=== PATIENT | female | born 1940 | race Caucasian/White ===

== ENCOUNTER → 2018-04-27 15:51 | Outpatient (CLI) | payer MEDICARE, SELFPAY ==
--- NOTE | 2018-04-27 15:53 | BI_ITS ---
MAMMOGRAPHY - BILATERAL SCREENING REASON FOR EXAM: Female, 77 years old. Routine annual screening examination. PERTINENT HISTORY: Non-contributory. Remote right excisional breast biopsy. TECHNIQUE: Digital bilateral breast matthew (3D mammographic acquisition) in the CC and MLO projections. 2-D mediolateral oblique (MLO) and craniocaudad (CC) views of both breasts were obtained. CAD: Full Field Digital Mammography with Computer Added Detection was performed. COMPARISON: Comparison is made with prior examination dated October 26, 2014. FINDINGS: Breast Composition: There are scattered areas of fibroglandular density. There are no dominant masses or suspicious calcifications. Stable bilateral vascular calcification. No other significant abnormalities are identified. There has been no significant change since the prior study. BI/SCREENING MAMM (CAD), BILAT IMPRESSION: Stable bilateral screening mammogram. Yearly follow-up mammogram recommended. (A) ASSESSMENT CATEGORY: BIRADS Category 2: Benign. A letter regarding these results will be sent to the patient by the facility within 30 days. Approximately 10% of breast cancers are not detected by mammography. A normal mammogram should not delay biopsy of a clinically suspicious abnormality. [id number] Electronically Signed: Seth Hahn MD at 8:15 EDT Tel [phone], Service support ,
== END ==
PROVIDERS: Family Provider Nurse Practitioner; PCP Nurse Practitioner; Referring Provider Nurse Practitioner; Visit Provider Nurse Practitioner
DX: Z12.31 Encounter for screening mammogram for malignant neoplasm of breast (principal)
CPT/HCPCS: 77063; 77067

== ENCOUNTER 2018-05-21 10:21 | Emergency (ER) | payer MEDICARE, SELFPAY ==
[2018-05-21 10:22] VITALS: BP 148/79; PULSE 106; RESP 20; TEMP 36.3; O2SAT 97; BMI 33.0
--- NOTE | 2018-05-21 10:38 | CT_ITS ---
STUDY: CT ABDOMEN AND PELVIS WITHOUT CONTRAST REASON FOR EXAM: Female, 77 years old. Nausea/abdominal pain/constipation RADIATION DOSAGE (If Supplied By Facility): CTDIvol = ( 14.94 ) mGy, DLP = ( 1149.17 ) mGycm TECHNIQUE: Transaxial images were obtained from the dome of the diaphragm to the symphysis pubis without oral contrast, and without intravenous contrast. Sagittal and coronal images were reconstructed. Individualized dose optimization techniques were used for this CT. 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 The visualized portions of the heart are within normal limits. Liver is unremarkable aside from a likely 2 cm hemangioma in the dome of the right lobe. There are surgical clips in the gallbladder fossa consistent with a prior cholecystectomy. Normal spleen. Normal pancreas. Normal bilateral adrenal glands. No obstructive uropathy. Stable 7 cm right renal cyst. Both kidneys show extrarenal pelves. Normal visualized stomach. Normal small intestine. Retained stool noted throughout the colon. There are a few scattered diverticula without CT evidence of acute diverticulitis. The appendix is visualized and appears normal. Appendix best seen on coronal recon image 56 Normal abdominal aorta. Normal inferior vena cava. Normal retroperitoneum. Normal urinary bladder. There is absence of the uterus consistent with a prior hysterectomy. Normal abdominal wall. There are diffuse degenerative changes of the visualized lumbar spine, and pelvis. CT/Abdomen/Pelvis W IV Cont ONLY IMPRESSION: No suspicious solid organ abnormality, stable likely hepatic hemangioma and exophytic right renal cyst. Scattered colonic diverticulosis No CT evidence of an acute inflammatory process, normal appendix visualized. Degenerative bony changes Electronically Signed: Simon Mendoza MD at 12:16 EST , Service support ,
[2018-05-21] MEDS: 0.9% Normal Saline 1,000 ML 150 ML IV (10:51)
[2018-05-21 10:57] LABS: Bacteria 0 SEEN /hpf (None Seen); Mucous, Urine 0 SEEN /hpf (<or=2+)
[2018-05-21 11:00] LABS: Absolute Lymphocyte Count 1.12 X10^3/ul (0.83-4.51); Absolute Neutrophil Count 7.4 X10^3/uL (2.0-7.7); Basophil# 0.02 X10^3/uL; Basophil% 0.2 % (0-1); Eosinophil# 0.02 X10^3/uL; Eosinophils% 0.2 % (0-5); Hematocrit 44.6 % (37-47); Lymphocyte # 1.12 X10^3/ul (4.0); Lymphocyte % 12.2 % (19-41); Mean Corp Hgb Conc 33.6 g/gl (32-36); Mean Corpuscular Hgb 27.4 pg (27.0-32.0); Mean Corpuscular Volume 81.5 fL (81-99); Mean Platelet Vol. 10.2 fl (6.2-12.0); Monocyte% 6.5 % (0-10); Neutrophil # 7.39 X10^3/uL (2.7-7.7); Neutrophil % 80.5 % (47-70); Platelet Count 390 K/mm3 (150-450); RBC Distribution Width CV 14.1 % (11.6-14.6); RBC Distribution Width SD 42.3 fl (35.1-43.9); Red Blood Count 5.47 M/mm3 (4.2-5.4); White Blood Count 9.2 K/mm3 (4.4-11.0)
[2018-05-21 11:02] LABS: POSITIVE COUNT NO; POSITIVE DIFFERENTIAL NO; POSITIVE MORPHOLOGY NO
[2018-05-21] MEDS: Ondansetron 4 MG/2 ML Vial IV (11:02)
[2018-05-21 11:08] LABS: Color, Urine Yellow (Yellow); Glucose, Dipstick Normal (Normal); Ketone-Dipstick 15 mg/dl (Negative); Leukocyte Esterase-Dipstick 25 /ul (Negative); Nitrite-Dipstick Negative (Negative); Occult Blood-Urine Negative /ul (Negative); Protein-Dipstick Negative (Negative); Specific Gravity, Urine 1.005 (1.002-1.030); Urine Bilirubin Dipstick Negative (Negative); Urine Clarity Clear (Clear); Urine Urobilinogen Normal (Normal); Urine pH 6.5 (5.0 - 8.0)
[2018-05-21 11:13] LABS: Anion Gap 11 (5-15); BUN 16 mg/dL (7-18); BUN/Creat Ratio 14.3 RATIO (10-20); Calcium,Total 8.7 mg/dL (8.5-10.1); Chloride 99 mmol/L (98-107); Creatinine, Serum 1.12 mg/dL (0.55-1.02); EST Glomerular Filtration Rate 50 mL/min (>60); Est Glom Filt Rate - Afr Amer 60 mL/min (>60); Estimated Creatinine Clearance 31.24 ml/min; Glucose 124 mg/dL (74-106); Potassium 2.9 mmol/L (3.5-5.1); Sodium Level 137 mmol/L (136-145)
[2018-05-21 11:24] LABS: Squamous Epithelial Cells - UA 0-5 SEEN /hpf (5-10); White Blood Cells 0-5 SEEN /hpf (0-5)
[2018-05-21 13:29] VITALS: BP 136/72; PULSE 70; RESP 18; O2SAT 98
--- NOTE | 2018-05-21 14:06 | ED.DCSUM_ITS ---
- ER Visit Summary Date of Service: 05/21/18 Chief Complaint: [Constipation and right-sided back pain] History of Present Illness: The patient is a 77 F [presents the emergency department stating that she has not had a bowel movement in 5 days. Patient also states that about 5 days ago she hurt the right side of her back picking something up in the garage. Patient was seen by nurse practitioner and given an shot of an anti-inflammatory. Patient denies any pain radiating down her leg. She denies any weakness in her extremities. She drove herself to the emergency department today. Patient states that she tried laxatives at home and mineral oil without any resolution of her symptoms. Patient has had nausea and she did have one episode of emesis. She denies any blood in her stool or black tarry stools. She not had any fevers. Patient denies urinary symptoms.] Physical Examination: [HEENT-PERRLA, EOMI. Cranial nerves II through XII grossly intact. TMs clear. Mucous membranes moist. No adenopathy. Cardiovascular-regular rate and rhythm without murmur or ectopy Lungs-clear to auscultation, chest wall stable without crepitus or subcu emphysema Abdomen-normoactive bowel sounds, soft. Patient has some mild tenderness over the right lower quadrant suprapubic region. There is no rebound, rigidity, or perineal signs. Back exam-patient has mild tenderness over right lumbar paraspinal musculature. Patient has no C-spine tenderness or thoracic spine tenderness on palpation. Patient has no tenderness over the lumbar spine. Patient has negative straight leg raises. Deep tendon reflexes are plus 2 out of 4 bilaterally at the patella and Achilles. Patient has normal sensation to light touch. Extremities-intact ?4, normal range of motion, normal pulses, atraumatic] Test Results: [CBC with differential obtained showed a white count of 9.2, hemoglobin 15, hematocrit 45, platelets 390. Chemistries unremarkable other than a slightly depressed potassium of 2.9 for which I did give her 40 mEq of potassium chloride p.o. Urinalysis was normal. CT scan of the abdomen pelvis showed retained stool throughout the colon otherwise nothing acute.] Emergency Department Course and Treatment: [She was given a soapsuds enema and had small results with that.] Treatment Plan: Patient will be dispensed magnesium citrate for home [] Disposition: [Discharged home in stable condition] Impression: [Constipation Lumbar strain] This note was generated with [employer] dictation software. It may contain incorrect words, spelling, and punctuation that were not noted in review of the chart prior to signing ED Disposition - Plan for ED Patient: Chief Complaint: Constipation Referrals: Ligia Irizarry, [facility] [Primary Care Provider] -
--- NOTE | 2018-05-21 14:07 | ED.DEP ---
ED Disposition - Plan for ED Patient: Chief Complaint: Constipation Instructions: ED Constipation, ED Sprain Strain Lumbar Referrals: Ligia Irizarry, JAIME-C [Primary Care Provider] - 3-5 Days
[2018-05-21 14:36] VITALS: BP 136/72; PULSE 70; RESP 18; O2SAT 99
[2018-05-21] MEDS: Magnesium Citrate 300 ML PO (14:36)
== END 2018-05-21 14:37 | disposition home or self-care (01) ==
PROVIDERS: Emergency Provider Emergency Medicine; Family Provider Nurse Practitioner; PCP Nurse Practitioner
DX: K59.00 Constipation, unspecified (principal); S39.012A Strain of muscle, fascia and tendon of lower back, initial encounter; X50.1XXA Overexertion from prolonged static or awkward postures, initial encounter; Y93.9 Activity, unspecified; Y92.015 Private garage of single-family (private) house as the place of occurrence of the external cause; Y99.9 Unspecified external cause status; I10 Essential (primary) hypertension; E03.9 Hypothyroidism, unspecified; K21.9 Gastro-esophageal reflux disease without esophagitis
CPT/HCPCS: 74177; 80048; 81001; 85025; 96361; 96374; 99285; J7030; Q9967; J2405

== ENCOUNTER → 2018-05-25 12:58 | Outpatient (CLI) | payer MEDICARE, SELFPAY ==
[2018-05-21 10:22] VITALS: BMI 33.0
--- NOTE | 2018-05-25 13:03 | RAD_ITS ---
STUDY: X-RAY - LUMBAR SPINE REASON FOR EXAM: Female, 77 years old. Extreme low back pain following lifting injury. TECHNIQUE: 5 view(s) of the lumbar spine were obtained including oblique views. COMPARISON: None FINDINGS: There is an exaggerated lumbar lordosis. There is a mild levoscoliosis of the lumbar spine. There is a normal alignment of the vertebrae. There is multilevel endplate spondylosis of the lumbar vertebrae. There is multi-level degenerative disc disease with multi-level disc space narrowing. Facet joint osteoarthritis. There is atherosclerotic calcification of the abdominal aorta without a demonstrated aneurysm. RAD/L/S Spine Min 4 Views IMPRESSION: Degenerative changes of the spine, as detailed above. Exaggerated lumbar lordosis. Electronically Signed: Seth Hahn MD at 13:38 EST Tel [phone], Service support ,
== END ==
PROVIDERS: Family Provider Nurse Practitioner; PCP Nurse Practitioner; Referring Provider Nurse Practitioner; Visit Provider Nurse Practitioner
DX: S39.012A Strain of muscle, fascia and tendon of lower back, initial encounter (principal)
CPT/HCPCS: 72110

== ENCOUNTER → 2018-06-22 11:17 | Outpatient (CLI) | payer MEDICARE, SELFPAY ==
--- NOTE | 2018-06-22 11:24 | RAD_ITS ---
STUDY: X-RAY - RIGHT HIP REASON FOR EXAM: Female, 78 years old. Pain. TECHNIQUE: 2 views of the hip. COMPARISON: CT abdomen and pelvis 05/21/2018. FINDINGS: Mild DJD of the SI joints. Mild low lumbar spondylosis. Osteopenia. There is no evidence of acute right hip fracture. There are no significant degenerative features of the right hip joint or left hip joint. The pubic rami appear intact. Iliac crests intact. Sacral alar appear symmetric and intact. No acute intrapelvic process is evident. RAD/HIP, UNI W/ Pelvis 2-3 Views IMPRESSION: There are no significant degenerative features of the hip joints and there is no evidence of acute right hip fracture. Electronically Signed: Inocente Stevens MD at 13:57 EST Tel , Service support ,
--- OUTSIDE RECORDS SUMMARY | 2018-09-23 20:11 | XMS RPT_ITS | Continuity of Care Document ---
:1940 Author Organization [facility] Address [address] [facility] [address] [place] [address] Phone Care Team Providers Name Role Phone Juan C AMBRIZLigia E Unavailable Dr. Brennon Das Unavailable Vanessa Gomez Unavailable Unavailable Slacecilio BIOINFORMATICS ENGINEER, Tonia Unavailable Unavailable Unavailable Unavailable Problems Name Dates Details Abnormal blood chemistry (R79.9, 790.6) Status: Active Abortions/Miscarriages Comments: 2. 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) Comments: not sure this really was amnestic or she just didnt see lights- highly doubt was a spell more likely lack of attention- she getting blood flow screening Status: Active Annual Medicare Phyiscal WITHOUT abnormal findings (Renamed from Encounter for general adult medical examination without abnormal findings) (Z00.00, V70.9) Status: Active BMI 32.0-32.9,adult (Z68.32, V85.32) Status: Active BMI 32.0-32.9,adult (Z68.32, V85.32) Status: Active BMI 33.0-33.9,adult (Z68.33, V85.33) Status: Active Bradycardia (R00.1, 427.89) Status: Active CKD (chronic kidney disease), stage III (N18.3, 585.3) Comments: imvproving Status: Active Colon Polyp (K63.5, 211.3) Comments: recheck 4 years Status: Active Current nonsmoker (Z78.9, V49.89) Status: Active Deliveries (Parity) Comments: 8. Status: Active Dysuria (R30.0, 788.1) Status: Active Elevated liver enzymes (R74.8, 790.5) Comments: recheck next wek Status: Active Elevated serum creatinine (R79.89, 790.99) Comments: better if she drinks fluids/ d/.c spironolactone Status: Active Encounter for screening for lipid disorder (Z13.220, V77.91) Status: Active Encounter for screening mammogram for breast cancer (Renamed from Encounter for screening mammogram for malignant neoplasm of breast) (Z12.31, V76.12) Status: Active Excess or deficiency of vitamin D (268.9) Status: Active Gastritis, acute (K29.00, 535.00) Comments: she has seen Marcos and he apparently put her on something that helped so encourage her to followup with him Status: Active Gastroesophageal reflux disease with esophagitis (K21.0, 530.11) Comments: has bee on rebeprazole(aciphex) 20mg this may change per [employer] Status: Active Hypercholesteremia (E78.00, 272.0) Status: Active Hyperkalemia (Renamed from High potassium) (E87.5, 276.7) Status: Active Hypertension (I10, 401.9) Status: Active Hypertension, benign (I10, 401.1) Status: Active Hypocalcemia (E83.51, 275.41) Status: Active Hypokalemia (E87.6, 276.8) Comments: was on potassium in past, will recheck add potassium choloride not citrate, was not taking when labs drawn, will repeat in [place] Status: Active Impaired Fasting Glucose (Renamed from Elevated fasting blood sugar) (R73.01, 790.21) Status: Active Influenza vaccination declined (Renamed from Refused influenza vaccine) (Z28.21, V64.06) Status: Active Influenza vaccination declined (Renamed from Refused influenza vaccine) (Z28.21, V64.06) Status: Active Left flank pain (R10.9, 789.09) Status: Active Leg cramps (R25.2, 729.82) Comments: and hands using selenium 200mcg Status: Active Low back strain (S39.012A, 847.2) Comments: from lifting bucket, use ice rest, and muscle relaxant Status: Active Osteoporosis (Renamed from OP (osteoporosis)) (M81.0, 733.00) Comments: on prolia q 6 months Status: Active Pneumococcal vaccination given (Z23, V06.6) Status: Active Post-menopausal (Z78.0, V49.81) Status: Active Postmenopausal (Renamed from Postmenopausal status) (Z78.0, V49.81) Status: Active Pregnancies () Comments: 7. Status: Active Screening mammogram, encounter for (Z12.31, V76.12) Status: Active Shoulder pain, bilateral (M25.511, 719.41) Status: Active Sore throat (J02.9, 462) Comments: ? reflux will change to omeprazole and add a probiotic called gastrus Status: Active Thoracic back pain (M54.6, 724.1) Status: Active Thoracic compression fracture (S22.000A, 805.2) Comments: she wants to hold on seeing ortho for possible vertebroplasty until gets gi checked Status: Active Unspecified Diagnosis Status: Active Unspecified Diagnosis Status: Active Urinary tract infection, site not specified (Renamed from UTI (urinary tract infection)) (N39.0, 599.0) Status: Active Vitamin B 12 deficiency (E53.8, 266.2) Comments: on 2-SL a week Status: Active Vitamin D deficiency (E55.9, 268.9) Comments: cont 2K dailyi Status: Active Wheeze (R06.2, 786.07) Status: Active Medications Name Dates Details AmLODIPine Besylate 5 MG Oral Tablet 1/2 Tablet daily for 0 days Quantity: 90 {Tablet} Refills: 3 Ordered:22-Mar-2018 Ligia Irizarry CNP, CNP, Mary E Start : 22-Mar-2018 Active AmLODIPine Besylate 5 MG Oral Tablet 1/2 Tablet daily for 30 days Quantity: 45 {Tablet} Refills: 3 Ordered:22-Mar-2018 Ligia Irizarry CNP, CNP, Mary E Start : 22-Mar-2018 Active Calcium 200 MG Oral Tablet 1 (one) daily for 0 days Refills: 0 Ordered:07-Apr-2016 Ciesa LINING MACHINE TENDER, Ligia Yo CNP Start : 07-Apr-2016 Active Cyanocobalamin 2500 MCG Sublingual Tablet Sublingual 1 (one) Microgram 3 times weekly for 0 days Quantity: 30 {Milligram} Refills: 0 Ordered:07-Aug-2017 Juan C AMBRIZ, Ligia Yo CNP Start : 07-Aug-2017 Active Cyclobenzaprine HCl 10 MG Oral Tablet 1 (one) Tablet q 8hrs prn for 0 days Quantity: 30 {Tablet} Refills: 0 Ordered:19-May-2018 Juan C AMBRIZ, Ligia Yo CNP Start : 19-May-2018 Active HYDROCODONE-ACETAMINOPHEN, 5-325MG (Oral Tablet) 1-2 tabs daily, prn (5-325 MG) Active Levothyroxine Sodium 100 MCG Oral Tablet 1 (one) Tablet 1 daily excet and Thursday take 1/2 or 50mc for 0 days Quantity: 80 {Tablet} Refills: 3 Ordered:16-Apr-2018 Juan C AMBRIZ, Ligia Yo CNP Start : 16-Apr-2018 Active Losartan Potassium-HCTZ 100-25 MG Oral Tablet 1 (one) Tablet qd for 90 days Quantity: 90 {Tablet} Refills: 3 Ordered:16-Apr-2018 Juan C AMBRIZ, Ligia Yo CNP Start : 16-Apr-2018 Active MAGNESIUM, 200MG (Oral Tablet) 1 (one) Tablet Tablet bid for 30 days Quantity: 60 {Tablet} Refills: 0 Ordered:08-Nov-2014 Saige López DO Start : 25-Oct-2014 Active Omeprazole 20 MG Oral Capsule Delayed Release 1 (one) Capsule bid for 90 days Quantity: 90 {Capsule} Refills: 3 Ordered:20-Apr-2018 Juan C AMBRIZ, Ligia Yo CNP Start : 20-Apr-2018 Active Comments:per Marcos to take 1/2 before breakfast and dinner Potassium Chloride ER 10 MEQ Oral Tablet Extended Release 1 (one) Tablet daily for 90 days Quantity: 90 {Tablet} Refills: 3 Ordered:29-Oct-2017 Winnie Castro DO Start : 29-Oct-2017 Active RABEprazole Sodium 20 MG Oral Tablet Delayed Release 1 (one) Tablet bid x 4 weeks then daily for 0 days Quantity: 60 {Tablet} Refills: 1 Ordered:10-Jul-2017 Juan C AMBRIZ, Ligia Franklin CNP, Ligia Coates Start : 10-Jul-2017 Active RaNITidine HCl 150 MG Oral Tablet 1 (one) Tablet Tablet qhs prn for worsening reflux for 0 days Quantity: 30 {Tablet} Refills: 1 Ordered:10-Jul-2017 Tonia Shaikh LPN Start : 10-Jul-2017 Active Vitamin D3 1000 UNIT Oral Tablet 1 (one) Capsule Tablet daily for 30 days Quantity: 30 {Tablet} Refills: 0 Ordered:07-Apr-2016 Juan C AMBRIZ, Ligia Franklin CNP, Ligia Coates Start : 07-Apr-2016 Active AUGMENTIN, 875-125MG (Oral Tablet) 1 (one) Tablet bid for 14 days Quantity: 28 {Tablet} Refills: 0 Ordered:20-Nov-2015 Juan C AMBRIZ, Ligia Franklin CNP, Ligia Coates Start : 20-Nov-2015 End : 04-Dec-2015 Inactive Cipro 500 MG Oral Tablet 1 (one) Tablet bid for 7 days Quantity: 14 {Tablet} Refills: 0 Ordered:08-Aug-2016 Juan C AMBRIZ, Ligia Franklin CNP, Ligia Coates Start : 08-Aug-2016 End : 15-Aug-2016 Inactive Mucinex 600 MG Oral Tablet Extended Release 12 Hour 1 (one) Tablet bid for 0 days Quantity: 30 {Tablet} Refills: 0 Ordered:07-Aug-2017 Tonia Shaikh LPN Start : 10-Jul-2017 End : 07-Aug-2017 Inactive Potassium Citrate ER 10 MEQ (1080 MG) Oral Tablet Extended Release 1 (one) Tablet ER Tablet ER daily for 0 days Quantity: 30 {Tablet} Refills: 3 Ordered:27-May-2017 Juan C AMBRIZ Ligia Franklin CNP, Ligia Coates Start : 17-Nov-2016 End : 27-May-2017 Inactive Prolia 60 MG/ML Subcutaneous Solution 1 injection Solution q 6 months for 0 days Quantity: 1 {Pre-filled_Pen_Syringe} Refills: 1 Ordered:23-Feb-2017 Tonia Shaikh LPN Start : 25-Dec-2015 End : 23-Feb-2017 Inactive RABEprazole Sodium 20 MG Oral Tablet Delayed Release 1 (one) Tablet DR daily for 30 days Quantity: 30 {Tablet} Refills: 0 Ordered:27-May-2017 Juan C AMBRIZ, Ligia Franklin CNP, Ligia Coates Start : 27-May-2017 End : 26-Jun-2017 Inactive RABEprazole Sodium 20 MG Oral Tablet Delayed Release 1 (one) Tablet DR daily for 0 days Quantity: 90 {Tablet} Refills: 3 Ordered:27-May-2017 Juan C AMBRIZ, Ligia Franklin CNP, Ligia Coates Start : 27-May-2017 End : 26-Jun-2017 Inactive Selenium 100 MCG Oral Tablet 1 (one) Tablet daily for 30 days Quantity: 30 {Tablet} Refills: 0 Ordered:27-May-2016 Juan C AMBRIZ, Ligia Franklin CNP, Ligia Coates Start : 27-May-2016 End : 26-Jun-2016 Inactive Aciphex 20 MG Oral Tablet Delayed Release 1 (one) Tablet DR Tablet DR qd for 0 days Quantity: 30 {Tablet} Refills: 3 Ordered:27-May-2016 Tonia Shaikh LPN Start : 06-Feb-2016 End : 27-May-2016 Discontinued AMLODIPINE BESYLATE, 5MG (Oral Tablet) 1 (one) Tablet qd for 0 days Quantity: 30 {Tablet} Refills: 2 Ordered:20-Oct-2014 Rene DOSaige Start : 20-Oct-2014 End : 20-Oct-2014 Discontinued Atenolol 25 MG Oral Tablet 1/2 (one half) Tablet daily for 0 days Quantity: 30 {QS} Refills: 3 Ordered:26-Aug-2016 Ligia Irizarry CNP, CNP, Ligia Coates Start : 18-Aug-2016 End : 26-Aug-2016 Discontinued FLUCONAZOLE, 150MG (Oral Tablet) 1 (one) Tablet Tablet qd for 0 days Quantity: 14 {Tablet} Refills: 1 Ordered:20-Nov-2015 Tonia Shaikh LPN Start : 17-Aug-2015 End : 20-Nov-2015 Discontinued GABAPENTIN, 300MG (Oral Capsule) 1 (one) Capsule tid for 90 days Quantity: 270 {Capsule} Refills: 3 Ordered:20-Nov-2015 Neil Shaikh LPNa Start : 08-Nov-2014 End : 20-Nov-2015 Discontinued Lasix 20 MG Oral Tablet 1 (one) Tablet daily x 3 days for 0 days Quantity: 3 {QS} Refills: 0 Ordered:18-Aug-2016 Tonia Shaikh LPN Start : 08-Aug-2016 End : 18-Aug-2016 Discontinued MACROBID, 100MG (Oral Capsule) 1 (one) Capsule Capsule bid for 0 days Quantity: 20 {Capsule} Refills: 0 Ordered:20-Nov-2015 Tonia Shaikh LPN Start : 08-Nov-2015 End : 20-Nov-2015 Discontinued Nystatin 349786 UNIT/GM External Powder 1 (one) Powder Powder apply bid for 0 days Quantity: 1 {Bottle} Refills: 3 Ordered:27-May-2016 Tonia Shaikh LPN Start : 17-Aug-2015 End : 27-May-2016 Discontinued Comments:large Pantoprazole Sodium 40 MG Oral Tablet Delayed Release 1 (one) Tablet DR q am for 90 days Quantity: 90 {Tablet} Refills: 3 Ordered:27-May-2016 Tonia Shaikh LPN Start : 16-May-2015 End : 27-May-2016 Discontinued SPIRONOLACTONE, 25MG (Oral Tablet) 1 (one) Tablet daily for 90 days Quantity: 90 {Tablet} Refills: 3 Ordered:16-Nov-2015 Saige López DO Start : 16-Nov-2015 End : 16-Nov-2015 Discontinued Vitamin D3 72262 UNIT Oral Capsule 1 (one) Capsule Capsule daily for 0 days Quantity: 30 {Capsule} Refills: 0 Ordered:27-May-2016 Tonia Shaikh LPN Start : 06-Feb-2016 End : 27-May-2016 Discontinued Allergies and Adverse Reactions Name Dates Details No Known Allergies (Allergy) Onset: 16-May-2015 Status: Active No Known Drug Allergies (Allergy) Onset: 20-Oct-2014 Status: Active Past Medical History Name Dates Details Acute pain of right knee (M25.561, 719.46) Status: Inactive as of 22-Mar-2018 Back pain (M54.9, 724.5) Comments: seeing Basali recieved 8 sets of shots without relief, has compression fractures. Status: Inactive as of 23-Feb-2017 BMI 32.0-32.9,adult (Z68.32, V85.32) Status: Inactive as of 23-Feb-2017 BMI 33.0-33.9,adult (Z68.33, V85.33) Comments: 33.46 Status: Inactive as of 23-Feb-2017 Candidiasis (B37.9, 112.9) Comments: keep clean and dry Status: Inactive as of 23-Feb-2017 Left leg swelling (M79.89, 729.81) Status: Inactive as of 23-Feb-2017 Lower leg edema (R60.0, 782.3) Comments: ? from amlodipine vs other Status: Inactive as of 23-Feb-2017 screening Status: Inactive as of 10-Jan-2015 Seborrheic keratoses (L82.1, 702.19) Comments: reassurance Status: Inactive as of 23-Feb-2017 Sinus congestion (R09.81, 478.19) Status: Inactive as of 07-Aug-2017 Sinus headache (R51, 784.0) Status: Inactive as of 23-Feb-2017 Sinusitis (J32.9, 473.9) Status: Inactive as of 23-Feb-2017 Unspecified Diagnosis Status: Inactive as of 10-Jan-2015 UTI symptoms (R39.9, 788.99) Status: Inactive as of 23-Feb-2017 Vertebral fracture (805.8) Status: Inactive as of 23-Feb-2017 Procedures Procedure Dates Details Breast Biopsy - Right Completed Comments: - 2005- Dr Lee Cataract Extraction-Bilateral Completed Comments: 2012 Gallbladder Surgery - Open Completed Hysterectomy; Total Completed Comments: 1992- fibroid tumors Thyroidectomy; Subtotal Completed Comments: cold nodule- bx - cancer- radioactive iodine- 1991- complete thyroidectomy- Tubal Ligation Completed Date Value Details 27-Apr-2018 SCREENING MAMM (CAD), BILAT Result: Comments: See Note; NOTES: [facility] Imaging Services [address] [place] [id number] SCREENING MAMM (CAD), BILAT MR#: [id number] Acct: [id number] Name: BARBIE PURVIS Rep #: [id number] : 1940 F 77 From: Seth Hahn MD PCP: Ligia Irizarry NP Status: REG CLI Study: SCREENING MAMM (CAD), BILAT Date of Exam: 04/27/18 Exam# [id number] Ordering Dr: Ligia Irizarry NP-Josh MA MMOGRAPHY - BILATERAL SCREENING REASON FOR EXAM: Female, 77 years old. Routine annual screening examination. PERTINENT HISTORY: Non-contributory. Remote right excisional breast biopsy. TECHNIQUE: Dig ital bilateral breast matthew (3D mammographic acquisition) in the CC and MLO projections. 2-D mediolateral oblique (MLO) and craniocaudad (CC) views of both breasts were obtained. CAD: Full Field Digital Mammography with Computer Added Detection was performed. COMPARISON: Comparison is made with prior examination dated October 26, 2014. FINDINGS: Breast Composition: T here are scattered areas of fibroglandular density. There are no dominant masses or suspicious calcifications. Stable bilateral vascular calcification. No other significant abnormalities are identifie d. There has been no significant change since the prior study. BI/SCREENING MAMM (CAD), BILAT IMPRESSION: Stable bilateral screening mammogram. Y early follow-up mammogram recommended. (A) ASSESSMENT CATEGORY: BIRADS Category 2: Benign. A letter regarding these results will be sent to the patient by the [facility] it[facility] within 30 days. Approximately 10% of breast cancers are not detected by mammography. A normal mammogram should not delay biopsy of a clinically suspicious abnormality. [id number] Electronically Adriana d: Seth Hahn MD at 8:15 EDT Tel [phone], Service support , CC: Ligia Irizarry NP Children'S Attendant: Signed 05-Mar-2017 DXA BONE DENS W/VERT FX ASMT Result: Comments: See Note; NOTES: [facility] Services [address] [place] [address] DXA BONE DENS W/VERT FX ASMT MR#: [id number] Acct: [id number] Name: BARBIE PURVIS Rep #: [id number] : 1940 F 76 From: Seth Hahn MD PCP: Ligia Irizarry Status: REG CLI Study: DXA BONE DENS W/VERT FX ASMT Date of Exam: 03/05/17 Exam# [id number] Ordering Dr: Ligia Irizarry STUDY: DUAL ENERGY X-RAY ABSORPTIOMETRY / DXA REASON FOR EXAM: Female, 76 years old. The patient is postmenopausal. Loss of height. TECHNIQUE: Bone Mineral Density (BMD) measurements of lumbar spine and bila teral hips were obtained. COMPARISON: Comparison is made with prior study dated January 21, 2011. FINDINGS: Lumbar Spine (L1-L4): g/cm2 (0.904) / T-score (-2.3) / Z-s core (-0.5) Findings are suggestive of osteopenia with a moderate fracture risk. Left Femur Total: g/cm2 (0.687) / T-score (-2.5) / Z-score (-0.7) Left Femoral Neck: g/cm2 (0.665) / T-score (-2.7) / Z- score (-0.6) Right Femur Total: g/cm2 (0.664) / T-score (-2.7) / Z-score (-0.9) Right Femoral Neck: g/cm2 (0.725) / T-score (-2.3) / Z-score (-0.2) The T- Scores on the most recent prior examination wer e: Lumbar Spine (L1-L4): There has been worsening of bone density since the previous examination. Left Femur Total: which represents an improvement of 1.2%. Right Femur Total: which represents a worse aroldo of 0.3%. HPBD/DXA BONE DENS W/VERT FX ASMT IMPRESSION: The patient is considered osteoporotic as outlined below according to World Gibson Org anization (WHO) criteria with a high fracture risk. There has been worsening of bone density since the previous examination. Reference Information: The T-score is t he number of standard deviations above or below the standard which is normal for young adults at their peak bone mineral density. The World Health Organization (WHO) interprets the T-scores as follows: Above -1 Normal bone density Between -1 and -2.5 Osteopenia Equal to / or below -2.5 Osteoporosis As a practical clinical guideline, osteopenia may be graded as follows: Mild -1 through -1.5 Moderate -1.6 through -2.0 Severe -2.1 through -2.4 The Z-score is the number of standard deviations above or below age-matched controls. A Z-score of less than -1.5 would be considered abnormal. References: 1 . NIH Osteoporosis and Related Bone Diseases http://www.osteo.org 2. International Society for Clinical Densitometry http://www.iscd.org 3. National Osteoporosis Foundation http://www.nof.org Ana damon Signed: Seth Hahn MD at 13:14 EDT Tel [phone], Service support , CC: Ligia Irizarry Children'S Attendant: Signed 05-Mar-2017 DXA BONE DENS W/VERT FX ASMT Result: Comments: See Note; NOTES: [facility] Imaging Services [address] [place] [address] DXA BONE DENS W/VERT FX ASMT MR#: [id number] Acct: [id number] Name: BARBIE PURVIS Rep #: [id number] : 1940 F 76 From: Seth Hahn MD PCP: Ligia Irizarry Status: REG CLI Study: DXA BONE DENS W/VERT FX ASMT Date of Exam: 03/05/17 Exam# [id number] Ordering Dr: Ligia Irizarry by Seth Hahn MD on 03/10/17 at 1321 HPBD/DXA BONE DENS W/VERT FX ASMT 03/10/17 1328 Date cc: Ligia Irizarry * Signed ADDENDUM by Seth Hahn MD on 11/19 at 1321 ADDENDUM Vertebral fracture assessment. There is almost complete collapse of the T7 v ertebrae. Moderate loss of height of the T6 vertebrae. Electronically Signed: Seth Hahn MD at 13:21 EDT Tel [phone], Service support , 03/10/17 1321 Date cc: Ligia Irizarry * Signed STUDY: DUAL ENERGY X-RAY ABSORPTIOMETRY / DXA REASON FOR EXAM: Female, 76 years old. The patient is postmenopausal. Loss of height. TECHNIQUE: Bone M ineral Density (BMD) measurements of lumbar spine and bilateral hips were obtained. COMPARISON: Comparison is made with prior study dated January 21, 2011. FINDINGS: Lumbar Spine (L1-L4): g/cm2 (0.904) / T-score (-2.3) / Z-score (-0.5) Findings are suggestive of osteopenia with a moderate fracture risk. Left Femur Total: g/cm2 (0.687) / T-score (-2.5) / Z-score (-0 .7) Left Femoral Neck: g/cm2 (0.665) / T-score (-2.7) / Z-score (-0.6) Right Femur Total: g/cm2 (0.664) / T-score (-2.7) / Z-score (-0.9) Right Femoral Neck: g/cm2 (0.725) / T-score (-2.3) / Z-score (-0 .2) The T-Scores on the most recent prior examination were: Lumbar Spine (L1- L4): There has been worsening of bone density since the previous examination. Left Femur Total: which represents an improv ement of 1.2%. Right Femur Total: which represents a worsening of 0.3%. HPBD/DXA BONE DENS W/VERT FX ASMT IMPRESSION: The patient is considered o steoporotic as outlined below according to World Gibson Organization (WHO) criteria with a high fracture risk. There has been worsening of bone density since the previous examination. Reference Information: The T-score is the number of standard deviations above or below the standard which is normal for young adults at their peak bone mineral density. The World Heal th Organization (WHO) interprets the T-scores as follows: Above -1 Normal bone density Between -1 and -2.5 Osteopenia Equal to / or below -2.5 Osteoporosis As a practical clinical guideline, osteopeni a may be graded as follows: Mild -1 through -1.5 Moderate -1.6 through -2.0 Severe -2.1 through -2.4 The Z-score is the number of standard deviations above or below age-matched controls. A Z-score of l ess than -1.5 would be considered abnormal. References: 1. NIH Osteoporosis and Related Bone Diseases http://www.osteo.org 2. International Society for Clinical Densitometry http://www.iscd.org 3. Zaida onal Osteoporosis Foundation http://www.nof.org Electronically Signed: Seth Hahn MD at 13:14 EDT Tel [phone], Service support , CC: Ligia Irizarry Children'S Attendant: Signed 27-Aug-2016 Venous Duplex Lower Extremity Result: Comments: See Note; NOTES: [facility] Cardiovascular Services [address] [place] [address] Venous Duplex US, Unilateral 08/26/16 1106 MR#: [id number] Acct: [id number] Name: BARBIE RUSSELL Rep #: [id number] : 1940 76 From: Carlos Abebe MD Attending Dr: Ligia Irizarry Status: REG CLI Ordering Dr: Ligia Irizarry Date: 08/26/16 Location: [facility] Sex: F C Admitted: Reason Fo r Study: LEG SWELLING RIGHT LEFT CFV is compressible, spontaneous, phasic, GSV is normal. competent and demonstrates normal CFV is compressible, spontaneous, phasic , augmentation. competent, and demon strates normal Procedure augmentation. Exam performed in department. FV is compressible, spontaneous, phasic, A preliminary report was called and/or faxed competent and demonstrates normal to Darling Irizarry. augmentation. POP V is compressible, spontaneous, phasic, competent and demonstrates normal augmentation. T/P Trunk is compressible. PTV is compressible. LT PerV is compressible. Interpretation Summary Deep veins of the left lower extremity are patent and compressible segmentally. There is no evidence of left lower extremity deep vein thrombosis. Valvular competence appears intact within the proximal deep venous system on the left . The left greater saphenous vein appears patent and compressible segmentally. __ Ordering Physician: Ligia Irizarry Performed By: Sammie Posey RVT 08/27/16 0659 Date Carlos Abebe MD CC: Ligia Irizarry Date Dictated: 08/26/16 1106 Date Transcribed: 08/27/16 0659 Children'S Attendant: Signed 08-Aug-2016 Shoulder min 2 Views Result: Comments: See Note; NOTES: [facility] Imaging Services [address] [place] [address] Verdana 4d Shoulder min 2 Views MR#: [id number] Acct: [id number] Name: BARBIE PURVIS Rep #: [id number] : 1940 F 76 From: Seth Hahn MD PCP: Ligia Irizarry Status: REG CLI Study: Shoulder min 2 Views Date of Exam: 08/08/16 Exam# [id number] Ordering Dr: Ligia Irizarry STUDY: X-RAY - RIGHT SHOULDER REASON FOR EXAM: Female, 76 years old. Chronic pain. TECHNIQUE: 4 view(s) of the shoulder. COMPARISON: None. FINDINGS: Normal glenohumeral artic ulation. There is degenerative arthrosis of the acromioclavicular joint without inferior osseous spur formation. Normal acromion. Normal humeral head and visualized proximal humerus. The soft tissue s tructures are unremarkable. Normal visualized pulmonary apex. RAD/Shoulder min 2 Views IMPRESSION: Degenerative changes of the acromioclavicular joint. Electronically Signed: Seth Hahn MD at 15:02 EST Tel [phone], Service support [phone], CC: Ligia Irizarry Children'S Attendant: Signed 08-Aug-2016 Shoulder min 2 Views Result: Comments: See Note; NOTES: [facility] Imaging Services [address] [place] [address] Verdana 4d Shoulder min 2 Views MR#: [id number] Acct: [id number] Name: BARBIE PURVIS Rep #: [id number] : 1940 F 76 From: Seth Hahn MD PCP: Ligia Irizarry Status: REG CLI Study: Shoulder min 2 Views Date of Exam: 08/08/16 Exam# [id number] Ordering Dr: Ligia Irizarry STUDY: X-RAY - LEFT SHOULDER REASON FOR EXAM: Female, 76 years old. Chronic shoulder pain. TECHNIQUE: 4 view(s) of the shoulder. COMPARISON: None. FINDINGS: Normal glenohumer al articulation. There is degenerative arthrosis of the acromioclavicular joint without inferior osseous spur formation. Normal acromion. Normal humeral head and visualized proximal humerus. The soft tissue structures are unremarkable. Normal visualized pulmonary apex. RAD/Shoulder min 2 Views IMPRESSION: Degenerative changes of the acromiocl avicular joint. Electronically Signed: Seth Hahn MD at 15:03 EST Tel [phone], Service support [phone], CC: Ligia Irizarry Children'S Attendant: Signed 11-Feb-2016 Thoracic Spine 3 Views Result: Comments: See Note; NOTES: [facility] [address] [place] [address] Verda 4d Thoracic Spine 3 Views MR#: [id number] Acct: [id number] Name: BARBIE PURVIS ep #: [id number] : 1940 F 75 From: Junior King MD PCP: Ligia Irizarry Status: REG CLI Study: Thoracic Spine 3 Views Date of Exam: 02/11/16 Exam# [id number] Ordering Dr: Aileen Plata MD STUDY : X-RAY - THORACIC SPINE REASON FOR EXAM: Female, 75 years old. Multiple compression fractures TECHNIQUE: 3 view(s) of the thoracic spine were obtained. COMPARISON: Prior x-rays of the thoracic spine on 03-31-14. FINDINGS: There is an increase in the normal thoracic kyphosis. There is no substantial scoliosis. There are multiple compression fractures at T3, T4, T6 and T7, more prominent at T7. There is diffuse osteopenia. Normal disc space heights. The soft tissue structures are unremarkable. RAD/Thora cic Spine 3 Views IMPRESSION: Compression fracture deformities at T3, T4, T6 and T7, stable since last examination. Osteopenia. Increased thoracic kyphosis Electronically Signed: Junior King MD , FACR at 16:57 EDT , Service support [phone], CC: Ligia Irizarry; Aileen Plata MD Children'S Attendant: Signed 19-Sep-2015 Abdomen/Pelvis without Cont Result: Comments: See Note; NOTES: [facility] [address] [place] [address] Verdana 4d Abdomen/Pelvis without Cont MR#: [id number] Acct: [id number] Name: BARBIE PURVIS Rep #: [id number] : 1940 F 75 From: Kenney Lima MD PCP: Saige López DO Status: REG CLI Study: Abdomen/Pelvis without Cont Date of Exam: 09/19/15 Exam# [id number] Ordering Dr : Saige López DO STUDY: CT ABDOMEN AND PELVIS WITHOUT CONTRAST REASON FOR EXAM: Female, 75 years old. Abdominal pain left-sided RADIATION DOSAGE (If Supplied By Facility): CTDIvol = ( 16.36 ) mGy , DLP = ( 808.85 ) mGycm TECHNIQUE: Transaxial images were obtained from the dome of the diaphragm to the symphysis pubis without oral contrast, and without intravenous contrast. Sagittal and coron al images were reconstructed. COMPARISON: CT - Abdomen/Pelvis - 12:48 FINDINGS: There is diffuse parenchymal thinning of both lungs. This finding is consistent for emphysema. The visualized portions of the heart are within normal limits. Stable hypodensity in the liver. There are surgical clips in the gallbladder fossa consistent with a prior c holecystectomy. Normal spleen. Normal pancreas. Normal bilateral adrenal glands. Stable exophytic hypodensity in the mid right kidney. Normal left kidney. Normal visualized stomach. Normal small intestine. There are multiple colonic diverticula consistent with diverticulosis. The appendix is visualized and appears normal. There are calcifications of the abdominal aorta and vascular structur es. This is consistent for atherosclerotic disease. There is no abdominal aortic aneurysm. Normal inferior vena cava. Subcentimeter mesenteric lymph nodes. Normal urinary bladder. There is absence of the uterus consistent with a prior hysterectomy. Normal abdominal wall. There are degenerative changes of the osseous structures. IMPRESSION: Stable hypode nsity in the liver. There are multiple diverticuli of the colon. There is diverticulosis but no radiographic signs for diverticulitis. Other findings as above. Electronically Signed: Kenney guajardo MD at 17:54 EDT , Service support [phone], CC: Saige López DO Children'S Attendant: Signed 17-Aug-2015 Knee 4 or More Views Result: Comments: See Note; NOTES: [facility] [address] [place] [address] Verdana 4d Knee 4 or More Views MR#: [id number] Acct: [id number] Name: Ema PURVISMASOUD Geronimo Rep #: [id number] : 1940 F 75 From: Junior King MD PCP: Saige López DO Status: REG CLI Study: Knee 4 or More Views Date of Exam: 08/17/15 Exam# [id number] Ordering Dr: Saige López DO STUDY: X-RAY - RIGHT KNEE REASON FOR EXAM: Female, 75 years old. Acute knee pain. No trauma TECHNIQUE: 4 view(s) of the knee. COMPARISON: None. FINDI NGS: Normal visualized distal femur. Normal visualized proximal tibia and fibula. Normal proximal tibiofibular articulation. There is moderate degenerative arthrosis of the medial femorotibial comp artment with moderate joint space narrowing. Normal lateral femorotibial compartment. Normal patellofemoral articulation. The soft tissue structures are unremarkable. ____ IMPRESSION: Moderate arthrosis of the medial compartment Electronically Signed: Junior King MD, FACR at 10:52 EST , Service support [phone], Fax RAD/Knee 4 or More Views IMPRESSION: Moderate arthrosis of the medial compartment Electronically Signed: Junior King MD, FACR at 10:52 EST Tel , Service support [phone], CC: Saige López DO Children'S Attendant: Signed 02-Apr-2015 Cerv Spine 2 or 3 Views Result: Comments: See Note; NOTES: [facility] [address] [place] [address] Radiology Report MR#: [id number] Acct: [id number] Name: BARBIE PURVIS Rep #: [id number] : 1940 F 74 From: Galo Smart MD PCP: Saige López DO Status: REG CLI Study: Cerv Spine 2 or 3 Views Date of Exam: 04/02/15 Exam# [id number] Ordering Dr: Aileen Plata MD STUDY: X-RAY - CERVICAL SPINE REASON FOR EXAM: Female, 74 years old. Pain and arthritis. TECHNIQUE: 3 view(s) of the cervical spine were obtained. COMPARISON: None FINDINGS: Normal anterior atlantoaxial articulation. Normal odontoid process. Normal cervical lordosis. There is diffuse demineralization of the cervical spine. Mild loss of disc height seen at C4- C5 and C5-C6. Moderate loss of disc height at C6-C7. The soft tissue structures are unremarkable. IMPRESSION: No acute abnormality. Degenerative disc changes m ost pronounced at C6-C7. Electronically Signed: Galo Smart MD at 16:56 EDT , Service support [phone], RAD/Cerv Spine 2 or 3 Views IMPRESSION: No acute abnormality. Degenerative disc changes most pronounced at C6-C7. Electronically Signed: Galo Smart MD at 16:56 EDT , Service sup port [phone], CC: Aileen Plata MD; Saige López DO Children'S Attendant: Signed 27-Oct-2014 Orbits for Foreign Body Result: Comments: See Note; NOTES: [facility] [address] [place] [address] Radiology Report MR#: [id number] Acct: [id number] Name: BARBIE PURVIS Rep #: [id number] : 1940 F 74 From: Seth Hahn MD PCP: Saige López DO Status: REG CLI Study: Orbits for Foreign Body Date of Exam: 10/27/14 Exam# [id number] Ordering Dr: Saige López DO STUDY: X-RAY - ORBITS REASON FOR EXAM: Female, 74 years old. This study is being performed as a clearance examination for exclusion of orbital metal, prior to the performance of an MRI examination. TECHN IQUE: 2 view(s) of the orbits were obtained. COMPARISON: None. FINDINGS: Normal bilateral orbits without a metallic orbital foreign body. Normal visualized fa cial bones. Normal paranasal sinuses. The soft tissue structures are unremarkable. IMPRESSION: No demonstrated metallic orbital foreign body. The patient is yuly ared for an MRI examination. Electronically Signed: Seth Hahn MD at 12:54 EDT Tel [phone], Service support [phone], CC: Saige López DO Children'S Attendant: Signed 27-Oct-2014 Spine Thoracic (Routine) Result: Comments: See Note; NOTES: [facility] [address] [place] [address] MRI Report MR#: [id number] Acct: [id number] Name: BARBIE PURVIS Rep #: [id number] OB: 1940 F 74 From: Navya Elena MD PCP: Saige López DO Status: REG CLI Study: Spine Thoracic (Routine) Date of Exam: 10/27/14 Exam# [id number] Ordering Dr: Saige López DO STUDY: MRI THORACIC S PINE WITHOUT CONTRAST REASON FOR EXAM: Female, 74 years old. Mid and left-sided back pain. Followup fracture. TECHNIQUE: Standardized fat and water weighted pulse sequences were obtained in the sa gittal and axial planes. No intravenous contrast was administered for this study. COMPARISON: X-ray thoracic spine 03/31/14. FINDINGS: There is an increased kyp hosis of the thoracic spine. There is no substantial scoliosis. There are chronic compression fractures of superior endplates of T3, T4, T6 and T7. This most severely affects T7 level with greater t vasquez 75% loss of height. There is no retropulsed bony fragment. There is no acute fracture. There is no abnormal subluxation. There is no marrow edema. T1-2, T2-3, T3-4, T4-5, T5-6, T6-7, T7-8, T8-9 , T9-10, T10-11, T11-12: Endplate spondylosis, loss of disc height without large disc bulges or disc herniation. No central canal stenosis or neural foraminal narrowing. Normal visualized thoracic cord. Normal conus medullaris that terminates at the L1. The soft tissue structures are unremarkable. IMPRESSION: Chronic compression fractures at multiple lev els of midthoracic spine. No acute fracture. No retropulsed bony fragment. There is no significant interval change. 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 There is no central canal stenosis or neural foraminal narrowing. There is no nerve impingement. Electronically Signed: Hao Elena MD at 21:59 EDT , Service sup port [phone], CC: Saige López DO Children'S Attendant: Signed 26-Oct-2014 Bilat Scrn Digital AND CAD Result: Comments: See Note; NOTES: [facility] [address] [place] [address] Breast Imaging Report MR#: [id number] Acct: [id number] Name: BARBIE PURVIS Rep #: [id number] : 1940 F 74 From: Seth Hahn MD PCP: Saige López DO Status: REG CLI Study: Bilat Scrn Digital AND CAD Date of Exam: 10/26/14 Exam# [id number] Ordering Dr: Saige López DO MAMMOGRAPHY - BILATERAL SCREENING REASON FOR EXAM: Female, 74 years old. Routine annual screening examination. PERTINENT HISTORY: Non-contributory. TECHNIQUE: Digital examination. Mediolateral o blique (MLO) and craniocaudad (CC) views of both breasts were obtained. CAD: CAD was performed on this study. COMPARISON: Comparison is made with prior study dated December 28, 2008. FINDINGS: Breast Composition: There are scattered areas of fibroglandular density. There are no dominant masses or suspicious calcifications. No other significant abnormalities are identified. There has been no significant change since the prior study. IMPRESSION: Stable bilateral screening mammogram. Yearly follow-up recommended. (A) ASSESSMENT CATEGORY: BIRADS Category 2: Benign. A letter regarding these results will be sent to the patient by the facility within 30 days. Approximately 10% o f breast cancers are not detected by mammography. A normal mammogram should not delay biopsy of a clinically suspicious abnormality. Electronically Signed: Seth Hahn MD at 14: 34 EDT Tel [phone], Service support [phone], CC: Saige López DO Children'S Attendant: Signed 26-Oct-2014 Dexa Bone Density Study (HP) Result: Comments: See Note; NOTES: [facility] [address] [place] [address] Bone Density Report MR#: [id number] Acct: [id number] Name: BARBIE PURVIS Rep #: [id number] : 1940 F 74 From: Seth Hahn MD PCP: Saige López DO Status: [facility] CLI Study: Dexa Bone Density Study (HP) Date of Exam: 10/26/14 Exam# [id number] Ordering Dr: Saige López DO STUDY: DUAL ENERGY X-RAY ABSORPTIOMETRY / DXA REASON FOR EXAM: Female, 74 years old. The patient is postmenopausal. TECHNIQUE: Bone Mineral Density (BMD) measurements of lumbar spine and bilateral hips were obtained. COMPARISON: Comparison is made with prior examination dated January 21, 2011. FINDINGS: Lumbar Spine (L1-L4): g/cm2 (0.825) / T-score (-3.1) / Z-score (-1.4) Findings are suggestive of osteoporosis with a high fracture risk. Increased kyphosis. Left Femur Total: g/cm2 (0.679) / T-score (-2.6) / Z-score (-0.9) Left Femoral Neck: g/cm2 ( 0.583) / T-score (-3.3) / Z-score (-1.3) Right Femur Total: g/cm2 (0.666) / T- score (-2.7) / Z-score (-1.0) Right Femoral Neck: g/cm2 (0.671) / T-score (- 2.6) / Z-score (-0.7) The T-Scores on the mo st recent prior examination were: Lumbar Spine (L1-L4): There has been worsening of bone density since the previous examination. Left Femur Total: which represents a worsening of 8.9%. Right Femur Total: which represents a worsening of 5.0%. IMPRESSION: The patient is considered osteoporotic as outlined below according to World Gibson Organization (WHO) cr iteria with a high fracture risk. There has been worsening of bone density since the previous examination. Reference Information: The T-score is the number of s tandard deviations above or below the standard which is normal for young adults at their peak bone mineral density. The World Health Organization (WHO) interprets the T-scores as follows: Above -1 Normal bone density Between -1 and -2.5 Osteopenia Equal to / or below -2.5 Osteoporosis As a practical clinical guideline, osteopenia may be graded as follows: Mild -1 through -1.5 Moderate -1.6 through -2.0 Severe -2.1 through -2.4 The Z-score is the number of standard deviations above or below age-matched controls. A Z-score of less than -1.5 would be considered abnormal. References: 1 . NIH Osteoporosis and Related Bone Diseases http://www.osteo.org 2. International Society for Clinical Densitometry http://www.iscd.org 3. National Osteoporosis Foundation http://www.nof.org Electr onically Signed: Seth Hahn MD at 13:16 EDT Tel [phone], Service support [phone], CC: Saige López DO Children'S Attendant: Signed Family History Unknown Family Member Name Dates Details Father Comments: age 53- cerebral hemmorage Status: Active Mother Comments: at age 82 natural causes Status: Active Social History Name Dates Details Caffeine Use Comments: minimal Status: Active No Drug Use Status: Active Non Drinker/No Alcohol Use Status: Active Tobacco use: Former smoker. Comments: teenage years Status: Active Smoking Status Name Dates Details Former smoker Vital Signs Date Test Result Details :13 Temperature 98.2 f Comments: Method: Temporal Pulse 94 /min Comments: Pattern: Regular Respiration Rate 18 /min Comments: Pattern: Unlabored O2 SAT 95 % Comments: Room air BP Systolic 142 mm[Hg] Comments: Patient Position: Sitting; Cuff Location: Left Arm; Cuff Size: Standard BP Diastolic 94 mm[Hg] Comments: Patient Position: Sitting; Cuff Location: Left Arm; Cuff Size: Standard Weight 176 lb Height 61.5 in Body Mass Index Calculated 32.72 kg/m2 Body Surface Area Calculated 1.8 m2 :31 Temperature 97.5 f Comments: Method: Temporal Pulse 83 /min Comments: Pattern: Regular Respiration Rate 18 /min Comments: Pattern: Unlabored O2 SAT 96 % Comments: Room air BP Systolic 132 mm[Hg] Comments: Patient Position: Sitting; Cuff Location: Left Arm; Cuff Size: Standard BP Diastolic 78 mm[Hg] Comments: Patient Position: Sitting; Cuff Location: Left Arm; Cuff Size: Standard Weight 177 lb Height 61.5 in Body Mass Index Calculated 32.9 kg/m2 Body Surface Area Calculated 1.8 m2 :13 Temperature 97.2 f Comments: Method: Temporal Pulse 84 /min Comments: Pattern: Regular Respiration Rate 18 /min Comments: Pattern: Unlabored O2 SAT 95 % Comments: Room air BP Systolic 124 mm[Hg] Comments: Patient Position: Sitting; Cuff Location: Left Arm; Cuff Size: Standard BP Diastolic 84 mm[Hg] Comments: Patient Position: Sitting; Cuff Location: Left Arm; Cuff Size: Standard Weight 179 lb Height 61.5 in Body Mass Index Calculated 33.27 kg/m2 Body Surface Area Calculated 1.81 m2 :52 Pulse 66 /min Comments: Pattern: Regular Respiration Rate 18 /min Comments: Pattern: Unlabored O2 SAT 98 % Comments: Room air BP Systolic 128 mm[Hg] Comments: Patient Position: Sitting; Cuff Location: Left Arm; Cuff Size: Large BP Diastolic 78 mm[Hg] Comments: Patient Position: Sitting; Cuff Location: Left Arm; Cuff Size: Large Weight 179.5 lb Height 61.5 in Body Mass Index Calculated 33.37 kg/m2 Body Surface Area Calculated 1.82 m2 :28 Temperature 97.4 f Pulse 65 /min Comments: Pattern: Regular Respiration Rate 17 /min Comments: Pattern: Unlabored O2 SAT 97 % Comments: Room air BP Systolic 118 mm[Hg] Comments: Patient Position: Sitting; Cuff Location: Left Arm; Cuff Size: Standard BP Diastolic 80 mm[Hg] Comments: Patient Position: Sitting; Cuff Location: Left Arm; Cuff Size: Standard Weight 181 lb Height 61.5 in Body Mass Index Calculated 33.65 kg/m2 Body Surface Area Calculated 1.82 m2 :01 Temperature 97.8 f Pulse 85 /min Comments: Pattern: Regular Respiration Rate 16 /min Comments: Pattern: Unlabored O2 SAT 95 % Comments: Room air BP Systolic 122 mm[Hg] Comments: Patient Position: Sitting; Cuff Location: Left Arm; Cuff Size: Standard BP Diastolic 82 mm[Hg] Comments: Patient Position: Sitting; Cuff Location: Left Arm; Cuff Size: Standard Weight 182.5 lb Height 61.5 in Body Mass Index Calculated 33.92 kg/m2 Body Surface Area Calculated 1.83 m2 :52 Temperature 97.2 f Pulse 82 /min Comments: Pattern: Regular Respiration Rate 18 /min Comments: Pattern: Unlabored O2 SAT 97 % Comments: Room air BP Systolic 122 mm[Hg] Comments: Patient Position: Sitting; Cuff Location: Left Arm; Cuff Size: Standard BP Diastolic 82 mm[Hg] Comments: Patient Position: Sitting; Cuff Location: Left Arm; Cuff Size: Standard Weight 181 lb Height 61.5 in Body Mass Index Calculated 33.65 kg/m2 Body Surface Area Calculated 1.82 m2 :39 Temperature 97.8 f Pulse 106 /min Comments: Pattern: Regular Respiration Rate 17 /min Comments: Pattern: Unlabored O2 SAT 94 % Comments: Room air BP Systolic 118 mm[Hg] Comments: Patient Position: Sitting; Cuff Location: Left Arm; Cuff Size: Standard BP Diastolic 76 mm[Hg] Comments: Patient Position: Sitting; Cuff Location: Left Arm; Cuff Size: Standard Weight 181 lb Height 61.5 in Body Mass Index Calculated 33.65 kg/m2 Body Surface Area Calculated 1.82 m2 :41 Temperature 97.8 f Pulse 75 /min Comments: Pattern: Regular Respiration Rate 18 /min Comments: Pattern: Unlabored O2 SAT 98 % Comments: Room air BP Systolic 132 mm[Hg] Comments: Patient Position: Sitting; Cuff Location: Left Arm; Cuff Size: Standard BP Diastolic 84 mm[Hg] Comments: Patient Position: Sitting; Cuff Location: Left Arm; Cuff Size: Standard Weight 179 lb Height 61.5 in Body Mass Index Calculated 33.27 kg/m2 Body Surface Area Calculated 1.81 m2 :42 Temperature 97.6 f Pulse 83 /min Comments: Pattern: Regular Respiration Rate 17 /min Comments: Pattern: Unlabored O2 SAT 95 % Comments: Room air BP Systolic 124 mm[Hg] Comments: Patient Position: Sitting; Cuff Location: Left Arm; Cuff Size: Standard BP Diastolic 82 mm[Hg] Comments: Patient Position: Sitting; Cuff Location: Left Arm; Cuff Size: Standard Weight 177.125 lb Height 61.5 in Body Mass Index Calculated 32.93 kg/m2 Body Surface Area Calculated 1.8 m2 :58 Pulse 69 /min Comments: Pattern: Regular Respiration Rate 16 /min Comments: Pattern: Unlabored O2 SAT 98 % Comments: Room air BP Systolic 126 mm[Hg] Comments: Patient Position: Sitting; Cuff Location: Left Arm; Cuff Size: Standard BP Diastolic 70 mm[Hg] Comments: Patient Position: Sitting; Cuff Location: Left Arm; Cuff Size: Standard Weight 180 lb Height 61.5 in Body Mass Index Calculated 33.46 kg/m2 Body Surface Area Calculated 1.82 m2 :39 Temperature 97.2 f Pulse 68 /min Comments: Pattern: Regular Respiration Rate 16 /min Comments: Pattern: Unlabored O2 SAT 95 % Comments: Room air BP Systolic 164 mm[Hg] Comments: Patient Position: Sitting; Cuff Location: Left Arm; Cuff Size: Standard BP Diastolic 92 mm[Hg] Comments: Patient Position: Sitting; Cuff Location: Left Arm; Cuff Size: Standard Weight 179 lb Height 61.5 in Body Mass Index Calculated 33.27 kg/m2 Body Surface Area Calculated 1.81 m2 :01 Temperature 97.8 f Pulse 85 /min Comments: Pattern: Regular Respiration Rate 16 /min Comments: Pattern: Unlabored O2 SAT 94 % Comments: Room air BP Systolic 114 mm[Hg] Comments: Patient Position: Sitting; Cuff Location: Left Arm; Cuff Size: Standard BP Diastolic 78 mm[Hg] Comments: Patient Position: Sitting; Cuff Location: Left Arm; Cuff Size: Standard Weight 180 lb Height 61.5 in Body Mass Index Calculated 33.46 kg/m2 Body Surface Area Calculated 1.82 m2 :36 Temperature 98.3 f Pulse 86 /min Comments: Pattern: Regular Respiration Rate 17 /min Comments: Pattern: Unlabored O2 SAT 97 % Comments: Room air BP Systolic 126 mm[Hg] Comments: Patient Position: Sitting; Cuff Location: Left Arm; Cuff Size: Standard BP Diastolic 82 mm[Hg] Comments: Patient Position: Sitting; Cuff Location: Left Arm; Cuff Size: Standard Weight 179 lb Height 61.5 in Body Mass Index Calculated 33.27 kg/m2 Body Surface Area Calculated 1.81 m2 :56 Temperature 97.2 f Pulse 75 /min Comments: Pattern: Regular Respiration Rate 15 /min Comments: Pattern: Unlabored O2 SAT 98 % Comments: Room air BP Systolic 122 mm[Hg] Comments: Patient Position: Sitting; Cuff Location: Left Arm; Cuff Size: Standard BP Diastolic 82 mm[Hg] Comments: Patient Position: Sitting; Cuff Location: Left Arm; Cuff Size: Standard Weight 177 lb Height 61.5 in Body Mass Index Calculated 32.9 kg/m2 Body Surface Area Calculated 1.8 m2 :44 Temperature 97.1 f Pulse 84 /min Comments: Pattern: Regular Respiration Rate 18 /min Comments: Pattern: Unlabored O2 SAT 98 % Comments: Room air BP Systolic 122 mm[Hg] Comments: Patient Position: Sitting; Cuff Location: Left Arm; Cuff Size: Standard BP Diastolic 78 mm[Hg] Comments: Patient Position: Sitting; Cuff Location: Left Arm; Cuff Size: Standard Weight 175.5 lb Height 61.5 in Body Mass Index Calculated 32.62 kg/m2 Body Surface Area Calculated 1.8 m2 :56 Temperature 97.3 f Pulse 68 /min Comments: Pattern: Regular Respiration Rate 17 /min Comments: Pattern: Unlabored O2 SAT 98 % Comments: Room air BP Systolic 148 mm[Hg] Comments: Patient Position: Sitting; Cuff Location: Left Arm; Cuff Size: Standard BP Diastolic 84 mm[Hg] Comments: Patient Position: Sitting; Cuff Location: Left Arm; Cuff Size: Standard Weight 175.125 lb Height 61.5 in Body Mass Index Calculated 32.55 kg/m2 Body Surface Area Calculated 1.8 m2 :38 Temperature 97.8 f Pulse 85 /min Comments: Pattern: Regular Respiration Rate 17 /min Comments: Pattern: Unlabored O2 SAT 95 % Comments: Room air BP Systolic 108 mm[Hg] Comments: Patient Position: Sitting; Cuff Location: Left Arm; Cuff Size: Standard BP Diastolic 72 mm[Hg] Comments: Patient Position: Sitting; Cuff Location: Left Arm; Cuff Size: Standard Weight 175 lb Height 61.5 in Body Mass Index Calculated 32.53 kg/m2 Body Surface Area Calculated 1.8 m2 :36 Temperature 96.6 f Comments: Method: Temporal Pulse 78 /min Comments: Pattern: Regular Respiration Rate 15 /min Comments: Pattern: Unlabored O2 SAT 96 % Comments: Room air BP Systolic 100 mm[Hg] Comments: Patient Position: Sitting; Cuff Location: Left Arm; Cuff Size: Standard BP Diastolic 72 mm[Hg] Comments: Patient Position: Sitting; Cuff Location: Left Arm; Cuff Size: Standard Weight 175 lb Height 61.5 in Body Mass Index Calculated 32.53 kg/m2 Body Surface Area Calculated 1.8 m2 :21 Pulse 98 /min Comments: Pattern: Regular Respiration Rate 18 /min Comments: Pattern: Unlabored O2 SAT 98 % Comments: Room air BP Systolic 130 mm[Hg] Comments: Patient Position: Sitting; Cuff Location: Left Arm; Cuff Size: Large BP Diastolic 78 mm[Hg] Comments: Patient Position: Sitting; Cuff Location: Left Arm; Cuff Size: Large Weight 176 lb Height 61.5 in Body Mass Index Calculated 32.72 kg/m2 Body Surface Area Calculated 1.8 m2 :07 Temperature 97.2 f Comments: Method: Temporal Pulse 96 /min Comments: Pattern: Regular Respiration Rate 15 /min Comments: Pattern: Unlabored O2 SAT 97 % Comments: Room air BP Systolic 120 mm[Hg] Comments: Patient Position: Sitting; Cuff Location: Left Arm; Cuff Size: Standard BP Diastolic 84 mm[Hg] Comments: Patient Position: Sitting; Cuff Location: Left Arm; Cuff Size: Standard Weight 176 lb Height 61.5 in Body Mass Index Calculated 32.72 kg/m2 Body Surface Area Calculated 1.8 m2 :17 Temperature 97.8 f Comments: Method: Temporal Pulse 76 /min Comments: Pattern: Regular Respiration Rate 15 /min Comments: Pattern: Unlabored O2 SAT 96 % Comments: Room air BP Systolic 102 mm[Hg] Comments: Patient Position: Sitting; Cuff Location: Left Arm; Cuff Size: Large BP Diastolic 74 mm[Hg] Comments: Patient Position: Sitting; Cuff Location: Left Arm; Cuff Size: Large Weight 182 lb Height 61.5 in Body Mass Index Calculated 33.83 kg/m2 Body Surface Area Calculated 1.83 m2 :34 Temperature 97.7 f Comments: Method: Oral Pulse 93 /min Comments: Pattern: Regular Respiration Rate 16 /min Comments: Pattern: Unlabored BP Systolic 130 mm[Hg] Comments: Patient Position: Sitting; Cuff Location: Left Arm; Cuff Size: Standard BP Diastolic 80 mm[Hg] Comments: Patient Position: Sitting; Cuff Location: Left Arm; Cuff Size: Standard Weight 183.25 lb Height 61.5 in Body Mass Index Calculated 34.06 kg/m2 Body Surface Area Calculated 1.83 m2 :56 Temperature 98 f Comments: Method: Temporal Pulse 72 /min Comments: Pattern: Regular Respiration Rate 16 /min Comments: Pattern: Unlabored BP Systolic 106 mm[Hg] Comments: Patient Position: Sitting; Cuff Location: Left Arm; Cuff Size: Large BP Diastolic 74 mm[Hg] Comments: Patient Position: Sitting; Cuff Location: Left Arm; Cuff Size: Large Weight 182 lb Height 61.5 in Body Mass Index Calculated 33.83 kg/m2 Body Surface Area Calculated 1.83 m2 :14 Temperature 98 f Comments: Method: Oral Pulse 80 /min Comments: Pattern: Regular Respiration Rate 16 /min Comments: Pattern: Unlabored BP Systolic 110 mm[Hg] Comments: Patient Position: Sitting; Cuff Location: Left Arm; Cuff Size: Standard BP Diastolic 76 mm[Hg] Comments: Patient Position: Sitting; Cuff Location: Left Arm; Cuff Size: Standard Weight 186 lb Height 61.5 in Body Mass Index Calculated 34.57 kg/m2 Body Surface Area Calculated 1.84 m2 :36 Temperature 97.1 f Comments: Method: Oral Pulse 89 /min Comments: Pattern: Regular Respiration Rate 17 /min Comments: Pattern: Unlabored BP Systolic 122 mm[Hg] Comments: Patient Position: Sitting; Cuff Location: Left Arm; Cuff Size: Standard BP Diastolic 78 mm[Hg] Comments: Patient Position: Sitting; Cuff Location: Left Arm; Cuff Size: Standard Weight 185 lb Height 61.5 in Body Mass Index Calculated 34.39 kg/m2 Body Surface Area Calculated 1.84 m2 :59 Temperature 97.7 f Pulse 74 /min Comments: Pattern: Regular Respiration Rate 16 /min Comments: Pattern: Unlabored BP Systolic 100 mm[Hg] Comments: Patient Position: Sitting; Cuff Location: Left Arm; Cuff Size: Large BP Diastolic 80 mm[Hg] Comments: Patient Position: Sitting; Cuff Location: Left Arm; Cuff Size: Large Weight 184 lb Height 61.5 in Body Mass Index Calculated 34.2 kg/m2 Body Surface Area Calculated 1.83 m2 Results Date Description Value Details 29-Rgw-209966:00 THROAT CULTURE (36310) Comments: PATIENT NOT FASTINGPERFORMED BY: SARAH [facility] Bmmena6078 [facility] [id number] Information: SRC:TH Result 1 RRF (Normal) Comments: Routine respiratory kori Upper Respiratory Culture Final report (Normal) :39 Rapid Strep Test, Office (41378) Rapid Strep Test, Office Negative (Normal) :14 HgA1C , Office (05907) HgA1C , Office 5.4 % (Normal) Range: 4.6 - 7.1 :14 Blood Glucose , Office (51754) Blood Glucose , Office 129 (Normal) :21 TSH (85822) Comments: PATIENT WAS FASTINGPERFORMED BY: LabCoVirtua BerlinVthuci4439 [facility] [id number] TSH 0.475 {uIU/mL} (Normal) Range: 0.450-4.500 78-Xus-20085:21 METABOLIC PANEL, COMPREHENSIVE Comments: PATIENT WAS FASTINGPERFORMED BY: LabCoVirtua BerlinMwxoqt8226 [facility] [id number] (25103) ALT (SGPT) 14 [iU]/L (Normal) Range: 0-32 AST (SGOT) 17 [iU]/L (Normal) Range: 0-40 Alkaline Phosphatase 72 [iU]/L (Normal) Range: 39-117 Bilirubin, Total 0.7 mg/dL (Normal) Range: 0.0-1.2 A/G Ratio 1.5 (Normal) Range: 1.2-2.2 Globulin, Total 2.6 g/dL (Normal) Range: 1.5-4.5 Albumin 4.0 g/dL (Normal) Range: 3.5-4.8 Protein, Total 6.6 g/dL (Normal) Range: 6.0-8.5 Calcium 9.2 mg/dL (Normal) Range: 8.7-10.3 Carbon Dioxide, Total 26 mmol/L (Normal) Range: 18-29 Chloride 96 mmol/L (Normal) Range: 96-106 Potassium 3.6 mmol/L (Normal) Range: 3.5-5.2 Sodium 139 mmol/L (Normal) Range: 134-144 BUN/Creatinine Ratio 17 (Normal) Range: 12-28 eGFR If Africn Am 53 mL/min/1.73 (Abnormal) eGFR If NonAfricn Am 46 mL/min/1.73 (Abnormal) Creatinine 1.15 mg/dL (Abnormal) Range: 0.57-1.00 BUN 19 mg/dL (Normal) Range: 8-27 Glucose 95 mg/dL (Normal) Range: 65-99 39-Iwq-01240:21 LIPID PANEL (02606) Comments: PATIENT WAS FASTINGPERFORMED BY: [facility] HospitalCoVirtua BerlinVxlzmg9983 [facility] [id number] LDL/HDL Ratio 2.0 {ratio} (Normal) Range: 0.0-3.2 Comments: LDL/HDL Ratio Men Women 1/2 Avg.Risk 1.0 1.5 Av g.Risk 3.6 3.2 2X Avg.Risk 6.2 5.0 3X Avg.Risk 8.0 6.1 LDL Cholesterol Calc 110 mg/dL (Abnormal) Range: 0-99 VLDL Cholesterol Hero 35 mg/dL (Normal) Range: 5-40 HDL Cholesterol 55 mg/dL (Normal) Triglycerides 176 mg/dL (Abnormal) Range: 0-149 Cholesterol, Total 200 mg/dL (Abnormal) Range: 100-199 47-Kkt-08468:21 CBC W/AUTO DIFF WBC (53632) Comments: PATIENT WAS FASTINGPERFORMED BY: [facility] Rkeylt3812 [facility] [id number] Immature Grans (Abs) 0.0 {x10E3/uL} (Normal) Range: 0.0-0.1 Immature Granulocytes 0 % (Normal) Baso (Absolute) 0.1 {x10E3/uL} (Normal) Range: 0.0-0.2 Eos (Absolute) 0.2 {x10E3/uL} (Normal) Range: 0.0-0.4 Monocytes(Absolute) 0.5 {x10E3/uL} (Normal) Range: 0.1-0.9 Lymphs (Absolute) 1.7 {x10E3/uL} (Normal) Range: 0.7-3.1 Neutrophils (Absolute) 3.2 {x10E3/uL} (Normal) Range: 1.4-7.0 Basos 1 % (Normal) Eos 4 % (Normal) Monocytes 9 % (Normal) Lymphs 30 % (Normal) Neutrophils 56 % (Normal) Platelets 328 {x10E3/uL} (Normal) Range: 150-379 RDW 14.4 % (Normal) Range: 12.3-15.4 MCHC 32.3 g/dL (Normal) Range: 31.5-35.7 MCH 26.9 pg (Normal) Range: 26.6-33.0 MCV 84 fL (Normal) Range: 79-97 Hematocrit 44.0 % (Normal) Range: 34.0-46.6 Hemoglobin 14.2 g/dL (Normal) Range: 11.1-15.9 RBC 5.27 {x10E6/uL} (Normal) Range: 3.77-5.28 WBC 5.7 {x10E3/uL} (Normal) Range: 3.4-10.8 :52 HgA1C , Office (88159) HgA1C , Office 5.5 % (Normal) Range: 4.6 - 7.1 :52 Blood Glucose , Office (66984) Blood Glucose , Office 89 (Normal) :24 VITAMIN B12 AND FOLATES Comments: PATIENT NOT FASTINGPERFORMED BY: [employer] [place] [id number] (56334) Folate (Folic Acid), Serum 6.3 ng/mL (Normal) Comments: A serum folate concentration of less than 3.1 ng/mL isconsidered to represent clinical deficiency. Vitamin B12 1723 pg/mL (Abnormal) Range: 232-1245 :24 RENAL FUNCTION PANEL (99998) Comments: PATIENT NOT FASTINGPERFORMED BY: [address] [place] [id number] Albumin, Serum 4.2 g/dL (Normal) Range: 3.5-4.8 Phosphorus, Serum 3.8 mg/dL (Normal) Range: 2.5-4.5 Calcium, Serum 8.8 mg/dL (Normal) Range: 8.7-10.3 Carbon Dioxide, Total 26 mmol/L (Normal) Range: 18-29 Chloride, Serum 99 mmol/L (Normal) Range: 96-106 Potassium, Serum 3.6 mmol/L (Normal) Range: 3.5-5.2 Sodium, Serum 143 mmol/L (Normal) Range: 134-144 BUN/Creatinine Ratio 17 (Normal) Range: 12-28 eGFR If Africn Am 54 mL/min/1.73 (Abnormal) eGFR If NonAfricn Am 47 mL/min/1.73 (Abnormal) Creatinine, Serum 1.13 mg/dL (Abnormal) Range: 0.57-1.00 BUN 19 mg/dL (Normal) Range: 8-27 Glucose, Serum 105 mg/dL (Abnormal) Range: 65-99 :24 TSH (THYROID STIMULATING Comments: PATIENT NOT FASTINGPERFORMED BY: [employer]ov[employer]MedPl[employer] [place] [id number] HORMONE) (52213) TSH 1.200 {uIU/mL} (Normal) Range: 0.450-4.500 :58 VITAMIN B12 AND FOLATES Comments: PATIENT NOT FASTINGPERFORMED BY: SARAH [facility] Irkvym8202 [address] RoadDublin [place] [id number] (37956) Folate (Folic Acid), Serum 6.7 ng/mL (Normal) Comments: A serum folate concentration of less than 3.1 ng/mL isconsidered to represent clinical deficiency. Vitamin B12 174 pg/mL (Abnormal) Range: 211-946 Comments: Effective June 08, 2017 the reference interval for Vitamin B12 will be changing to: 232-1245 pg/mL. :58 MAGNESIUM (33567) Comments: PATIENT NOT FASTINGPERFORMED BY: [facility] Cojtps7759 [address] RoadDublin [place] [id number] Magnesium, Serum 2.1 mg/dL (Normal) Range: 1.6-2.3 :58 CALCIFEDIOL (44377) Comments: PATIENT NOT FASTINGPERFORMED BY: [facility] Trqrvq8033 [address] RoadDublin [place] [id number] Vitamin D, 25-Hydroxy 56.5 ng/mL (Normal) Range: 30.0-100.0 Comments: Vitamin D deficiency has been defined by the [place] of[place] and an Endocrine Society practice guideline as alevel of serum 25-OH vitamin D less than 20 ng/mL (1,2).The Endocrine Society went on to further define vitamin Dinsufficiency as a level between 21 and 29 ng/mL (2).1. IOM ([place] of [employer]). 2010. Dietary reference intakes for calcium and D. [place]: The National Academies Press.2. Vanessa MF, Gail NC, Cydney CABRAL, et al. Evaluation, treatment, and prevention of vitamin D deficiency: an Endocrine Society clinical practice guideline. JCEM. 2010; 96(7):1911-30. :58 CBC, Platelets & Auto Diff Comments: PATIENT NOT FASTINGPERFORMED BY: CB [facility] Ucygxt3661 [address] RoadDublin [place] [id number] (11113) Immature Grans (Abs) 0.0 {x10E3/uL} (Normal) Range: 0.0-0.1 Immature Granulocytes 0 % (Normal) Baso (Absolute) 0.0 {x10E3/uL} (Normal) Range: 0.0-0.2 Eos (Absolute) 0.2 {x10E3/uL} (Normal) Range: 0.0-0.4 Monocytes(Absolute) 0.5 {x10E3/uL} (Normal) Range: 0.1-0.9 Lymphs (Absolute) 1.5 {x10E3/uL} (Normal) Range: 0.7-3.1 Neutrophils (Absolute) 4.4 {x10E3/uL} (Normal) Range: 1.4-7.0 Basos 1 % (Normal) Eos 3 % (Normal) Monocytes 8 % (Normal) Lymphs 23 % (Normal) Neutrophils 65 % (Normal) Platelets 334 {x10E3/uL} (Normal) Range: 150-379 RDW 13.9 % (Normal) Range: 12.3-15.4 MCHC 33.3 g/dL (Normal) Range: 31.5-35.7 MCH 27.6 pg (Normal) Range: 26.6-33.0 MCV 83 fL (Normal) Range: 79-97 Hematocrit 43.3 % (Normal) Range: 34.0-46.6 Hemoglobin 14.4 g/dL (Normal) Range: 11.1-15.9 Comments: Effective June 08, 2017 the reference interval for Hemoglobin MALES only will be changing to: Males 13-15 years: 12.6 - 17.7 Males >15 years: 13.0 - 17.7 RBC 5.22 {x10E6/uL} (Normal) Range: 3.77-5.28 WBC 6.7 {x10E3/uL} (Normal) Range: 3.4-10.8 27-Xmg-930287:58 Metabolic Panel, Comprehensive Comments: PATIENT NOT FASTINGPERFORMED BY: SARAH [facility] Ostrwz1751 [facility] [id number] (99905) ALT (SGPT) 13 [iU]/L (Normal) Range: 0-32 AST (SGOT) 17 [iU]/L (Normal) Range: 0-40 Alkaline Phosphatase, S 66 [iU]/L (Normal) Range: 39-117 Bilirubin, Total 0.5 mg/dL (Normal) Range: 0.0-1.2 A/G Ratio 1.5 (Normal) Range: 1.2-2.2 Globulin, Total 2.7 g/dL (Normal) Range: 1.5-4.5 Albumin, Serum 4.1 g/dL (Normal) Range: 3.5-4.8 Protein, Total, Serum 6.8 g/dL (Normal) Range: 6.0-8.5 Calcium, Serum 8.9 mg/dL (Normal) Range: 8.7-10.3 Carbon Dioxide, Total 27 mmol/L (Normal) Range: 18-29 Chloride, Serum 98 mmol/L (Normal) Range: 96-106 Potassium, Serum 3.4 mmol/L (Abnormal) Range: 3.5-5.2 Comments: Client Requested Flag Sodium, Serum 142 mmol/L (Normal) Range: 134-144 BUN/Creatinine Ratio 19 (Normal) Range: 12-28 eGFR If Africn Am 54 mL/min/1.73 (Abnormal) eGFR If NonAfricn Am 47 mL/min/1.73 (Abnormal) Creatinine, Serum 1.13 mg/dL (Abnormal) Range: 0.57-1.00 BUN 21 mg/dL (Normal) Range: 8-27 Glucose, Serum 134 mg/dL (Abnormal) Range: 65-99 66-Obg-963250:58 T4, FREE (THYROXINE) (88481) Comments: PATIENT NOT FASTINGPERFORMED BY: ComuniteeBarton County Memorial HospitalPsogzi0869 [facility] [id number] T4,Free(Direct) 1.60 ng/dL (Normal) Range: 0.82-1.77 :58 FREE TRIDOTHYRONINE (T3) (91859) Comments: PATIENT NOT FASTINGPERFORMED BY: [facility]uniteePontiac [facility] Hospital6370 [facility] [id number] Triiodothyronine,Free,Serum 2.5 pg/mL (Normal) Range: 2.0-4.4 26-Jim-840342:58 TSH (THYROID STIMULATING Comments: PATIENT NOT FASTINGPERFORMED BY: ActuatedMedicalPinon Health CenterByfylf6878 [facility] [id number] HORMONE) (79018) TSH 5.470 {uIU/mL} (Abnormal) Range: 0.450-4.500 72-Pzk-71570:27 Metabolic Panel, Comprehensive Comments: Feb 2017; PATIENT WAS FASTINGPERFORMED BY: [facility]6370 [facility] [id number] (24017) ALT (SGPT) 16 [iU]/L (Normal) Range: 0-32 AST (SGOT) 17 [iU]/L (Normal) Range: 0-40 Alkaline Phosphatase, S 75 [iU]/L (Normal) Range: 39-117 Bilirubin, Total 0.7 mg/dL (Normal) Range: 0.0-1.2 A/G Ratio 1.4 (Normal) Range: 1.2-2.2 Globulin, Total 2.8 g/dL (Normal) Range: 1.5-4.5 Albumin, Serum 4.0 g/dL (Normal) Range: 3.5-4.8 Protein, Total, Serum 6.8 g/dL (Normal) Range: 6.0-8.5 Calcium, Serum 8.8 mg/dL (Normal) Range: 8.7-10.3 Carbon Dioxide, Total 26 mmol/L (Normal) Range: 18-29 Chloride, Serum 99 mmol/L (Normal) Range: 96-106 Potassium, Serum 3.5 mmol/L (Normal) Range: 3.5-5.2 Sodium, Serum 143 mmol/L (Normal) Range: 134-144 BUN/Creatinine Ratio 22 (Normal) Range: 12-28 eGFR If Africn Am 61 mL/min/1.73 (Normal) eGFR If NonAfricn Am 53 mL/min/1.73 (Abnormal) Creatinine, Serum 1.02 mg/dL (Abnormal) Range: 0.57-1.00 Comments: ADDENDA: OV 02/23 BUN 22 mg/dL (Normal) Range: 8-27 Glucose, Serum 94 mg/dL (Normal) Range: 65-99 0-Rld-624672:25 Metabolic Panel, Comprehensive Comments: get labs in November prior to next visit; PATIENT NOT FASTINGPERFORMED BY: ActuatedMedicalVirtua BerlinKkzobl4108 [facility] [id number] (17015) ALT (SGPT) 11 [iU]/L (Normal) Range: 0-32 AST (SGOT) 14 [iU]/L (Normal) Range: 0-40 Alkaline Phosphatase, S 67 [iU]/L (Normal) Range: 39-117 Bilirubin, Total 0.7 mg/dL (Normal) Range: 0.0-1.2 A/G Ratio 1.5 (Normal) Range: 1.2-2.2 Globulin, Total 2.6 g/dL (Normal) Range: 1.5-4.5 Albumin, Serum 4.0 g/dL (Normal) Range: 3.5-4.8 Protein, Total, Serum 6.6 g/dL (Normal) Range: 6.0-8.5 Calcium, Serum 8.7 mg/dL (Normal) Range: 8.7-10.3 Carbon Dioxide, Total 26 mmol/L (Normal) Range: 18-29 Chloride, Serum 97 mmol/L (Normal) Range: 96-106 Potassium, Serum 3.4 mmol/L (Abnormal) Range: 3.5-5.2 Comments: Client Requested Flag Sodium, Serum 141 mmol/L (Normal) Range: 134-144 BUN/Creatinine Ratio 17 (Normal) Range: 12-28 eGFR If Africn Am 53 mL/min/1.73 (Abnormal) eGFR If NonAfricn Am 46 mL/min/1.73 (Abnormal) Creatinine, Serum 1.15 mg/dL (Abnormal) Range: 0.57-1.00 BUN 20 mg/dL (Normal) Range: 8-27 Glucose, Serum 112 mg/dL (Abnormal) Range: 65-99 :43 POTASSIUM SERUM (82299) Comments: PATIENT NOT FASTINGPERFORMED BY: LabCoVirtua BerlinPbjxjg4761 [facility] [id number] Potassium, Serum 3.7 mmol/L (Normal) Range: 3.5-5.2 :50 Metabolic Panel, Comments: PATIENT NOT FASTINGPERFORMED BY: LabCoVirtua BerlinNyeuou2811 [facility] [id number] Information: [id number], [id number] SRC: Comprehensive (76051) ALT (SGPT) 17 [iU]/L (Normal) Range: 0-32 AST (SGOT) 19 [iU]/L (Normal) Range: 0-40 Alkaline Phosphatase, S 76 [iU]/L (Normal) Range: 39-117 Bilirubin, Total 0.4 mg/dL (Normal) Range: 0.0-1.2 A/G Ratio 1.5 (Normal) Range: 1.1-2.5 Globulin, Total 2.8 g/dL (Normal) Range: 1.5-4.5 Albumin, Serum 4.1 g/dL (Normal) Range: 3.5-4.8 Protein, Total, Serum 6.9 g/dL (Normal) Range: 6.0-8.5 Calcium, Serum 8.6 mg/dL (Abnormal) Range: 8.7-10.3 Carbon Dioxide, Total 25 mmol/L (Normal) Range: 18-29 Chloride, Serum 97 mmol/L (Normal) Range: 96-106 Potassium, Serum 3.4 mmol/L (Abnormal) Range: 3.5-5.2 Comments: Client Requested Flag Sodium, Serum 140 mmol/L (Normal) Range: 134-144 BUN/Creatinine Ratio 20 (Normal) Range: 11-26 eGFR If Africn Am 57 mL/min/1.73 (Abnormal) eGFR If NonAfricn Am 50 mL/min/1.73 (Abnormal) Creatinine, Serum 1.08 mg/dL (Abnormal) Range: 0.57-1.00 BUN 22 mg/dL (Normal) Range: 8-27 Glucose, Serum 98 mg/dL (Normal) Range: 65-99 8-Rrw-285610:46 Urinalysis, Office (11497) UA - LEUKOCYTE ESTERASE Small (Normal) UA - NITRITE Negative (Normal) URINE UROBILINGN MARY LOU TIMED Normal mg/dL (Normal) UA - PROTEIN Negative mg/dL (Normal) UA - PH 6 (Abnormal) UA - BLOOD Negative (Normal) UA - SPECIFIC GRAVITY 1.010 (Normal) UA - KETONES Negative mg/dL (Normal) UA - BILIRUBIN Negative (Normal) UA - GLUCOSE Negative (Normal) 8-Uap-095927:50 URINE ARMANDO CULTURE-IDENTIFICATN Comments: PATIENT NOT FASTINGPERFORMED BY: LabCoVirtua BerlinOjdpto5491 [facility] [id number] (79290) Result 1 MUG (Normal) Comments: Mixed urogenital flora4,000 Colonies/mL Urine Culture,Comprehensive Final report (Normal) 4-Bxt-528749:50 MICROALBUMIN: CREATININE RATIO Comments: PATIENT NOT FASTINGPERFORMED BY: LaunchSidePinon Health CenterSappoc7498 [facility] [id number] (79809) AND (20518) Microalb/Creat Ratio 6.1 {mg/g_creat} (Normal) Range: 0.0-30.0 Microalbumin, Urine 3.8 ug/mL (Normal) Creatinine, Urine 62.2 mg/dL (Normal) :11 TSH (THYROID STIMULATING Comments: PATIENT NOT FASTINGPERFORMED BY: LabPontiac [facility] Hospital6370 [facility] [id number] HORMONE) (17424) TSH 1.530 {uIU/mL} (Normal) Range: 0.450-4.500 :43 TSH (THYROID STIMULATING Comments: PATIENT NOT FASTINGPERFORMED BY: LabPontiac [facility] Hospital6370 [facility] [id number] HORMONE) (52227) TSH 0.266 {uIU/mL} (Abnormal) Range: 0.450-4.500 42-Wal-567103:08 Renal function Panel Comments: PATIENT NOT FASTINGPERFORMED BY: [facility]uniteePontiac [facility] Hospital6370 [facility] [id number] Information: [id number], [id number] (29989) Albumin, Serum 3.9 g/dL (Normal) Range: 3.5-4.8 Phosphorus, Serum 3.4 mg/dL (Normal) Range: 2.5-4.5 Calcium, Serum 8.5 mg/dL (Abnormal) Range: 8.7-10.3 Carbon Dioxide, Total 25 mmol/L (Normal) Range: 18-29 Chloride, Serum 98 mmol/L (Normal) Range: 97-108 Potassium, Serum 3.5 mmol/L (Normal) Range: 3.5-5.2 Sodium, Serum 142 mmol/L (Normal) Range: 134-144 BUN/Creatinine Ratio 21 (Normal) Range: 11-26 eGFR If Africn Am 58 mL/min/1.73 (Abnormal) eGFR If NonAfricn Am 50 mL/min/1.73 (Abnormal) Creatinine, Serum 1.08 mg/dL (Abnormal) Range: 0.57-1.00 BUN 23 mg/dL (Normal) Range: 8-27 Glucose, Serum 91 mg/dL (Normal) Range: 65-99 68-Nrm-840981:08 TSH (THYROID STIMULATING Comments: PATIENT NOT FASTINGPERFORMED BY: [facility] Fcervi0551 [address] RoadDublin [place] [id number] HORMONE) (98702) TSH 14.590 {uIU/mL} (Abnormal) Range: 0.450-4.500 :25 TSH (42759) Comments: 6 weeks; PATIENT NOT FASTINGPERFORMED BY: [facility] Nzbwio2367 [address] RoadDublin [place] [id number] Information: [id number] TSH 1.240 {uIU/mL} Range: 0.450-4.500 (Normal) Written Authorization WAR (Normal) Comments: PATIENT WAS FASTINGPERFORMED BY: [facility] Tubxos2130 [address] RoadDublin [place] [id number] :14 Comments: Written Authorization Received.Authorization received from ORIGINAL REQUISITION [id number] by Deanna Mendoza :14 CALCIUM SERUM (78169) Comments: PATIENT WAS FASTINGPERFORMED BY: [facility] Clhkzh3107 [address] RoadDublin [place] [id number] Calcium, Serum 9.0 mg/dL (Normal) Range: 8.7-10.3 :14 CALCIFIDIOL (08656) VIT D Comments: PATIENT WAS FASTINGPERFORMED BY: [facility] Dklxcw8552 [address] RoadDublin [place] [id number] Information: [id number] DL 25 Vitamin D, 25-Hydroxy 85.6 ng/mL (Normal) Range: 30.0-100.0 Comments: Vitamin D deficiency has been defined by the [place] of[place] and an Endocrine Society practice guideline as alevel of serum 25-OH vitamin D less than 20 ng/mL (1,2).The Endocrine Society went on to further define vitamin Dinsufficiency as a level between 21 and 29 ng/mL (2).1. IOM ([place] [employer]). 2010. Dietary reference intakes for calcium and D. [place]: The National Academies Press.2. Vanessa MF, Gail RIVERS, Cydney CABRAL, et al. Evaluation, treatment, and prevention of vitamin D deficiency: an Endocrine Society clinical practice guideline. JCEM. 2010; 96(7):1911-30. 89-F[address]-24631:18 Urinalysis, Office (32358) UA - LEUKOCYTE ESTERASE Small (Normal) UA - NITRITE Negative (Normal) URINE UROBILINGN MARY LOU TIMED Normal mg/dL (Normal) UA - PROTEIN Negative mg/dL (Normal) UA - PH 6.0 (Normal) Comments: 5.5 UA - BLOOD Negative (Normal) UA - SPECIFIC GRAVITY 1.015 (Normal) UA - KETONES Negative mg/dL (Normal) UA - BILIRUBIN Negative (Normal) UA - GLUCOSE Negative (Normal) 12-Jtv-476574:38 URINE ARMANDO CULTURE (MARY LOU Comments: PATIENT NOT FASTINGPERFORMED BY: Face++70 [facility] [id number] Information: SRC:[facility] [id number] COL COUNT) (39646) Result 1 MUG (Normal) Comments: Mixed urogenital flora4,000 Colonies/mL Urine Culture,Comprehensive Final report (Normal) 33-Fwo-86813:14 CBC W/AUTO DIFF WBC Comments: PATIENT WAS FASTINGPERFORMED BY: [employer] Urrvjb8775 [facility] [id number] Information: [id number] DL (46366) Immature Grans (Abs) 0.0 {x10E3/uL} (Normal) Range: 0.0-0.1 Immature Granulocytes 0 % (Normal) Baso (Absolute) 0.0 {x10E3/uL} (Normal) Range: 0.0-0.2 Eos (Absolute) 0.0 {x10E3/uL} (Normal) Range: 0.0-0.4 Monocytes(Absolute) 0.6 {x10E3/uL} (Normal) Range: 0.1-0.9 Lymphs (Absolute) 1.2 {x10E3/uL} (Normal) Range: 0.7-3.1 Neutrophils (Absolute) 6.3 {x10E3/uL} (Normal) Range: 1.4-7.0 Basos 0 % (Normal) Eos 0 % (Normal) Monocytes 7 % (Normal) Lymphs 15 % (Normal) Neutrophils 78 % (Normal) Platelets 340 {x10E3/uL} (Normal) Range: 150-379 RDW 14.5 % (Normal) Range: 12.3-15.4 MCHC 32.6 g/dL (Normal) Range: 31.5-35.7 MCH 27.6 pg (Normal) Range: 26.6-33.0 MCV 85 fL (Normal) Range: 79-97 Hematocrit 39.6 % (Normal) Range: 34.0-46.6 Hemoglobin 12.9 g/dL (Normal) Range: 11.1-15.9 RBC 4.67 {x10E6/uL} (Normal) Range: 3.77-5.28 WBC 8.1 {x10E3/uL} (Normal) Range: 3.4-10.8 73-Nat-03545:14 METABOLIC PANEL, COMPREHENSIVE Comments: PATIENT WAS FASTINGPERFORMED BY: LabCoVirtua BerlinObtoqr2775 [facility] [id number] (03681) ALT (SGPT) 18 [iU]/L (Normal) Range: 0-32 AST (SGOT) 17 [iU]/L (Normal) Range: 0-40 Alkaline Phosphatase, S 56 [iU]/L (Normal) Range: 39-117 Bilirubin, Total 0.4 mg/dL (Normal) Range: 0.0-1.2 A/G Ratio 1.6 (Normal) Range: 1.1-2.5 Globulin, Total 2.5 g/dL (Normal) Range: 1.5-4.5 Albumin, Serum 3.9 g/dL (Normal) Range: 3.5-4.8 Protein, Total, Serum 6.4 g/dL (Normal) Range: 6.0-8.5 Calcium, Serum 9.3 mg/dL (Normal) Range: 8.7-10.3 Carbon Dioxide, Total 19 mmol/L (Normal) Range: 18-29 Chloride, Serum 98 mmol/L (Normal) Range: 97-108 Potassium, Serum 3.8 mmol/L (Normal) Range: 3.5-5.2 Sodium, Serum 141 mmol/L (Normal) Range: 134-144 BUN/Creatinine Ratio 25 (Normal) Range: 11-26 eGFR If Africn Am 40 mL/min/1.73 (Abnormal) eGFR If NonAfricn Am 35 mL/min/1.73 (Abnormal) Creatinine, Serum 1.46 mg/dL (Abnormal) Range: 0.57-1.00 BUN 37 mg/dL (Abnormal) Range: 8-27 Glucose, Serum 101 mg/dL (Abnormal) Range: 65-99 :14 TSH ([id number]) Comments: PATIENT WAS FASTINGPERFORMED BY: [employer] [facility] [id number] [place] [id number] TSH 0.184 {uIU/mL} (Abnormal) Range: 0.450-4.500 :14 Vitamin D Hydroxy ([id number]) Comments: PATIENT WAS FASTINGPERFORMED BY: [employer] [facility] [id number] [place] [id number] Vitamin D, 25-Hydroxy 78.0 ng/mL (Normal) Range: 30.0-100.0 Comments: Vitamin D deficiency has been defined by the [place] [facility] and an Endocrine Society practice guideline as alevel of serum 25-OH vitamin D less than 20 ng/mL (1,2).The Endocrine Society went on to further define vitamin Dinsufficiency as a level between 21 and 29 ng/mL (2).1. IOM ([place] of Medicine). 2010. Dietary reference intakes for calcium and D. [place]: The National Academies Press.2. Vanessa MF, Gail NC, Cydney CABRAL, et al. Evaluation, treatment, and prevention of vitamin D deficiency: an Endocrine Society clinical practice guideline. JCEM. 2010; 96(7):1911-30. :14 LIPID PANEL (46913) Comments: PATIENT WAS FASTINGPERFORMED BY: [facility] [id number] [place] [id number] LDL/HDL Ratio 2.4 {ratio_units} (Normal) Range: 0.0-3.2 Comments: LDL/HDL Ratio Men Women 1/2 Avg.Risk 1.0 1.5 Av g.Risk 3.6 3.2 2X Avg.Risk 6.2 5.0 3X Avg.Risk 8.0 6.1 LDL Cholesterol Calc 132 mg/dL (Abnormal) Range: 0-99 VLDL Cholesterol Hero 24 mg/dL (Normal) Range: 5-40 HDL Cholesterol 56 mg/dL (Normal) Comments: According to ATP-III Guidelines, HDL-C >59 mg/dL is considered anegative risk factor for CHD. Triglycerides 119 mg/dL (Normal) Range: 0-149 Cholesterol, Total 212 mg/dL (Abnormal) Range: 100-199 :26 HgA1C , Office (86182) HgA1C , Office 5.8 % (Normal) Range: 4.6 - 7.1 7-Hdd-089082:03 URINE ARMANDO CULTURE (MARY LOU Comments: PATIENT NOT FASTINGPERFORMED BY: CLASEMOVIL [facility] [id number] Information: SRC:UR [id number] COL COUNT) ([id number]) Result 1 MUG (Normal) Comments: Mixed urogenital flora25,000-50,000 colony forming units per mL Urine Final report (Normal) Culture,Comprehensive 1-Pkl-425885:49 Urinalysis, Office (46588) UA - LEUKOCYTE ESTERASE Small (Normal) UA - NITRITE Negative (Normal) URINE UROBILINGN MARY LOU TIMED Normal mg/dL (Normal) UA - PROTEIN Negative mg/dL (Normal) UA - PH 6.0 (Normal) Comments: 5.5 UA - BLOOD Non Hemolyzed Moderate (Normal) UA - SPECIFIC GRAVITY 1.005 (Normal) UA - KETONES Negative mg/dL (Normal) UA - BILIRUBIN Negative (Normal) UA - GLUCOSE Negative (Normal) :24 Metabolic Panel, Comments: PATIENT NOT FASTINGPERFORMED BY: [place] [facility] [id number] Information: [id number] Comprehensive (71756) ALT (SGPT) 14 [iU]/L (Normal) Range: 0-32 AST (SGOT) 12 [iU]/L (Normal) Range: 0-40 Alkaline Phosphatase, S 48 [iU]/L (Normal) Range: 39-117 Bilirubin, Total 0.4 mg/dL (Normal) Range: 0.0-1.2 A/G Ratio 1.6 (Normal) Range: 1.1-2.5 Globulin, Total 2.4 g/dL (Normal) Range: 1.5-4.5 Albumin, Serum 3.8 g/dL (Normal) Range: 3.5-4.8 Protein, Total, Serum 6.2 g/dL (Normal) Range: 6.0-8.5 Calcium, Serum 8.5 mg/dL (Abnormal) Range: 8.7-10.3 Carbon Dioxide, Total 20 mmol/L (Normal) Range: 18-29 Chloride, Serum 100 mmol/L (Normal) Range: 97-108 Potassium, Serum 4.2 mmol/L (Normal) Range: 3.5-5.2 Sodium, Serum 135 mmol/L (Normal) Range: 134-144 BUN/Creatinine Ratio 20 (Normal) Range: 11-26 eGFR If Africn Am 40 mL/min/1.73 (Abnormal) eGFR If NonAfricn Am 35 mL/min/1.73 (Abnormal) Creatinine, Serum 1.46 mg/dL (Abnormal) Range: 0.57-1.00 BUN 29 mg/dL (Abnormal) Range: 8-27 Glucose, Serum 101 mg/dL (Abnormal) Range: 65-99 73-Itp-663355:48 Comprehensive Metabolic Profil Comments: [facility] [address] [place], [place], [id number] GAP 9 (Normal) Range: 5-15 CO2 24.0 mmol/L (Normal) Range: 21.0-32.0 CL 106 mmol/L (Normal) Range: 98-107 K 4.6 mmol/L (Normal) Range: 3.5-5.1 NA 139 mmol/L (Normal) Range: 136-145 T BILI 0.50 mg/dL (Normal) Range: 0.20-1.00 ALT 26 U/L (Normal) Range: 12-78 ALK P 59 U/L (Normal) Range: 50-136 AST 14 U/L (Abnormal) Range: 15-37 CA 8.8 mg/dL (Normal) Range: 8.5-10.1 A/G 1.1 {RATIO} (Normal) Range: 0.9-2.4 GLOB 3.4 g/dL (Normal) Range: 2.3-3.5 ALB 3.9 g/dL (Normal) Range: 3.4-5.0 T PROT 7.3 g/dL (Normal) Range: 6.4-8.2 BUN/CRE 25.5 {RATIO} (Abnormal) Range: 10-20 EST GFR - AA 39 mL/min (Abnormal) Comments: GFR Calc EST GFR 32 mL/min (Abnormal) Comments: Non- GFR Calc CREAT,SERUM 1.65 mg/dL (Abnormal) Range: 0.55-1.20 Comments: The validity of the calculated GFR AND GFRAA in patients over70 years has not been determined. Clinical correlation isessential. BUN 42 mg/dL (Abnormal) Range: 7-18 GLU 108 mg/dL (Normal) Range: 70-110 91-Xwn-740170:57 URINE ARMANDO CULTURE-MARY LOU COL Comments: PATIENT NOT FASTINGPERFORMED BY: [employer] [place] [id number] Information: SRC:UR [id number] COUNT ([id number]) Result 1 MUG (Normal) Comments: Mixed urogenital flora1,000 Colonies/mL Urine Culture,Comprehensive Final report (Normal) 56-Wfh-207357:03 Urinalysis, Office (38349) UA - LEUKOCYTE ESTERASE Moderate (Normal) UA - NITRITE Negative (Normal) URINE UROBILINGN MARY LOU TIMED Normal mg/dL (Normal) UA - PROTEIN Negative mg/dL (Normal) UA - PH 5 (Abnormal) UA - BLOOD Negative (Normal) UA - SPECIFIC GRAVITY 1.020 (Normal) UA - KETONES Negative mg/dL (Normal) UA - BILIRUBIN Negative (Normal) UA - GLUCOSE Negative (Normal) 07-Nov-20158:16 LIPID PANEL (84694) Comments: PATIENT WAS FASTINGPERFORMED BY: FIGH[facility]Ad[facility] [id number] LDL/HDL Ratio 2.3 {ratio_units} (Normal) Range: 0.0-3.2 Comments: LDL/HDL Ratio Men Women 1/2 Avg.Risk 1.0 1.5 Av g.Risk 3.6 3.2 2X Avg.Risk 6.2 5.0 3X Avg.Risk 8.0 6.1 LDL Cholesterol Calc 106 mg/dL (Abnormal) Range: 0-99 VLDL Cholesterol Hero 37 mg/dL (Normal) Range: 5-40 HDL Cholesterol 47 mg/dL (Normal) Comments: According to ATP-III Guidelines, HDL-C >59 mg/dL is considered anegative risk factor for CHD. Triglycerides 186 mg/dL (Abnormal) Range: 0-149 Cholesterol, Total 190 mg/dL (Normal) Range: 100-199 07-Nov-20158:16 CBC W/AUTO DIFF WBC Comments: PATIENT WAS FASTINGPERFORMED BY: LabCoVirtua BerlinLrjwsz9085 [facility] [id number] Information: [id number] (38653) Immature Grans (Abs) 0.0 {x10E3/uL} (Normal) Range: 0.0-0.1 Immature Granulocytes 0 % (Normal) Baso (Absolute) 0.0 {x10E3/uL} (Normal) Range: 0.0-0.2 Eos (Absolute) 0.2 {x10E3/uL} (Normal) Range: 0.0-0.4 Monocytes(Absolute) 0.6 {x10E3/uL} (Normal) Range: 0.1-0.9 Lymphs (Absolute) 1.5 {x10E3/uL} (Normal) Range: 0.7-3.1 Neutrophils (Absolute) 3.9 {x10E3/uL} (Normal) Range: 1.4-7.0 Basos 1 % (Normal) Eos 3 % (Normal) Monocytes 10 % (Normal) Lymphs 25 % (Normal) Neutrophils 61 % (Normal) Platelets 303 {x10E3/uL} (Normal) Range: 150-379 RDW 13.5 % (Normal) Range: 12.3-15.4 MCHC 32.6 g/dL (Normal) Range: 31.5-35.7 MCH 27.7 pg (Normal) Range: 26.6-33.0 MCV 85 fL (Normal) Range: 79-97 Hematocrit 41.4 % (Normal) Range: 34.0-46.6 Hemoglobin 13.5 g/dL (Normal) Range: 11.1-15.9 RBC 4.88 {x10E6/uL} (Normal) Range: 3.77-5.28 WBC 6.3 {x10E3/uL} (Normal) Range: 3.4-10.8 :16 METABOLIC PANEL, COMPREHENSIVE Comments: PATIENT WAS FASTINGPERFORMED BY: [employer] system[employer]ik6370 [facility] [id number] (02685) ALT (SGPT) 13 [iU]/L (Normal) Range: 0-32 AST (SGOT) 13 [iU]/L (Normal) Range: 0-40 Alkaline Phosphatase, S 53 [iU]/L (Normal) Range: 39-117 Bilirubin, Total 0.5 mg/dL (Normal) Range: 0.0-1.2 A/G Ratio 2.0 (Normal) Range: 1.1-2.5 Globulin, Total 2.1 g/dL (Normal) Range: 1.5-4.5 Albumin, Serum 4.3 g/dL (Normal) Range: 3.5-4.8 Protein, Total, Serum 6.4 g/dL (Normal) Range: 6.0-8.5 Calcium, Serum 9.2 mg/dL (Normal) Range: 8.7-10.3 Carbon Dioxide, Total 23 mmol/L (Normal) Range: 18-29 Chloride, Serum 98 mmol/L (Normal) Range: 97-108 Potassium, Serum 4.5 mmol/L (Normal) Range: 3.5-5.2 Sodium, Serum 139 mmol/L (Normal) Range: 134-144 BUN/Creatinine Ratio 22 (Normal) Range: 11-26 eGFR If Africn Am 36 mL/min/1.73 (Abnormal) eGFR If NonAfricn Am 32 mL/min/1.73 (Abnormal) Creatinine, Serum 1.58 mg/dL (Abnormal) Range: 0.57-1.00 BUN 35 mg/dL (Abnormal) Range: 8-27 Glucose, Serum 96 mg/dL (Normal) Range: 65-99 :16 HgA1C , Office (77456) HgA1C , Office 5.8 % (Normal) Range: 4.6 - 7.1 :21 Vitamin D Hydroxy (90327) Comments: PATIENT NOT FASTINGPERFORMED BY: Face++70 [facility] [id number] Vitamin D, 25-Hydroxy 78.6 ng/mL (Normal) Range: 30.0-100.0 Comments: Vitamin D deficiency has been defined by the [place] of[place] and an Endocrine Society practice guideline as alevel of serum 25-OH vitamin D less than 20 ng/mL (1,2).The Endocrine Society went on to further define vitamin Dinsufficiency as a level between 21 and 29 ng/mL (2).1. IOM ([place] of Medicine). 2010. Dietary reference intakes for calcium and D. [place]: The National Academies Press.2. Vanessa MF, Gail NC, Cydney CABRAL, et al. Evaluation, treatment, and prevention of vitamin D deficiency: an Endocrine Society clinical practice guideline. JCEM. 2010; 96(7):1911-30. :21 TSH (43348) Comments: PATIENT NOT FASTINGPERFORMED BY: [employer] Iakmhg7867 [facility] [id number] TSH 0.545 {uIU/mL} (Normal) Range: 0.450-4.500 :21 METABOLIC PANEL, Comments: PATIENT NOT FASTINGPERFORMED BY: [facility]6370 [facility] [id number] Information: [id number] COMPREHENSIVE (74415) ALT (SGPT) 15 [iU]/L (Normal) Range: 0-32 AST (SGOT) 14 [iU]/L (Normal) Range: 0-40 Alkaline Phosphatase, S 54 [iU]/L (Normal) Range: 39-117 Bilirubin, Total 0.5 mg/dL (Normal) Range: 0.0-1.2 A/G Ratio 1.8 (Normal) Range: 1.1-2.5 Globulin, Total 2.4 g/dL (Normal) Range: 1.5-4.5 Albumin, Serum 4.4 g/dL (Normal) Range: 3.5-4.8 Protein, Total, Serum 6.8 g/dL (Normal) Range: 6.0-8.5 Calcium, Serum 9.0 mg/dL (Normal) Range: 8.7-10.3 Carbon Dioxide, Total 21 mmol/L (Normal) Range: 18-29 Chloride, Serum 102 mmol/L (Normal) Range: 97-108 Potassium, Serum 4.4 mmol/L (Normal) Range: 3.5-5.2 Sodium, Serum 140 mmol/L (Normal) Range: 134-144 BUN/Creatinine Ratio 22 (Normal) Range: 11-26 eGFR If Africn Am 44 mL/min/1.73 (Abnormal) eGFR If NonAfricn Am 38 mL/min/1.73 (Abnormal) Creatinine, Serum 1.36 mg/dL (Abnormal) Range: 0.57-1.00 BUN 30 mg/dL (Abnormal) Range: 8-27 Glucose, Serum 98 mg/dL (Normal) Range: 65-99 :21 LIPID PANEL (47038) Comments: PATIENT NOT FASTINGPERFORMED BY: [employer] RenovationsMaria [facility] [id number] LDL/HDL Ratio 2.5 {ratio_units} (Normal) Range: 0.0-3.2 Comments: LDL/HDL Ratio Men Women 1/2 Avg.Risk 1.0 1.5 Av g.Risk 3.6 3.2 2X Avg.Risk 6.2 5.0 3X Avg.Risk 8.0 6.1 LDL Cholesterol Calc 121 mg/dL (Abnormal) Range: 0-99 VLDL Cholesterol Hero 29 mg/dL (Normal) Range: 5-40 HDL Cholesterol 49 mg/dL (Normal) Comments: According to ATP-III Guidelines, HDL-C >59 mg/dL is considered anegative risk factor for CHD. Triglycerides 145 mg/dL (Normal) Range: 0-149 Cholesterol, Total 199 mg/dL (Normal) Range: 100-199 41-Wdr-687707:41 HgA1C , Office (89649) HgA1C , Office 5.7 % (Normal) Range: 4.6 - 7.1 :00 Microscopic Examination Comments: PATIENT NOT FASTINGPERFORMED BY: [employer] [facility] Dbhhdx5122 [facility] BiomedicalMaria [facility] [id number] Bacteria Many (Abnormal) Mucus Threads Present (Normal) Epithelial Cells (non renal) >10 {/hpf} (Abnormal) Range: 0 - 10 RBC 0-2 {/hpf} (Normal) Range: 0 - 2 WBC 11-30 {/hpf} (Abnormal) Range: 0 - 5 :00 CBC with auto diff Comments: PATIENT NOT FASTINGPERFORMED BY: ActuatedMedicalVirtua BerlinAsrymh3210 [facility] [id number] Information: [id number] (85031) Immature Grans (Abs) 0.0 {x10E3/uL} (Normal) Range: 0.0-0.1 Immature Granulocytes 0 % (Normal) Baso (Absolute) 0.0 {x10E3/uL} (Normal) Range: 0.0-0.2 Eos (Absolute) 0.2 {x10E3/uL} (Normal) Range: 0.0-0.4 Monocytes(Absolute) 0.5 {x10E3/uL} (Normal) Range: 0.1-0.9 Lymphs (Absolute) 1.4 {x10E3/uL} (Normal) Range: 0.7-3.1 Neutrophils (Absolute) 5.2 {x10E3/uL} (Normal) Range: 1.4-7.0 Basos 1 % (Normal) Eos 2 % (Normal) Monocytes 7 % (Normal) Lymphs 19 % (Normal) Neutrophils 71 % (Normal) Platelets 335 {x10E3/uL} (Normal) Range: 150-379 RDW 13.9 % (Normal) Range: 12.3-15.4 MCHC 32.4 g/dL (Normal) Range: 31.5-35.7 MCH 27.5 pg (Normal) Range: 26.6-33.0 MCV 85 fL (Normal) Range: 79-97 Hematocrit 42.6 % (Normal) Range: 34.0-46.6 Hemoglobin 13.8 g/dL (Normal) Range: 11.1-15.9 RBC 5.01 {x10E6/uL} (Normal) Range: 3.77-5.28 WBC 7.3 {x10E3/uL} (Normal) Range: 3.4-10.8 :00 METABOLIC PANEL, COMPREHENSIVE Comments: PATIENT NOT FASTINGPERFORMED BY: [facility]6370 [facility] [id number] (99670) ALT (SGPT) 24 [iU]/L (Normal) Range: 0-32 AST (SGOT) 18 [iU]/L (Normal) Range: 0-40 Alkaline Phosphatase, S 65 [iU]/L (Normal) Range: 39-117 Bilirubin, Total 0.5 mg/dL (Normal) Range: 0.0-1.2 A/G Ratio 1.6 (Normal) Range: 1.1-2.5 Globulin, Total 2.7 g/dL (Normal) Range: 1.5-4.5 Albumin, Serum 4.4 g/dL (Normal) Range: 3.5-4.8 Protein, Total, Serum 7.1 g/dL (Normal) Range: 6.0-8.5 Calcium, Serum 8.9 mg/dL (Normal) Range: 8.7-10.3 Carbon Dioxide, Total 23 mmol/L (Normal) Range: 18-29 Chloride, Serum 97 mmol/L (Normal) Range: 97-108 Potassium, Serum 4.6 mmol/L (Normal) Range: 3.5-5.2 Sodium, Serum 139 mmol/L (Normal) Range: 134-144 BUN/Creatinine Ratio 23 (Normal) Range: 11-26 eGFR If Africn Am 39 mL/min/1.73 (Abnormal) eGFR If NonAfricn Am 34 mL/min/1.73 (Abnormal) Creatinine, Serum 1.49 mg/dL (Abnormal) Range: 0.57-1.00 BUN 34 mg/dL (Abnormal) Range: 8-27 Glucose, Serum 102 mg/dL (Abnormal) Range: 65-99 08-May-20159:00 URINALYSIS, W/ MICRO (37976) Comments: PATIENT NOT FASTINGPERFORMED BY: [facility] Hlufmo7330 [facility] [id number] Microscopic Examination See below: (Normal) Comments: Microscopic was indicated and was performed. Nitrite, Urine Negative (Normal) Urobilinogen,Semi-Qn 0.2 mg/dL (Normal) Range: 0.2-1.0 Bilirubin Negative (Normal) Occult Blood Negative (Normal) Ketones Negative (Normal) Glucose Negative (Normal) Protein Negative (Normal) WBC Esterase 3+ (Abnormal) Appearance Cloudy (Abnormal) Urine-Color Yellow (Normal) pH 6.0 (Normal) Range: 5.0-7.5 Specific [place] 1.020 (Normal) Range: 1.005-1.030 :00 LIPID PANEL (31342) Comments: PATIENT NOT FASTINGPERFORMED BY: ActuatedMedicalVirtua BerlinNnzznw4414 [facility] [id number] LDL/HDL Ratio 2.4 {ratio_units} (Normal) Range: 0.0-3.2 Comments: LDL/HDL Ratio Men Women 1/2 Avg.Risk 1.0 1.5 Av g.Risk 3.6 3.2 2X Avg.Risk 6.2 5.0 3X Avg.Risk 8.0 6.1 LDL Cholesterol Calc 138 mg/dL (Abnormal) Range: 0-99 Comments: Please note reference interval change VLDL Cholesterol Hero 37 mg/dL (Normal) Range: 5-40 HDL Cholesterol 58 mg/dL (Normal) Comments: According to ATP-III Guidelines, HDL-C >59 mg/dL is considered anegative risk factor for CHD. Triglycerides 183 mg/dL (Abnormal) Range: 0-149 Comments: Please note reference interval change Cholesterol, Total 233 mg/dL (Abnormal) Range: 100-199 Comments: Please note reference interval change :00 TSH (86510) Comments: PATIENT NOT FASTINGPERFORMED BY: ActuatedMedicalVirtua BerlinTwtogp3753 [facility] [id number] TSH 0.642 {uIU/mL} (Normal) Range: 0.450-4.500 17-Pme-473593:55 Protein Electro, Random Urine Comments: PERFORMED BY: ActuatedMedicalVirtua BerlinIenqgr5670 [facility] [id number] Please note: SPRCS (Normal) Comments: Protein electrophoresis scan will follow via computer, mail, orcourier delivery. M-Josep, % Not Observed % (Normal) Gamma Globulin, U 17.3 % (Normal) Beta Globulin, U 42.3 % (Normal) Qajwh-4-Xnuyhsye, U 15.7 % (Normal) Euodf-8-Hoxlnwwi, U 4.1 % (Normal) Albumin, U 20.6 % (Normal) Protein,Total,Urine 5.7 mg/dL (Normal) Range: 0.0-15.0 Phosphorus, Serum 3.7 mg/dL (Normal) Comments: PATIENT NOT FASTINGPERFORMED BY: SARAH [employer] Bkqsum0336 [facility] BiomedicalMaria [facility] [id number] :37 Range: 2.5-4.5 :37 Protein Electro, Random Urine Comments: PATIENT NOT FASTINGPERFORMED BY: [facility] Beclbc6464 [facility] [id number] Please note: SPRCS (Normal) Comments: Protein electrophoresis scan will follow via computer, mail, orcourier delivery. :37 Protein Electro.,S Comments: PATIENT NOT FASTINGPERFORMED BY: [employer] Cngkjy9196 [facility] [id number] Please note: SPRCS (Normal) Comments: Protein electrophoresis scan will follow via computer, mail, orcourier delivery. A/G Ratio 1.3 (Normal) Range: 0.7-2.0 Globulin, Total 2.8 g/dL (Normal) Range: 2.0-4.5 M-Josep Not Observed g/dL (Normal) Gamma Globulin 0.8 g/dL (Normal) Range: 0.5-1.6 Beta Globulin 0.8 g/dL (Normal) Range: 0.6-1.3 Sogfr-1-Cmbafefm 0.9 g/dL (Normal) Range: 0.4-1.2 Cicfu-3-Pgnltzpl 0.2 g/dL (Normal) Range: 0.1-0.4 Albumin 3.7 g/dL (Normal) Range: 3.2-5.6 Protein, Total, Serum 6.5 g/dL (Normal) Range: 6.0-8.5 PTH, Intact 17 pg/mL (Normal) Comments: PATIENT NOT FASTINGPERFORMED BY: [facility] Fomymm6124 [facility] [id number] :37 Range: 15-65 :37 Request Problem Comments: PATIENT NOT FASTINGPERFORMED BY: [facility] Yetwgs7000 [facility] [id number] Sedimentation 12 mm/h Comments: PATIENT NOT FASTINGPERFORMED BY: [facility]6370 [facility] [id number] :37 Rate-Westergren (Normal) Range: 0-40 :29 Calcium, 24Hr Urine Comments: PATIENT NOT FASTINGPERFORMED BY: [place] 6882670 [facility] [id number] Information: [id number] START 11/12/14@7AM FINISH Calcium, Urine 24hr 17.0 {mg/24_hr} (Abnormal) Range: 100.0-300.0 Calcium, Urine 1.7 mg/dL (Normal) :33 Potassium Serum (33409) Comments: PATIENT NOT FASTINGPERFORMED BY: [place] 6882670 [facility] [id number] Information: [id number] Potassium, Serum 5.3 mmol/L (Abnormal) Range: 3.5-5.2 :15 LIPID PANEL (46786) Comments: PATIENT WAS FASTINGPERFORMED BY: [facility]6370 [facility] [id number] LDL/HDL Ratio 2.3 {ratio_units} (Normal) Range: 0.0-3.2 Comments: LDL/HDL Ratio Men Women 1/2 Avg.Risk 1.0 1.5 Av g.Risk 3.6 3.2 2X Avg.Risk 6.2 5.0 3X Avg.Risk 8.0 6.1 LDL Cholesterol Calc 117 mg/dL (Abnormal) Range: 0-99 VLDL Cholesterol Hero 32 mg/dL (Normal) Range: 5-40 HDL Cholesterol 51 mg/dL (Normal) Comments: According to ATP-III Guidelines, HDL-C >59 mg/dL is considered anegative risk factor for CHD. Triglycerides 162 mg/dL (Abnormal) Range: 0-149 Cholesterol, Total 200 mg/dL (Abnormal) Range: 100-199 :15 Vitamin D Hydroxy (46066) Comments: PATIENT WAS FASTINGPERFORMED BY: [facility]6370 [facility] [id number] Vitamin D, 25-Hydroxy 69.2 ng/mL (Normal) Range: 30.0-100.0 Comments: Vitamin D deficiency has been defined by the [place] and an Endocrine Society practice guideline as alevel of serum 25-OH vitamin D less than 20 ng/mL (1,2).The Endocrine Society went on to further define vitamin Dinsufficiency as a level between 21 and 29 ng/mL (2).1. IOM ([place] of [employer]). 2010. Dietary reference intakes for calcium and D. [place]: The National Academies Press.2. Vanessa MF, Gail RIVERS, Cydney CABRAL, et al. Evaluation, treatment, and prevention of vitamin D deficiency: an Endocrine Society clinical practice guideline. JCEM. 2010; 96(7):1911-30. :15 TSH (66559) Comments: PATIENT WAS FASTINGPERFORMED BY: [facility] Kwinvg1155 [facility] [id number] TSH 0.604 {uIU/mL} (Normal) Range: 0.450-4.500 :15 METABOLIC PANEL, Comments: PATIENT WAS FASTINGPERFORMED BY: [facility] Oosgdl6494 [facility] [id number] Information: [id number] COMPREHENSIVE (36847) ALT (SGPT) 11 [iU]/L (Normal) Range: 0-32 AST (SGOT) 13 [iU]/L (Normal) Range: 0-40 Alkaline Phosphatase, S 72 [iU]/L (Normal) Range: 39-117 Bilirubin, Total 0.3 mg/dL (Normal) Range: 0.0-1.2 A/G Ratio 1.7 (Normal) Range: 1.1-2.5 Globulin, Total 2.6 g/dL (Normal) Range: 1.5-4.5 Albumin, Serum 4.4 g/dL (Normal) Range: 3.5-4.8 Protein, Total, Serum 7.0 g/dL (Normal) Range: 6.0-8.5 Calcium, Serum 9.4 mg/dL (Normal) Range: 8.7-10.3 Carbon Dioxide, Total 22 mmol/L (Normal) Range: 18-29 Chloride, Serum 98 mmol/L (Normal) Range: 97-108 Potassium, Serum 5.5 mmol/L (Abnormal) Range: 3.5-5.2 Sodium, Serum 139 mmol/L (Normal) Range: 134-144 BUN/Creatinine Ratio 26 (Normal) Range: 11-26 eGFR If Africn Am 38 mL/min/1.73 (Abnormal) eGFR If NonAfricn Am 33 mL/min/1.73 (Abnormal) Creatinine, Serum 1.52 mg/dL (Abnormal) Range: 0.57-1.00 BUN 40 mg/dL (Abnormal) Range: 8-27 Glucose, Serum 94 mg/dL (Normal) Range: 65-99 58-Fhk-58483:15 MAGNESIUM (42511) Comments: PATIENT WAS FASTINGPERFORMED BY: LabCoVirtua BerlinGhtzqv7257 [facility] [id number] Magnesium, Serum 2.3 mg/dL (Normal) Range: 1.6-2.6 Plan of Care Name Dates Details Instructions Current nonsmoker : Eprescribed prescriptions (G8553) Indication: Current nonsmoker Current nonsmoker : Follow up as needed Indication: Current nonsmoker Current nonsmoker : Eprescribed prescriptions (G8553) Indication: Current nonsmoker Vitamin B 12 deficiency : Follow up in 3 months For [facility] and one separate for Medicare physical Indication: Vitamin B 12 deficiency Current nonsmoker : Eprescribed prescriptions (G8553) Indication: Current nonsmoker Impaired Fasting Glucose (Renamed from Elevated fasting blood sugar) : Eprescribed prescriptions (G8553) Indication: Impaired Fasting Glucose (Renamed from Elevated fasting blood sugar) Hypercholesteremia : Cholesterol mgmt Indication: Hypercholesteremia Impaired Fasting Glucose (Renamed from Elevated fasting blood sugar) : Follow up in 4 months Indication: Impaired Fasting Glucose (Renamed from Elevated fasting blood sugar) Hypertension : Diet, Exercise, and Wt loss Indication: Hypertension Hypertension : HTN/CAD Red Flags Indication: Hypertension Vitamin B 12 deficiency : Reviewed Lab Indication: Vitamin B 12 deficiency CKD (chronic kidney disease), stage III : Follow up in 3 months Indication: CKD (chronic kidney disease), stage III Gastroesophageal reflux disease with esophagitis : Eprescribed prescriptions (G8553) Indication: Gastroesophageal reflux disease with esophagitis Current nonsmoker : Follow up if no improvement or if symptoms worsen Indication: Current nonsmoker Sinus congestion : Follow up if no improvement or if symptoms worsen Indication: Sinus congestion Gastroesophageal reflux disease with esophagitis : Eprescribed prescriptions (G8553) Indication: Gastroesophageal reflux disease with esophagitis Current nonsmoker : Follow up in 2 months Indication: Current nonsmoker Acquired hypothyroidism : Eprescribed prescriptions (G8553) Indication: Acquired hypothyroidism Hypertension : Eprescribed prescriptions (G8553) Indication: Hypertension Gastroesophageal reflux disease with esophagitis : Reviewed Lab Indication: Gastroesophageal reflux disease with esophagitis Acquired hypothyroidism : Reviewed Lab Indication: Acquired hypothyroidism Hypertension : Reviewed Lab Indication: Hypertension Postmenopausal (Renamed from Postmenopausal status) : Follow up in 3 months Indication: Postmenopausal (Renamed from Postmenopausal status) Hypertension : Eprescribed prescriptions (G8553) Indication: Hypertension BMI 32.0-32.9,adult : Follow up in 3 months for Gen med Indication: BMI 32.0-32.9,adult Hypertension : Eprescribed prescriptions (G8553) Indication: Hypertension Bradycardia : Follow up in 2 months Indication: Bradycardia Hypertension : Eprescribed prescriptions (G8553) Indication: Hypertension Hypertension : Follow up if no improvement or if symptoms worsen Indication: Hypertension Current nonsmoker : Follow up in 4 weeks Indication: Current nonsmoker Lower leg edema : Eprescribed prescriptions (G8553) Indication: Lower leg edema BMI 33.0-33.9,adult : Follow up in 1 week Indication: BMI 33.0-33.9,adult Lower leg edema : Eprescribed prescriptions (G8553) Indication: Lower leg edema Acquired hypothyroidism : Follow up in 3 months Indication: Acquired hypothyroidism BMI 32.0-32.9,adult : Follow up in 3 months Indication: BMI 32.0-32.9,adult Acquired hypothyroidism : Eprescribed prescriptions (G8553) Indication: Acquired hypothyroidism Back pain : Follow up after May 26 Indication: Back pain Osteoporosis (Renamed from OP (osteoporosis)) : Follow up in 8 weeks Indication: Osteoporosis (Renamed from OP (osteoporosis)) Acquired hypothyroidism : Reviewed Lab Indication: Acquired hypothyroidism Back pain : Reviewed Diagnostic Tests Indication: Back pain Sinusitis : *URI Treatment Indication: Sinusitis Sinusitis : *URI Symptoms Indication: Sinusitis Sinusitis : *Antibiotic Usage Education - Female Indication: Sinusitis Sinus headache : Eprescribed prescriptions (G8553) Indication: Sinus headache Hypercholesteremia : Diet, Exercise, and Wt loss Indication: Hypercholesteremia Impaired Fasting Glucose (Renamed from Elevated fasting blood sugar) : Diet, Exercise, and Wt loss Indication: Impaired Fasting Glucose (Renamed from Elevated fasting blood sugar) Impaired Fasting Glucose (Renamed from Elevated fasting blood sugar) : Eprescribed prescriptions ([id number]) Indication: Impaired Fasting Glucose (Renamed from Elevated fasting blood sugar) Urinary tract infection, site not specified (Renamed from UTI (urinary tract infection)) : Eprescribed prescriptions ([id number]) Indication: Urinary tract infection, site not specified (Renamed from UTI (urinary tract infection)) Urinary tract infection, site not specified (Renamed from UTI (urinary tract infection)) : Bladder Infection (Cystitis): uti Indication: Urinary tract infection, site not specified (Renamed from UTI (urinary tract infection)) Left flank pain : Eprescribed prescriptions (G8553) Indication: Left flank pain Impaired Fasting Glucose (Renamed from Elevated fasting blood sugar) : Diet, Exercise, and Wt loss Indication: Impaired Fasting Glucose (Renamed from Elevated fasting blood sugar) Hypercholesteremia : Diet, Exercise, and Wt loss Indication: Hypercholesteremia Impaired Fasting Glucose (Renamed from Elevated fasting blood sugar) : Eprescribed prescriptions (G8553) Indication: Impaired Fasting Glucose (Renamed from Elevated fasting blood sugar) Impaired Fasting Glucose (Renamed from Elevated fasting blood sugar) : *Diabetes Education Indication: Impaired Fasting Glucose (Renamed from Elevated fasting blood sugar) Impaired Fasting Glucose (Renamed from Elevated fasting blood sugar) : Diet, Exercise, and Wt loss Indication: Impaired Fasting Glucose (Renamed from Elevated fasting blood sugar) Hypercholesteremia : Diet, Exercise, and Wt loss Indication: Hypercholesteremia Gastroesophageal reflux disease with esophagitis : Heartburn *: gerd Indication: Gastroesophageal reflux disease with esophagitis Gastroesophageal reflux disease with esophagitis : Eprescribed prescriptions (G8553) Indication: Gastroesophageal reflux disease with esophagitis Osteoporosis (Renamed from OP (osteoporosis)) : Eprescribed prescriptions (G8553) Indication: Osteoporosis (Renamed from OP (osteoporosis)) Hypercholesteremia : Diet, Exercise, and Wt loss Indication: Hypercholesteremia Acquired hypothyroidism : Eprescribed prescriptions (G8553) Indication: Acquired hypothyroidism Thoracic back pain : Eprescribed prescriptions (G8553) Indication: Thoracic back pain Hypertension, benign : Eprescribed prescriptions (G8553) Indication: Hypertension, benign Planned Observations VITAMIN B12 AND FOLATES ([id number])Indication: Vitamin B 12 deficiency On: 51-Taj-584734:14 Request Metabolic Panel, Comprehensive ([id number])Indication: Hypertension On: 06-Jjz-626523:14 Request LIPID PANEL ([id number])Indication: Encounter for screening for lipid disorder On: 23-Kym-999796:13 Request URINALYSIS, W/ MICRO ([id number])Indication: Hypertension On: 73-Kva-599291:22 Request MICROALBUMIN: CREATININE RATIO ([id number]) AND ([id number])Indication: Hypertension On: 65-Hym-812466:22 Request TSH (THYROID STIMULATING HORMONE) ([id number])Indication: Acquired hypothyroidism On: 24-Nox-447530:18 Request URINE ARMANDO CULTURE-IDENTIFICATN ([id number])Indication: Dysuria On: 6-Csq-661726:39 Request Urinalysis, Office ([id number])Indication: Dysuria On: 8-Zfv-447733:38 Request METABOLIC PANEL, COMPREHENSIVE ([id number])Indication: Left flank pain On: 13-Qvk-212921:03 Request Comments: stat URINE CALCIUM MARY LOU TIMED 24 Hour ([id number])Indication: Osteoporosis (Renamed from OP (osteoporosis)) On: 4-Eqc-399745:12 Request PARATHORMONE ([id number])Indication: Osteoporosis (Renamed from OP (osteoporosis)) On: 9-Axy-050644:12 Request PHOSPHORUS ([id number])Indication: Osteoporosis (Renamed from OP (osteoporosis)) On: 7-Zab-079940:12 Request SED RATE ERYTHROCYTE ([id number])Indication: Osteoporosis (Renamed from OP (osteoporosis)) On: 9-Zdv-878722:12 Request SPEP ([id number])Indication: Osteoporosis (Renamed from OP (osteoporosis)) On: 6-Dtr-841471:12 Request UPEP ([id number])Indication: Osteoporosis (Renamed from OP (osteoporosis)) On: 7-Zar-631765:12 Request Planned Encounters Medical; 3 Month FU - On: 21-Jun-2018 9:45 [facility] Ligia Irizarry CNP, CNP, Mary E Planned Procedures Radiology - Lumbar SpineBy: Juan C On: 19-May-2018 Intent Ligia AMBRIZ CNP, Mary E Toradol Injection, 30 mg On: 19-May-2018 Intent ([id number])By: Juan C AMBRIZ NicoleJaxon Irizarry CNP Nicloe PNEUM VAC ADLT/IMUMNOSPR, On: 20-Apr-2018 Intent SBC/INTRM ([id number])By: Ligia Irizarry CNP, CNP Nicole MAMMOGRAM BREAST BILATERAL On: 22-Mar-2018 Intent SCREENING DIGITAL ([id number])By: Ligia Irizarry CNP, CNP, Mary E Bone Density StudyBy: Juan C AMBRIZ, On: 22-Mar-2018 Intent Ligia Irizarry CNP Nicole ELECTROCARDIOGRAM, COMPLETE (ECG) On: 29-Oct-2017 Intent ([id number])By: Winnie Castro DO Comments: sinus darinel no acute chg Aerosol Treatment ([id number])By: Juan C On: 10-Jul-2017 Intent PB NicoleJaxon Irizarry CNP Ligia Coates B 12 Injection, 1000 mcg On: 26-Jun-2017 Intent ([id number])By: Ligia Irizarry CNP Comments: Lot:[id number]:11/2018Dose:1mlRoute:IMSite:0.5mgGiven By:NICHOLAS hart CNP Ligia Coates B 12 Injection, 1000 mcg On: 19-Jun-2017 Intent ([id number])By: Ligia Irizarry CNP Comments: [id number]:11/21Dose:1mlRoute:IMSite:l armGiven By:NICHOLAS hart CNP Ligia Coates B 12 Injection, 1000 mcg On: 12-Jun-2017 Intent ([id number])By: Ligia Irizarry CNP Comments: [id number]:08/2018Dose:1mlRoute:IMSite:1ccGiven By:NICHOLAS hart CNP Ligia Coates B 12 Injection, 1000 mcg On: 05-Jun-2017 Intent ([id number])By: Ligia Irizarry CNP Comments: Weekly x 1 month starting today Jun 05, then 8, 15, take oral B12 as well Ligia AMBRIZ INJECTION, PROLIA ([id number])By: On: 19-Mar-2017 Intent Visit, Nurse Comments: lot:[id number]:06/2019dose:60mg SC given by:Davon signedER, BIOINFORMATICS ENGINEER DEXA SCAN AXIAL SKELETON On: 23-Feb-2017 Intent ([id number])By: Ligia Irizarry CNP, CNP Nicole Venous Doppler - LeftBy: Juan C On: 26-Aug-2016 Intent PB Ligia Coates Juan C AMBRIZ Ligia Coates Comments: scotty geronimo juan c ELECTROCARDIOGRAM, COMPLETE (ECG) On: 26-Aug-2016 Intent ([id number])By: Ligia Irizarry CNP Comments: sinus rhythm Ligia AMBRIZ Radiology - Shoulder - On: 08-Aug-2016 Intent BilateralBy: Juan C AMBRIZ Ligia Coates Juan C AMBRIZ Ligia Coates INJECTION, PROLIA ([id number])By: On: 26-Jun-2016 Intent Visit, Nurse Comments: prolialot:[id number]:07/24site:lt subqroute:subqdose:60mlD.PALOMA Higgins INJECTION, PROLIA ([id number])By: Rene On: 28-Dec-2015 Intent Saige OTT Comments: lot: [id number]: ite/route: L arm/SQamt: prefilled syringeVIS signed when applicableChelsea, GROUP PRACTICE PEDIATRICIAN MAMMOGRAM, SCREENING, BOTH BREAST On: 16-Nov-2015 Intent ([id number])By: Saige López DO CT - Abdomen & Pelvis (Without On: 19-Sep-2015 Intent Contrast)By: Saige López DO Comments: stone protocol Radiology - Knee - Right - Weight On: 17-Aug-2015 Intent BearingBy: Saige López DO INJECTION, PROLIA ([id number])By: Rene On: 03-Jul-2015 Tamara OTT Saige A Comments: Lot:[id number]:01/20Dose:60mLRoute:sub q Site:l armGiven By:NICHOLAS signed INJECTION, PROLIA ([id number])By: Rene On: 10-Jan-2015 Intent DO Saige A Comments: Lot:[id number]:06/21Dose:60mgRoute:sub qSite:l armGiven By:NICHOLAS signed DEXA SCAN AXIAL SKELETON On: 20-Oct-2014 Intent ([id number])By: Saige López DO MAMMOGRAM, SCREENING, BOTH BREAST On: 20-Oct-2014 Intent ([id number])By: Saige López DO MRI THORACIC SPINE W/O CONTRST On: 20-Oct-2014 Intent ([id number])By: Saige López DO Comments: - hx of fracture Planned Medications INJECTION, KETOROLAC TROMETHAMINE, PER 15 MG Ordered: 19-May-2018 Pending Ligia Irizarry CNP, CNP, Ligia Coates INJECTION, PROLIA Ordered: 10-Jan-2015 Pending Rene OTT, Saige A INJECTION, PROLIA Ordered: 03-Jul-2015 Pending Rene OTT, Saige A INJECTION, PROLIA Ordered: 28-Dec-2015 Pending Rene DO, Saige A INJECTION, PROLIA Ordered: 26-Jun-2016 Pending Visit, Nurse INJECTION, PROLIA Ordered: 19-Mar-2017 Pending Visit, Nurse Vitamin B-12 1000 MCG/ML Injection Solution Ordered: 05-Jun-2017 Pending [place] PB, Ligia Coates Ciesa PB, Ligia Coates Vitamin B-12 1000 MCG/ML Injection Solution Ordered: 12-Jun-2017 Pending [place] Ligia AMBRIZ Cichelsi AMBRIZ, Ligia Coates Vitamin B-12 1000 MCG/ML Injection Solution Ordered: 19-Jun-2017 Pending Ciesa PB, iLgia Coates Ciesa PB, Nicole Vitamin B-12 1000 MCG/ML Injection Solution Ordered: 26-Jun-2017 Pending [place]a Ligia AMBRIZ Ciesa PB, Nicole Instructions Name Dates Details Current nonsmoker : How to access health information online Indication: Current nonsmoker Current nonsmoker : How to access health information online - Detail Indication: Current nonsmoker Current nonsmoker : Patient Instructions Indication: Current nonsmoker Current nonsmoker : How to access health information online Indication: Current nonsmoker Current nonsmoker : How to access health information online - Detail Indication: Current nonsmoker Current nonsmoker : Patient Instructions Indication: Current nonsmoker Current nonsmoker : How to access health information online Indication: Current nonsmoker Current nonsmoker : How to access health information online - Detail Indication: Current nonsmoker Vitamin B 12 deficiency : Patient Instructions Indication: Vitamin B 12 deficiency Impaired Fasting Glucose (Renamed from Elevated fasting blood sugar) : How to access health information online Indication: Impaired Fasting Glucose (Renamed from Elevated fasting blood sugar) Impaired Fasting Glucose (Renamed from Elevated fasting blood sugar) : How to access health information online - Detail Indication: Impaired Fasting Glucose (Renamed from Elevated fasting blood sugar) Impaired Fasting Glucose (Renamed from Elevated fasting blood sugar) : Patient Instructions Indication: Impaired Fasting Glucose (Renamed from Elevated fasting blood sugar) Gastroesophageal reflux disease with esophagitis : How to access health information online Indication: Gastroesophageal reflux disease with esophagitis Gastroesophageal reflux disease with esophagitis : How to access health information online - Detail Indication: Gastroesophageal reflux disease with esophagitis Gastroesophageal reflux disease with esophagitis : Patient Instructions Indication: Gastroesophageal reflux disease with esophagitis Gastroesophageal reflux disease with esophagitis : How to access health information online Indication: Gastroesophageal reflux disease with esophagitis Gastroesophageal reflux disease with esophagitis : How to access health information online - Detail Indication: Gastroesophageal reflux disease with esophagitis Gastroesophageal reflux disease with esophagitis : Patient Instructions Indication: Gastroesophageal reflux disease with esophagitis Acquired hypothyroidism : How to access health information online Indication: Acquired hypothyroidism Acquired hypothyroidism : How to access health information online - Detail Indication: Acquired hypothyroidism Acquired hypothyroidism : Patient Instructions Indication: Acquired hypothyroidism Hypertension : How to access health information online Indication: Hypertension Hypertension : How to access health information online - Detail Indication: Hypertension Hypertension : Patient Instructions Indication: Hypertension Hypertension : How to access health information online Indication: Hypertension Hypertension : How to access health information online - Detail Indication: Hypertension Hypertension : Patient Instructions Indication: Hypertension Hypertension : How to access health information online Indication: Hypertension Hypertension : How to access health information online - Detail Indication: Hypertension Hypertension : Patient Instructions Indication: Hypertension Hypertension : How to access health information online Indication: Hypertension Hypertension : How to access health information online - Detail Indication: Hypertension Hypertension : Patient Instructions Indication: Hypertension Hypertension : Patient Instructions Indication: Hypertension Lower leg edema : How to access health information online Indication: Lower leg edema Lower leg edema : How to access health information online - Detail Indication: Lower leg edema Lower leg edema : Patient Instructions Indication: Lower leg edema Lower leg edema : How to access health information online Indication: Lower leg edema Lower leg edema : How to access health information online - Detail Indication: Lower leg edema Lower leg edema : Patient Instructions Indication: Lower leg edema Acquired hypothyroidism : How to access health information online Indication: Acquired hypothyroidism Acquired hypothyroidism : How to access health information online - Detail Indication: Acquired hypothyroidism Acquired hypothyroidism : Patient Instructions Indication: Acquired hypothyroidism Acquired hypothyroidism : Patient Instructions Indication: Acquired hypothyroidism Back pain : Patient Instructions Indication: Back pain Sinus headache : How to access health information online Indication: Sinus headache Sinus headache : How to access health information online - Detail Indication: Sinus headache Sinus headache : Patient Instructions Indication: Sinus headache Impaired Fasting Glucose (Renamed from Elevated fasting blood sugar) : How to access health information online Indication: Impaired Fasting Glucose (Renamed from Elevated fasting blood sugar) Impaired Fasting Glucose (Renamed from Elevated fasting blood sugar) : How to access health information online - Detail Indication: Impaired Fasting Glucose (Renamed from Elevated fasting blood sugar) Impaired Fasting Glucose (Renamed from Elevated fasting blood sugar) : Patient Instructions Indication: Impaired Fasting Glucose (Renamed from Elevated fasting blood sugar) Urinary tract infection, site not specified (Renamed from UTI (urinary tract infection)) : How to access health information online Indication: Urinary tract infection, site not specified (Renamed from UTI (urinary tract infection)) Urinary tract infection, site not specified (Renamed from UTI (urinary tract infection)) : How to access health information online - Detail Indication: Urinary tract infection, site not specified (Renamed from UTI (urinary tract infection)) Urinary tract infection, site not specified (Renamed from UTI (urinary tract infection)) : Patient Instructions Indication: Urinary tract infection, site not specified (Renamed from UTI (urinary tract infection)) Left flank pain : How to access health information online Indication: Left flank pain Left flank pain : How to access health information online - Detail Indication: Left flank pain Left flank pain : Patient Instructions Indication: Left flank pain Impaired Fasting Glucose (Renamed from Elevated fasting blood sugar) : How to access health information online Indication: Impaired Fasting Glucose (Renamed from Elevated fasting blood sugar) Impaired Fasting Glucose (Renamed from Elevated fasting blood sugar) : How to access health information online - Detail Indication: Impaired Fasting Glucose (Renamed from Elevated fasting blood sugar) Impaired Fasting Glucose (Renamed from Elevated fasting blood sugar) : Patient Instructions Indication: Impaired Fasting Glucose (Renamed from Elevated fasting blood sugar) Gastroesophageal reflux disease with esophagitis : How to access health information online Indication: Gastroesophageal reflux disease with esophagitis Gastroesophageal reflux disease with esophagitis : How to access health information online - Detail Indication: Gastroesophageal reflux disease with esophagitis Gastroesophageal reflux disease with esophagitis : Patient Instructions Indication: Gastroesophageal reflux disease with esophagitis Osteoporosis (Renamed from OP (osteoporosis)) : Patient Instructions Indication: Osteoporosis (Renamed from OP (osteoporosis)) Osteoporosis (Renamed from OP (osteoporosis)) : Patient Instructions Indication: Osteoporosis (Renamed from OP (osteoporosis)) Acquired hypothyroidism : How to access health information online Indication: Acquired hypothyroidism Acquired hypothyroidism : How to access health information online - Detail Indication: Acquired hypothyroidism Acquired hypothyroidism : Patient Instructions Indication: Acquired hypothyroidism Thoracic back pain : Patient Instructions Indication: Thoracic back pain Hypertension, benign : Patient Instructions Indication: Hypertension, benign Encounters Office Visit On: 19-May-2018 15:09 Encounter Reason: Back Pain - This condition occurred following a specific injury. The injury involved the lower back. The activity began 4 day(s) ago. Symptoms include back pain. Symptoms are located in the right lower End: 19-May-2018 15:32 back. The patient describes the pain as sharp and aching. Note for Back pain: Picked up a bucket and hurt back, it was 50 lbs on 3 days ago worsening tried heating padEncounter Diagnosis: Current nonsmoker, BMI 32.0-32.9,adult, Low back strain [facility] Annotation/Addendum On: 27-Apr-2018 16:12 [facility] End: 27-Apr-2018 16:13 Office Visit On: 20-Apr-2018 9:30 Encounter Reason: Annual Medicare Exam - The patient had reviewed and updated the family history, medication/s, past medical history and social history. Yes the patient did have a mini mental status exam done today. The End: 20-Apr-2018 10:18 activities of daily living the patient needs help with are none. The patient has driven in past 6 months and put handrails in bathroom, but the patient has not had fecal incontinence, had urinary incont inence, missed or ran out of medications to soon, fallen in the past 6 months, gotten lost, has a medalert necklace or bracelet or put area rugs through house. The patient has completed the following pr eventative measures: mammography (scheduled for 04/27/18 as well as bone density) and colonoscopy (over 10 years ago). The patient does have durable power of traffic law attorney and living will. The patient has no ticed getting bored, staying at home rather than doing something new or going out and lack of energy. Other providers contributing to the patient's care are steam trap worker (dr. eldridge), gastrologist (dr. das) and other: ([facility] Note for Annual Medicare Exam: Feeling stressed with care of .Encounter Diagnosis: Current nonsmoker, Influenza vaccination declined (Renamed from Refused influenza vaccine), Annual Medicare Phyiscal WITHOUT abnormal findings (Renamed from Encounter for general adult medical examination without abnormal findings), Pneumococcal vaccination given [facility] Office Visit On: 22-Mar-2018 9:12 Encounter Reason: Follow up for chronic medical issues - The patient does not feel well, has decreased energy level and is sleeping poorly. Patient has been compliant with instructions. Current medication use: no side ef End: 22-Mar-2018 10:27 fects and compliant with dosing regimen. Patient sleeps 7 hours per night. Nutrition: inappropriate diet and supplemental vitamins. The medical issues the patient is following up for include All identif ied problems below, blood sugar issues, high blood pressure and high cholesterol. blood pressure range : (120's/80's)., [ADDITIONAL REASON] Gastroesophageal Reflux Disease - Note for Gastroesophageal reflux disease: RE flux worsening, has Gerd not relieved by Aciphex. Had endoscopy by Marcos in past. Always with feeling of pain and burning in throat. Denies lying down after a meal Encounter Diagnosis: Current nonsmoker, Impaired Fasting Glucose (Renamed from Elevated fasting blood sugar), BMI 33.0-33.9,adult, Hypertension, Sore throat, Influenza vaccination declined (Renamed from Refused influenza vaccine), Post-menopausal, Screening mammogram, encounter for, Gastroesophageal reflux disease with esophagitis, Encounter for screening for lipid disorder, Vitamin B 12 deficiency [facility] Office Visit On: 29-Oct-2017 10:47 Encounter Reason: Follow up for chronic medical issues - The patient does not feel well, has decreased energy level and is sleeping well. Patient has been compliant with instructions. Current medication use: no side effe End: 29-Oct-2017 13:17 cts and compliant with dosing regimen. Patient sleeps 7 hours per night. Nutrition: balanced diet and supplemental vitamins. The medical issues the patient is following up for include All identified pro blems below, blood sugar issues, high blood pressure and high cholesterol. blood pressure range : and weight :.Encounter Diagnosis: Current nonsmoker, Impaired Fasting Glucose (Renamed from Elevated fasting blood sugar), BMI 33.0-33.9,adult, CKD (chronic kidney disease), stage III, Acquired hypothyroidism, Hypertension, Vitamin B 12 deficiency, Bradycardia, Hypercholesteremia, Vitamin D deficiency [facility] Office Visit On: 07-Aug-2017 10:22 Encounter Reason: Follow up tests - Diagnostic tests include other (labs). Note for Discuss procedure results: Requesting handicap plaquardEncounter Diagnosis: BMI 33.0-33.9,adult, Current nonsmoker, Gastroesophageal reflux disease with esophagitis End: 07-Aug-2017 11:03 , Acquired hypothyroidism, CKD (chronic kidney disease), stage III [facility] Office Visit On: 10-Jul-2017 10:56 Encounter Reason: Cold Symptoms - Symptoms include nasal congestion, postnasal drainage and dry cough. The symptoms occur intermittently. Note for Cold symptoms: sinus congestion, End: 10-Jul-2017 11:27 [ADDITIONAL REASON] Heartburn - Symptoms include chest discomfort, pain and acid taste in the mouth. The pain is located in the upper chest, substernal area and epigastric area. The patient describes t he pain as burning. The symptoms occur constantly. The patient describes this as worsening. Associated symptoms include cough. Previous presentation included substernal burning, epigastric pain and an a fanny taste in the mouth. Note for Heartburn: heartburn since Jul 06 Encounter Diagnosis: BMI 33.0-33.9,adult, Current nonsmoker, Gastroesophageal reflux disease with esophagitis, Wheeze, Sinus congestion [facility] Nurse Visit On: 26-Jun-2017 8:26 Encounter Reason: Injections - The medication the patient is here to receive is vitamin B12 IM.Encounter Diagnosis: Vitamin B 12 deficiency End: 26-Jun-2017 8:57 [facility] Annotation/Addendum On: 19-Jun-2017 11:33 Encounter Reason: Injections - The medication the patient is here to receive is vitamin B12 IM.Encounter Diagnosis: Vitamin B 12 deficiency End: 19-Jun-2017 12:39 [facility] Nurse Visit On: 12-Jun-2017 8:06 Encounter Reason: Injections - The medication the patient is here to receive is vitamin B12 IM.Encounter Diagnosis: Vitamin B 12 deficiency End: 12-Jun-2017 9:10 [facility] Office Visit On: 05-Jun-2017 8:46 Encounter Reason: Follow up tests - Diagnostic tests include other (labs).Encounter Diagnosis: BMI 33.0-33.9,adult, Current nonsmoker, Acquired hypothyroidism, Hypokalemia, Vitamin B 12 deficiency End: 05-Jun-2017 9:21 [facility] Office Visit On: 27-May-2017 13:22 Encounter Reason: Follow up for chronic medical issues - The patient feels well with minor complaints (still aches and pains-back and stomach) and is sleeping well. Patient has been compliant with instructions. Current m End: 27-May-2017 14:14 edication use: no side effects, compliant with dosing regimen and considered effective by patient. Patient sleeps 7 hours per night. Nutrition: inappropriate diet, no supplemental vitamins & iron an d low salt diet. The medical issues the patient is following up for include All identified problems below, cardiac issues, gastric reflux, high blood pressure, high cholesterol, hypothyroid and osteopor osis/osteopenia. Note for Follow up for chronic medical issues: Mouth sore with potassiumHair loss and feels like straw and loss of lateral brow, dry skin asking to have thyroid checked, [ADDITIONAL REASON] Hair loss - Note for Hair loss: noticiing hair loss and change in texture, eyebrows loss of lateral , [ADDITIONAL REASON] Back Pain - Note for Back pain: chronic back pain Encounter Diagnosis: BMI 33.0-33.9,adult, Current nonsmoker, Hypertension, Acquired hypothyroidism, Vitamin D deficiency, Leg cramps, Gastroesophageal reflux disease with esophagitis, Hypokalemia [facility] Office Visit On: 19-Mar-2017 12:32 Encounter Diagnosis: Osteoporosis (Renamed from OP (osteoporosis)) End: 19-Mar-2017 12:39 [facility] Office Visit On: 23-Feb-2017 13:28 Encounter Reason: Follow up for chronic medical issues - The patient feels well with minor complaints (internal itch left ear) and is sleeping well. Patient has been compliant with instructions. Current medication use: n End: 23-Feb-2017 14:03 o side effects, compliant with dosing regimen and considered effective by patient. Patient sleeps 7 hours per night. Nutrition: inappropriate diet, no supplemental vitamins & iron and low salt diet. The medical issues the patient is following up for include All identified problems below, cardiac issues, gastric reflux, high blood pressure, high cholesterol, hypothyroid and osteoporosis/osteopenia. Note for Follow up for chronic medical issues: no fkank pain today and her dysuria comes and goes not doing much caffeine- bp is good wieght slow come down and and trying ??her sugar is stable-no gerdNo major complaints today needing refills, [ADDITIONAL REASON] Follow up tests - Diagnostic tests include other (labs, htn). Note for Discuss procedure results: Labs to be reviewed , [ADDITIONAL REASON] Earache - The earache has been occurring in an intermittent pattern. The earache is described as a burning sensation (Itching). It affects the left ear. Note for Earache: Left ear itches starts with lying down Encounter Diagnosis: Current nonsmoker, BMI 33.0-33.9,adult, Hypertension, Gastroesophageal reflux disease with esophagitis, Acquired hypothyroidism, Postmenopausal (Renamed from Postmenopausal status) [facility] Office Visit On: 17-Nov-2016 13:34 Encounter Reason: Follow up tests - Diagnostic tests include other (labs, htn). Current symptoms include other (edema).Encounter Diagnosis: Current nonsmoker, BMI 32.0-32.9,adult, Hypertension, Hypokalemia End: 17-Nov-2016 13:56 [facility] Office Visit On: 15-Sep-2016 12:50 Encounter Reason: Follow up tests - Date: (08/27/16)., [ADDITIONAL REASON] Follow up Meds - The patient feels well with minor complaints. Patient has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
--- OUTSIDE RECORDS SUMMARY | 2018-09-23 20:11 | XMS RPT_ITS | Continuity of Care Document ---
:1940 Author Organization [facility] Address [address] [facility] [address] [place] [address] Phone Care Team Providers Name Role Phone Juan C AMBRIZLigia E Unavailable Dr. Brennon Das Unavailable Vanessa Gomez Unavailable Unavailable Slacecilio TILE PICKER, Tonia Unavailable Unavailable Unavailable Unavailable Problems Name [...] and hands using selenium 200mcg Status: Active Osteoporosis (Renamed from OP (osteoporosis)) [...] daily for 0 days Refills: 0 Ordered:07-Apr-2016 Ligia Irizarry CNP, CNP, Mary E Start : 07-Apr-2016 Active Cyanocobalamin 2500 MCG Sublingual Tablet Sublingual 1 (one) Microgram 3 times weekly for 0 days Quantity: 30 {Milligram} Refills: 0 Ordered:07-Aug-2017 Juan C AMBRIZ, Ligia Franklin CNP, Ligia Coates Start : 07-Aug-2017 Active HYDROCODONE-ACETAMINOPHEN, 5-325MG (Oral Tablet) 1-2 tabs daily, prn (5-325 MG) Active Levothyroxine Sodium 100 MCG Oral Tablet 1 (one) Tablet 1 daily excet and Thursday take 1/2 or 50mc for 0 days Quantity: 80 {Tablet} Refills: 3 Ordered:16-Apr-2018 Juan C AMBRIZ, Ligia Franklin CNP, Ligia Coates Start : 16-Apr-2018 Active Losartan Potassium-HCTZ 100-25 MG Oral Tablet 1 (one) Tablet qd for 90 days Quantity: 90 {Tablet} Refills: 3 Ordered:16-Apr-2018 Juan C AMBRIZ Ligia Franklin CNP, Ligia Coates Start : 16-Apr-2018 Active MAGNESIUM, 200MG (Oral Tablet) 1 (one) Tablet Tablet bid for 30 days Quantity: 60 {Tablet} Refills: 0 Ordered:08-Nov-2014 Saige López DO Start : 25-Oct-2014 Active Omeprazole 20 MG Oral Capsule Delayed Release 1 (one) Capsule bid for 90 days Quantity: 90 {Capsule} Refills: 3 Ordered:20-Apr-2018 Juan C AMBRIZ Ligia Franklin CNP, Ligia Coates Start : 20-Apr-2018 Active Comments:per Marcos to [...] 60 {Tablet} Refills: 1 Ordered:10-Jul-2017 Juan C AMBRIZ Ligia Franklin CNP Ligia Coates Start : 10-Jul-2017 Active RaNITidine HCl 150 MG Oral Tablet 1 (one) Tablet Tablet qhs prn for worsening reflux for 0 days Quantity: 30 {Tablet} Refills: 1 Ordered:10-Jul-2017 Tonia Shaikh LPN Start : 10-Jul-2017 Active Vitamin D3 1000 UNIT Oral Tablet 1 (one) Capsule Tablet daily for 30 days Quantity: 30 {Tablet} Refills: 0 Ordered:07-Apr-2016 Juan C PB Ligia Cruzema AMBRIZ Ligia Coates Start : 07-Apr-2016 Active AUGMENTIN, 875-125MG (Oral Tablet) 1 (one) Tablet bid for 14 days Quantity: 28 {Tablet} Refills: 0 Ordered:20-Nov-2015 Kellengeorgiaema AMBRIZ Ligia Cruzema AMBRIZ Ligia Coates Start : 20-Nov-2015 End : 04-Dec-2015 Inactive Cipro 500 MG Oral Tablet 1 (one) Tablet bid for 7 days Quantity: 14 {Tablet} Refills: 0 Ordered:08-Aug-2016 Kellengeorgiaema AMBRIZ Ligia ALONSOananyaema AMBRIZ Ligia Coates Start : 08-Aug-2016 End : [...] Refills: 3 Ordered:27-May-2017 Juan C AMBRIZ Ligia ALONSOananyaema AMBRIZ Ligia Coates Start : 17-Nov-2016 End : 27-May-2017 Inactive Prolia 60 MG/ML Subcutaneous Solution 1 injection Solution q 6 months for 0 days Quantity: 1 {Pre-filled_Pen_Syringe} Refills: 1 Ordered:23-Feb-2017 Tonia Shaikh LPN Start : 25-Dec-2015 End : 23-Feb-2017 Inactive RABEprazole Sodium 20 MG Oral Tablet Delayed Release 1 (one) Tablet DR daily for 0 days Quantity: 90 {Tablet} Refills: 3 Ordered:27-May-2017 Juan C AMBRIZ Ligia Rigoberto AMBRIZ Ligia Coates Start : 27-May-2017 End : 26-Jun-2017 Inactive RABEprazole Sodium 20 MG Oral Tablet Delayed Release 1 (one) Tablet DR daily for 30 days Quantity: 30 {Tablet} Refills: 0 Ordered:27-May-2017 Juan C AMBRIZ Ligia Rigoberto AMBRIZ Ligia Coates Start : 27-May-2017 End : 26-Jun-2017 Inactive Selenium 100 MCG Oral Tablet 1 (one) Tablet daily for 30 days Quantity: 30 {Tablet} Refills: 0 Ordered:27-May-2016 Juan C AMBRIZ Ligia Franklin CNP, Ligia [...] days Quantity: 30 {Tablet} Refills: 2 Ordered:20-Oct-2014 Saige López DO Start : 20-Oct-2014 End : 20-Oct-2014 Discontinued Atenolol 25 MG Oral Tablet 1/2 (one half) Tablet daily for 0 days Quantity: 30 {QS} Refills: 3 Ordered:26-Aug-2016 Kellenchelsi PB Ligia Franklin CNP, Ligia Coates Start : 18-Aug-2016 End : 26-Aug-2016 Discontinued FLUCONAZOLE, 150MG (Oral Tablet) 1 (one) Tablet Tablet qd for 0 days Quantity: 14 {Tablet} Refills: 1 Ordered:20-Nov-2015 Tonia Shaikh LPN Start : 17-Aug-2015 End : 20-Nov-2015 Discontinued GABAPENTIN, 300MG (Oral Capsule) 1 (one) Capsule tid for 90 days Quantity: 270 {Capsule} Refills: 3 Ordered:20-Nov-2015 Tonia Shaikh LPN Start : 08-Nov-2014 End : 20-Nov-2015 Discontinued [...] : 08-Nov-2015 End : 20-Nov-2015 Discontinued Nystatin 250633 UNIT/GM External Powder 1 (one) Powder Powder apply bid for 0 days Quantity: 1 {Bottle} Refills: 3 Ordered:27-May-2016 Neil Shaikh LPNa Start : 17-Aug-2015 End : 27-May-2016 Discontinued Comments:large Pantoprazole Sodium 40 MG Oral Tablet Delayed Release 1 (one) Tablet DR q am for 90 days Quantity: 90 {Tablet} Refills: 3 Ordered:27-May-2016 SlaNeil hernandes LPNa Start : 16-May-2015 End : 27-May-2016 Discontinued SPIRONOLACTONE, 25MG (Oral Tablet) 1 (one) Tablet daily for 90 days Quantity: 90 {Tablet} Refills: 3 Ordered:16-Nov-2015 Fast DO, Saige A Start : 16-Nov-2015 End : 16-Nov-2015 Discontinued Vitamin D3 02883 UNIT Oral Capsule 1 (one) Capsule Capsule daily for 0 days Quantity: 30 {Capsule} Refills: 0 Ordered:27-May-2016 Neil Shaikh LPNa Start : 06-Feb-2016 End : 27-May-2016 Discontinued [...] thyroidectomy- Tubal Ligation Completed Date Value Details 05-Mar-2017 DXA BONE DENS W/VERT FX ASMT Result: Comments: See Note; NOTES: [facility] Imaging Services [address] [place] [address] DXA BONE DENS W/VERT FX ASMT MR#: [id number] Acct: [id number] Name: BARBIE PURVIS Rep #: [id number] : 1940 F 76 From: Seth Hahn MD PCP: Ligia Irizarry Status: REG CLI Study: DXA BONE DENS W/VERT FX ASMT Date of Exam: 03/05/17 Exam# [id number] Ordering Dr: Ligia Irizarry STUDY: DUAL ENERGY [...] Seth Hahn MD at 13:14 EDT Tel [phone], Service support , CC: Ligia Irizarry Percolator Operator: Signed 05-Mar-2017 DXA BONE DENS W/VERT FX ASMT Result: Comments: See Note; NOTES: [facility] Imaging Services [address] [place] [address] DXA BONE DENS W/VERT FX ASMT MR#: [id number] Acct: [id number] Name: BARBIE PURVIS Rep #: [id number] : 1940 F 76 From: Seth Hahn MD PCP: Ligia Irizarry Status: REG CLI Study: DXA BONE DENS W/VERT FX ASMT Date of Exam: 03/05/17 Exam# [id number] Ordering Dr: Ligia Irizarry M by Seth Hahn MD on 03/10/17 at 1321 HPBD/DXA BONE DENS W/VERT FX ASMT 03/10/17 1328 Date cc: Ligia Irizarry * Signed ADDENDUM by Seth Hahn MD on 11/19 at 1321 ADDENDUM Vertebral fracture assessment. There is almost complete collapse of the T7 v ertebrae. Moderate loss of height of the T6 vertebrae. Electronically Signed: Seth Hahn MD at 13:21 EDT Tel [phone], Service support , 03/10/17 1321 Date cc: [...] Seth Hahn MD at 13:14 EDT Tel [phone], Service support , CC: Ligia Irizarry Percolator Operator: Signed 27-Aug-2016 Venous Duplex Lower Extremity Result: Comments: See Note; NOTES: [facility] Cardiovascular Services [address] [place] [address] Venous Duplex US, Unilateral 08/26/16 1106 MR#: [id number] Acct: [id number] Name: BARBIE RUSSELL Rep #: [id number] : 1940 76 From: Carlos Abebe MD Attending Dr: Ligia Irizarry Status: REG CLI Ordering Dr: Ligia Irizarry Date: 08/26/16 Location: [facility] Sex: F C Admitted: Reason Fo r [...] Dictated: 08/26/16 1106 Date Transcribed: 08/27/16 0659 Percolator Operator: Signed 08-Aug-2016 Shoulder min 2 Views Result: Comments: See Note; NOTES: [facility] Imaging Services [address] [place] [address] Verdana 4d Shoulder min 2 Views MR#: [id number] Acct: [id number] Name: BARBIE PURVIS Rep #: [id number] : 1940 F 76 From: Seth Hahn MD PCP: Ligia Irizarry Status: REG CLI Study: Shoulder min 2 Views Date of Exam: 08/08/16 Exam# [id number] Ordering Dr: Ligia Irizarry STUDY: X-RAY - [...] Seth Hahn MD at 15:02 EST Tel [phone], Service support [phone], CC: Ligia Irizarry Percolator Operator: Signed 08-Aug-2016 Shoulder min 2 Views Result: Comments: See Note; NOTES: [facility] Imaging Services [address] [place] [address] [place] 4d Shoulder min 2 Views MR#: [id number] Acct: [id number] Name: BARBIE PURVIS Rep #: [id number] : 1940 F 76 From: Seth Hahn MD PCP: Ligia Irizarry Status: REG CLI Study: Shoulder min 2 Views Date of Exam: 08/08/16 Exam# [id number] Ordering Dr: Ligia Irizarry STUDY: X-RAY - [...] Seth Hahn MD at 15:03 EST Tel [phone], Service support [phone], CC: Ligia Irizarry Percolator Operator: Signed 11-Feb-2016 Thoracic Spine 3 Views Result: Comments: See Note; NOTES: [facility] Imaging Services [address] [place] [address] Verdana 4d Thoracic Spine 3 Views MR#: [id number] Acct: [id number] Name: YANIVVALENTE PatelMASOUD Garcia #: [id number] : 1940 F 75 From: Junior King MD PCP: Ligia Irizarry Status: REG CLI Study: Thoracic Spine 3 Views Date of Exam: 02/11/16 Exam# [id number] Ordering Dr: Aileen Plata MD STUDY : [...] FACR at 16:57 EDT , Service support [phone], CC: Ligia Irizarry; Aileen Plata MD Percolator Operator: Signed 19-Sep-2015 Abdomen/Pelvis without Cont Result: Comments: See Note; NOTES: [facility] Imaging Services [address] [place] [address] Verdana 4d Abdomen/Pelvis without Cont MR#: [id number] Acct: [id number] Name: BARBIE PURVIS Rep #: [id number] : 1940 F 75 From: Kenney Lima MD PCP: Saige López DO Status: REG CLI Study: Abdomen/Pelvis without Cont Date of Exam: 09/19/15 Exam# [id number] Ordering Dr : Saige López DO STUDY: [...] MD at 17:54 EDT , Service support [phone], CC: Saige López DO Percolator Operator: Signed 17-Aug-2015 Knee 4 or More Views Result: Comments: See Note; NOTES: [facility] Imaging Services [address] [place] [address] Verdana 4d Knee 4 or More Views MR#: [id number] Acct: [id number] Name: Ema PURVIS Rep #: [id number] : 1940 F 75 From: Junior King MD PCP: Saige López DO Status: REG CLI Study: Knee 4 or More Views Date of Exam: 08/17/15 Exam# [id number] Ordering Dr: Saige López DO STUDY: X-RAY [...] FACR at 10:52 EST , Service support [phone], Fax RAD/Knee 4 or More Views IMPRESSION: Moderate arthrosis of the medial compartment Electronically Signed: Junior King MD, FACR at 10:52 EST Tel , Service support [phone], CC: Saige López DO Percolator Operator: Signed 02-Apr-2015 Cerv Spine 2 or 3 Views Result: Comments: See Note; NOTES: [facility] Imaging Services [address] [facility] [place] [address] Radiology Report MR#: [id number] Acct: [id number] Name: BARBIE PURVIS Rep #: [id number] : 1940 F 74 From: Galo Smart MD PCP: Saige López DO Status: REG CLI Study: Cerv Spine 2 or 3 Views Date of Exam: 04/02/15 Exam# [id number] Ordering Dr: Aileen Plata MD STUDY: X-RAY [...] MD at 16:56 EDT , Service support [phone], RAD/Cerv Spine 2 or 3 Views IMPRESSION: No acute abnormality. Degenerative disc changes most pronounced at C6-C7. Electronically Signed: Galo Smart MD at 16:56 EDT , Service sup port [phone], CC: Aileen Plata MD; Saige López DO Percolator Operator: Signed 27-Oct-2014 Orbits for Foreign Body Result: Comments: See Note; NOTES: [facility] Imaging Services [address] [place] [address] Radiology Report MR#: [id number] Acct: [id number] Name: BARBIE PURVIS Rep #: [id number] : 1940 F 74 From: Seth Hahn MD PCP: Saige López DO Status: REG CLI Study: Orbits for Foreign Body Date of Exam: 10/27/14 Exam# [id number] Ordering Dr: Saige López DO STUDY: X-RAY [...] Seth Hahn MD at 12:54 EDT Tel [phone], Service support [phone], CC: Saige López DO Percolator Operator: Signed 27-Oct-2014 Spine Thoracic (Routine) Result: Comments: See Note; NOTES: [facility] Imaging Services [address] [place] [address] MRI Report MR#: [id number] Acct: [id number] Name: BARBIE PURVIS Rep #: [id number] D OB: 1940 F 74 From: Navya Elena MD PCP: Saige López DO Status: REG CLI Study: Spine Thoracic (Routine) Date of Exam: 10/27/14 Exam# [id number] Ordering Dr: Saige López DO STUDY: MRI [...] at 21:59 EDT , Service sup port [phone], CC: Saige López DO Percolator Operator: Signed 26-Oct-2014 Bilat Scrn Digital AND CAD Result: Comments: See Note; NOTES: [facility] Imaging Services [address] [place] [address] Breast Imaging Report MR#: [id number] Acct: [id number] Name: BARBIE PURVIS Rep #: [id number] : 1940 F 74 From: Seth Hahn MD PCP: Saige López DO Status: REG CLI Study: Jennifer Marshall Digital AND CAD Date of Exam: 10/26/14 Exam# [id number] Ordering Dr: Saige López DO MAMMOGRAPHY - [...] Hahn MD at 14: 34 EDT Tel [phone], Service support [phone], CC: Saige López DO Percolator Operator: Signed 26-Oct-2014 Dexa Bone Density Study (HP) Result: Comments: See Note; NOTES: [facility] Imaging Services [address] [facility] [place] [address] Bone Density Report MR#: [id number] Acct: [id number] Name: BARBIE PURVIS Rep #: [id number] : 1940 F 74 From: Seth Hahn MD PCP: Saige López DO Status: REG CLI Study: Dexa Bone Density Study (HP) Date of Exam: 10/26/14 Exam# [id number] Ordering Dr: Saige López DO STUDY: DUAL [...] Seth Hahn MD at 13:16 EDT Tel [phone], Service support [phone], CC: Saige López DO Percolator Operator: Signed Family History Unknown Family Member Name [...] smoker Vital Signs Date Test Result Details :31 Temperature 97.5 f Comments: Method: Temporal [...] 1.83 m2 Results Date Description Value Details :00 THROAT CULTURE (36623) Comments: PATIENT NOT FASTINGPERFORMED BY: [facility] [facility] [id number] Information: SRC:TH Result 1 RRF (Normal) Comments: Routine respiratory kori Upper Respiratory Culture Final report (Normal) :39 Rapid Strep Test, Office (77785) Rapid Strep Test, Office Negative (Normal) :14 HgA1C , Office (91489) HgA1C , Office 5.4 % (Normal) Range: 4.6 - 7.1 :14 Blood Glucose , Office (81175) Blood Glucose , Office 129 (Normal) :21 TSH (51888) Comments: PATIENT WAS FASTINGPERFORMED BY: [facility] [facility] [id number] TSH 0.475 {uIU/mL} (Normal) Range: 0.450-4.500 :21 METABOLIC PANEL, COMPREHENSIVE Comments: PATIENT WAS FASTINGPERFORMED BY: [facility] [facility] [id number] (23350) ALT (SGPT) 14 [iU]/L (Normal) Range: 0-32 [...] 8-27 Glucose 95 mg/dL (Normal) Range: 65-99 92-Syh-83202:21 LIPID PANEL (46717) Comments: PATIENT WAS FASTINGPERFORMED BY: [facility] [id number] LDL/HDL Ratio 2.0 {ratio} (Normal) Range: 0.0-3.2 Comments: LDL/HDL Ratio Men Women 1/2 Avg.Risk 1.0 1.5 Av g.Risk 3.6 3.2 2X Avg.Risk 6.2 5.0 3X Avg.Risk 8.0 6.1 LDL Cholesterol Calc 110 mg/dL (Abnormal) Range: 0-99 VLDL Cholesterol Hero 35 mg/dL (Normal) Range: 5-40 HDL Cholesterol 55 mg/dL (Normal) Triglycerides 176 mg/dL (Abnormal) Range: 0-149 Cholesterol, Total 200 mg/dL (Abnormal) Range: 100-199 00-Nge-34128:21 CBC W/AUTO DIFF WBC (35469) Comments: PATIENT WAS FASTINGPERFORMED BY: [facility]Nov[facility] [id number] Immature Grans (Abs) 0.0 {x10E3/uL} (Normal) Range: [...] (Normal) Range: 3.4-10.8 :52 HgA1C , Office (10573) HgA1C , Office 5.5 % (Normal) Range: 4.6 - 7.1 :52 Blood Glucose , Office (10424) Blood Glucose , Office 89 (Normal) :24 VITAMIN B12 AND FOLATES Comments: PATIENT NOT FASTINGPERFORMED BY: itzbig Arieyr0058 Ramos [facility] MichiganB[facility] [employer] [id number] (23994) Folate (Folic Acid), Serum 6.3 ng/mL (Normal) Comments: A serum folate concentration of less than 3.1 ng/mL isconsidered to represent clinical deficiency. Vitamin B12 1723 pg/mL (Abnormal) Range: 232-1245 :24 RENAL FUNCTION PANEL (03660) Comments: PATIENT NOT FASTINGPERFORMED BY: itzbig Asziaq3790 [employer] BVNov[facility] [id number] Albumin, Serum 4.2 g/dL (Normal) Range: 3.5-4.8 [...] Glucose, Serum 105 mg/dL (Abnormal) Range: 65-99 61-Hoq-00672:24 TSH (THYROID STIMULATING Comments: PATIENT NOT FASTINGPERFORMED BY: [employer] [place] [id number] HORMONE) (45711) TSH 1.200 {uIU/mL} (Normal) Range: 0.450-4.500 39-Kmb-153351:58 VITAMIN B12 AND FOLATES Comments: PATIENT NOT FASTINGPERFORMED BY: [employer] [place] [id number] (28716) Folate (Folic Acid), Serum 6.7 ng/mL (Normal) Comments: A serum folate concentration of less than 3.1 ng/mL isconsidered to represent clinical deficiency. Vitamin B12 174 pg/mL (Abnormal) Range: 211-946 Comments: Effective June 08, 2017 the reference interval for Vitamin B12 will be changing to: 232-1245 pg/mL. 75-Agx-955624:58 MAGNESIUM (04389) Comments: PATIENT NOT FASTINGPERFORMED BY: [place] [id number] Magnesium, Serum 2.1 mg/dL (Normal) Range: 1.6-2.3 88-Aim-733751:58 CALCIFEDIOL (82545) Comments: PATIENT NOT FASTINGPERFORMED BY: [facility] ImagingNov[facility] [id number] Vitamin D, 25-Hydroxy 56.5 ng/mL (Normal) Range: 30.0-100.0 Comments: Vitamin D deficiency has been defined by the [place] of[place]icine and an Endocrine Society practice guideline as alevel of serum 25-OH vitamin D less than 20 ng/mL (1,2).The Endocrine Society went on to further define vitamin Dinsufficiency as a level between 21 and 29 ng/mL (2).1. IOM ([place] of Medicine). 2010. Dietary reference intakes for calcium and D. [place]: The National Academies Press.2. Vanessa MF, Gail RIVERS, Cydney CABRAL, et al. Evaluation, treatment, and prevention of vitamin D deficiency: an Endocrine Society clinical practice guideline. JCEM. 2010; 96(7):1911-30. 63-Ozz-978288:58 CBC, Platelets & Auto Diff Comments: PATIENT NOT FASTINGPERFORMED BY: [facility] Dcdnpa4745 [facility] [id number] (90554) Immature Grans (Abs) 0.0 {x10E3/uL} (Normal) Range: [...] 3.77-5.28 WBC 6.7 {x10E3/uL} (Normal) Range: 3.4-10.8 62-Eiu-446352:58 Metabolic Panel, Comprehensive Comments: PATIENT NOT FASTINGPERFORMED BY: [facility]CoAtl[facility]Care [facility] CampusBhpjng6681 [facility] [id number] (84066) ALT (SGPT) 13 [iU]/L (Normal) Range: 0-32 [...] Glucose, Serum 134 mg/dL (Abnormal) Range: 65-99 :58 T4, FREE (THYROXINE) (35160) Comments: PATIENT NOT FASTINGPERFORMED BY: [employer] [facility] [id number] T4,Free(Direct) 1.60 ng/dL (Normal) Range: 0.82-1.77 :58 FREE TRIDOTHYRONINE (T3) (40079) Comments: PATIENT NOT FASTINGPERFORMED BY: [employer] [facility] [id number] Triiodothyronine,Free,Serum 2.5 pg/mL (Normal) Range: 2.0-4.4 :58 TSH (THYROID STIMULATING Comments: PATIENT NOT FASTINGPERFORMED BY: [employer] [facility] [id number] HORMONE) (57539) TSH 5.470 {uIU/mL} (Abnormal) Range: 0.450-4.500 :27 Metabolic Panel, Comprehensive Comments: Feb 2017; PATIENT WAS FASTINGPERFORMED BY: [employer] [facility] [id number] (98048) ALT (SGPT) 16 [iU]/L (Normal) Range: 0-32 [...] Glucose, Serum 94 mg/dL (Normal) Range: 65-99 8-Cwx-833644:25 Metabolic Panel, Comprehensive Comments: get labs in November prior to next visit; PATIENT NOT FASTINGPERFORMED BY: [facility] Frlzzq7575 [facility] [id number] (68890) ALT (SGPT) 11 [iU]/L (Normal) Range: 0-32 [...] mg/dL (Abnormal) Range: 65-99 :43 POTASSIUM SERUM (77896) Comments: PATIENT NOT FASTINGPERFORMED BY: [employer] Htaixi6722 [facility] [id number] Potassium, Serum 3.7 mmol/L (Normal) Range: 3.5-5.2 :50 Metabolic Panel, Comments: PATIENT NOT FASTINGPERFORMED BY: [employer] Mssfuc3932 [facility] [id number] Information: [id number] SRC:[facility] (69548) ALT (SGPT) 17 [iU]/L (Normal) Range: 0-32 [...] Glucose, Serum 98 mg/dL (Normal) Range: 65-99 :46 Urinalysis, Office (06077) UA - LEUKOCYTE ESTERASE Small (Normal) UA - NITRITE Negative (Normal) URINE UROBILINGN MARY LOU TIMED Normal mg/dL (Normal) UA - PROTEIN Negative mg/dL (Normal) UA - PH 6 (Abnormal) UA - BLOOD Negative (Normal) UA - SPECIFIC GRAVITY 1.010 (Normal) UA - KETONES Negative mg/dL (Normal) UA - BILIRUBIN Negative (Normal) UA - GLUCOSE Negative (Normal) 0-Knz-120983:50 URINE ARMANDO CULTURE-IDENTIFICATN Comments: PATIENT NOT FASTINGPERFORMED BY: [facility] ImagingNov[facility] [id number] (27122) Result 1 MUG (Normal) Comments: Mixed urogenital flora4,000 Colonies/mL Urine Culture,Comprehensive Final report (Normal) 4-Uoj-594726:50 MICROALBUMIN: CREATININE RATIO Comments: PATIENT NOT FASTINGPERFORMED BY: [facility] ImagingNov[facility] [id number] (49713) AND (71733) Microalb/Creat Ratio 6.1 {mg/g_creat} (Normal) Range: 0.0-30.0 Microalbumin, Urine 3.8 ug/mL (Normal) Creatinine, Urine 62.2 mg/dL (Normal) :11 TSH (THYROID STIMULATING Comments: PATIENT NOT FASTINGPERFORMED BY: [employer]6370 [employer] [facility] [place] [id number] HORMONE) (31669) TSH 1.530 {uIU/mL} (Normal) Range: 0.450-4.500 :43 TSH (THYROID STIMULATING Comments: PATIENT NOT FASTINGPERFORMED BY: [employer]6370 [employer] BVNov[facility] [id number] HORMONE) (14885) TSH 0.266 {uIU/mL} (Abnormal) Range: 0.450-4.500 27-Evz-540947:08 Renal function Panel Comments: PATIENT NOT FASTINGPERFORMED BY: [place] 0978970 [facility] [id number] Information: [id number], [id number] (83229) Albumin, Serum 3.9 g/dL (Normal) Range: 3.5-4.8 [...] Glucose, Serum 91 mg/dL (Normal) Range: 65-99 66-Ibq-418564:08 TSH (THYROID STIMULATING Comments: PATIENT NOT FASTINGPERFORMED BY: [place] 0978970 [facility] [id number] HORMONE) (79221) TSH 14.590 {uIU/mL} (Abnormal) Range: 0.450-4.500 :25 TSH (47703) Comments: 6 weeks; PATIENT NOT FASTINGPERFORMED BY: [place] 0978970 [facility] [id number] Information: [id number] TSH 1.240 {uIU/mL} Range: 0.450-4.500 (Normal) Written Authorization WAR (Normal) Comments: PATIENT WAS FASTINGPERFORMED BY: [address] [id number] :14 Comments: Written Authorization Received.Authorization received from ORIGINAL REQUISITION [id number] by Deanna Mendoza 03-Bcm-39908:14 CALCIUM SERUM (07950) Comments: PATIENT WAS FASTINGPERFORMED BY: [facility] Qzuuyp6367 [facility] [id number] Calcium, Serum 9.0 mg/dL (Normal) Range: 8.7-10.3 :14 CALCIFIDIOL (62357) VIT D Comments: PATIENT WAS FASTINGPERFORMED BY: [facility] Vbqjlb9007 [facility] [id number] Information: [id number] DL 25 Vitamin D, 25-Hydroxy 85.6 ng/mL (Normal) Range: 30.0-100.0 Comments: Vitamin D deficiency has been defined by the [place] of[place]icine and an Endocrine Society practice guideline as alevel of serum 25-OH vitamin D less than 20 ng/mL (1,2).The Endocrine Society went on to further define vitamin Dinsufficiency as a level between 21 and 29 ng/mL (2).1. IOM ([place] of [place]). 2010. Dietary reference intakes for calcium and D. [place]: The National Academies Press.2. Vanessa MF, Gail [place], Cydney CABRAL, et al. Evaluation, treatment, and prevention of vitamin D deficiency: an Endocrine Society clinical practice guideline. JCEM. 2010; 96(7):1911-30. 18-Oej-46700:18 Urinalysis, Office (00287) UA - LEUKOCYTE ESTERASE Small (Normal) UA - NITRITE Negative (Normal) URINE UROBILINGN MARY LOU TIMED Normal mg/dL (Normal) UA - PROTEIN Negative mg/dL (Normal) UA - PH 6.0 (Normal) Comments: 5.5 UA - BLOOD Negative (Normal) UA - SPECIFIC GRAVITY 1.015 (Normal) UA - KETONES Negative mg/dL (Normal) UA - BILIRUBIN Negative (Normal) UA - GLUCOSE Negative (Normal) 84-Wrk-084887:38 URINE ARMANDO CULTURE (MARY LOU Comments: PATIENT NOT FASTINGPERFORMED BY: [facility] Vibxlr1225 [facility] [id number] Information: [place] [id number] COL COUNT) ([id number]) Result 1 MUG (Normal) Comments: Mixed urogenital flora4,000 Colonies/mL Urine Culture,Comprehensive Final report (Normal) :14 CBC W/AUTO DIFF WBC Comments: PATIENT WAS FASTINGPERFORMED BY: SARAH [facility] [id number] Information: [id number] DL (32915) Immature Grans (Abs) 0.0 {x10E3/uL} (Normal) Range: [...] 3.77-5.28 WBC 8.1 {x10E3/uL} (Normal) Range: 3.4-10.8 :14 METABOLIC PANEL, COMPREHENSIVE Comments: PATIENT WAS FASTINGPERFORMED BY: [facility]6370 [facility] [id number] (75881) ALT (SGPT) 18 [iU]/L (Normal) Range: 0-32 [...] 101 mg/dL (Abnormal) Range: 65-99 :14 TSH (87542) Comments: PATIENT WAS FASTINGPERFORMED BY: [facility] Exzpsx1064 [facility] [id number] TSH 0.184 {uIU/mL} (Abnormal) Range: 0.450-4.500 :14 Vitamin D Hydroxy (37095) Comments: PATIENT WAS FASTINGPERFORMED BY: [facility] Pshigg8077 [facility] [id number] Vitamin D, 25-Hydroxy 78.0 ng/mL (Normal) Range: 30.0-100.0 Comments: Vitamin D deficiency has been defined by the [place] of[place] and an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
--- OUTSIDE RECORDS SUMMARY | 2018-09-23 20:12 | XMS RPT_ITS | Continuity of Care Document ---
:1940 Author Organization [facility] Address [address] [facility] [address] [place] [address] Phone Care Team Providers Name Role Phone Tanmayhortencia PBLigia E Unavailable Olvin Ordoñez Unavailable Dr. Brennon Das Unavailable Vanessa Gomez Unavailable Unavailable Tonia Shaikh LPN Unavailable Unavailable Unavailable Unavailable Problems Name Dates [...] abnormal findings) (Z00.00, V70.9) Status: Active BMI 31.0-31.9,adult (Z68.31, V85.31) Status: Active BMI 32.0-32.9,adult (Z68.32, V85.32) Status: Active BMI 32.0-32.9,adult (Z68.32, V85.32) Status: Active BMI 33.0-33.9,adult (Z68.33, V85.33) Status: Active Bradycardia (R00.1, 427.89) Status: Active CKD (chronic kidney disease), stage III (N18.3, 585.3) Comments: imvproving Status: Active Colon Polyp (K63.5, 211.3) Comments: recheck 4 years Status: Active Constipation (K59.00, 564.00) Status: Active Current nonsmoker (Z78.9, V49.89) Status: Active Degenerative arthritis (M19.90, 715.90) Status: Active Deliveries (Parity) Comments: 8. Status: [...] reflux disease with esophagitis (K21.0, 530.11) Comments: change to omeprazole to 20mg Status: Active Hip pain, right (M25.551, 719.45) Status: Active Hypercholesteremia (E78.00, 272.0) Status: Active Hyperkalemia (Renamed from High potassium) (E87.5, 276.7) Status: Active Hypertension (I10, 401.9) Status: Active Hypertension, benign (I10, 401.1) Status: Active Hypocalcemia (E83.51, 275.41) Status: Active Hypokalemia (E87.6, 276.8) Comments: was on potassium in past, will recheck add potassium choloride not citrate, was not taking when labs drawn, will repeat inMarch Status: Active Impaired Fasting Glucose (Renamed from [...] Vitamin B 12 deficiency (E53.8, 266.2) Comments: take 1 once aweek Status: Active Vitamin D deficiency (E55.9, 268.9) [...] days Quantity: 90 {Tablet} Refills: 3 Ordered:22-Mar-2018 Juan C AMBRIZ, Ligia Franklin CNP, Ligia Coates Start : 22-Mar-2018 Active CalMag Thins 200-50 MG Oral Tablet 1 (one) Tablet daily for 0 days Quantity: 30 {Tablet} Refills: 0 Ordered:21-Jun-2018 Juan C AMBRIZ, Ligia Franklin CNP, Ligia Coates Start : 21-Jun-2018 Active Cyanocobalamin 2500 MCG Sublingual Tablet Sublingual 1 (one) Microgram once a week for 0 days Quantity: 30 {Milligram} Refills: 0 Ordered:21-Jun-2018 Juan C AMBRIZ, Ligia Franklin CNP, Ligia Coates Start : 21-Jun-2018 Active Cyclobenzaprine HCl 10 MG Oral Tablet 1 (one) Tablet Tablet q 8hrs prn for 0 days Quantity: 30 {Tablet} Refills: 0 Ordered:19-May-2018 Vanessa Gomez Start : 19-May-2018 Active Levothyroxine Sodium 100 MCG Oral Tablet 1 (one) Tablet daily for 0 days Quantity: 90 {Tablet} Refills: 3 Ordered:21-Jun-2018 Juan C AMBRIZ, Ligia Franklin CNP, Ligia Coates Start : 21-Jun-2018 Active Losartan Potassium-HCTZ 100-25 MG Oral Tablet 1 (one) Tablet qd for 90 days Quantity: 90 {Tablet} Refills: 3 Ordered:16-Apr-2018 Juan C AMBRIZ, Ligia Franklin CNP, Ligia Coates Start : 16-Apr-2018 Active Meloxicam 7.5 MG Oral Tablet 1 (one) Tablet daily for 0 days Quantity: 30 {Tablet} Refills: 0 Ordered:21-Jun-2018 Juan C AMBRIZ, Ligia Franklin CNP, Ligia Coates Start : 21-Jun-2018 Active Comments:with food Omeprazole 20 MG Oral Capsule Delayed Release 1 (one) Capsule daily for 90 days Quantity: 90 {Capsule} Refills: 3 Ordered:21-Jun-2018 Juan C AMBRIZ, Ligia Franklin CNP, Ligia Coates Start : 21-Jun-2018 Active Comments:per Marcos to take 1/2 before breakfast Potassium Chloride ER 10 MEQ Oral Tablet Extended Release 1 (one) Tablet daily for 90 days Quantity: 90 {Tablet} Refills: 3 Ordered:21-Jun-2018 Ligia Irizarry CNP, CNP, Mary E Start : 21-Jun-2018 Active RaNITidine HCl 150 MG Oral Tablet 1 (one) Tablet Tablet qhs prn for worsening reflux for 0 days Quantity: 30 {Tablet} Refills: 1 Ordered:10-Jul-2017 Tonia Shaikh LPN Start : 10-Jul-2017 Active Vitamin D3 2000 UNIT Oral Capsule 1 (one) Capsule daily for 0 days Quantity: 30 {Capsule} Refills: 0 Ordered:21-Jun-2018 Juan C AMBRIZ Ligia Yo CNP Start : 21-Jun-2018 Active AUGMENTIN, 875-125MG (Oral Tablet) 1 (one) Tablet bid for 14 days Quantity: 28 {Tablet} Refills: 0 Ordered:20-Nov-2015 Juan C AMBRIZ Ligia Yo CNP Start : 20-Nov-2015 End : 04-Dec-2015 Inactive Cipro 500 MG Oral Tablet 1 (one) Tablet bid for 7 days Quantity: 14 {Tablet} Refills: 0 Ordered:08-Aug-2016 Juan C AMBRIZ Ligia Yo CNP Start : 08-Aug-2016 End : 15-Aug-2016 Inactive Magnesium 200 MG Oral Tablet 1 (one) Tablet Tablet bid for 30 days Quantity: 60 {Tablet} Refills: 0 Ordered:21-Jun-2018 Juan C AMBRIZ Ligia Yo CNP Start : 25-Oct-2014 End : 21-Jun-2018 Inactive Mucinex 600 MG Oral Tablet Extended [...] Refills: 3 Ordered:27-May-2017 Juan C AMBRIZ Ligia Yo CNP Start : 17-Nov-2016 End : 27-May-2017 Inactive Prolia 60 MG/ML Subcutaneous Solution 1 injection Solution q 6 months for 0 days Quantity: 1 {Pre-filled_Pen_Syringe} Refills: 1 Ordered:23-Feb-2017 Tonia Shaikh LPN Start : 25-Dec-2015 End : 23-Feb-2017 Inactive RABEprazole Sodium 20 MG Oral Tablet Delayed Release 1 (one) Tablet DR daily for 30 days Quantity: 30 {Tablet} Refills: 0 Ordered:27-May-2017 Ligia Irizarry CNP, CNP, Mary E Start : 27-May-2017 End : 26-Jun-2017 Inactive RABEprazole Sodium 20 MG Oral Tablet Delayed Release 1 (one) Tablet bid x 4 weeks then daily for 0 days Quantity: 60 {Tablet} Refills: 1 Ordered:21-Jun-2018 Ligia Irizarry CNP, CNP, Mary E Start : 10-Jul-2017 End : 21-Jun-2018 Inactive RABEprazole Sodium 20 MG Oral Tablet Delayed Release 1 (one) Tablet DR daily for 0 days Quantity: 90 {Tablet} Refills: 3 Ordered:27-May-2017 Ligia Irizarry CNP, CNP, Mary E Start : 27-May-2017 End : 26-Jun-2017 Inactive Selenium 100 MCG Oral Tablet 1 (one) Tablet daily for 30 days Quantity: 30 {Tablet} Refills: 0 Ordered:27-May-2016 Ligia Irizarry CNP, CNP, Mary E Start : 27-May-2016 End : 26-Jun-2016 Inactive [...] Refills: 3 Ordered:26-Aug-2016 Ligia Irizarry CNP, CNP, Mary E Start : 18-Aug-2016 End : 26-Aug-2016 Discontinued Calcium 200 MG Oral Tablet 1 (one) daily for 0 days Refills: 0 Ordered:07-Apr-2016 Juan C AMBRIZ Ligia Yo CNP Start : 07-Apr-2016 End : 21-Jun-2018 Discontinued Comments:This order discontinued per [employer]. FLUCONAZOLE, 150MG (Oral Tablet) 1 (one) Tablet Tablet qd for 0 days Quantity: 14 {Tablet} Refills: 1 Ordered:20-Nov-2015 Tonia Shaikh LPN Start : 17-Aug-2015 End : 20-Nov-2015 Discontinued GABAPENTIN, 300MG (Oral Capsule) 1 (one) Capsule tid for 90 days Quantity: 270 {Capsule} Refills: 3 Ordered:20-Nov-2015 Tonia Shaikh LPN Start : 08-Nov-2014 End : 20-Nov-2015 Discontinued HYDROCODONE-ACETAMINOPHEN, 5-325MG (Oral Tablet) 1-2 tabs daily, prn (5-325 MG) End : 21-Jun-2018 Discontinued Lasix 20 MG Oral Tablet 1 (one) Tablet daily x 3 days for 0 days Quantity: 3 {QS} Refills: 0 Ordered:18-Aug-2016 Tonia Shaikh LPN Start : 08-Aug-2016 End : 18-Aug-2016 Discontinued MACROBID, 100MG (Oral Capsule) 1 (one) Capsule Capsule bid for 0 days Quantity: 20 {Capsule} Refills: 0 Ordered:20-Nov-2015 Tonia Shaikh LPN Start : 08-Nov-2015 End : 20-Nov-2015 Discontinued Nystatin 325968 UNIT/GM External Powder 1 (one) Powder Powder [...] 16-Nov-2015 End : 16-Nov-2015 Discontinued Vitamin D3 03281 UNIT Oral Capsule 1 (one) Capsule Capsule [...] thyroidectomy- Tubal Ligation Completed Date Value Details 25-May-2018 L/S Spine Min 4 Views Result: Comments: See Note; NOTES: [facility] Imaging Services [address] [place] [address] L/S Spine Min 4 Views MR#: [id number] Acct: [id number] Name: BARBIE PURVIS Rep #: [id number] : 1940 F 77 From: Seth Hahn MD PCP: Ligia Irizarry NP Status: REG CLI Study: L/S Spine Min 4 Views Date of Exam: 05/25/18 Exam# [id number] Ordering Dr: Ligia Irizarry NP-Josh STUDY: X-RAY - LUMBAR SPINE REASON FOR EXAM: Female, 77 years old. Extreme low back pain following lifting injury. TECHNIQUE: 5 view(s) of the lumbar spine were obtained including oblique views. COMPARISON: None _ FINDINGS: There is an exaggerated lumbar lordosis. There is a mild levoscoliosis of the lumbar spine. There is a normal alignment of the vertebrae. There is multilev el endplate spondylosis of the lumbar vertebrae. There is multi-level degenerative disc disease with multi-level disc space narrowing. Facet joint osteoarthritis. There is atherosclerotic calcification of the abdominal aorta without a demonstrated aneurysm. RAD/L/S Spine Min 4 Views IMPRESSION: Degenerative changes of the spine, as detailed abo ve. Exaggerated lumbar lordosis. Electronically Signed: Seth Hahn MD at 13:38 EST Tel [phone], Service support , CC: Ligia Irizarry NP Vegetable I Farmworker: Signed 21-May-2018 Discharge Instruction Result: Comments: See Note; NOTES: [facility] Medical Records Department [address] [place] [address] Discharge Instruction 05/21/181406 MR#: [id number] Acct: [id number] Name: EMILY PURVIS Rep #: [id number] : 1940 77 From: Lavonne Rico DO PCP: Ligia Irizarry NP Status: REG ER ED Disposition - Plan for ED Patient: Chief Complaint: Constipation Instructions: ED Constipation, ED Sprain Strain Lumbar Referrals: Ligia Irizarry, JAIME-C [Primary Care Provider] - 3-5 Days What to do if you have Problems For any increased pain, shortness of breath, bleeding, nausea or vomiting, donna st pain, or any unexpected problems, contact your Primary Care Provider. Call [facility] ([phone]) or report to the closest Emergency Room. Call 911 if necessary. 05/21/181406 <Karmen ctronically signed by Lavonne Rico DO> Date Lavonne Rico DO Cosigner Signature (If Indicated): Date CC: Ligia Irizarry NP 21-May-2018 Emergency Department Summary Result: Comments: See Note; NOTES: [facility] Medical Records Department [address] [place] [address] Emergency Department Summary 05/21/181403 MR#: [id number] Acct: [id number] Name: BARBIE PURVIS Rep #: [id number] : 1940 77 From: Lavonne Rico DO PCP: Ligia Irizarry NP Status: REG ER - ER Visit Summary Date of Service: 05/21/18 Chief Complaint: [Constipation and right-sided back pain] History of Present Illness: The patient is a 77 F [presents the emergency department stating that she has not had a bowel movement in 5 days. Patient also states that about 5 days ago she h urt the right side of her back picking something up in the garage. Patient was seen by nurse practitioner and given an shot of an anti-inflammatory. Patient denies any pain radiating down her leg. She d enies any weakness in her extremities. She drove herself to the emergency department today. Patient states that she tried laxatives at home and mineral oil without any resolution of her symptoms. Re flores has had nausea and she did have one episode of emesis. She denies any blood in her stool or black tarry stools. She not had any fevers. Patient denies urinary symptoms.] Physical Examination: [HEENT- PERRLA, EOMI. Cranial nerves II through XII grossly intact. TMs clear. Mucous membranes moist. No adenopathy. Cardiovascular-regular rate and rhythm without murmur or ectopy Lungs-clear to auscultatio n, chest wall stable without crepitus or subcu emphysema Abdomen-normoactive bowel sounds, soft. Patient has some mild tenderness over the right lower quadrant suprapubic region. There is no rebound, r igidity, or perineal signs. Back exam-patient has mild tenderness over right lumbar paraspinal musculature. Patient has no C-spine tenderness or thoracic spine tenderness on palpation. Patient has no t enderness over the lumbar spine. Patient has negative straight leg raises. Deep tendon reflexes are plus 2 out of 4 bilaterally at the patella and Achilles. Patient has normal sensation to light touch. Extremities-intact 4, normal range of motion, normal pulses, atraumatic] Test Results: [CBC with differential obtained showed a white count of 9.2, hemoglobin 15, hematocrit 45, platelets 390. Head Athletic Trainer/Strength Coach raisa unremarkable other than a slightly depressed potassium of 2.9 for which I did give her 40 mEq of potassium chloride p.o. Urinalysis was normal. CT scan of the abdomen pelvis showed retained stool t hroughout the colon otherwise nothing acute.] Emergency Department Course and Treatment: [She was given a soapsuds enema and had small results with that.] Treatment Plan: Patient will be dispensed mag nesium citrate for home [] Disposition: [Discharged home in stable condition] Impression: [Constipation Lumbar strain] This note was generated with [employer] dictation software. It may contain incorr ect words, spelling, and punctuation that were not noted in review of the chart prior to signing ED Disposition - Plan for ED Patient: Chief Complaint: Constipation Referrals: iLgia Irizarry, NIB FINISHER-C [[facility] Care Provider] - What to do if you have Problems For any increased pain, shortness of breath, bleeding, nausea or vomiting, chest pain, or any unexpected problems, contact your Primary Care Provi maulik. Call [facility] ([phone]) or report to the closest Emergency Room. Call 911 if necessary. 05/21/18 1406 <Electronically signed by Lavonne Rico DO> Date Lavonne Rico DO Cosigner Signature (If Indicated): Date CC: Ligia Irizarry NP 21-May-2018 Abdomen/Pelvis W IV Cont ONLY Result: Comments: See Note; NOTES: [facility] Imaging Services [address] [place] [address] Abdomen/Pelvis W IV Cont ONLY MR#: [id number] Acct: [id number] Name: BARBIE PURVIS Rep #: [id number] : 1940 F 77 From: Manny Mendoza MD PCP: Ligia Irizarry NP Status: REG ER Study: Abdomen/Pelvis W IV Cont ONLY Date of Exam: 05/21/18 Exam# [id number] Ordering Dr: Lavonne Rico DO STUDY: CT ABDOMEN AND PELVIS WITHOUT CONTRAST REASON FOR EXAM: Female, 77 years old. Nausea/abdominal pain/constipation RADIATION DOSAGE (If Supplied By Facility): CTDIvol = ( 14.94 ) mGy, DLP = ( 1149.17 ) mGycm TECHNIQUE: Transaxial images were obtained from the dome of the diaphragm to the symphysis pubis without oral contrast, and without intravenous contrast. Sagittal and coronal images were reconstr ucted. Individualized dose optimization techniques were used for this CT. COMPARISON: 09/19/2015 FINDINGS: There are chronic interstitial fibrotic changes of the aleksander ng bases. The visualized portions of the heart are within normal limits. Liver is unremarkable aside from a likely 2 cm hemangioma in the dome of the right lobe. There are surgical clips in the gallbla dder fossa consistent with a prior cholecystectomy. Normal spleen. Normal pancreas. Normal bilateral adrenal glands. No obstructive uropathy. Stable 7 cm right renal cyst. Both kidneys show extrarenal pelves. Normal visualized stomach. Normal small intestine. Retained stool noted throughout the colon. There are a few scattered diverticula without CT evidence of acute diverticulitis. The appendix is visualized and appears normal. Appendix best seen on coronal recon image 56 Normal abdominal aorta. Normal inferior vena cava. Normal retroperitoneum. Normal urinary bladder. There is absence of the uterus consistent with a prior hysterectomy. Normal abdominal wall. There are diffuse degenerative changes of the visualized lumbar spine, and pelvis. ORDER #: [id number] CT/Abdomen/Pelvis W IV Cont ONLY IMPRESSION: No suspicious solid organ abnormality, stable likely hepatic hemangioma and exophytic right renal cyst. Scattered colonic diverticulosis No CT evide nce of an acute inflammatory process, normal appendix visualized. Degenerative bony changes Electronically Signed: Simon Mendoza MD at 12:16 EST , Service support , CC: Ligia Irizarry NP; Lavonne Rico DO Vegetable I Farmworker: Signed 27-Apr-2018 SCREENING MAMM (CAD), BILAT Result: Comments: See Note; NOTES: [facility] Imaging Services [address] [place] [address] SCREENING MAMM (CAD), BILAT MR#: [id number] Acct: [id number] Name: BARBIE PURVIS Rep #: [id number] : 1940 F 77 From: Seth Hahn MD PCP: Ligia Irizarry NP Status: REG CLI Study: SCREENING MAMM (CAD), BILAT Date of Exam: 04/27/18 Exam# [id number] Ordering Dr: Ligia Irizarry MA MMOGRAPHY - BILATERAL SCREENING REASON FOR [...] be sent to the patient by the state mental health facility ity within 30 days. Approximately 10% of breast cancers are not detected by mammography. A normal mammogram should not delay biopsy of a clinically suspicious abnormality. [id number] Electronically Adriana d: Seth Hahn MD at 8:15 EDT Tel [phone], Service support , CC: Ligia Irizarry NP Vegetable I Farmworker: Signed 05-Mar-2017 DXA BONE DENS W/VERT FX ASMT Result: Comments: See Note; NOTES: [facility] Imaging Services [address] [place] [address] DXA BONE DENS W/VERT FX ASMT MR#: [id number] Acct: [id number] Name: BARBIE PURVIS Rep #: [id number] : 1940 F 76 From: Seth Hahn MD PCP: Ligia Irizarry Status: REG CLI Study: DXA BONE DENS W/VERT FX ASMT Date of Exam: 03/05/17 Exam# [id number] Ordering Dr: Ligia Irizarry STUDY: DUAL ENERGY [...] Densitometry http://www.iscd.org 3. [employer]opor[employer] Foundation http://www.nof.org Gladysi nelson Signed: Seth Hahn MD at 13:14 EDT Tel [phone], Service support , CC: Ligia Irizarry Vegetable I Farmworker: Signed 05-Mar-2017 DXA BONE DENS W/VERT FX ASMT Result: Comments: See Note; NOTES: [facility] Imaging Services [address] [place] [address] DXA BONE DENS W/VERT FX ASMT MR#: [id number] Acct: [id number] Name: BARBIE PURVIS Rep #: [id number] : 1940 F 76 From: Seth Hahn MD PCP: Ligia Irizarry Status: REG CLI Study: DXA BONE DENS W/VERT FX ASMT Date of Exam: 03/05/17 Exam# [id number] Ordering Dr: Ligia Irizarry by Seth Hahn MD on 03/10/17 at 1321 HPBD/DXA BONE DENS W/VERT FX ASMT 03/10/171327 Date cc: Ligia Irizarry * Signed ADDENDUM by Seth Hahn MD on 11/19 at 1321 ADDENDUM Vertebral fracture assessment. There is almost complete collapse of the T7 v ertebrae. Moderate loss of height of the T6 vertebrae. Electronically Signed: Seth Hahn MD at 13:21 EDT Tel [phone], Service support , 03/10/17 1321 Date cc: [...] Seth Hahn MD at 13:14 EDT Tel [phone], Service support , CC: Ligia Irizarry Vegetable I Farmworker: Signed 27-Aug-2016 Venous Duplex Lower Extremity Result: Comments: See Note; NOTES: [facility] Cardiovascular Services [address] [place] [address] Venous Duplex US, Unilateral 08/26/16 1106 MR#: [id number] Acct: [id number] Name: BARBIE RUSSELL Rep #: [id number] : 1940 76 From: Carlos Abebe MD [...] Irizarry Date Dictated: 08/26/16 1106 Date Transcribed: 08/27/1659 Vegetable I Farmworker: Signed 08-Aug-2016 Shoulder min 2 Views Result: Comments: See Note; NOTES: [facility] Imaging Services [address] [place] [address] Verdaar 4d Shoulder min 2 Views MR#: [id number] Acct: [id number] Name: BARBIE PURVIS Rep #: [id number] : 1940 F 76 From: Seth Hahn MD PCP: Ligia Irizarry Status: REG CLI Study: Shoulder min 2 Views Date of Exam: 08/08/16 Exam# [id number] Ordering Dr: Ligia Irizarry STUDY: X-RAY - [...] Seth Hahn MD at 15:02 EST Tel [phone], Service support [phone], CC: Ligia Irizarry Vegetable I Farmworker: Signed 08-Aug-2016 Shoulder min 2 Views Result: Comments: See Note; NOTES: [facility] Imaging Services [address] [place] [address] Verdana 4d Shoulder min 2 Views MR#: [id number] Acct: [id number] Name: BARBIE PURVIS Rep #: [id number] : 1940 F 76 From: Seth Hahn MD PCP: Ligia Irizarry Status: REG CLI Study: Shoulder min 2 Views Date of Exam: 08/08/16 Exam# [id number] Ordering Dr: Ligia Irizarry STUDY: X-RAY - [...] Seth Hahn MD at 15:03 EST Tel [phone], Service support [phone], CC: Ligia Irizarry Vegetable I Farmworker: Signed 11-Feb-2016 Thoracic Spine 3 Views Result: Comments: See Note; NOTES: [facility] Imaging Services [address] [place] [address] Verdana 4d Thoracic Spine 3 Views MR#: [id number] Acct: [id number] Name: BARBIE PURVIS Radha ep #: [id number] : 1940 F 75 From: Junior King MD PCP: Ligia Irizarry Status: REG CLI Study: Thoracic Spine 3 Views Date of Exam: 02/11/16 Exam# [id number] Ordering Dr: Aileen Plata MD STUDY : [...] FACR at 16:57 EDT , Service support [phone], CC: Ligia Irizarry; Aileen Plata MD Vegetable I Farmworker: Signed 19-Sep-2015 Abdomen/Pelvis without Cont Result: Comments: See Note; NOTES: [facility] Imaging Services [address] [place] [address] Verdana 4d Abdomen/Pelvis without Cont MR#: [id number] Acct: [id number] Name: BARBIE PURVIS Rep #: [id number] : 1940 F 75 From: Kenney Lima MD PCP: Saige López DO Status: REG CLI Study: Abdomen/Pelvis without Cont Date of Exam: 09/19/15 Exam# [id number] Ordering Dr : Saige López DO STUDY: [...] MD at 17:54 EDT , Service support [phone], CC: Saige López DO Vegetable I Farmworker: Signed 17-Aug-2015 Knee 4 or More Views Result: Comments: See Note; NOTES: [facility] Imaging Services [address] [place] [address] Verdana 4d Knee 4 or More Views MR#: [id number] Acct: [id number] Name: Hortencia PURVIS Rep #: [id number] : 1940 F 75 From: Junior King MD PCP: Saige López DO Status: REG CLI Study: Knee 4 or More Views Date of Exam: 08/17/15 Exam# [id number] Ordering Dr: Saige López DO STUDY: X-RAY [...] FACR at 10:52 EST , Service support [phone], Fax RAD/Knee 4 or More Views IMPRESSION: Moderate arthrosis of the medial compartment Electronically Signed: Junior King MD, FACR at 10:52 EST Tel , Service support [phone], CC: Saige López DO Vegetable I Farmworker: Signed 02-Apr-2015 Cerv Spine 2 or 3 Views Result: Comments: See Note; NOTES: [facility] Imaging Services [address] [place] [address] Radiology Report MR#: [id number] Acct: [id number] Name: BARBIE PURVIS Rep #: [id number] : 1940 F 74 From: Galo Smart MD PCP: Saige López DO Status: REG CLI Study: Cerv Spine 2 or 3 Views Date of Exam: 04/02/15 Exam# [id number] Ordering Dr: Aileen Plata MD STUDY: X-RAY [...] MD at 16:56 EDT , Service support [phone], RAD/Cerv Spine 2 or 3 Views IMPRESSION: No acute abnormality. Degenerative disc changes most pronounced at C6-C7. Electronically Signed: Galo Smart MD at 16:56 EDT , Service sup port [phone], CC: Aileen Plata MD; Saige López DO Vegetable I Farmworker: Signed 27-Oct-2014 Orbits for Foreign Body Result: Comments: See Note; NOTES: [facility] Imaging Services [address] [place] [address] Radiology Report MR#: [id number] Acct: [id number] Name: BARBIE PURVIS Rep #: [id number] : 1940 F 74 From: Seth Hahn MD PCP: Saige López DO Status: REG CLI Study: Orbits for Foreign Body Date of Exam: 10/27/14 Exam# [id number] Ordering Dr: Saige López DO STUDY: X-RAY [...] Seth Hahn MD at 12:54 EDT Tel [phone], Service support [phone], CC: Saige López DO Vegetable I Farmworker: Signed 27-Oct-2014 Spine Thoracic (Routine) Result: Comments: See Note; NOTES: [facility] Imaging Services [address] [place] [address] MRI Report MR#: [id number] Acct: [id number] Name: BARBIE PURVIS Rep #: [id number] OB: 1940 F 74 From: Navya Elena MD PCP: Saige López DO Status: REG CLI Study: Spine Thoracic (Routine) Date of Exam: 10/27/14 Exam# [id number] Ordering Dr: Saige López DO STUDY: MRI [...] at 21:59 EDT , Service sup port [phone], CC: Saige López DO Vegetable I Farmworker: Signed 26-Oct-2014 Jennifer Marshall Digital AND CAD Result: Comments: See Note; NOTES: [facility] Imaging Services [address] [place] [address] Breast Imaging Report MR#: [id number] Acct: [id number] Name: BARBIE PURVIS Rep #: [id number] : 1940 F 74 From: Seth Hahn MD PCP: Saige López DO Status: REG CLI Study: Bilkey [employer]rn Digital AND CAD Date of Exam: 10/26/14 Exam# [id number] Ordering Dr: Saige López DO MAMMOGRAPHY - [...] Hahn MD at 14: 34 EDT Tel [phone], Service support [phone], CC: Saige López DO Vegetable I Farmworker: Signed 26-Oct-2014 Dexa Bone Density Study (HP) Result: Comments: See Note; NOTES: [facility] Imaging Services [address] [place] [address] Bone Density Report MR#: [id number] Acct: [id number] Name: BARBIE PURVIS Rep #: [id number] 4-0101 : 1940 F 74 From: Seth Hahn MD PCP: Saige López DO Status: [facility] CLI Study: Dexa Bone Density Study (HP) Date of Exam: 10/26/14 Exam# [id number] Ordering Dr: Saige López DO STUDY: DUAL [...] Seth Hahn MD at 13:16 EDT Tel [phone], Service support [phone], CC: Saige López DO [employer]: Signed Family History Unknown Family Member Name [...] smoker Vital Signs Date Test Result Details :45 Temperature 97.7 f Comments: Method: Temporal Pulse 104 /min Comments: Pattern: Regular Respiration Rate 17 /min Comments: Pattern: Unlabored O2 SAT 98 % Comments: Room air BP Systolic 134 mm[Hg] Comments: Patient Position: Sitting; Cuff Location: Left Arm; Cuff Size: Standard BP Diastolic 84 mm[Hg] Comments: Patient Position: Sitting; Cuff Location: Left Arm; Cuff Size: Standard Weight 170.125 lb Height 61.5 in Body Mass Index Calculated 31.62 kg/m2 Body Surface Area Calculated 1.77 m2 :13 Temperature 98.2 f Comments: Method: Temporal [...] 1.83 m2 Results Date Description Value Details :41 VITAMIN B12 AND FOLATES Comments: PATIENT WAS FASTINGPERFORMED BY: [employer]6370 [facility] [id number] (84933) Folate (Folic Acid), Serum 5.3 ng/mL (Normal) Comments: A serum folate concentration of less than 3.1 ng/mL isconsidered to represent clinical deficiency. Vitamin B12 1865 pg/mL (Abnormal) Range: 232-1245 47-Fld-84804:41 Metabolic Panel, Comprehensive Comments: PATIENT WAS FASTINGPERFORMED BY: [employer]6370 [facility] [id number] (94158) ALT (SGPT) 19 [iU]/L (Normal) Range: 0-32 AST (SGOT) 17 [iU]/L (Normal) Range: 0-40 Alkaline Phosphatase 124 [iU]/L (Abnormal) Range: 39-117 Bilirubin, Total 0.5 mg/dL (Normal) Range: 0.0-1.2 A/G Ratio 1.6 (Normal) Range: 1.2-2.2 Globulin, Total 2.7 g/dL (Normal) Range: 1.5-4.5 Albumin 4.2 g/dL (Normal) Range: 3.5-4.8 Protein, Total 6.9 g/dL (Normal) Range: 6.0-8.5 Calcium 9.1 mg/dL (Normal) Range: 8.7-10.3 Carbon Dioxide, Total 29 mmol/L (Normal) Range: 20-29 Chloride 94 mmol/L (Abnormal) Range: 96-106 Potassium 3.1 mmol/L (Abnormal) Range: 3.5-5.2 Comments: Client Requested Flag Sodium 141 mmol/L (Normal) Range: 134-144 BUN/Creatinine Ratio 20 (Normal) Range: 12-28 eGFR If Africn Am 60 mL/min/1.73 (Normal) eGFR If NonAfricn Am 52 mL/min/1.73 (Abnormal) Creatinine 1.03 mg/dL (Abnormal) Range: 0.57-1.00 BUN 21 mg/dL (Normal) Range: 8-27 Glucose 113 mg/dL (Abnormal) Range: 65-99 25-Kyo-08768:41 LIPID PANEL (30630) Comments: PATIENT WAS FASTINGPERFORMED BY: Lola Pirindola70 [facility] [id number] LDL/HDL Ratio 1.8 {ratio} (Normal) Range: 0.0-3.2 Comments: LDL/HDL Ratio Men Women 1/2 Avg.Risk 1.0 1.5 Av g.Risk 3.6 3.2 2X Avg.Risk 6.2 5.0 3X Avg.Risk 8.0 6.1 LDL Cholesterol Calc 104 mg/dL (Abnormal) Range: 0-99 VLDL Cholesterol Hero 33 mg/dL (Normal) Range: 5-40 HDL Cholesterol 59 mg/dL (Normal) Triglycerides 164 mg/dL (Abnormal) Range: 0-149 Cholesterol, Total 196 mg/dL (Normal) Range: 100-199 :46 HgA1C , Office (03051) HgA1C , Office 5.6 % (Normal) Range: 4.6 - 7.1 :45 Blood Glucose , Office (87308) Blood Glucose , Office 131 (Normal) 36-Tny-991823:50 Basic Metabolic Profile (BMP) Comments: [facility] [address] [place], [address] GAP 11 (Normal) Range: 5-15 CO2 27.0 mmol/L (Normal) Range: 21.0-32.0 CL 99 mmol/L (Normal) Range: 98-107 K 2.9 mmol/L (Abnormal) Range: 3.5-5.1 NA 137 mmol/L (Normal) Range: 136-145 CA 8.7 mg/dL (Normal) Range: 8.5-10.1 BUN/CRE 14.3 {RATIO} (Normal) Range: 10-20 Estimated CRCL 31.24 ml/min (Normal) EST GFR - AA 60 mL/min (Normal) Comments: GFR Calc EST GFR 50 mL/min (Abnormal) Comments: Non- GFR Calc CREAT,SERUM 1.12 mg/dL (Abnormal) Range: 0.55-1.02 Comments: The validity of the calculated GFR AND GFRAA in patients over70 years has not been determined. Clinical correlation isessential. BUN 16 mg/dL (Normal) Range: 7-18 GLU 124 mg/dL (Abnormal) Range: 74-106 Comments: Fasting Glucose result from 100 to 125 mg/dLsuggests IMPAIRED HOMEOSTASIS per A.D.A. criteria.Please note revised GLUCOSE reference range /02/2018. 81-Gai-308848:50 CBC W/Diff, Automated Comments: [facility] [address] [place], [place], [id number] Absolute Lymph 1.12 {X10_3/ul} (Normal) Range: 0.83-4.51 Absolute Neut 7.4 {X10_3/uL} (Normal) Range: 2.0-7.7 IM GRAN % 0.400 % (Normal) Range: 0.0-0.9 Comments: IG% - Immature Granulocytes (promyelocytes, myelocytes andmetamyelocytes) > 1% indicates that a LEFT SHIFT is Present. BASO% 0.2 % (Normal) Range: 0-1 EO% 0.2 % (Normal) Range: 0-5 MONO% 6.5 % (Normal) Range: 0-10 LY% 12.2 % (Abnormal) Range: 19-41 NEUT% 80.5 % (Abnormal) Range: 47-70 MPV 10.2 fL (Normal) Range: 6.2-12.0 PLT 390 K/mm3 (Normal) Range: 150-450 RDW SD 42.3 fL (Normal) Range: 35.1-43.9 RDW CV 14.1 % (Normal) Range: 11.6-14.6 MCHC 33.6 {g/gl} (Normal) Range: 32-36 MCH 27.4 pg (Normal) Range: 27.0-32.0 MCV 81.5 fL (Normal) Range: 81-99 HCT 44.6 % (Normal) Range: 37-47 HGB 15.0 g/dL (Normal) Range: 12.0-15.0 RBC 5.47 {M/mm3} (Abnormal) Range: 4.2-5.4 WBC 9.2 K/mm3 (Normal) Range: 4.4-11.0 18-Kge-809366:45 Urinalysis, Complete Comments: How was Urine Obtained? CLEAN [facility] [address] [place], [place], [id number] MUCUS, URINE 0 SEEN {/hpf} (Normal) BACTERIA 0 SEEN {/hpf} (Normal) SQUAM EPI 0-5 SEEN {/hpf} (Normal) Range: 5-10 WBC 0-5 SEEN {/hpf} (Normal) Range: 0-5 LEUK ESTERASE 25 /ul (Abnormal) OCCULT BLOOD-UR Negative /ul (Normal) NITRITE UR Negative (Normal) UROBILI Normal mg/dL (Normal) PROT DIPSTX Negative mg/dL (Normal) pH UR 6.5 (Normal) Range: 5.0 - 8.0 SP.GR. DIPSTX 1.005 (Normal) Range: 1.002-1.030 KETONE UR 15 mg/dL (Abnormal) BILIRUBIN URINE Negative mg/dL (Normal) GLUCOSE, UR Normal mg/dL (Normal) CLARITY Clear (Normal) COLOR Yellow (Normal) RBC-UA 0 SEEN {/hpf} (Normal) Range: 0-5 34-Qkt-648353:00 THROAT CULTURE (22577) Comments: PATIENT NOT FASTINGPERFORMED BY: Bosse ToolsHampton Behavioral Health CenterGqzldg5054 [facility] [id number] Information: SRC: Result 1 RRF (Normal) Comments: Routine respiratory kori Upper Respiratory Culture Final report (Normal) :39 Rapid Strep Test, Office (59059) Rapid Strep Test, Office Negative (Normal) :14 HgA1C , Office (05816) HgA1C , Office 5.4 % (Normal) Range: 4.6 - 7.1 :14 Blood Glucose , Office (32334) Blood Glucose , Office 129 (Normal) 48-Svy-58185:21 TSH (49663) Comments: PATIENT WAS FASTINGPERFORMED BY: [facility]6370 [facility] [id number] TSH 0.475 {uIU/mL} (Normal) Range: 0.450-4.500 24-Uti-50149:21 METABOLIC PANEL, COMPREHENSIVE Comments: PATIENT WAS FASTINGPERFORMED BY: SP3HBe[facility] Hospital6370 [facility] [id number] (15489) ALT (SGPT) 14 [iU]/L (Normal) Range: 0-32 [...] 8-27 Glucose 95 mg/dL (Normal) Range: 65-99 79-Axq-97927:21 LIPID PANEL (51404) Comments: PATIENT WAS FASTINGPERFORMED BY: LabCoHampton Behavioral Health CenterOmggqo3320 [facility] [id number] LDL/HDL Ratio 2.0 {ratio} (Normal) Range: 0.0-3.2 Comments: LDL/HDL Ratio Men Women 1/2 Avg.Risk 1.0 1.5 Av g.Risk 3.6 3.2 2X Avg.Risk 6.2 5.0 3X Avg.Risk 8.0 6.1 LDL Cholesterol Calc 110 mg/dL (Abnormal) Range: 0-99 VLDL Cholesterol Hero 35 mg/dL (Normal) Range: 5-40 HDL Cholesterol 55 mg/dL (Normal) Triglycerides 176 mg/dL (Abnormal) Range: 0-149 Cholesterol, Total 200 mg/dL (Abnormal) Range: 100-199 32-Taj-07295:21 CBC W/AUTO DIFF WBC (86220) Comments: PATIENT WAS FASTINGPERFORMED BY: [employer] Zsoacd1383 [facility] [id number] Immature Grans (Abs) 0.0 {x10E3/uL} (Normal) Range: [...] (Normal) Range: 3.4-10.8 :52 HgA1C , Office (04214) HgA1C , Office 5.5 % (Normal) Range: 4.6 - 7.1 :52 Blood Glucose , Office (09529) Blood Glucose , Office 89 (Normal) :24 VITAMIN B12 AND FOLATES Comments: PATIENT NOT FASTINGPERFORMED BY: LabCoHampton Behavioral Health CenterIxlzkx0554 [facility] [id number] (47250) Folate (Folic Acid), Serum 6.3 ng/mL (Normal) Comments: A serum folate concentration of less than 3.1 ng/mL isconsidered to represent clinical deficiency. Vitamin B12 1723 pg/mL (Abnormal) Range: 232-1245 :24 RENAL FUNCTION PANEL (56530) Comments: PATIENT NOT FASTINGPERFORMED BY: [employer] Pkfylp7511 [facility] [id number] Albumin, Serum 4.2 g/dL (Normal) Range: 3.5-4.8 [...] Glucose, Serum 105 mg/dL (Abnormal) Range: 65-99 59-Syc-20370:24 TSH (THYROID STIMULATING Comments: PATIENT NOT FASTINGPERFORMED BY: [employer] Neasmw6102 [facility] [id number] HORMONE) (89399) TSH 1.200 {uIU/mL} (Normal) Range: 0.450-4.500 37-Awm-086560:58 VITAMIN B12 AND FOLATES Comments: PATIENT NOT FASTINGPERFORMED BY: [employer] Ccscxy6398 [facility] [id number] (46926) Folate (Folic Acid), Serum 6.7 ng/mL (Normal) Comments: A serum folate concentration of less than 3.1 ng/mL isconsidered to represent clinical deficiency. Vitamin B12 174 pg/mL (Abnormal) Range: 211-946 Comments: Effective June 08, 2017 the reference interval for Vitamin B12 will be changing to: 232-1245 pg/mL. :58 MAGNESIUM (78094) Comments: PATIENT NOT FASTINGPERFORMED BY: [facility] Sngxud0608 Ramos RoadDublin [place] [id number] Magnesium, Serum 2.1 mg/dL (Normal) Range: 1.6-2.3 97-Xcz-317347:58 CALCIFEDIOL (45134) Comments: PATIENT NOT FASTINGPERFORMED BY: [facility] Dnhkpk3224 [address] [facility] HealthDublin [place] [id number] Vitamin D, 25-Hydroxy 56.5 ng/mL (Normal) Range: 30.0-100.0 Comments: Vitamin D deficiency has been defined by the [place] ofMedicine and an Endocrine Society practice guideline as alevel of serum 25-OH vitamin D less than 20 ng/mL (1,2).The Endocrine Society went on to further define vitamin Dinsufficiency as a level between 21 and 29 ng/mL (2).1. IOM ([place] of Medicine). 2010. Dietary reference intakes for calcium and D. [place]: The National Academies Press.2. Vanessa MF, Gail NC, Cydney CABRAL, et al. Evaluation, treatment, and prevention of vitamin D deficiency: an Endocrine Society clinical practice guideline. JCEM. 2010; 96(7):1911-30. 98-Ofn-688831:58 CBC, Platelets & Auto Diff Comments: PATIENT NOT FASTINGPERFORMED BY: [facility] Iwxuws3128 [facility] [place] [id number] (54192) Immature Grans (Abs) 0.0 {x10E3/uL} (Normal) Range: [...] 3.77-5.28 WBC 6.7 {x10E3/uL} (Normal) Range: 3.4-10.8 29-Lqd-710505:58 Metabolic Panel, Comprehensive Comments: PATIENT NOT FASTINGPERFORMED BY: LabCoHampton Behavioral Health CenterBpvspj5008 [facility] [id number] (27179) ALT (SGPT) 13 [iU]/L (Normal) Range: 0-32 [...] Glucose, Serum 134 mg/dL (Abnormal) Range: 65-99 70-Hai-610368:58 T4, FREE (THYROXINE) (48708) Comments: PATIENT NOT FASTINGPERFORMED BY: Work4[facility] [id number] T4,Free(Direct) 1.60 ng/dL (Normal) Range: 0.82-1.77 :58 FREE TRIDOTHYRONINE (T3) (73571) Comments: PATIENT NOT FASTINGPERFORMED BY: [facility] [id number] Triiodothyronine,Free,Serum 2.5 pg/mL (Normal) Range: 2.0-4.4 :58 TSH (THYROID STIMULATING Comments: PATIENT NOT FASTINGPERFORMED BY: [facility] [id number] HORMONE) (23784) TSH 5.470 {uIU/mL} (Abnormal) Range: 0.450-4.500 :27 Metabolic Panel, Comprehensive Comments: Feb 2017; PATIENT WAS FASTINGPERFORMED BY: [facility] [id number] (40082) ALT (SGPT) 16 [iU]/L (Normal) Range: 0-32 [...] Glucose, Serum 94 mg/dL (Normal) Range: 65-99 2-Xhj-740317:25 Metabolic Panel, Comprehensive Comments: get labs in November prior to next visit; PATIENT NOT FASTINGPERFORMED BY: [facility] Rvcxiz4884 [facility] [id number] (69131) ALT (SGPT) 11 [iU]/L (Normal) Range: 0-32 [...] Glucose, Serum 112 mg/dL (Abnormal) Range: 65-99 15-Ekb-841909:43 POTASSIUM SERUM (00073) Comments: PATIENT NOT FASTINGPERFORMED BY: [facility]ALTH[facility] CenterSmksmz5763 [facility] [id number] Potassium, Serum 3.7 mmol/L (Normal) Range: 3.5-5.2 0-Hbb-264512:50 Metabolic Panel, Comments: PATIENT NOT FASTINGPERFORMED BY: LabRentPostHampton Behavioral Health CenterPdbwue1502 [facility] [id number] Information: [id number], [id number] SRC:[facility] (78055) ALT (SGPT) 17 [iU]/L (Normal) Range: 0-32 [...] Glucose, Serum 98 mg/dL (Normal) Range: 65-99 6-Qly-060241:46 Urinalysis, Office (30411) UA - LEUKOCYTE ESTERASE Small (Normal) UA - NITRITE Negative (Normal) URINE UROBILINGN MARY LOU TIMED Normal mg/dL (Normal) UA - PROTEIN Negative mg/dL (Normal) UA - PH 6 (Abnormal) UA - BLOOD Negative (Normal) UA - SPECIFIC GRAVITY 1.010 (Normal) UA - KETONES Negative mg/dL (Normal) UA - BILIRUBIN Negative (Normal) UA - GLUCOSE Negative (Normal) 9-Lpm-522642:50 URINE ARMANDO CULTURE-IDENTIFICATN Comments: PATIENT NOT FASTINGPERFORMED BY: [facility] Cream.HR [facility] [id number] (35249) Result 1 MUG (Normal) Comments: Mixed urogenital flora4,000 Colonies/mL Urine Culture,Comprehensive Final report (Normal) 4-Mrh-725304:50 MICROALBUMIN: CREATININE RATIO Comments: PATIENT NOT FASTINGPERFORMED BY: [facility]ALTH[facility] CenterWvfbnj5675 [facility] [id number] (58740) AND (22499) Microalb/Creat Ratio 6.1 {mg/g_creat} (Normal) Range: 0.0-30.0 Microalbumin, Urine 3.8 ug/mL (Normal) Creatinine, Urine 62.2 mg/dL (Normal) :11 TSH (THYROID STIMULATING Comments: PATIENT NOT FASTINGPERFORMED BY: [facility] Symvir7593 [facility] [id number] HORMONE) (98094) TSH 1.530 {uIU/mL} (Normal) Range: 0.450-4.500 :43 TSH (THYROID STIMULATING Comments: PATIENT NOT FASTINGPERFORMED BY: [facility] Oqjkry2560 [facility] [id number] HORMONE) (75032) TSH 0.266 {uIU/mL} (Abnormal) Range: 0.450-4.500 :08 Renal function Panel Comments: PATIENT NOT FASTINGPERFORMED BY: [facility] Djqqgb8344 [facility] [id number] Information: [id number], [id number] (69397) Albumin, Serum 3.9 g/dL (Normal) Range: 3.5-4.8 [...] Glucose, Serum 91 mg/dL (Normal) Range: 65-99 70-Szf-870426:08 TSH (THYROID STIMULATING Comments: PATIENT NOT FASTINGPERFORMED BY: SP3HDonald [place] 9298070 [facility] [id number] HORMONE) (87804) TSH 14.590 {uIU/mL} (Abnormal) Range: 0.450-4.500 :25 TSH (96371) Comments: 6 weeks; PATIENT NOT FASTINGPERFORMED BY: [facility] Njpmev2653 [facility] [place] [id number] Information: [id number] TSH 1.240 {uIU/mL} Range: 0.450-4.500 (Normal) Written Authorization WAR (Normal) Comments: PATIENT WAS FASTINGPERFORMED BY: [facility] Bwtbqf2591 [facility] [id number] :14 Comments: Written Authorization Received.Authorization received from ORIGINAL REQUISITION [id number] by Deanna Mendoza :14 CALCIUM SERUM (10562) Comments: PATIENT WAS FASTINGPERFORMED BY: [facility] Nwqvle4986 [facility] [id number] Calcium, Serum 9.0 mg/dL (Normal) Range: 8.7-10.3 :14 CALCIFIDIOL (03049) VIT D Comments: PATIENT WAS FASTINGPERFORMED BY: [facility] Nydumr7605 [facility] [id number] Information: [id number] DL 25 Vitamin D, 25-Hydroxy 85.6 ng/mL (Normal) Range: 30.0-100.0 Comments: Vitamin D deficiency has been defined by the [place] ofMedicine and an Endocrine Society practice guideline as alevel of serum 25-OH vitamin D less than 20 ng/mL (1,2).The Endocrine Society went on to further define vitamin Dinsufficiency as a level between 21 and 29 ng/mL (2).1. IOM ([place] of Medicine). 2010. Dietary reference intakes for calcium and D. [place]: The National Academies Press.2. Vanessa MF, Gail RIVERS, Cydney CABRAL, et al. Evaluation, treatment, and prevention of vitamin D deficiency: an Endocrine Society clinical practice guideline. JCEM. 2010; 96(7):1911-30. :18 Urinalysis, Office (91285) UA - LEUKOCYTE ESTERASE Small (Normal) UA - NITRITE Negative (Normal) URINE UROBILINGN MARY LOU TIMED Normal mg/dL (Normal) UA - PROTEIN Negative mg/dL (Normal) UA - PH 6.0 (Normal) Comments: 5.5 UA - BLOOD Negative (Normal) UA - SPECIFIC GRAVITY 1.015 (Normal) UA - KETONES Negative mg/dL (Normal) UA - BILIRUBIN Negative (Normal) UA - GLUCOSE Negative (Normal) 25-Mjj-831497:38 URINE ARMANDO CULTURE (MARY LOU Comments: PATIENT NOT FASTINGPERFORMED BY: [employer]70 [facility] [id number] Information: [place]C:[facility] [id number] COL COUNT) (36021) Result 1 MUG (Normal) Comments: Mixed urogenital flora4,000 Colonies/mL Urine Culture,Comprehensive Final report (Normal) 96-Ylf-00875:14 CBC W/AUTO DIFF WBC Comments: PATIENT WAS FASTINGPERFORMED BY: [employer]70 [facility] [id number] Information: [id number] DL (28863) Immature Grans (Abs) 0.0 {x10E3/uL} (Normal) Range: [...] PANEL, COMPREHENSIVE Comments: PATIENT WAS FASTINGPERFORMED BY: [facility] Gdktge9856 [facility] [id number] (25591) ALT (SGPT) 18 [iU]/L (Normal) Range: 0-32 [...] 101 mg/dL (Abnormal) Range: 65-99 :14 TSH (92783) Comments: PATIENT WAS FASTINGPERFORMED BY: LabCoHampton Behavioral Health CenterMhfycx0173 [facility] [id number] TSH 0.184 {uIU/mL} (Abnormal) Range: 0.450-4.500 :14 Vitamin D Hydroxy (85221) Comments: PATIENT WAS FASTINGPERFORMED BY: LabCoHampton Behavioral Health CenterMfecur0374 [facility] [id number] Vitamin D, 25-Hydroxy 78.0 ng/mL (Normal) Range: 30.0-100.0 Comments: Vitamin D deficiency has been defined by the [place] ofMedicine and an Endocrine Society practice guideline as alevel of serum 25-OH vitamin D less than 20 ng/mL (1,2).The Endocrine Society went on to further define vitamin Dinsufficiency as a level between 21 and 29 ng/mL (2).1. IOM ([place]eng[place] of Medicine). 2010. Dietary reference intakes for calcium and D. [place]: The National Academies Press.2. Vanessa MF, Gail NC, Cydney CABRAL, et al. Evaluation, treatment, and prevention of vitamin D deficiency: an Endocrine Society clinical practice guideline. JCEM. 2010; 96(7):1911-30. :14 LIPID PANEL (07199) Comments: PATIENT WAS FASTINGPERFORMED BY: LabBeaumont Hospital6370 [facility] [id number] LDL/HDL Ratio 2.4 {ratio_units} (Normal) Range: 0.0-3.2 [...] Cholesterol, Total 212 mg/dL (Abnormal) Range: 100-199 73-Bas-71410:26 HgA1C , Office (71808) HgA1C , Office 5.8 % (Normal) Range: 4.6 - 7.1 7-Tda-431422:03 URINE ARMANDO CULTURE (MARY LOU Comments: PATIENT NOT FASTINGPERFORMED BY: [facility]6370 [facility] [id number] Information: SRC:UR [id number] COL COUNT) (03913) Result 1 MUG (Normal) Comments: Mixed urogenital flora25,000-50,000 colony forming units per mL Urine Final report (Normal) Culture,Comprehensive 7-Ces-661419:49 Urinalysis, Office (28610) UA - LEUKOCYTE ESTERASE Small (Normal) UA [...] Metabolic Panel, Comments: PATIENT NOT FASTINGPERFORMED BY: Bosse ToolsHampton Behavioral Health CenterPdnecw1477 [facility] [id number] Information: [id number] Comprehensive (40010) ALT (SGPT) 14 [iU]/L (Normal) Range: 0-32 [...] Glucose, Serum 101 mg/dL (Abnormal) Range: 65-99 91-Ndb-179222:48 Comprehensive Metabolic Profil Comments: [facility] U[address]roktiht[address] [place], [address] GAP 9 (Normal) Range: 5-15 CO2 24.0 [...] 7-18 GLU 108 mg/dL (Normal) Range: 70-110 54-Gww-225530:57 URINE ARMANDO CULTURE-MARY LOU COL Comments: PATIENT NOT FASTINGPERFORMED BY: [employer]70 [facility] [id number] Information: [place]C:[facility] [id number] COUNT (74880) Result 1 MUG (Normal) Comments: Mixed urogenital flora1,000 Colonies/mL Urine Culture,Comprehensive Final report (Normal) 19-Mcj-288468:03 Urinalysis, Office (49562) UA - LEUKOCYTE ESTERASE Moderate (Normal) UA - NITRITE Negative (Normal) URINE UROBILINGN MARY LOU TIMED Normal mg/dL (Normal) UA - PROTEIN Negative mg/dL (Normal) UA - PH 5 (Abnormal) UA - BLOOD Negative (Normal) UA - SPECIFIC GRAVITY 1.020 (Normal) UA - KETONES Negative mg/dL (Normal) UA - BILIRUBIN Negative (Normal) UA - GLUCOSE Negative (Normal) 07-Nov-20158:16 LIPID PANEL (82180) Comments: PATIENT WAS FASTINGPERFORMED BY: [employer]70 [facility] [id number] LDL/HDL Ratio 2.3 {ratio_units} (Normal) Range: 0.0-3.2 [...] DIFF WBC Comments: PATIENT WAS FASTINGPERFORMED BY: LabCoHampton Behavioral Health CenterNejrdi2679 [facility] [id number] Information: [id number] (54644) Immature Grans (Abs) 0.0 {x10E3/uL} (Normal) Range: [...] PANEL, COMPREHENSIVE Comments: PATIENT WAS FASTINGPERFORMED BY: [facility]6370 [facility] [id number] (64485) ALT (SGPT) 13 [iU]/L (Normal) Range: 0-32 [...] (Normal) Range: 65-99 :16 HgA1C , Office (63541) HgA1C , Office 5.8 % (Normal) Range: 4.6 - 7.1 :21 Vitamin D Hydroxy (78250) Comments: PATIENT NOT FASTINGPERFORMED BY: LabCoHampton Behavioral Health CenterDmcwti5188 [facility] [id number] Vitamin D, 25-Hydroxy 78.6 ng/mL (Normal) Range: 30.0-100.0 Comments: Vitamin D deficiency has been defined by the [place] ofMedicine and an Endocrine Society practice guideline as alevel of serum 25-OH vitamin D less than 20 ng/mL (1,2).The Endocrine Society went on to further define vitamin Dinsufficiency as a level between 21 and 29 ng/mL (2).1. IOM (Pengilly of Medicine). 2010. Dietary reference intakes for calcium and D. [place]: The National Academies Press.2. Vanessa MF, Gail NC, Cydney CABRAL, et al. Evaluation, treatment, and prevention of vitamin D deficiency: an Endocrine Society clinical practice guideline. JCEM. 2010; 96(7):1911-30. :21 TSH (14423) Comments: PATIENT NOT FASTINGPERFORMED BY: [facility] Crxqpr6692 [facility] [id number] TSH 0.545 {uIU/mL} (Normal) Range: 0.450-4.500 :21 METABOLIC PANEL, Comments: PATIENT NOT FASTINGPERFORMED BY: [facility] Whvgmp3588 [facility] [id number] Information: [id number] COMPREHENSIVE (20866) ALT (SGPT) 15 [iU]/L (Normal) Range: 0-32 [...] mg/dL (Normal) Range: 65-99 :21 LIPID PANEL (37055) Comments: PATIENT NOT FASTINGPERFORMED BY: SP3HBe[facility] Hospital6370 [facility] [id number] LDL/HDL Ratio 2.5 {ratio_units} (Normal) Range: 0.0-3.2 [...] Cholesterol, Total 199 mg/dL (Normal) Range: 100-199 38-Lju-438004:41 HgA1C , Office (72981) HgA1C , Office 5.7 % (Normal) Range: 4.6 - 7.1 :00 Microscopic Examination Comments: PATIENT NOT FASTINGPERFORMED BY: SP3H[facility] Hospital6370 [facility] [id number] Bacteria Many (Abnormal) Mucus Threads Present (Normal) Epithelial Cells (non renal) >10 {/hpf} (Abnormal) Range: 0 - 10 RBC 0-2 {/hpf} (Normal) Range: 0 - 2 WBC 11-30 {/hpf} (Abnormal) Range: 0 - 5 :00 CBC with auto diff Comments: PATIENT NOT FASTINGPERFORMED BY: [facility]6370 [facility] [id number] Information: [id number], [id number] (72230) Immature Grans (Abs) 0.0 {x10E3/uL} (Normal) Range: [...] PANEL, COMPREHENSIVE Comments: PATIENT NOT FASTINGPERFORMED BY: [facility] CenterNjidzt18[facility] [id number] ([id number]) ALT (SGPT) 24 [iU]/L (Normal) Range: 0-32 [...] (Abnormal) Range: 65-99 :00 URINALYSIS, W/ MICRO ([id number]) Comments: PATIENT NOT FASTINGPERFORMED BY: [employer] [id number] Microscopic Examination See below: (Normal) Comments: Microscopic was indicated and was performed. Nitrite, Urine Negative (Normal) Urobilinogen,Semi-Qn 0.2 mg/dL (Normal) Range: 0.2-1.0 Bilirubin Negative (Normal) Occult Blood Negative (Normal) Ketones Negative (Normal) Glucose Negative (Normal) Protein Negative (Normal) WBC Esterase 3+ (Abnormal) Appearance Cloudy (Abnormal) Urine-Color Yellow (Normal) pH 6.0 (Normal) Range: 5.0-7.5 Specific [place] 1.020 (Normal) Range: 1.005-1.030 :00 LIPID PANEL ([id number]) Comments: PATIENT NOT FASTINGPERFORMED BY: [facility] Nocwma9339 [facility] [id number] LDL/HDL Ratio 2.4 {ratio_units} (Normal) Range: 0.0-3.2 [...] Please note reference interval change :00 TSH (24724) Comments: PATIENT NOT FASTINGPERFORMED BY: [facility] Cream.HR [facility] [id number] TSH 0.642 {uIU/mL} (Normal) Range: 0.450-4.500 :55 Protein Electro, Random Urine Comments: PERFORMED BY: [employer]6370 [facility] [id number] Please note: SPRCS (Normal) Comments: Protein electrophoresis scan will follow via computer, mail, orcourier delivery. M-Josep, % Not Observed % (Normal) Gamma Globulin, U 17.3 % (Normal) Beta Globulin, U 42.3 % (Normal) Haiov-9-Pprnqnwf, U 15.7 % (Normal) Hozry-9-Wuuwzlyj, U 4.1 % (Normal) Albumin, U 20.6 % (Normal) Protein,Total,Urine 5.7 mg/dL (Normal) Range: 0.0-15.0 Phosphorus, Serum 3.7 mg/dL (Normal) Comments: PATIENT NOT FASTINGPERFORMED BY: [employer] Mxkxft7533 [facility] [id number] :37 Range: 2.5-4.5 :37 Protein Electro, Random Urine Comments: PATIENT NOT FASTINGPERFORMED BY: [employer] Peoyhr9523 [facility] [id number] Please note: SPRCS (Normal) Comments: Protein electrophoresis scan will follow via computer, mail, orcourier delivery. :37 Protein Electro.,S Comments: PATIENT NOT FASTINGPERFORMED BY: [employer] Hhlkcz6506 [facility] [id number] Please note: SPRCS (Normal) Comments: Protein electrophoresis scan will follow via computer, mail, orcourier delivery. A/G Ratio 1.3 (Normal) Range: 0.7-2.0 Globulin, Total 2.8 g/dL (Normal) Range: 2.0-4.5 M-Josep Not Observed g/dL (Normal) Gamma Globulin 0.8 g/dL (Normal) Range: 0.5-1.6 Beta Globulin 0.8 g/dL (Normal) Range: 0.6-1.3 Pcxlv-1-Vrcnwvfl 0.9 g/dL (Normal) Range: 0.4-1.2 Jqnpt-8-Timwsotc 0.2 g/dL (Normal) Range: 0.1-0.4 Albumin 3.7 g/dL (Normal) Range: 3.2-5.6 Protein, Total, Serum 6.5 g/dL (Normal) Range: 6.0-8.5 PTH, Intact 17 pg/mL (Normal) Comments: PATIENT NOT FASTINGPERFORMED BY: [employer] Bpjwen7614 [facility] [id number] :37 Range: 15-65 :37 Request Problem Comments: PATIENT NOT FASTINGPERFORMED BY: [employer] Dzahdx7100 [facility] [id number] Sedimentation 12 mm/h Comments: PATIENT NOT FASTINGPERFORMED BY: [employer] Igocmq0790 [facility] [id number] :37 Rate-Westergren (Normal) Range: 0-40 :29 Calcium, 24Hr Urine Comments: PATIENT NOT FASTINGPERFORMED BY: [employer] Dvnvzd9986 [facility] [id number] Information: [id number] START 11/12/14@7AM FINISH Calcium, Urine 24hr 17.0 {mg/24_hr} (Abnormal) Range: 100.0-300.0 Calcium, Urine 1.7 mg/dL (Normal) :33 Potassium Serum (76503) Comments: PATIENT NOT FASTINGPERFORMED BY: [facility]6370 [facility] [id number] Information: [id number] Potassium, Serum 5.3 mmol/L (Abnormal) Range: 3.5-5.2 :15 LIPID PANEL (50056) Comments: PATIENT WAS FASTINGPERFORMED BY: [facility] [id number] LDL/HDL Ratio 2.3 {ratio_units} (Normal) Range: 0.0-3.2 [...] (Abnormal) Range: 100-199 :15 Vitamin D Hydroxy (63824) Comments: PATIENT WAS FASTINGPERFORMED BY: [facility]6370 [facility] [id number] Vitamin D, 25-Hydroxy 69.2 ng/mL (Normal) Range: 30.0-100.0 Comments: Vitamin D deficiency has been defined by the [place] of[place]icine and an Endocrine Society practice guideline as alevel of serum 25-OH vitamin D less than 20 ng/mL (1,2).The Endocrine Society went on to further define vitamin Dinsufficiency as a level between 21 and 29 ng/mL (2).1. IOM ([place] of Medicine). 2010. Dietary reference intakes for calcium and D. [place]: The National Academies Press.2. Vanessa MF, Gail RIVERS, Cydney CABRAL, et al. Evaluation, treatment, and prevention of vitamin D deficiency: an Endocrine Society clinical practice guideline. JCEM. 2010; 96(7):1911-30. :15 TSH (43820) Comments: PATIENT WAS FASTINGPERFORMED BY: [facility] Hwrjgm3681 [facility] [id number] TSH 0.604 {uIU/mL} (Normal) Range: 0.450-4.500 :15 METABOLIC PANEL, Comments: PATIENT WAS FASTINGPERFORMED BY: [facility] Pkbpnm4350 [facility] [id number] Information: [id number] COMPREHENSIVE (24144) ALT (SGPT) 11 [iU]/L (Normal) Range: 0-32 [...] Glucose, Serum 94 mg/dL (Normal) Range: 65-99 11-Jof-40307:15 MAGNESIUM (46409) Comments: PATIENT WAS FASTINGPERFORMED BY: [facility] [id number] Magnesium, Serum 2.3 mg/dL (Normal) Range: 1.6-2.6 Plan of Care Name Dates Details Instructions Hypokalemia : Follow up in 3 months Indication: Hypokalemia Current nonsmoker : Eprescribed prescriptions (G8553) Indication: Current nonsmoker Current nonsmoker : Eprescribed prescriptions (G8553) Indication: Current nonsmoker Current nonsmoker : Follow up as needed Indication: Current nonsmoker Current nonsmoker : Eprescribed prescriptions (G8553) Indication: Current nonsmoker Vitamin B 12 deficiency : Follow up in 3 months For Gen Med and one separate for Medicare physical Indication: [...] prescriptions (G8553) Indication: Hypertension, benign Planned Observations TSH (THYROID STIMULATING HORMONE) (98772)Indication: Acquired hypothyroidism On: 69-Uvj-043611:21 Request URINALYSIS, W/ MICRO (33963)Indication: Hypertension On: 06-Eal-705609:22 Request MICROALBUMIN: CREATININE RATIO (62035) AND (06788)Indication: Hypertension On: 69-Xeb-115212:22 Request TSH (THYROID STIMULATING HORMONE) (24128)Indication: Acquired hypothyroidism On: 04-Kmq-997343:18 Request URINE ARMANDO CULTURE-IDENTIFICATN (58675)Indication: Dysuria On: 7-Wdb-183372:39 Request Urinalysis, Office (46786)Indication: Dysuria On: 9-Riw-374741:38 Request METABOLIC PANEL, COMPREHENSIVE (95642)Indication: Left flank pain On: 57-Ier-328017:03 Request Comments: stat URINE CALCIUM MARY LOU TIMED 24 Hour (26859)Indication: Osteoporosis (Renamed from OP (osteoporosis)) On: 4-Ipz-313726:12 Request PARATHORMONE (93308)Indication: Osteoporosis (Renamed from OP (osteoporosis)) On: 4-Vdy-089692:12 Request PHOSPHORUS (72978)Indication: Osteoporosis (Renamed from OP (osteoporosis)) On: 3-Pbf-665509:12 Request SED RATE ERYTHROCYTE (43099)Indication: Osteoporosis (Renamed from OP (osteoporosis)) On: 6-Ipv-822268:12 Request SPEP (54324)Indication: Osteoporosis (Renamed from OP (osteoporosis)) On: 4-Ikc-894736:12 Request UPEP (48918)Indication: Osteoporosis (Renamed from OP (osteoporosis)) On: 1-Xgn-359526:12 Request Planned Encounters Medical; 3 Month FU - On: 20-Sep-2018 9:45 [facility] Ligia Irizarry CNP, CNP, Mary E Planned Procedures Radiology - Hip - RightBy: Juan C On: 21-Jun-2018 Intent Ligia AMBRIZ CNP, Mary E Radiology - Lumbar SpineBy: Juan C On: 19-May-2018 Intent Ligia AMBRIZ CNP, Mary E Toradol Injection, 30 mg On: 19-May-2018 Intent (J1885)By: Ligia Irizarry CNP, CNP, Mary E PNEUM VAC ADLT/IMUMNOSPR, On: 20-Apr-2018 Intent SBC/INTRM (10584)By: Ligia Irizarry CNP, CNP, Mary E MAMMOGRAM BREAST BILATERAL On: 22-Mar-2018 Intent SCREENING DIGITAL (23640)By: Ligia Irizarry CNP, CNP, Mary E Bone Density StudyBy: Juan C AMBRIZ, On: 22-Mar-2018 Intent Ligia Torres CNP ELECTROCARDIOGRAM, COMPLETE (ECG) On: 29-Oct-2017 Intent (16418)By: Winnie Castro DO Comments: sinus darinel no acute chg Aerosol Treatment (37928)By: Juan C On: 10-Jul-2017 Intent Ligia AMBRIZ CNP, Mary E B 12 Injection, 1000 mcg On: 26-Jun-2017 Intent (J3420)By: Ligia Irizarry CNP Comments: Lot:[id number]:11/2018Dose:1mlRoute:IMSite:0.5mgGiven By:NICHOLAS hart CNP Ligia Coates B 12 Injection, 1000 mcg On: 19-Jun-2017 Intent (J3420)By: Ligia Irizarry CNP Comments: Lot:[id number]:11/21Dose:1mlRoute:IMSite:l armGiven By:NICHOLAS hart CNP Ligia Porter 12 Injection, 1000 mcg On: 12-Jun-2017 Intent (J3420)By: Ligia Irizarry CNP Comments: Lot:[id number]:08/2018Dose:1mlRoute:IMSite:1ccGiven By:NICHOLAS hart CNP Ligia Coates B 12 Injection, 1000 mcg On: 05-Jun-2017 Intent (J3420)By: Ligia Irizarry CNP Comments: Weekly x 1 month starting today Jun 05, then 8, 15, 22 take oral B12 as well Ligia AMBRIZ INJECTION, PROLIA (J0897)By: On: 19-Mar-2017 Intent Visit, Nurse Comments: lot:exp:[id number]:12/2018dose:60mg SC given by:Davon Jimenes LPN DEXA SCAN AXIAL SKELETON On: 23-Feb-2017 Intent (14089)By: Ligia Irizarry CNP, CNP, Mary E Venous Doppler - LeftBy: Juan C On: 26-Aug-2016 Intent Ligia AMBRIZ CNP, Mary E Comments: scotty irizarry ELECTROCARDIOGRAM, COMPLETE (ECG) On: 26-Aug-2016 Intent (32793)By: Ligia Irizarry CNP Comments: sinus rhythm PB Nicole Radiology - Shoulder - On: 08-Aug-2016 Intent BilateralBy: Ligia Irizarry CNP, CNP Ligia Coates INJECTION, PROLIA (J0897)By: On: 26-Jun-2016 Intent Visit, Nurse Comments: prolialot:[id number]:07/24site:lt subqroute:subqdose:60mlD.PALOMA Higgins INJECTION, PROLIA (J0897)By: Rene On: 28-Dec-2015 Intent Saige OTT Comments: lot: [id number]: ite/route: L arm/SQamt: prefilled syringeVIS signed when applicableChelsjose, MALA MAMMOGRAM, SCREENING, BOTH BREAST On: 16-Nov-2015 Intent ([id number])By: Saige López DO CT - Abdomen & Pelvis (Without On: 19-Sep-2015 Intent Contrast)By: Saige López DO Comments: stone protocol Radiology - Knee - Right - Weight On: 17-Aug-2015 Intent BearingBy: Saige López DO INJECTION, PROLIA (J0897)By: Rene On: 03-Jul-2015 Intent Saige OTT Comments: Lot:[id number]:01/20Dose:60mLRoute:sub q Site:l tahminaGiven By:NICHOLAS signed INJECTION, PROLIA (J0897)By: Rene On: 10-Jan-2015 Intent Saige OTT Comments: Lot:[id number]:06/21Dose:60mgRoute:sub qSite:l armGiven By:NICHOLAS signed DEXA SCAN AXIAL SKELETON On: 20-Oct-2014 Intent (37012)By: Saige López DO MAMMOGRAM, SCREENING, BOTH BREAST On: 20-Oct-2014 Intent (48261)By: Saige López DO MRI THORACIC SPINE W/O CONTRST On: 20-Oct-2014 Intent (61378)By: Saige López DO Comments: - hx of fracture Planned Medications INJECTION, KETOROLAC TROMETHAMINE, PER 15 MG Ordered: 19-May-2018 Pending Ligia Irizarry CNP, CNP Nicole INJECTION, PROLIA Ordered: 10-Jan-2015 Pending Fast DO, Saige A INJECTION, PROLIA Ordered: 03-Jul-2015 Pending Fast DO, Saige A INJECTION, PROLIA Ordered: 28-Dec-2015 Pending Fast DO, Saige A INJECTION, PROLIA Ordered: 26-Jun-2016 Pending Visit, Nurse INJECTION, PROLIA Ordered: 19-Mar-2017 Pending Visit, Nurse Vitamin B-12 1000 MCG/ML Injection Solution Ordered: 05-Jun-2017 Pending [employer] LEAD SOFTWARE TEST ENGINEER, Ligia Coates Ciesa LEAD SOFTWARE TEST ENGINEER, Nicole Vitamin B-12 1000 MCG/ML Injection Solution Ordered: 12-Jun-2017 Pending [employer]iesa LEAD SOFTWARE TEST ENGINEER, Nicole Ciesa LEAD SOFTWARE TEST ENGINEER, Nicole Vitamin B-12 1000 MCG/ML Injection Solution Ordered: 19-Jun-2017 Pending [employer] LEAD SOFTWARE TEST ENGINEER, Ligia Coates Ciesa LEAD SOFTWARE TEST ENGINEER, Nicole Vitamin B-12 1000 MCG/ML Injection Solution Ordered: 26-Jun-2017 Pending [employer] LEAD SOFTWARE TEST ENGINEER, Ligia Coates Cichelsi LEAD SOFTWARE TEST ENGINEER, Nicole Instructions Name Dates Details Current nonsmoker [...] Indication: Hypertension, benign Encounters Office Visit On: 21-Jun-2018 9:43 Encounter Reason: Follow up for chronic medical issues - The patient does not feel well, has decreased energy level and is sleeping poorly. Patient has been compliant with instructions. Current medication use: no side ef End: 21-Jun-2018 10:36 fects and compliant with dosing regimen. Patient sleeps 7 hours per night. Nutrition: inappropriate diet and supplemental vitamins. The medical issues the patient is following up for include All identif ied problems below, blood sugar issues, high blood pressure and high cholesterol., [ADDITIONAL REASON] Constipation - The onset of the constipation has been acute and has been occurri ng for 5 weeks. The symptoms have been associated with abdominal pain. Note for Constipation: lower back pain and right hip pain , [ADDITIONAL REASON] Back Pain - Note for Back pain: Lower back pain worse in am , [ADDITIONAL REASON] Hip Problem - Note for Hip problem: Rt hip pain with first thing in am Encounter Diagnosis: Current nonsmoker, Impaired Fasting Glucose (Renamed from Elevated fasting blood sugar), BMI 31.0-31.9,adult, Gastroesophageal reflux disease with esophagitis, Vitamin D deficiency, Constipation, Vitamin B 12 deficiency, Acquired hypothyroidism, Hypokalemia, Hip pain, right, Degenerative arthritis [facility] Annotation/Addendum On: 25-May-2018 16:29 Encounter Diagnosis: Low back strain End: 25-May-2018 16:39 [facility] Office Visit On: 19-May-2018 15:09 Encounter Reason: [...] The patient does have durable 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 The patient has no ticed getting bored, staying at home rather than doing something new or going out and lack of energy. Other providers contributing to the patient's care are vp software support (dr. eldridge), gastrologist (dr. das) and other: ([facility]-- last exam 2018). Note for Annual [...] End: 05-Dec-2014 22:24 iscuss procedure results: saw Reese and he put her into therapy and [...] same). Note for Discuss procedure results: only takin End: 09-Nov-2014 21:32 g spironolactone to help [...] screening, Vertebral fracture [facility] Payers Humanhortencia Purvis; a guarantor
--- OUTSIDE RECORDS SUMMARY | 2018-09-23 20:13 | XMS RPT_ITS ---
:1940 Author Organization OHIP Care Team Providers Name Role Phone Ligia Irizarry Attending Unavailable Fast DO, Saige A Referring Unavailable Ligia Irizarry Consulting Unavailable Ligia Irizarry Attending Unavailable Ligia Irizarry Referring Unavailable Ligia Irizarry Primary Care Unavailable Ligia Irizarry Attending Unavailable Ligia Irizarry Primary Care Unavailable Ligia Irizarry Attending Unavailable Ligia Irizarry Referring Unavailable Ligia rIizarry Primary Care Unavailable Ligia Irizarry Attending Unavailable Ligia Irizarry Referring Unavailable Ligia Irizarry Primary Care Unavailable Ligia Irizarry Primary Care Unavailable UngLavonne puckett Attending Unavailable PROBLEMS PROBLEMS DATE TYPE CONDITION / CODE ATTENDING STATUS SOURCE 06/21/2018 Unknown M25.551 - Pain Ligia Irizarry Active [place] in right hip / Community M25.551(ICD-10) Hospital Repository 07/05/2018 Unknown Z12.31 - Ligia Irizarry Active [place] Encounter for [facility] screening [facility] mammogram for Repository malignant neoplasm of breast / Z12.31(ICD-10) PROCEDURES PROCEDURES No Procedure Records FoundRESULTS RESULTS HIP, UNI W/ PELVIS Observed: 06/22/2018 Status: F Source: MILE 2-3 VIEWS 11:24 AM [facility] REPOSITORY MILE [facility] Imaging Services [address] [place] [address] HIP, UNI W/ Pelvis 2-3 Views MR#: [id number] Acct: [id number] Name: BARBIE PURVIS Rep #: [id number] : 1940 F 77 From: Inocente Stevens MD PCP: Ligia Irizarry NP Status: REG CLI Study: HIP, UNI W/ Pelvis 2-3 Views Date of Exam: 06/22/18 Exam# [id number] Ordering Dr: Ligia Irizarry PACKAGE LINE RELIEF OPERATOR-C STUDY: X-RAY - RIGHT HIP REASON FOR EXAM: Female, 78 years old. Pain. TECHNIQUE: 2 views of the hip. COMPARISON: CT abdomen and pelvis 05/21/2018. FINDINGS: Mild DJD of the SI joints. Mild low lumbar spondylosis. Osteopenia. There is no evidence of acute right hip fracture. There are no significant degenerative features of the right hip joint or left hip joint. The pubic rami appear intact. Iliac crests intact. Sacral alar appear symmetric and intact. No acute intrapelvic process is evident. RAD/HIP, UNI W/ Pelvis 2-3 Views IMPRESSION: There are no significant degenerative features of the hip joints and there is no evidence of acute right hip fracture. Electronically Signed: Inocente Stevens MD at 13:57 EST Tel , Service support , CC: Ligia Irizarry NP Director Customer: Signed L/S SPINE MIN 4 Observed: 05/25/2018 Status: F Source: MILE VIEWS 1:03 PM [facility] REPOSITORY [facility] Imaging Services [address] [place] [address] L/S Spine Min 4 Views MR#: [id number] Acct: [id number] Name: BARBIE PURVIS Rep #: [id number] : 1940 F 77 From: Seth Hahn MD PCP: Ligia Irizarry NP Status: REG CLI Study: L/S Spine Min 4 Views Date of Exam: 05/25/18 Exam# [id number] Ordering Dr: Ligia Irizarry NP-C STUDY: X-RAY - LUMBAR SPINE REASON FOR EXAM: Female, 77 years old. Extreme low back pain following lifting injury. TECHNIQUE: 5 view(s) of the lumbar spine were obtained including oblique views. COMPARISON: None FINDINGS: There is an exaggerated lumbar lordosis. There is a mild levoscoliosis of the lumbar spine. There is a normal alignment of the vertebrae. There is multilevel endplate spondylosis of the lumbar vertebrae. There is multi-level degenerative disc disease with multi-level disc space narrowing. Facet joint osteoarthritis. There is atherosclerotic calcification of the abdominal aorta without a demonstrated aneurysm. RAD/L/S Spine Min 4 Views IMPRESSION: Degenerative changes of the spine, as detailed above. Exaggerated lumbar lordosis. Electronically Signed: Seth Hahn MD at 13:38 EST Tel [phone], Service support , CC: Ligia Irizarry NP Director Customer: Signed DISCHARGE INSTRUCTION Observed: 05/21/2018 Status: F Source: MILE 2:07 PM [facility] REPOSITORY [facility] Medical Records Department [address] [place] [address] Discharge Instruction 05/21/18 1407 MR#: [id number] Acct: [id number] Name: BARBIE PURVIS Rep #: [id number] : 1940 77 From: Lavonne Rico DO [...] your Primary Care Provider. Call [facility] ([phone]) or report to the closest Emergency Room. Call 911 if necessary. 05/21/18 1407 <Electronically signed by Lavonne Rico DO> Date Lavonne Rico DO Cosigner Signature (If Indicated): Date CC: Ligia Irizarry NP EMERGENCY DEPARTMENT Observed: 05/21/2018 Status: F Source: SALLISAW SUMMARY 2:06 PM [facility] REPOSITORY [facility] Medical Records Department [address] [place] [address] Emergency Department Summary 05/21/18 1404 MR#: [id number] Acct: [id number] Name: BARBIE PURVIS Rep #: [id number] : 1940 77 From: Lavonne Rico DO [...] states that about 5 days ago she hurt the right side of her back picking something up in the garage. Patient was seen by nurse practitioner and given an shot of an anti-inflammatory. Patient denies any pain radiating down her leg. She denies any weakness in her extremities. She drove herself to the emergency department today. Patient states that she tried laxatives at home and mineral oil without any resolution of her symptoms. Patient has had nausea and she did have one episode of emesis. She denies any blood in her stool or black tarry stools. She not had any fevers. Patient denies urinary symptoms.] Physical Examination: [HEENT-PERRLA, EOMI. Cranial nerves II through XII grossly intact. TMs clear. Mucous membranes moist. No adenopathy. Cardiovascular-regular rate and rhythm without murmur or ectopy Lungs-clear to auscultation, chest wall stable without crepitus or subcu emphysema Abdomen-normoactive bowel sounds, soft. Patient has some mild tenderness over the right lower quadrant suprapubic region. There is no rebound, rigidity, or perineal signs. Back exam-patient has mild tenderness over right lumbar paraspinal musculature. Patient has no C-spine tenderness or thoracic spine tenderness on palpation. Patient has no tenderness over the lumbar spine. Patient has negative straight leg raises. Deep tendon reflexes are plus 2 out of 4 bilaterally at the patella and Achilles. Patient has normal sensation to light touch. Extremities-intact 4, normal range of motion, normal pulses, atraumatic] Test Results: [CBC with differential obtained showed a white count of 9.2, hemoglobin 15, hematocrit 45, platelets 390. Chemistries unremarkable other than a slightly depressed potassium of 2.9 for which I did give her 40 mEq of potassium chloride p.o. Urinalysis was normal. CT scan of the abdomen pelvis showed retained stool throughout the colon otherwise nothing acute.] Emergency Department Course and Treatment: [She was given a soapsuds enema and had small results with that.] Treatment Plan: Patient will be dispensed magnesium citrate for home [] Disposition: [Discharged home in stable condition] Impression: [Constipation Lumbar strain] This note was generated with [employer]Force dictation software. It may contain incorrect words, spelling, and punctuation that were not noted in review of the chart prior to signing ED Disposition - Plan for ED Patient: Chief Complaint: Constipation Referrals: Ligia Irizarry NP-C [Primary Care Provider] - What to do if you have Problems For any increased pain, shortness of breath, bleeding, nausea or vomiting, chest pain, or any unexpected problems, contact your Primary Care Provider. Call [facility] ([phone]) or report to the closest Emergency Room. Call 911 if necessary. 05/21/18 7318 <Electronically signed by Lavonne Rico DO> Date Lavonne Rico DO Jesuigner Signature (If Indicated): Date CC: Ligia Irizarry PACKAGE LINE RELIEF OPERATOR CBC W/DIFF, AUTOMATED Collected: 05/21/2018 Status: F Source: MILE 10:50 AM [facility] REPOSITORY TYPE CODE TESTS RESULT OUT OF RANGE REFERENCE UNITS LAB L100.1000 4.4-11.0 K/mm3 Normal WBC 9.2 LAB L100.1200 4.2-5.4 M/mm3 High RBC 5.47 LAB L100.1300 12.0-15.0 g/dl Normal HGB 15.0 LAB L100.1400 37-47 % Normal HCT 44.6 LAB L100.1500 81-99 fL Normal MCV 81.5 LAB L100.1600 27.0-32.0 pg Normal MCH 27.4 LAB L100.1700 32-36 g/gl Normal MCHC 33.6 LAB L100.1810 11.6-14.6 % Normal RDW CV 14.1 LAB L100.1820 35.1-43.9 fl Normal RDW SD 42.3 LAB L100.1900 150-450 K/mm3 Normal PLT 390 LAB L100.2000 6.2-12.0 fl Normal MPV 10.2 LAB L100.2100 47-70 % High NEUT% 80.5 LAB L100.2200 19-41 % Low LY% 12.2 LAB L100.2300 0-10 % Normal MONO% 6.5 LAB L100.2400 0-5 % Normal EO% 0.2 LAB L100.2500 0-1 % Normal BASO% 0.2 LAB L100.2550 0.0-0.9 % Normal IM GRAN % 0.400 Result Comment: IG% - Immature Granulocytes (promyelocytes, myelocytes and metamyelocytes) > 1% indicates that a LEFT SHIFT is Present. LAB L100.2620 2.0-7.7 X10 3/uL Normal Absolute Neut 7.4 LAB L100.2720 0.83-4.51 X10 3/ul Normal Absolute Lymph 1.12 Performed By: #### L100.0100 #### [facility] [address] [place], [place], [address] BASIC METABOLIC Collected: 05/21/2018 Status: F Source: MILE PROFILE (BMP) 10:50 AM [facility] REPOSITORY TYPE CODE TESTS RESULT OUT OF RANGE REFERENCE UNITS LAB L501.0100 74-106 mg/dL High GLU 124 Result Comment: Fasting Glucose result from 100 to 125 mg/dL suggests IMPAIRED HOMEOSTASIS per A.D.A. criteria. Please note revised GLUCOSE reference range effective 2017. LAB L501.1000 7-18 mg/dL Normal BUN 16 LAB L501.1100 0.55-1.02 mg/dL High CREAT,SERUM 1.12 Result Comment: The validity of the calculated GFR AND GFRAA in patients over 70 years has not been determined. Clinical correlation is essential. LAB L501.1110 >60 mL/min Low EST GFR 50 Result Comment: Non- GFR Calc LAB L501.1115 >60 mL/min Normal EST GFR - AA 60 Result Comment: GFR Calc LAB L501.1255 ml/min Normal Estimated CRCL 31.24 LAB L501.1300 10-20 RATIO Normal BUN/CRE 14.3 LAB L501.2200 8.5-10 mg/dL Normal .1 CA 8.7 LAB L501.5300 136-14 mmol/L Normal 5 NA 137 LAB L501.5600 3.5-5. mmol/L Low 1 K 2.9 LAB L501.5900 98-107 mmol/L Normal CL 99 LAB L501.6100 21.0-3 mmol/L Normal 2.0 CO2 27.0 LAB L501.6200 5-15 Normal GAP 11 Performed By: #### L500.2500 #### [facility] [address] [place], [place], [id number] URINALYSIS, COMPLETE Collected: 05/21/2018 Status: F Source: MILE 10:45 AM [facility] REPOSITORY Order Comment: How was Urine Obtained? CLEAN CATCH TYPE CODE TESTS RESULT OUT OF RANGE REFERENCE UNITS LAB L400.3000 Yellow COLOR Normal Yellow LAB L400.3050 Clear Normal CLARITY Clear LAB L400.3200 Normal mg/dl Normal GLUCOSE, UR Normal LAB L400.3300 Negative mg/dL Normal BILIRUBIN URINE Negative LAB L400.3400 Negative mg/dl High 15 KETONE UR LAB L400.3465 1.002-1.030 Normal SP.GR. DIPSTX 1.005 LAB L400.3550 5.0 - 8.0 pH UR Normal 6.5 LAB L400.3600 Negative mg/dl PROT Normal DIPSTX Negative LAB L400.3700 Normal mg/dl Normal UROBILI Normal LAB L400.3750 Negative Normal NITRITE UR Negative LAB L400.3780 Negative /ul Normal OCCULT BLOOD-UR Negative LAB L400.3800 Negative /ul High LEUK 25 ESTERASE LAB L400.4050 0-5 /hpf WBC Normal 0-5 SEEN LAB L400.4150 5-10 /hpf SQUAM Normal EPI 0-5 SEEN LAB L400.4300 None Seen /hpf 0 Normal BACTERIA SEEN LAB L400.4350 <or=2+ /hpf 0 Normal MUCUS, URINE SEEN Performed By: #### L400.0001 #### [facility] [address] [facility] [place], [address] ABDOMEN/PELVIS W IV CONT Observed: 05/21/2018 Status: F Source: [facility] 10:39 AM [facility] REPOSITORY [facility] Imaging Services [address] [place] [address] Abdomen/Pelvis W IV Cont ONLY MR#: [id number] Acct: [id number] Name: BARBIE PURVIS Rep #: [id number] : 1940 F 77 From: Manny Mendoza MD PCP: Ligia Irizarry NP Status: REG ER Study: Abdomen/Pelvis W IV Cont ONLY Date of Exam: 05/21/18 Exam# [id number] Ordering Dr: Lavonne Rico DO STUDY: CT [...] intravenous contrast. Sagittal and coronal images were reconstructed. Individualized dose optimization techniques were used for this CT. 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 The visualized portions of the heart are within normal limits. Liver is unremarkable aside from a likely 2 cm hemangioma in the dome of the right lobe. There are surgical clips in the gallbladder fossa consistent with a prior cholecystectomy. Normal [...] of the visualized lumbar spine, and pelvis. CT/Abdomen/Pelvis W IV Cont ONLY IMPRESSION: No suspicious solid organ abnormality, stable likely hepatic hemangioma and exophytic right renal cyst. Scattered colonic diverticulosis No CT evidence of an acute inflammatory process, normal appendix visualized. Degenerative bony changes Electronically Signed: Simon Mendoza MD at 12:16 EST , Service support , CC: Ligia Irizarry NP; Lavonne Rico DO Director Customer: Signed SCREENING MAMM (CAD), Observed: 04/27/2018 Status: F Source: MILE BILAT 3:54 PM [facility] REPOSITORY [facility] Imaging Services [address] [place] [address] SCREENING MAMM (CAD), BILAT MR#: [id number] Acct: [id number] Name: BARBIE PURVIS Rep #: [id number] : 1940 F 77 From: Seth Hahn MD PCP: Ligia Irizarry NP Status: REG CLI Study: SCREENING MAMM (CAD), BILAT Date of Exam: 04/27/18 Exam# [id number] Ordering Dr: Ligia Irizarry PACKAGE LINE RELIEF OPERATOR-C MAMMOGRAPHY - BILATERAL SCREENING REASON FOR EXAM: Female, 77 years old. Routine annual screening examination. PERTINENT HISTORY: Non-contributory. Remote right excisional breast biopsy. TECHNIQUE: Digital bilateral breast matthew (3D mammographic acquisition) in the CC and MLO projections. 2-D mediolateral oblique (MLO) and craniocaudad (CC) views of both breasts were obtained. CAD: Full Field Digital Mammography with Computer Added Detection was performed. COMPARISON: Comparison is made with prior examination dated October 26, 2014. FINDINGS: Breast Composition: There are scattered areas of fibroglandular density. There are no dominant masses or suspicious calcifications. Stable bilateral vascular calcification. No other significant abnormalities are identified. There has been no significant change since the prior study. BI/SCREENING MAMM (CAD), BILAT IMPRESSION: Stable bilateral screening mammogram. Yearly follow-up mammogram recommended. (A) ASSESSMENT CATEGORY: BIRADS Category 2: Benign. A letter regarding these results will be sent to the patient by the facility within 30 days. Approximately 10% of breast cancers are not detected by mammography. A normal mammogram should not delay biopsy of a clinically suspicious abnormality. [id number] Electronically Signed: Seth Hahn MD at 8:15 EDT Tel [phone], Service support , CC: Ligia Irizarry NP Director Customer: Signed ALLERGIES ALLERGIES DATE TYPE / CODE NAME / CODE REACTION SEVERITY SOURCE 05/21/2018 Drug No Known Unknown [facility] Allergy/4160 Allergies/F00 Hospital 09985(SNOMED 8625958(RXNOR Repository CT) M) ENCOUNTERS ENCOUNTERS ADMIT/DISCHARGE ACCOUNT ADMITTING ENCOUNTER LOCATION SOURCE NUMBER CLASS 06/22/2018 [id number] Ambulatory [place] [facility] ing:HPRAD Repository 06/21/2018 [id number] Ambulatory Building:[facility] Practices Repository 06/21/2018 [id number] [place] [facility] ing:RAD.FUTUR Repository E 05/25/2018 [id number] [place] [facility] ing:HPRAD Repository 05/21/2018/ [id number] [place] [facility] 6 [facility] ing:ED Repository 04/27/2018 [id number] Ambulatory [place] [facility] ing:OPBI Repository PAYERS PAYERS ENCOUNTER GUARANTOR PAYER SUBSCRIBER SOURCE 06/22/2018 OMAR Casillas Primary [place] [id number] Insurance:HUMANA GOLD [facility]OCKDOB[id number]: Repository [id number]: 330 [id number] [phone] () Date:[id number] [address] [place] [id number]: 06/22/2018 Secondary NOT GIVENUNK [place] Insurance:SELF PAY [facility] Number: Effective Repository Date:2018-06-22 06/21/2018 Gelaciojackie M Primary Barbie M [place] Practices BockDOB: Insurance:Humana BockDOB: Repository [id number] [facility] [id number] [place] Number: [address] [place], [place] [id number] [place], [place] [address]Nkf: (330) Date:[id number] 012[address]Dbv: () Name:[facility] [phone] () [address] [place], [place] [address]WP: 06/21/2018 OMAR Casillas Primary BARBIE Nguyen [place] [id number] Insurance:HUMANA GOLD BOCKDOB: Community [place] MEDICAREPolicy [id number] [place] Number: Repository [id number]: 330 [id number] [phone] (HP) Date:0765-47-88LJ [address]WP: 06/21/2018 Secondary NOT GIVENUNK [place] Insurance:SELF PAY [facility] Number: Effective Repository Date:2018-06-21 05/25/2018 OMAR Casillas Primary BARBIE [place] [id number] Insurance:HUMANA GOLD BOCKDOB: [facility] [place] MEDICAREPolicy [id number] Number: Repository [id number]: 330 [id number] [phone] (HP) Date:1837-41-81CO [address]WP: 05/25/2018 Secondary NOT GIVENUNK [place] Insurance:SELF PAY [facility] Number: Effective Repository Date:2018-05-20 05/21/2018 OMAR Casillas Primary BARBIE [place] [id number] Insurance:HUMANA GOLD BOCKDOB: Community [place] MEDICAREPolicy [id number] Number: Repository [id number]: (330 [id number] [phone] (HP) Date:4203-57-32SZ [place] [id number]: 05/21/2018 Secondary NOT GIVENUNK [place] Insurance:SELF PAY [facility] Number: Effective Repository Date:2018-05-21 04/27/2018 OMAR Casillas Primary BARBIE Nguyen [place] [id number] Insurance:HUMANA GOLD BOCKDOB: [facility] [place] MEDICAREPolicy [id number] Number: Repository [id number]: (330 [id number] [phone] (HP) Date:8035-79-07AB [address], [place] [address]FE: 04/27/2018 Secondary NOT GIVENUNK [place] Insurance:SELF PAY [facility]: Effective Repository Date:2018-03-22
--- OUTSIDE RECORDS SUMMARY | 2018-09-23 20:13 | XMS RPT_ITS | Continuity of Care Document ---
:1940 Author Organization [facility] Address [address] [facility] [address] [place] [address] Phone Care Team Providers Name Role Phone [...] 0 days Refills: 0 Ordered:07-Apr-2016 Juan C AMBRIZ, Ligia Yo CNP Start : 07-Apr-2016 Active [...] days Quantity: 90 {Capsule} Refills: 3 Ordered:20-Apr-2018 Ligia Irizarry CNP, CNP, Mary E Start : 20-Apr-2018 Active Comments:per Marcos to [...] 60 {Tablet} Refills: 1 Ordered:10-Jul-2017 Juan C PB Ligia Franklin CNP Ligia Coates Start : 10-Jul-2017 Active RaNITidine HCl 150 MG Oral Tablet 1 (one) Tablet Tablet qhs prn for worsening reflux for 0 days Quantity: 30 {Tablet} Refills: 1 Ordered:10-Jul-2017 Tonia Shaikh LPN Start : 10-Jul-2017 Active Vitamin D3 1000 UNIT Oral Tablet 1 (one) Capsule Tablet daily for 30 days Quantity: 30 {Tablet} Refills: 0 Ordered:07-Apr-2016 Juan C AMBRIZ Ligia Franklin CNP, Ligia Coates Start : 07-Apr-2016 Active AUGMENTIN, 875-125MG (Oral Tablet) 1 (one) Tablet bid for 14 days Quantity: 28 {Tablet} Refills: 0 Ordered:20-Nov-2015 Kellenchelsi PB Ligia Franklin PB Ligia Coates Start : 20-Nov-2015 End : 04-Dec-2015 Inactive Cipro 500 MG Oral Tablet 1 (one) Tablet bid for 7 days Quantity: 14 {Tablet} Refills: 0 Ordered:08-Aug-2016 Juan C PB Ligia Franklin CNP, Ligia Coates Start [...] days Quantity: 30 {Tablet} Refills: 3 Ordered:27-May-2017 Kellengeorgiahortencia AMBRIZ Ligia Franklin CNP Ligia Coates Start : 17-Nov-2016 End : [...] days Quantity: 3 {QS} Refills: 0 Ordered:18-Aug-2016 Jamarirb Neil LOZAa Start : 08-Aug-2016 End : 18-Aug-2016 Discontinued MACROBID, 100MG (Oral Capsule) 1 (one) Capsule Capsule bid for 0 days Quantity: 20 {Capsule} Refills: 0 Ordered:20-Nov-2015 Hawa LOZANeila Start : 08-Nov-2015 End : 20-Nov-2015 Discontinued Nystatin 001374 UNIT/GM External Powder 1 (one) Powder Powder apply bid for 0 days Quantity: 1 {Bottle} Refills: 3 Ordered:27-May-2016 Hawa LOZANeila Start : 17-Aug-2015 End : 27-May-2016 Discontinued Comments:large Pantoprazole Sodium 40 MG Oral Tablet Delayed Release 1 (one) Tablet DR q am for 90 days Quantity: 90 {Tablet} Refills: 3 Ordered:27-May-2016 Hawa LOZANeila Start : 16-May-2015 End : 27-May-2016 Discontinued SPIRONOLACTONE, 25MG (Oral Tablet) 1 (one) Tablet daily for 90 days Quantity: 90 {Tablet} Refills: 3 Ordered:16-Nov-2015 Saige López DO Start : 16-Nov-2015 End : 16-Nov-2015 Discontinued Vitamin D3 35873 UNIT Oral Capsule 1 (one) Capsule Capsule daily for 0 days Quantity: 30 {Capsule} Refills: 0 Ordered:27-May-2016 Hawa LOZANeila Start : 06-Feb-2016 End : 27-May-2016 Discontinued [...] 4 Views Result: Comments: See Note; NOTES: [facility] Imaging Services [address] [place] [address] L/S Spine Min 4 Views MR#: [id number] Acct: [id number] Name: BARBIE PURVIS Rep #: [id number] : 1940 F 77 From: Seth Hahn MD PCP: Ligia Irizarry NP Status: REG CLI Study: L/S Spine Min 4 Views Date of Exam: 05/25/18 Exam# [id number] Ordering Dr: Ligia Irizarry 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 STUDY: X-RAY - LUMBAR SPINE REASON FOR [...] Seth Hahn MD at 13:38 EST Tel [phone], Service support , CC: Ligia Irizarry NP Farmworker Vegetable: Signed 21-May-2018 Discharge Instruction Result: Comments: See Note; NOTES: [facility] Medical Records Department [address] [place] [address] Discharge Instruction 05/21/187 MR#: [id number] Acct: [id number] Name: EMILY PURVIS Rep #: [id number] : 1940 77 From: Lavonne Rico DO PCP: Ligia Irizarry NP Status: REG ER ED Disposition - Plan for ED Patient: Chief Complaint: Constipation Instructions: ED Constipation, ED Sprain Strain Lumbar Referrals: Ligia Irizarry NP-C [Primary Care Provider] - 3-5 Days What to do if you have Problems For any increased pain, shortness of breath, bleeding, nausea or vomiting, donna st pain, or any unexpected problems, contact your Primary Care Provider. Call [facility] ([phone]) or report to the closest Emergency Room. Call 911 if necessary. 05/21/18 140 <Karmen ctronically signed by Lavonne Rico DO> Date Lavonne Rico DO Cosigner Signature (If Indicated): Date CC: Ligia Irizarry NP 21-May-2018 Emergency Department Summary Result: Comments: See Note; NOTES: [facility] Medical Records Department [address] [facility] [place] [address] Emergency Department Summary 05/21/18 1404 MR#: [id number] Acct: [id number] Name: BARBIE PURVIS Rep #: [id number] : 1940 77 From: Lavonne Rico DO [...] 9.2, hemoglobin 15, hematocrit 45, platelets 390. Tamale Machine Feeder raisa unremarkable other than a slightly depressed [...] Lumbar strain] This note was generated with [employer] dictation software. It may contain incorr ect words, spelling, and punctuation that were not noted in review of the chart prior to signing ED Disposition - Plan for ED Patient: Chief Complaint: Constipation Referrals: Ligia Irizarry, JAIME-C [[facility] Care Provider] - What to do if you have Problems For any increased pain, shortness of breath, bleeding, nausea or vomiting, chest pain, or any unexpected problems, contact your Primary Care Provi maulik. Call [facility] ([phone]) or report to the closest Emergency Room. Call 911 if necessary. 05/21/18 1406 <Electronically signed by Lavonne Rico DO> Date Lavonne Rico DO Cosigner Signature (If Indicated): Date CC: Ligia Juan C SANDOVAL 21-May-2018 Abdomen/Pelvis W IV Cont ONLY Result: Comments: See Note; NOTES: [facility] Imaging Services [address] [place] [address] Abdomen/Pelvis W IV Cont ONLY MR#: [id number] Acct: [id number] Name: BARBIE PURVIS Rep #: [id number] : 1940 F 77 From: Manny Mendoza MD PCP: Ligia Irizarry NP Status: REG ER Study: Abdomen/Pelvis W IV Cont ONLY Date of Exam: 05/21/18 Exam# [id number] Ordering Dr: Lavonne Rico DO STUDY: CT [...] MD at 12:16 EST , Service support [phone], CC: Ligia Irizarry NP; Lavonne Rico DO Farmworker Vegetable: Signed 27-Apr-2018 SCREENING MAMM (CAD), BILAT Result: Comments: See Note; NOTES: [facility] Imaging Services [address] [place] [address] SCREENING MAMM (CAD), BILAT MR#: [id number] Acct: [id number] Name: BARBIE PURVIS Rep #: [id number] : 1940 F 77 From: Seth Hahn MD PCP: Ligia Irizarry NP Status: REG CLI Study: SCREENING MAMM (CAD), BILAT Date of Exam: 04/27/18 Exam# [id number] Ordering Dr: Ligia Irizarry NP-Josh MA MMOGRAPHY [...] be sent to the patient by the [facility] it[facility] within 30 days. Approximately 10% of breast cancers are not detected by mammography. A normal mammogram should not delay biopsy of a clinically suspicious abnormality. [id number] Electronically Adriana d: Seth Hahn MD at 8:15 EDT Tel [phone], Service support , CC: Ligia Irizarry NP Farmworker Vegetable: Signed 05-Mar-2017 DXA BONE DENS W/VERT FX ASMT Result: Comments: See Note; NOTES: [facility] Imaging Services [address] [place] [address] DXA BONE DENS W/VERT FX ASMT MR#: [id number] Acct: [id number] Name: BARBIE PURVIS Rep #: [id number] : 1940 F 76 From: Seth Hahn MD PCP: Ligia Irizarry Status: REG CLI Study: DXA BONE DENS W/VERT FX ASMT Date of Exam: 03/05/17 Exam# [id number] Ordering Dr: Ligia Irizarry STUDY: DUAL ENERGY [...] Seth Hahn MD at 13:14 EDT Tel [phone], Service support , CC: Ligia Irizarry Farmworker Vegetable: Signed 05-Mar-2017 DXA BONE DENS W/VERT FX ASMT Result: Comments: See Note; NOTES: [facility] Imaging Services [address] [place] [address] DXA BONE DENS W/VERT FX ASMT MR#: [id number] Acct: [id number] Name: BARBIE PURVIS Grazyna Rep #: [id number] : 1940 F 76 From: Seth Hahn MD PCP: Ligia Irizarry Status: REG CLI Study: DXA BONE DENS W/VERT FX ASMT Date of Exam: 03/05/17 Exam# [id number] Ordering Dr: Ligia Irizarry M by Seth [...] Seth Hahn MD at 13:21 EDT Tel [phone], Service support , 03/10/17 1321 Date cc: [...] Seth Hahn MD at 13:14 EDT Tel [phone], Service support , CC: Ligia Irizarry Farmworker Vegetable: Signed 27-Aug-2016 Venous Duplex Lower Extremity Result: Comments: See Note; NOTES: [facility] Cardiovascular Services [address] [place] [address] Venous Duplex US, Unilateral 08/26/16 1106 MR#: [id number] Acct: [id number] Name: BARBIE RUSSELL Rep #: [id number] : 1940 76 From: Carlos Abebe MD Attending : Ligia Irizarry Status: REG CLI Ordering Dr: [...] Date Dictated: 08/26/16 1106 Date Transcribed: 08/27/1659 Farmworker Vegetable: Signed 08-Aug-2016 Shoulder min 2 Views Result: Comments: See Note; NOTES: [facility] Imaging Services [address] [place] [address] Verdana 4d Shoulder min 2 Views MR#: [id number] Acct: [id number] Name: BARBIE PURVIS Rep #: [id number] : 1940 F 76 From: Seth Hahn MD PCP: Ligia Irizarry Status: REG CLI Study: Shoulder min 2 Views Date of Exam: 08/08/16 Exam# [id number] Ordering Dr: Ligia Irizarry STUDY: X-RAY - [...] Seth Hahn MD at 15:02 EST Tel [phone], Service support [phone], CC: Ligia Irizarry Farmworker Vegetable: Signed 08-Aug-2016 Shoulder min 2 Views Result: Comments: See Note; NOTES: [facility] Imaging Services [address] [place] [address] Verda 4d Shoulder min 2 Views MR#: [id number] Acct: [id number] Name: BARBIE PURVIS Rep #: [id number] : 1940 F 76 From: Seth Hahn MD PCP: Ligia Irizarry Status: REG CLI Study: Shoulder min 2 Views Date of Exam: 08/08/16 Exam# [id number] Ordering Dr: Ligia Irizarry STUDY: X-RAY - [...] Seth Hahn MD at 15:03 EST Tel [phone], Service support [phone], CC: Ligia Irizarry Farmworker Vegetable: Signed 11-Feb-2016 Thoracic Spine 3 Views Result: Comments: See Note; NOTES: [facility] Imaging Services [address] [place] [address] Verdana 4d Thoracic Spine 3 Views MR#: [id number] Acct: [id number] Name: BARBIE PURVIS #: [id number] : 1940 F 75 From: Junior King MD PCP: Ligia Irizarry Status: REG CLI Study: Thoracic Spine 3 Views Date of Exam: 02/11/16 Exam# [id number] Ordering Dr: Aileen Plata MD STUDY : [...] FACR at 16:57 EDT , Service support [phone], CC: Ligia Irizarry; Aileen Plata MD Farmworker Vegetable: Signed 19-Sep-2015 Abdomen/Pelvis without Cont Result: Comments: See Note; NOTES: [facility] Imaging Services [address] [place] [address] Verdana 4d Abdomen/Pelvis without Cont MR#: [id number] Acct: [id number] Name: BARBIE PURVIS Rep #: [id number] : 1940 F 75 From: Kenney Lima MD PCP: Saige López DO Status: REG CLI Study: Abdomen/Pelvis without Cont Date of Exam: 09/19/15 Exam# [id number] Ordering Dr : Saige López DO STUDY: [...] MD at 17:54 EDT , Service support [phone], CC: Saige López DO Farmworker Vegetable: Signed 17-Aug-2015 Knee 4 or More Views Result: Comments: See Note; NOTES: [facility] Imaging Services [address] [place] [address] Verda 4d Knee 4 or More Views MR#: [id number] Acct: [id number] Name: Hortencia PURVIS Rep #: [id number] : 1940 F 75 From: Junior King MD PCP: Saige López DO Status: REG CLI Study: Knee 4 or More Views Date of Exam: 08/17/15 Exam# [id number] Ordering Dr: Saige López DO STUDY: X-RAY [...] FACR at 10:52 EST , Service support [phone], Fax RAD/Knee 4 or More Views IMPRESSION: Moderate arthrosis of the medial compartment Electronically Signed: Junior King MD, FACR at 10:52 EST Tel , Service support [phone], CC: Saige López DO Farmworker Vegetable: Signed 02-Apr-2015 Cerv Spine 2 or 3 Views Result: Comments: See Note; NOTES: [facility] Imaging Services [address] [place] [address] Radiology Report MR#: [id number] Acct: [id number] Name: BARBIE PURVIS Rep #: [id number] : 1940 F 74 From: Galo Smart MD PCP: Saige López DO Status: REG CLI Study: Cerv Spine 2 or 3 Views Date of Exam: 04/02/15 Exam# [id number] Ordering Dr: Aileen Plata MD STUDY: X-RAY [...] MD at 16:56 EDT , Service support [phone], RAD/Cerv Spine 2 or 3 Views IMPRESSION: No acute abnormality. Degenerative disc changes most pronounced at C6-C7. Electronically Signed: Galo Smart MD at 16:56 EDT , Service sup port [phone], CC: Aileen Plata MD; Saige López DO Farmworker Vegetable: Signed 27-Oct-2014 Orbits for Foreign Body Result: Comments: See Note; NOTES: [facility] Imaging Services [address] [place] [address] Radiology Report MR#: [id number] Acct: [id number] Name: BARBIE PURVIS Rep #: [id number] : 1940 F 74 From: Seth Hahn MD PCP: Saige López DO Status: REG CLI Study: Orbits for Foreign Body Date of Exam: 10/27/14 Exam# [id number] Ordering Dr: Saige López DO STUDY: X-RAY [...] Seth Hahn MD at 12:54 EDT Tel [phone], Service support [phone], CC: Saige López DO Farmworker Vegetable: Signed 27-Oct-2014 Spine Thoracic (Routine) Result: Comments: See Note; NOTES: [facility] Imaging Services [address] [place] [address] MRI Report MR#: [id number] Acct: [id number] Name: BARBIE PURVIS Rep #: [id number] D OB: 1940 F 74 From: Navya Elena MD PCP: Saige López DO Status: REG CLI Study: Spine Thoracic (Routine) Date of Exam: 10/27/14 Exam# [id number] Ordering Dr: Saige López DO STUDY: MRI [...] at 21:59 EDT , Service sup port [phone], CC: Saige López DO Farmworker Vegetable: Signed 26-Oct-2014 Bilat Scrn Digital AND CAD Result: Comments: See Note; NOTES: [facility] Imaging Services [address] [place] [address] Breast Imaging Report MR#: [id number] Acct: [id number] Name: BARBIE PURVIS Rep #: [id number] : 1940 F 74 From: Seth Hahn MD PCP: Saige López DO Status: REG CLI Study: Bilat Scrn Digital AND CAD Date of Exam: 10/26/14 Exam# [id number] Ordering Dr: Saige López DO MAMMOGRAPHY - [...] Hahn MD at 14: 34 EDT Tel [phone], Service support [phone], CC: Saige López DO Farmworker Vegetable: Signed 26-Oct-2014 Dexa Bone Density Study (HP) Result: Comments: See Note; NOTES: [facility] Imaging Services [address] [place] [address] Bone Density Report MR#: [id number] Acct: [id number] Name: BARBIE PURVIS Rep #: [id number] : 1940 F 74 From: Seht Hahn MD PCP: Saige López DO Status: REG CLI Study: Dexa Bone Density Study (HP) Date of Exam: 10/26/14 Exam# [id number] Ordering Dr: Saige López DO STUDY: DUAL [...] Seth Hahn MD at 13:16 EDT Tel [phone], Service support [phone], CC: Saige López DO Farmworker Vegetable: Signed Family History Unknown Family Member Name [...] kg/m2 Body Surface Area Calculated 1.84 m2 53-Ham-313622:59 Temperature 97.7 f Pulse 74 /min Comments: [...] 1.83 m2 Results Date Description Value Details 13-Scz-880016:50 Basic Metabolic Profile (BMP) Comments: [facility] [address] [place], [place], [address] GAP 11 (Normal) Range: 5-15 CO2 27.0 [...] A.D.A. criteria.Please note revised GLUCOSE reference range ljpouoyuc83/02/2018. 84-Pjp-194714:50 CBC W/Diff, Automated Comments: [facility] [address] [place], [address] Absolute Lymph 1.12 {X10_3/ul} (Normal) Range: 0.83-4.51 [...] 4.2-5.4 WBC 9.2 K/mm3 (Normal) Range: 4.4-11.0 24-Ltg-119632:45 Urinalysis, Complete Comments: How was Urine Obtained? CLEAN [facility] [address] [place] [place], [address] MUCUS, URINE 0 SEEN {/hpf} (Normal) BACTERIA [...] RBC-UA 0 SEEN {/hpf} (Normal) Range: 0-5 07-Clh-587385:00 THROAT CULTURE (55748) Comments: PATIENT NOT FASTINGPERFORMED BY: [facility] NetworksSaint Michael's Medical CenterIuemqn9816 [facility] [id number] Information: SRC:TH Result 1 RRF (Normal) Comments: Routine respiratory kori Upper Respiratory Culture Final report (Normal) :39 Rapid Strep Test, Office (27804) Rapid Strep Test, Office Negative (Normal) 87-Zcz-21041:14 HgA1C , Office (40621) HgA1C , Office 5.4 % (Normal) Range: 4.6 - 7.1 :14 Blood Glucose , Office (51405) Blood Glucose , Office 129 (Normal) 50-Kwq-18135:21 TSH (27942) Comments: PATIENT WAS FASTINGPERFORMED BY: [facility] Icxbna0544 [facility] [id number] TSH 0.475 {uIU/mL} (Normal) Range: 0.450-4.500 48-Ueb-76252:21 METABOLIC PANEL, COMPREHENSIVE Comments: PATIENT WAS FASTINGPERFORMED BY: [facility] Ylcsxz0931 [facility] [id number] (40679) ALT (SGPT) 14 [iU]/L (Normal) Range: 0-32 [...] 8-27 Glucose 95 mg/dL (Normal) Range: 65-99 20-Nhc-35854:21 LIPID PANEL (56492) Comments: PATIENT WAS FASTINGPERFORMED BY: [facility] [id number] LDL/HDL Ratio 2.0 {ratio} (Normal) Range: 0.0-3.2 Comments: LDL/HDL Ratio Men Women 1/2 Avg.Risk 1.0 1.5 Av g.Risk 3.6 3.2 2X Avg.Risk 6.2 5.0 3X Avg.Risk 8.0 6.1 LDL Cholesterol Calc 110 mg/dL (Abnormal) Range: 0-99 VLDL Cholesterol Hero 35 mg/dL (Normal) Range: 5-40 HDL Cholesterol 55 mg/dL (Normal) Triglycerides 176 mg/dL (Abnormal) Range: 0-149 Cholesterol, Total 200 mg/dL (Abnormal) Range: 100-199 59-Srt-22754:21 CBC W/AUTO DIFF WBC (88938) Comments: PATIENT WAS FASTINGPERFORMED BY: [facility] Pewterers6370 [facility] [id number] Immature Grans (Abs) 0.0 {x10E3/uL} (Normal) Range: [...] (Normal) Range: 3.4-10.8 :52 HgA1C , Office (52537) HgA1C , Office 5.5 % (Normal) Range: 4.6 - 7.1 87-Sns-226482:52 Blood Glucose , Office (24259) Blood Glucose , Office 89 (Normal) :24 VITAMIN B12 AND FOLATES Comments: PATIENT NOT FASTINGPERFORMED BY: [facility] Lfgdpq2547 [facility] [id number] (21566) Folate (Folic Acid), Serum 6.3 ng/mL (Normal) Comments: A serum folate concentration of less than 3.1 ng/mL isconsidered to represent clinical deficiency. Vitamin B12 1723 pg/mL (Abnormal) Range: 232-1245 :24 RENAL FUNCTION PANEL (71910) Comments: PATIENT NOT FASTINGPERFORMED BY: [facility] Uetfvq9660 [facility] [id number] Albumin, Serum 4.2 g/dL (Normal) Range: 3.5-4.8 [...] (THYROID STIMULATING Comments: PATIENT NOT FASTINGPERFORMED BY: AC Holdco70 [facility]mikUNC [facility] [id number] HORMONE) (22624) TSH 1.200 {uIU/mL} (Normal) Range: 0.450-4.500 42-Sgz-045178:58 VITAMIN B12 AND FOLATES Comments: PATIENT NOT FASTINGPERFORMED BY: CC video Ahrhtg2719 [facility] [id number] (03931) Folate (Folic Acid), Serum 6.7 ng/mL (Normal) Comments: A serum folate concentration of less than 3.1 ng/mL isconsidered to represent clinical deficiency. Vitamin B12 174 pg/mL (Abnormal) Range: 211-946 Comments: Effective June 08, 2017 the reference interval for Vitamin B12 will be changing to: 232-1245 pg/mL. 75-Kbq-274192:58 MAGNESIUM (05142) Comments: PATIENT NOT FASTINGPERFORMED BY: [facility] Idipnk2714 [facility] [id number] Magnesium, Serum 2.1 mg/dL (Normal) Range: 1.6-2.3 :58 CALCIFEDIOL (71285) Comments: PATIENT NOT FASTINGPERFORMED BY: LabSelect [facility]aginaw6370 [facility] [id number] Vitamin D, 25-Hydroxy 56.5 ng/mL (Normal) Range: 30.0-100.0 Comments: Vitamin D deficiency has been defined by the [place] of[employer] and an Endocrine Society practice guideline as alevel of serum 25-OH vitamin D less than 20 ng/mL (1,2).The Endocrine Society went on to further define vitamin Dinsufficiency as a level between 21 and 29 ng/mL (2).1. IOM ([place] of [employer]). 2010. Dietary reference intakes for calcium and D. [place]: The National Academies Press.2. Vanessa MF, Gail NC, Cydney CABRAL, et al. Evaluation, treatment, and prevention of vitamin D deficiency: an Endocrine Society clinical practice guideline. JCEM. 2010; 96(7):1911-30. :58 CBC, Platelets & Auto Diff Comments: PATIENT NOT FASTINGPERFORMED BY: LabCoShiprock-Northern Navajo Medical CenterbBsfwqo5400 [facility] [id number] (65973) Immature Grans (Abs) 0.0 {x10E3/uL} (Normal) Range: [...] 3.77-5.28 WBC 6.7 {x10E3/uL} (Normal) Range: 3.4-10.8 71-Ton-903303:58 Metabolic Panel, Comprehensive Comments: PATIENT NOT FASTINGPERFORMED BY: LabCoSaint Michael's Medical CenterIuqfax8478 [facility] [id number] (13782) ALT (SGPT) 13 [iU]/L (Normal) Range: 0-32 [...] (Abnormal) Range: 65-99 :58 T4, FREE (THYROXINE) (50977) Comments: PATIENT NOT FASTINGPERFORMED BY: [facility] Rnxtqf7723 [facility]ikUNC [facility] [id number] T4,Free(Direct) 1.60 ng/dL (Normal) Range: 0.82-1.77 :58 FREE TRIDOTHYRONINE (T3) (17283) Comments: PATIENT NOT FASTINGPERFORMED BY: [facility] Pztsri2307 MyCosmikCritical Access Hospitalin [place] [id number] Triiodothyronine,Free,Serum 2.5 pg/mL (Normal) Range: 2.0-4.4 :58 TSH (THYROID STIMULATING Comments: PATIENT NOT FASTINGPERFORMED BY: [facility] Aewdfv0157 [address] Edgewood AveUNC Health Blue Ridge [id number] HORMONE) (69971) TSH 5.470 {uIU/mL} (Abnormal) Range: 0.450-4.500 :27 Metabolic Panel, Comprehensive Comments: Feb 2017; PATIENT WAS FASTINGPERFORMED BY: [facility] Yrdhwr4114 [facility] [id number] (67909) ALT (SGPT) 16 [iU]/L (Normal) Range: 0-32 [...] Glucose, Serum 94 mg/dL (Normal) Range: 65-99 6-Hew-030860:25 Metabolic Panel, Comprehensive Comments: get labs in November prior to next visit; PATIENT NOT FASTINGPERFORMED BY: [facility] Evczax5093 [facility] [id number] (32472) ALT (SGPT) 11 [iU]/L (Normal) Range: 0-32 [...] mg/dL (Abnormal) Range: 65-99 :43 POTASSIUM SERUM (27773) Comments: PATIENT NOT FASTINGPERFORMED BY: [employer]6370 [facility] [id number] Potassium, Serum 3.7 mmol/L (Normal) Range: 3.5-5.2 :50 Metabolic Panel, Comments: PATIENT NOT FASTINGPERFORMED BY: [facility]6370 [facility] [id number] Information: [id number], 111673 SRC:[facility] (25904) ALT (SGPT) 17 [iU]/L (Normal) Range: 0-32 [...] Glucose, Serum 98 mg/dL (Normal) Range: 65-99 8-Ads-998951:46 Urinalysis, Office (11210) UA - LEUKOCYTE ESTERASE Small (Normal) UA - NITRITE Negative (Normal) URINE UROBILINGN MARY LOU TIMED Normal mg/dL (Normal) UA - PROTEIN Negative mg/dL (Normal) UA - PH 6 (Abnormal) UA - BLOOD Negative (Normal) UA - SPECIFIC GRAVITY 1.010 (Normal) UA - KETONES Negative mg/dL (Normal) UA - BILIRUBIN Negative (Normal) UA - GLUCOSE Negative (Normal) 4-Toz-198407:50 URINE ARMANDO CULTURE-IDENTIFICATN Comments: PATIENT NOT FASTINGPERFORMED BY: [facility] [id number] (31209) Result 1 MUG (Normal) Comments: Mixed urogenital flora4,000 Colonies/mL Urine Culture,Comprehensive Final report (Normal) 0-Lnw-990438:50 MICROALBUMIN: CREATININE RATIO Comments: PATIENT NOT FASTINGPERFORMED BY: ONE[facility] AeroDynEnergyDorothea Dix Hospital [id number] (17688) AND (90510) Microalb/Creat Ratio 6.1 {mg/g_creat} (Normal) Range: 0.0-30.0 Microalbumin, Urine 3.8 ug/mL (Normal) Creatinine, Urine 62.2 mg/dL (Normal) 78-Bre-07121:11 TSH (THYROID STIMULATING Comments: PATIENT NOT FASTINGPERFORMED BY: [facility] [id number] HORMONE) (95055) TSH 1.530 {uIU/mL} (Normal) Range: 0.450-4.500 :43 TSH (THYROID STIMULATING Comments: PATIENT NOT FASTINGPERFORMED BY: Contratan.doSelect Specialty Hospital-Saginaw6370 [facility] [id number] HORMONE) (83359) TSH 0.266 {uIU/mL} (Abnormal) Range: 0.450-4.500 75-Xqt-328070:08 Renal function Panel Comments: PATIENT NOT FASTINGPERFORMED BY: Contratan.doSelect [facility]ty Hospital-[facility]aginaw6370 [facility] [id number] Information: [id number], [id number] (67639) Albumin, Serum 3.9 g/dL (Normal) Range: 3.5-4.8 [...] Glucose, Serum 91 mg/dL (Normal) Range: 65-99 76-Axd-567573:08 TSH (THYROID STIMULATING Comments: PATIENT NOT FASTINGPERFORMED BY: Contratan.doSelect [facility]ty Hospital-[facility]6370 [facility] [id number] HORMONE) (34214) TSH 14.590 {uIU/mL} (Abnormal) Range: 0.450-4.500 :25 TSH (29834) Comments: 6 weeks; PATIENT NOT FASTINGPERFORMED BY: Contratan.doSelect [facility]ty Hospital-[facility]aw6370 [facility]in [place] [id number] Information: [id number] TSH 1.240 {uIU/mL} Range: 0.450-4.500 (Normal) Written Authorization WAR (Normal) Comments: PATIENT WAS FASTINGPERFORMED BY: [facility] Pqcexv3262 [facility] [facility] [id number] :14 Comments: Written Authorization Received.Authorization received from ORIGINAL REQUISITION [id number] by Deanna Mendoza :14 CALCIUM SERUM (74712) Comments: PATIENT WAS FASTINGPERFORMED BY: [facility]6370 [facility] [id number] Calcium, Serum 9.0 mg/dL (Normal) Range: 8.7-10.3 :14 CALCIFIDIOL (65502) VIT D Comments: PATIENT WAS FASTINGPERFORMED BY: [facility]6370 [facility] [id number] Information: [id number] DL 25 Vitamin D, 25-Hydroxy 85.6 ng/mL (Normal) Range: 30.0-100.0 Comments: Vitamin D deficiency has been defined by the [place] of[place] and an Endocrine Society practice guideline as alevel of serum 25-OH vitamin D less than 20 ng/mL (1,2).The Endocrine Society went on to further define vitamin Dinsufficiency as a level between 21 and 29 ng/mL (2).1. IOM ([place] of [employer]). 2010. Dietary reference intakes for calcium and D. [place]: The National Academies Press.2. Vanessa MF, Gail NC, Cydney CABRAL, et al. Evaluation, treatment, and prevention of vitamin D deficiency: an Endocrine Society clinical practice guideline. JCEM. 2010; 96(7):1911-30. :18 Urinalysis, Office (01026) UA - LEUKOCYTE ESTERASE Small (Normal) UA - NITRITE Negative (Normal) URINE UROBILINGN MARY LOU TIMED Normal mg/dL (Normal) UA - PROTEIN Negative mg/dL (Normal) UA - PH 6.0 (Normal) Comments: 5.5 UA - BLOOD Negative (Normal) UA - SPECIFIC GRAVITY 1.015 (Normal) UA - KETONES Negative mg/dL (Normal) UA - BILIRUBIN Negative (Normal) UA - GLUCOSE Negative (Normal) 13-Kun-974330:38 URINE ARMANDO CULTURE (MARY LOU Comments: PATIENT NOT FASTINGPERFORMED BY: CC videoSaint Michael's Medical CenterDfpxmi2620 [facility] [id number] Information: [place] [id number] COL COUNT) (92390) Result 1 MUG (Normal) Comments: Mixed urogenital flora4,000 Colonies/mL Urine Culture,Comprehensive Final report (Normal) 45-Fsh-91161:14 CBC W/AUTO DIFF WBC Comments: PATIENT WAS FASTINGPERFORMED BY: LabCoSaint Michael's Medical CenterQxjlch9970 [facility] [id number] Information: [id number] DL (63428) Immature Grans (Abs) 0.0 {x10E3/uL} (Normal) Range: [...] PANEL, COMPREHENSIVE Comments: PATIENT WAS FASTINGPERFORMED BY: AC Holdco70 [facility] [id number] (98835) ALT (SGPT) 18 [iU]/L (Normal) Range: 0-32 [...] 101 mg/dL (Abnormal) Range: 65-99 :14 TSH (80406) Comments: PATIENT WAS FASTINGPERFORMED BY: Danforth Pewterers6370 RamosgloStreamUNC Health Blue Ridge [id number] TSH 0.184 {uIU/mL} (Abnormal) Range: 0.450-4.500 :14 Vitamin D Hydroxy (79218) Comments: PATIENT WAS FASTINGPERFORMED BY: [facility]6370 [facility] [id number] Vitamin D, 25-Hydroxy 78.0 ng/mL (Normal) Range: 30.0-100.0 Comments: Vitamin D deficiency has been defined by the [place] ofAdena Health Systemcine and an Endocrine Society practice guideline as alevel of serum 25-OH vitamin D less than 20 ng/mL (1,2).The Endocrine Society went on to further define vitamin Dinsufficiency as a level between 21 and 29 ng/mL (2).1. IOM ([place] [employer]). 2010. Dietary reference intakes for calcium and D. [place]: The National VideoNot.es Press.2. Vanessa MF, Gail RIVERS, Cydney CABRAL, et al. Evaluation, treatment, and prevention of vitamin D deficiency: an Endocrine Society clinical practice guideline. JCEM. 2010; 96(7):1911-30. :14 LIPID PANEL (10834) Comments: PATIENT WAS FASTINGPERFORMED BY: LabTenet St. Louis Kqobqy0559 [facility] [id number] LDL/HDL Ratio 2.4 {ratio_units} (Normal) Range: 0.0-3.2 [...] (Abnormal) Range: 100-199 :26 HgA1C , Office (75227) HgA1C , Office 5.8 % (Normal) Range: 4.6 - 7.1 8-Dpr-531109:03 URINE ARMANDO CULTURE (MARY LOU Comments: PATIENT NOT FASTINGPERFORMED BY: [facility]6370 [facility] [id number] Information: [facility] [id number] COL COUNT) (93752) Result 1 MUG (Normal) Comments: Mixed urogenital flora25,000-50,000 colony forming units per mL Urine Final report (Normal) Culture,Comprehensive 8-Ljx-531511:49 Urinalysis, Office (05069) UA - LEUKOCYTE ESTERASE Small (Normal) UA [...] Metabolic Panel, Comments: PATIENT NOT FASTINGPERFORMED BY: Contratan.doSelect Specialty Hospital-Saginaw6370 [facility] [id number] Information: [id number] Comprehensive (97318) ALT (SGPT) 14 [iU]/L (Normal) Range: 0-32 [...] Glucose, Serum 101 mg/dL (Abnormal) Range: 65-99 70-Kza-743973:48 Comprehensive Metabolic Profil Comments: [facility] Cuivcywxpl[address] [place], [place], [id number] GAP 9 (Normal) Range: 5-15 CO2 24.0 [...] 7-18 GLU 108 mg/dL (Normal) Range: 70-110 53-Otf-891969:57 URINE ARMANDO CULTURE-MARY LOU COL Comments: PATIENT NOT FASTINGPERFORMED BY: Contratan.doSelect Specialty Hospital-Saginaw6370 [facility] [id number] Information: SRC:[facility] [id number] COUNT (30882) Result 1 MUG (Normal) Comments: Mixed urogenital flora1,000 Colonies/mL Urine Culture,Comprehensive Final report (Normal) 07-Nbl-022267:03 Urinalysis, Office (24555) UA - LEUKOCYTE ESTERASE Moderate (Normal) UA - NITRITE Negative (Normal) URINE UROBILINGN MARY LOU TIMED Normal mg/dL (Normal) UA - PROTEIN Negative mg/dL (Normal) UA - PH 5 (Abnormal) UA - BLOOD Negative (Normal) UA - SPECIFIC GRAVITY 1.020 (Normal) UA - KETONES Negative mg/dL (Normal) UA - BILIRUBIN Negative (Normal) UA - GLUCOSE Negative (Normal) 07-Nov-20158:16 LIPID PANEL (30458) Comments: PATIENT WAS FASTINGPERFORMED BY: CC videoSaint Michael's Medical CenterFjsfkj4018 [facility] [id number] LDL/HDL Ratio 2.3 {ratio_units} (Normal) Range: 0.0-3.2 [...] DIFF WBC Comments: PATIENT WAS FASTINGPERFORMED BY: [place] 6365670 [facility] [id number] Information: [id number] (59648) Immature Grans (Abs) 0.0 {x10E3/uL} (Normal) Range: [...] 3.77-5.28 WBC 6.3 {x10E3/uL} (Normal) Range: 3.4-10.8 07-Nov-20158:16 METABOLIC PANEL, COMPREHENSIVE Comments: PATIENT WAS FASTINGPERFORMED BY: LabCoSaint Michael's Medical CenterZtrymg9364 [facility] [id number] (06238) ALT (SGPT) 13 [iU]/L (Normal) Range: 0-32 [...] (Normal) Range: 65-99 :16 HgA1C , Office (38890) HgA1C , Office 5.8 % (Normal) Range: 4.6 - 7.1 :21 Vitamin D Hydroxy (24826) Comments: PATIENT NOT FASTINGPERFORMED BY: [facility] Spudkh7768 [facility] [id number] Vitamin D, 25-Hydroxy 78.6 ng/mL (Normal) Range: 30.0-100.0 Comments: Vitamin D deficiency has been defined by the [place] of[place] and an Endocrine Society practice guideline as alevel of serum 25-OH vitamin D less than 20 ng/mL (1,2).The Endocrine Society went on to further define vitamin Dinsufficiency as a level between 21 and 29 ng/mL (2).1. IOM ([place] of [employer]). 2010. Dietary reference intakes for calcium and D. [place]: The National Academies Press.2. Vanessa MF, Gail NC, Cydney CABRAL, et al. Evaluation, treatment, and prevention of vitamin D deficiency: an Endocrine Society clinical practice guideline. JCEM. 2011 Jan; 96(7):1911-30. :21 TSH (31833) Comments: PATIENT NOT FASTINGPERFORMED BY: SARAH [facility] Ezhdjh5642 [facility] [id number] TSH 0.545 {uIU/mL} (Normal) Range: 0.450-4.500 :21 METABOLIC PANEL, Comments: PATIENT NOT FASTINGPERFORMED BY: [facility]6370 [facility] [id number] Information: [id number] COMPREHENSIVE (13517) ALT (SGPT) 15 [iU]/L (Normal) Range: 0-32 [...] mg/dL (Normal) Range: 65-99 :21 LIPID PANEL (37540) Comments: PATIENT NOT FASTINGPERFORMED BY: CC videoSaint Michael's Medical CenterYaczvk3951 [facility] [id number] LDL/HDL Ratio 2.5 {ratio_units} (Normal) Range: 0.0-3.2 [...] Cholesterol, Total 199 mg/dL (Normal) Range: 100-199 97-Zru-699257:41 HgA1C , Office (08305) HgA1C , Office 5.7 % (Normal) Range: 4.6 - 7.1 :00 Microscopic Examination Comments: PATIENT NOT FASTINGPERFORMED BY: CC videoSaint Michael's Medical CenterArkwns1306 [facility] [id number] Bacteria Many (Abnormal) Mucus Threads Present (Normal) Epithelial Cells (non renal) >10 {/hpf} (Abnormal) Range: 0 - 10 RBC 0-2 {/hpf} (Normal) Range: 0 - 2 WBC 11-30 {/hpf} (Abnormal) Range: 0 - 5 :00 CBC with auto diff Comments: PATIENT NOT FASTINGPERFORMED BY: CC videoSaint Michael's Medical CenterZrpqfk1438 [facility] [id number] Information: [id number] (42617) Immature Grans (Abs) 0.0 {x10E3/uL} (Normal) Range: [...] PANEL, COMPREHENSIVE Comments: PATIENT NOT FASTINGPERFORMED BY: [facility] Sdttft4880 [facility] [id number] (36165) ALT (SGPT) 24 [iU]/L (Normal) Range: 0-32 [...] (Abnormal) Range: 65-99 :00 URINALYSIS, W/ MICRO (79031) Comments: PATIENT NOT FASTINGPERFORMED BY: iAmplifyDorothea Dix Hospital [id number] Microscopic Examination See below: (Normal) Comments: Microscopic was indicated and was performed. Nitrite, Urine Negative (Normal) Urobilinogen,Semi-Qn 0.2 mg/dL (Normal) Range: 0.2-1.0 Bilirubin Negative (Normal) Occult Blood Negative (Normal) Ketones Negative (Normal) Glucose Negative (Normal) Protein Negative (Normal) WBC Esterase 3+ (Abnormal) Appearance Cloudy (Abnormal) Urine-Color Yellow (Normal) pH 6.0 (Normal) Range: 5.0-7.5 Specific [place] 1.020 (Normal) Range: 1.005-1.030 :00 LIPID PANEL (34980) Comments: PATIENT NOT FASTINGPERFORMED BY: Danforth Pewterers6370 CTMGDorothea Dix Hospital [id number] LDL/HDL Ratio 2.4 {ratio_units} (Normal) Range: 0.0-3.2 [...] Please note reference interval change :00 TSH (83524) Comments: PATIENT NOT FASTINGPERFORMED BY: GSIP HoldingsUNC Health Blue Ridge [id number] TSH 0.642 {uIU/mL} (Normal) Range: 0.450-4.500 :55 Protein Electro, Random Urine Comments: PERFORMED BY: IQMS Ramos Edgewood AveUNC Health Blue Ridge [id number] Please note: SPRCS (Normal) Comments: Protein electrophoresis scan will follow via computer, mail, orcourier delivery. M-Josep, % Not Observed % (Normal) Gamma Globulin, U 17.3 % (Normal) Beta Globulin, U 42.3 % (Normal) Eghff-1-Nirqkine, U 15.7 % (Normal) Wpaqv-7-Ibazuoye, U 4.1 % (Normal) Albumin, U 20.6 % (Normal) Protein,Total,Urine 5.7 mg/dL (Normal) Range: 0.0-15.0 Phosphorus, Serum 3.7 mg/dL (Normal) Comments: PATIENT NOT FASTINGPERFORMED BY: ONEPLE Eklcyf1766 [place] Edgewood AveUNC Health Blue Ridge [id number] :37 Range: 2.5-4.5 :37 Protein Electro, Random Urine Comments: PATIENT NOT FASTINGPERFORMED BY: AC Holdco70 [facility] [id number] Please note: SPRCS (Normal) Comments: Protein electrophoresis scan will follow via computer, mail, orcourier delivery. :37 Protein Electro.,S Comments: PATIENT NOT FASTINGPERFORMED BY: ONEPLE HDmessaging [facility] [id number] Please note: SPRCS (Normal) Comments: Protein electrophoresis scan will follow via computer, mail, orcourier delivery. A/G Ratio 1.3 (Normal) Range: 0.7-2.0 Globulin, Total 2.8 g/dL (Normal) Range: 2.0-4.5 M-Josep Not Observed g/dL (Normal) Gamma Globulin 0.8 g/dL (Normal) Range: 0.5-1.6 Beta Globulin 0.8 g/dL (Normal) Range: 0.6-1.3 Edraw-2-Hwthatsi 0.9 g/dL (Normal) Range: 0.4-1.2 Qjcxu-3-Qjkkzxje 0.2 g/dL (Normal) Range: 0.1-0.4 Albumin 3.7 g/dL (Normal) Range: 3.2-5.6 Protein, Total, Serum 6.5 g/dL (Normal) Range: 6.0-8.5 PTH, Intact 17 pg/mL (Normal) Comments: PATIENT NOT FASTINGPERFORMED BY: CC video Undixu3499 [facility] [id number] :37 Range: 15-65 :37 Request Problem Comments: PATIENT NOT FASTINGPERFORMED BY: CC video Jefoxd4172 [facility] [id number] Sedimentation 12 mm/h Comments: PATIENT NOT FASTINGPERFORMED BY: CC video Kawxik2608 [facility] [id number] :37 Rate-Westergren (Normal) Range: 0-40 :29 Calcium, 24Hr Urine Comments: PATIENT NOT FASTINGPERFORMED BY: CC video Kjyunf1588 [facility] [id number] Information: [id number] START 11/12/14@7AM FINISH Calcium, Urine 24hr 17.0 {mg/24_hr} (Abnormal) Range: 100.0-300.0 Calcium, Urine 1.7 mg/dL (Normal) :33 Potassium Serum (26859) Comments: PATIENT NOT FASTINGPERFORMED BY: [facility]6370 [facility] [id number] Information: [id number] Potassium, Serum 5.3 mmol/L (Abnormal) Range: 3.5-5.2 :15 LIPID PANEL (45037) Comments: PATIENT WAS FASTINGPERFORMED BY: [facility]6370 [facility] [id number] LDL/HDL Ratio 2.3 {ratio_units} (Normal) Range: 0.0-3.2 [...] (Abnormal) Range: 100-199 :15 Vitamin D Hydroxy (15445) Comments: PATIENT WAS FASTINGPERFORMED BY: [facility]6370 [facility] [id number] Vitamin D, 25-Hydroxy 69.2 ng/mL (Normal) Range: 30.0-100.0 Comments: Vitamin D deficiency has been defined by the [place] ofAdena Health Systemcine and an Endocrine Society practice guideline as alevel of serum 25-OH vitamin D less than 20 ng/mL (1,2).The Endocrine Society went on to further define vitamin Dinsufficiency as a level between 21 and 29 ng/mL (2).1. IOM ([place] [employer]). 2010. Dietary reference intakes for calcium and D. [place]: The National Academies Press.2. Vanessa MF, Gail RIVERS, Cydney CABRAL, et al. Evaluation, treatment, and prevention of vitamin D deficiency: an Endocrine Society clinical practice guideline. JCEM. 2010; 96(7):1911-30. :15 TSH (13085) Comments: PATIENT WAS FASTINGPERFORMED BY: CC videoShiprock-Northern Navajo Medical CenterbMdkeyc6801 [facility] [id number] TSH 0.604 {uIU/mL} (Normal) Range: 0.450-4.500 :15 METABOLIC PANEL, Comments: PATIENT WAS FASTINGPERFORMED BY: CC video Uiulxm3888 [facility] [id number] Information: [id number] COMPREHENSIVE (88872) ALT (SGPT) 11 [iU]/L (Normal) Range: 0-32 [...] Glucose, Serum 94 mg/dL (Normal) Range: 65-99 :15 MAGNESIUM (36406) Comments: PATIENT WAS FASTINGPERFORMED BY: CC videoShiprock-Northern Navajo Medical CenterbZitvhr4280 [facility] [id number] Magnesium, Serum 2.3 mg/dL (Normal) Range: 1.6-2.6 [...] benign Planned Observations VITAMIN B12 AND FOLATES (74063)Indication: Vitamin B 12 deficiency On: 05-Fjb-541064:14 Request Metabolic Panel, Comprehensive (07242)Indication: Hypertension On: 36-Ttw-496078:14 Request LIPID PANEL (25869)Indication: Encounter for screening for lipid disorder On: 58-Pju-045625:13 Request URINALYSIS, W/ MICRO (06557)Indication: Hypertension On: 33-Wsx-196747:22 Request MICROALBUMIN: CREATININE RATIO (84698) AND (14390)Indication: Hypertension On: 89-Wjk-073911:22 Request TSH (THYROID STIMULATING HORMONE) (31993)Indication: Acquired hypothyroidism On: 26-Khm-630548:18 Request URINE ARMANDO CULTURE-IDENTIFICATN (75787)Indication: Dysuria On: 8-Wwe-397558:39 Request Urinalysis, Office (23229)Indication: Dysuria On: 9-Jeq-401838:38 Request METABOLIC PANEL, COMPREHENSIVE (08108)Indication: Left flank pain On: 49-Rct-713342:03 Request Comments: stat URINE CALCIUM MARY LOU TIMED 24 Hour (46581)Indication: Osteoporosis (Renamed from OP (osteoporosis)) On: 3-Sfq-125120:12 Request PARATHORMONE (82407)Indication: Osteoporosis (Renamed from OP (osteoporosis)) On: 1-Avf-678214:12 Request PHOSPHORUS (82268)Indication: Osteoporosis (Renamed from OP (osteoporosis)) On: 4-Qhu-486558:12 Request SED RATE ERYTHROCYTE (39808)Indication: Osteoporosis (Renamed from OP (osteoporosis)) On: 9-Mql-510069:12 Request SPEP (56428)Indication: Osteoporosis (Renamed from OP (osteoporosis)) On: 3-Ddj-884886:12 Request UPEP (36521)Indication: Osteoporosis (Renamed from OP (osteoporosis)) On: 8-Lfw-445410:12 Request Planned Encounters Medical; 3 Month FU - On: 21-Jun-2018 9:45 Comprehensive Internal Medicine Ligia Irizarry CNP, CNP, Mary E Planned Procedures Radiology - Lumbar SpineBy: Juan C On: 19-May-2018 Intent Ligia AMBRIZ CNP, Mary E Toradol Injection, 30 mg On: 19-May-2018 Intent (J1885)By: Ligia Irizarry CNP, CNP, Mary E PNEUM VAC ADLT/IMUMNOSPR, On: 20-Apr-2018 Intent SBC/INTRM (57945)By: Ligia Irizarry CNP, CNP, Mary E MAMMOGRAM BREAST BILATERAL On: 22-Mar-2018 Intent SCREENING DIGITAL (33501)By: Ligia Irizarry CNP, CNP, Mary E Bone Density StudyBy: Juan C AMBRIZ, On: 22-Mar-2018 Intent Ligia Torres CNP ELECTROCARDIOGRAM, COMPLETE (ECG) On: 29-Oct-2017 Intent (78011)By: Winnie Castro DO Comments: sinus darinel no acute chg Aerosol Treatment (30546)By: Juan C On: 10-Jul-2017 Intent Ligia AMBIRZ CNP, Mary E B 12 Injection, 1000 mcg On: 26-Jun-2017 Intent (J3420)By: Ligia Irizarry CNP Comments: Lot:[id number]:11/2018Dose:1mlRoute:IMSite:0.5mgGiven By:NICHOLAS hart CNP Ligia Cotaes B 12 Injection, 1000 mcg On: 19-Jun-2017 Intent (J3420)By: Ligia Irizarry CNP Comments: Lot:[id number]:11/21Dose:1mlRoute:IMSite:l armGiven By:NICHOLAS hart CNP Ligia Coates B 12 Injection, 1000 mcg On: 12-Jun-2017 Intent (J3420)By: Ligia Irizarry CNP Comments: Lot:[id number]:08/2018Dose:1mlRoute:IMSite:1ccGiven By:NICHOLAS hart CNP Ligia Coates B 12 Injection, 1000 mcg On: 05-Jun-2017 Intent (J3420)By: Ligia Irizarry CNP Comments: Weekly x 1 month starting today Jun 05, then , , take oral B12 as well Ligia AMBRIZ INJECTION, PROLIA (J0897)By: On: 19-Mar-2017 Intent Visit, Nurse Comments: lot:exp:[id number]:12/2018dose:60mg SC given by:Davon Jimenes LPN DEXA SCAN AXIAL SKELETON On: 23-Feb-2017 Intent (50225)By: Ligia Irizarry CNP, CNP, Mary E Venous Doppler - LeftBy: Tanmaya On: 26-Aug-2016 Intent Ligia AMBRIZ CNP, Mary E Comments: call grazyna irizarry ELECTROCARDIOGRAM, COMPLETE (ECG) On: 26-Aug-2016 Intent (89677)By: Ligia Irizarry CNP Comments: sinus rhythm Ligia AMBRIZ Radiology - Shoulder - On: 08-Aug-2016 Intent BilateralBy: Ligia Irizarry CNP, CNP, Mary E INJECTION, PROLIA (J0897)By: On: 26-Jun-2016 Intent Visit, Nurse Comments: prolialot:[id number]:07/24site:lt subqroute:subqdose:60mlD.PALOMA Higgins INJECTION, PROLIA (J0897)By: Rene On: 28-Dec-2015 Intent DO Saige A Comments: lot: [id number]: ite/route: L arm/SQamt: prefilled syringeVIS signed when applicableChelsea, WATCH MANUFACTURING SUPERVISOR MAMMOGRAM, SCREENING, BOTH BREAST On: 16-Nov-2015 Intent (92723)By: Saige Lópze DO CT - Abdomen & Pelvis (Without On: 19-Sep-2015 Intent Contrast)By: Saige López DO Comments: stone protocol Radiology - Knee - Right - Weight On: 17-Aug-2015 Intent BearingBy: Saige López DO INJECTION, PROLIA (J0897)By: Rene On: 03-Jul-2015 Intent Saige OTT A Comments: Lot:[id number]:01/20Dose:60mLRoute:sub q Site:l armGiven By:NICHOLAS signed INJECTION, PROLIA (J0897)By: Rene On: 10-Jan-2015 Intent DO Saige A Comments: Lot:[id number]:06/21Dose:60mgRoute:sub qSite:l armGiven By:NICHOLAS signed DEXA SCAN AXIAL SKELETON On: 20-Oct-2014 Intent (87199)By: Saige López DO MAMMOGRAM, SCREENING, BOTH BREAST On: 20-Oct-2014 Intent (24130)By: Saige López DO MRI THORACIC SPINE W/O CONTRST On: 20-Oct-2014 Intent (99002)By: Saige López DO Comments: - hx of fracture Planned Medications INJECTION, KETOROLAC TROMETHAMINE, PER 15 MG Ordered: 19-May-2018 Pending Ligia Irizarry CNP, CNP, Mary E INJECTION, PROLIA Ordered: 10-Jan-2015 Pending Rene OTT Saige A INJECTION, PROLIA Ordered: 03-Jul-2015 Pending Rene OTT Saige A INJECTION, PROLIA Ordered: 28-Dec-2015 Pending Rene OTT Saige A INJECTION, PROLIA Ordered: 26-Jun-2016 Pending Visit, Nurse INJECTION, PROLIA Ordered: 19-Mar-2017 Pending Visit, Nurse Vitamin B-12 1000 MCG/ML Injection Solution Ordered: 05-Jun-2017 Pending Juan C PB Ligia Irizarry PB Ligia Coates Vitamin B-12 1000 MCG/ML Injection Solution Ordered: 12-Jun-2017 Pending Tanmayhortencia AMBRIZ Ligia Irizarry PB Ligia Coates Vitamin B-12 1000 MCG/ML Injection Solution Ordered: 19-Jun-2017 Pending Tanmayhortencia AMBRIZ Ligia Irizarry PB Ligia Coates Vitamin B-12 1000 MCG/ML Injection Solution Ordered: 26-Jun-2017 Pending Juan C PB Ligia Irizarry PB Ligia Coates Instructions Name Dates Details Current nonsmoker : [...] Instructions Indication: Hypertension, benign Encounters Annotation/Addendum On: 25-May-2018 16:29 Encounter Diagnosis: Low [...] 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 The patient has no ticed getting bored, staying at home rather than doing something new or going out and lack of energy. Other providers contributing to the patient's care are sander operator (dr. eldridge), gastrologist (dr. das) and other: ([facility]-- last exam 2017). Note for Annual Medicare Exam: Feeling stressed [...]
== END ==
PROVIDERS: Family Provider Nurse Practitioner; PCP Nurse Practitioner; Visit Provider Nurse Practitioner
DX: M25.551 Pain in right hip (principal)
CPT/HCPCS: 73502

== ENCOUNTER → 2019-04-12 10:54 | Outpatient (CLI) | payer MEDICARE, SELFPAY ==
--- NOTE | 2019-04-12 11:00 | BD_ITS ---
STUDY: DUAL ENERGY X-RAY ABSORPTIOMETRY / DXA REASON FOR EXAM: Female, 78 years old. The patient is postmenopausal. Loss of height. TECHNIQUE: Bone Mineral Density (BMD) measurements of lumbar spine and bilateral hips were obtained. COMPARISON: Comparison is made with prior study dated March 05, 2017. FINDINGS: Lumbar Spine (L1-L4): g/cm2 (0.829) / T-score (-3.1) / Z-score (-1.3) Findings are suggestive of osteoporosis with a high fracture risk. Increased thoracic kyphosis. Left Femur Total: g/cm2 (0.660) / T-score (-2.8) / Z-score (-0.8) Left Femoral Neck: g/cm2 (0.618) / T-score (-3.0) / Z-score (-0.9) Right Femur Total: g/cm2 (0.634) / T-score (-3.0) / Z-score (-1.0) Right Femoral Neck: g/cm2 (0.701) / T-score (-2.4) / Z-score (-0.3) The T-Scores on the most recent prior examination were: Lumbar Spine (L1-L4): There has been worsening of bone density since the previous examination. Left Femur Total: which represents a worsening of 3.9%. Right Femur Total: which represents a worsening of 4.5%. BD/Dexa Bone Density Study IMPRESSION: The patient is considered osteoporotic as outlined below according to World Gibson Organization (WHO) criteria with a high fracture risk. There has been worsening of bone density since the previous examination. Reference Information: The T-score is the number of standard deviations above or below the standard which is normal for young adults at their peak bone mineral density. The World Health Organization (WHO) interprets the T-scores as follows: Above -1 Normal bone density Between -1 and -2.5 Osteopenia Equal to / or below -2.5 Osteoporosis As a practical clinical guideline, osteopenia may be graded as follows: Mild -1 through -1.5 Moderate -1.6 through -2.0 Severe -2.1 through -2.4 The Z-score is the number of standard deviations above or below age-matched controls. A Z-score of less than -1.5 would be considered abnormal. References: 1. NIH Osteoporosis and Related Bone Diseases http://www.osteo.org 2. International Society for Clinical Densitometry http://www.iscd.org 3. National Osteoporosis Foundation http://www.nof.org Electronically Signed: Seth Hanh, at 9:10 EDT , Service support ,
== END ==
PROVIDERS: Family Provider Nurse Practitioner; PCP Nurse Practitioner; Referring Provider Nurse Practitioner; Visit Provider Nurse Practitioner
DX: Z78.0 Asymptomatic menopausal state (principal)
CPT/HCPCS: 77080

== ENCOUNTER → 2019-08-17 08:29 | Outpatient (CLI) | payer MEDICARE, SELFPAY ==
--- NOTE | 2019-08-17 08:32 | BI_ITS ---
MAMMOGRAPHY - BILATERAL SCREENING REASON FOR EXAM: Female, 79 years old. Routine annual screening examination. PERTINENT HISTORY: Non-contributory. TECHNIQUE: Digital bilateral breast ambar (3D mammographic acquisition) in the CC and MLO projections. 2-D mediolateral oblique (MLO) and craniocaudad (CC) views of both breasts were obtained. CAD: Full Field Digital Mammography with Computer Added Detection was performed. COMPARISON: Comparison is made with prior examination dated April 27, 2018 and October 26, 2014. FINDINGS: Breast Composition: The breasts are almost entirely fatty. There are no dominant masses or suspicious calcifications. Stable densely calcified nodule in the slightly superior lateral anterior aspect of the right breast. Stable bilateral vascular calcification. No other significant abnormalities are identified. There has been no significant change since the prior study. BI/SCREEN MAMM (CAD) W/AMBAR BILAT IMPRESSION: Stable bilateral screening mammogram. Yearly follow-up mammogram recommended. (A) ASSESSMENT CATEGORY: BIRADS Category 2: Benign. A letter regarding these results will be sent to the patient by the facility within 30 days. Approximately 10% of breast cancers are not detected by mammography. A normal mammogram should not delay biopsy of a clinically suspicious abnormality. [id number] Electronically Signed: Seth Hahn, at 10:08 EST , Service support ,
== END ==
PROVIDERS: PCP Nurse Practitioner; Referring Provider Nurse Practitioner; Visit Provider Nurse Practitioner
DX: Z12.31 Encounter for screening mammogram for malignant neoplasm of breast (principal)
CPT/HCPCS: 77063; 77067

== ENCOUNTER → 2020-08-20 10:12 | Outpatient (CLI) | payer MEDICARE, SELFPAY ==
--- NOTE | 2020-08-20 10:17 | BI_ITS ---
MAMMOGRAPHY - BILATERAL SCREENING REASON FOR EXAM: Female, 80 years old. Routine annual screening examination. PERTINENT HISTORY: Non-contributory. Remote right excisional breast biopsy. TECHNIQUE: Digital bilateral breast ambar (3D mammographic acquisition) in the CC and MLO projections. 2-D mediolateral oblique (MLO) and craniocaudad (CC) views of both breasts were obtained. CAD: Full Field Digital Mammography with Computer Added Detection was performed. COMPARISON: Comparison is made with prior study dated 04/27/2018 and 08/17/2019. FINDINGS: Breast Composition: The breasts are almost entirely fatty. There are no dominant masses or suspicious calcifications. Stable calcified nodule in the anterior upper lateral portion of the right breast. Stable bilateral vascular calcification. No other significant abnormalities are identified. There has been no significant change since the prior study. BI/SCRN MAMM (CAD)W/AMBAR BILAT IMPRESSION: Stable bilateral screening mammogram. Yearly follow-up mammogram recommended. (A) ASSESSMENT CATEGORY: BIRADS Category 2: Benign. A letter regarding these results will be sent to the patient by the facility within 30 days. Approximately 10% of breast cancers are not detected by mammography. A normal mammogram should not delay biopsy of a clinically suspicious abnormality. [id number] Electronically Signed: Seth Hahn MD at 11:10 EST , Service support ,
== END ==
PROVIDERS: PCP Nurse Practitioner; Referring Provider Nurse Practitioner; Visit Provider Nurse Practitioner
DX: Z12.31 Encounter for screening mammogram for malignant neoplasm of breast (principal)
CPT/HCPCS: 77063; 77067

== ENCOUNTER 2021-03-08 11:17 | Emergency (ER) | payer MEDICARE, SELFPAY ==
[2021-03-08 11:17] VITALS: BP 160/85; PULSE 104; RESP 18; TEMP 36.8; O2SAT 97; BMI 32.1
--- NOTE | 2021-03-08 12:28 | CT_ITS ---
EXAM: CT NECK WITH INTRAVENOUS CONTRAST : 1940 CLINICAL INDICATION: Right neck mass TECHNIQUE: Helically acquired images were obtained of the neck with intravenous contrast. This CT exam was performed using one or more of the following dose reduction techniques: automated exposure control, adjustment of the mA and/or kV according to patient size, and/or use of iterative reconstruction technique. This report was created using [employer] report generation technology. CONTRAST: IV 100mL Isovue-300 COMPARISON: None. FINDINGS: BRAIN AND EXTRA-AXIAL SPACES: There is no mass lesion identified. NASOPHARYNX: Unremarkable. SUPRAHYOID NECK: There is a 4 mm calcification at the base of the right tongue seen in series 2 image 45 perhaps obstructing the right duct. INFRAHYOID NECK: Unremarkable. The larynx, hypopharynx and supraglottis are unremarkable. SUBMANDIBULAR/PAROTID GLANDS: The right submandibular gland very minimal surrounding inflammation which may represent sialoadenitis. There is no fluid collection. THYROID: Unremarkable. No enlarged or calcified nodules. BONES/JOINTS: No acute fracture. SOFT TISSUES: Unremarkable. VASCULATURE: No acute findings. LYMPH NODES: There is no enlarged adenopathy. LUNG APICES: Unremarkable as visualized. CT/Soft Tissue Neck WITH Contrast IMPRESSION: Minimal enlargement with trace inflammation surrounding the right submandibular gland perhaps due to sialoadenitis. There is a small stone at the base of the right tongue perhaps obstructing the duct.. No other abnormalities identified. Individualized dose optimization techniques were used for this CT. at 1358 Reported and signed by: Jarrell Gage MD Electronically Signed: Jarrell Gage MD at 13:56 EDT Tel , Service support ,
--- NOTE | 2021-03-08 12:29 | EDS_ITS ---
HPI History of Present Illness Chief Complaint: Abscess Narrative Narrative: 80-year-old female presenting with right sided submandibular mass/upper neck mass. She states she just noticed this last evening. She denies any dental pain. Patient saw her dentist for checkup this week and he stated that her teeth looked normal. Patient notes that this area is painful. She is able to swallow. She does not have shortness of breath. She is not had any systemic signs or symptoms such as fever or chills. PFSH PFSH Medical History Cholecystectomy planned HTN (hypertension) Home Medications amlodipine 5 mg PO DAILY 05/21/18 [History Last Taken Unknown] levothyroxine 100 mcg PO DAILY 05/21/18 [History Last Taken Unknown] losartan-hydrochlorothiazide 1 tab PO DAILY 05/21/18 [History Last Taken Unknown] omeprazole 20 mg PO BID 05/21/18 [History Last Taken Unknown] potassium chloride 10 meq PO DAILY 05/21/18 [History Last Taken Unknown] Allergy/AdvReac Type Severity Reaction Status Date / Time No Known Allergies Allergy Verified 03/08/21 11:19 Surgical History History of hysterectomy Social History Smoking Status: Never smoker ROS ROS ED Constitutional Constitutional ED: Denies chills, fever(s) or sweats Eyes Eyes: Denies blurry vision or diplopia ENT ENT ED: Denies rhinorrhea or sore throat Cardiovascular Cardiovascular: Denies chest pain or palpitations Respiratory/Chest Respiratory/Chest: Denies cough or dyspnea Gastrointestinal Gastrointestinal: Denies abdominal pain, nausea or vomiting Genitourinary Genitourinary ED: Denies dysuria or hematuria Musculoskeletal Musculoskeletal: Reports other Details: Right-sided neck mass Integumentary Denies Abrasions or rash Neurologic Neurologic: Denies headache(s) or paresthesias EXAM Physical Exam Const Vital Signs: 03/08/21 11:17 03/08/21 14:05 Temperature 98.3 F 97.1 F L Temperature Source Temporal Temporal Pulse Rate 104 H 81 Respiratory Rate 18 16 Blood Pressure 160/85 H 148/79 H Blood Pressure Mean 110 102 Pulse Ox 97 94 Oxygen Delivery Method Room Air Room Air Positive well nourished General Appearance ED: NAD; Negative for pallor HEENT Reports moist mucous membranes HEENT Narrative: 2 cm circular fluctuant area under the angle of the right mandible. Nonpulsatile. trauma Eyes PERRL and EOMs intact bilaterally Resp normal respiratory effort and clear to auscultation bilaterally Cardio regular rate and regular rhythm Neuro oriented x3, CN's II-XII intact bilaterally and no sensory deficits noted Sensorium / Orientation: alert Motor Exam: strength 5/5 throughout Psych mental status grossly normal Skin no rashes or lesions noted General Skin Exam: Negative for jaundice or pallor MDM MDM MDM Narrative Medical decision making narrative: Patient had lab work which is normal. Patient required nothing for pain or nausea. CT soft tissue of the neck is interpreted by the radiologist shows a small area of submandibular fullness suspecting a gland and occlusion by a stone. When I went back to reevaluate the patient she stated that she would get intermittent episodes of a gush of saliva into the right side of her mouth. This is consistent with the finding on CT. Patient was given home-going instructions. She will be given follow-up with ENT if this does not resolve. Impression: 1. Sialolith Lab Data Attestation: I reviewed the patient's lab results. Labs: Laboratory Results - last 24 hr 03/08/21 03/08/21 12:43 12:43 WBC 11.0 RBC 5.47 H Hgb 15.2 H Hct 45.8 MCV 83.7 MCH 27.8 MCHC 33.2 RDW Std Deviation 40.8 RDW Coeff of Barbara 13.2 Plt Count 329 MPV 9.8 Immature Gran % (Auto) 0.300 Neut % (Auto) 85.0 H Lymph % (Auto) 6.3 L Tucker % (Auto) 7.2 Eos % (Auto) 0.8 Baso % (Auto) 0.4 Absolute Neuts (auto) 9.3 H Absolute Lymphs (auto) 0.69 L Nucleated RBC % 0 Sodium 138 Potassium 2.9 L Chloride 102 Carbon Dioxide 30.0 Anion Gap 6 BUN 21 H Creatinine 1.05 H Estim Creat Clear Calc 31.71 Est GFR (MDRD) Af Amer 65 Est GFR (MDRD) Non-Af 53 L BUN/Creatinine Ratio 20.0 Glucose 135 H Calcium 8.4 L Total Bilirubin 0.50 AST 19 ALT 27 Alkaline Phosphatase 99 Total Protein 7.8 Albumin 3.4 Globulin 4.4 H Albumin/Globulin Ratio 0.8 L Radiography Diagnostic Testing: Radiology Impression Soft Tissue Neck CT 03/08/21 12:28 IMPRESSION: Minimal enlargement with trace inflammation surrounding the right submandibular gland perhaps due to sialoadenitis. There is a small stone at the base of the right tongue perhaps obstructing the duct.. No other abnormalities identified. Individualized dose optimization techniques were used for this CT. at 1358 Reported and signed by: Jarrell Gage MD Electronically Signed: Jarrell Gage MD at 13:56 EDT Tel , Service support , Discharge Plan Triage Chief Complaint: Abscess ED Provider: Jair Astorga Dx/Rx/DC Orders Instructions: ED Salivary Gland Stones Prescriptions: No Action amlodipine 5 MG tablet 5 mg PO DAILY RF: 0 levothyroxine 100 MCG tablet 100 mcg PO DAILY RF: 0 losartan-hydrochlorothiazide 1 EACH tablet 1 tab PO DAILY RF: 0 omeprazole 20 MG capsule,delayed release(DR/EC) 20 mg PO BID RF: 0 potassium chloride 10 MEQ tablet 10 meq PO DAILY RF: 0 Primary Care Provider: Ligia Irizarry NP Referrals: Alli Cleveland MD [STAFF PHYSICIAN] - As Needed Ligia Irizarry NP, [facility] [Primary Care Provider] - Disposition Disposition: Home, Self Care
[2021-03-08 12:51] LABS: Absolute Lymphocyte Count 0.69 X10^3/uL (0.83-4.51); Absolute Neutrophil Count 9.3 X10^3/uL (2.0-7.7); Basophil# 0.04 X10^3/uL; Basophil% 0.4 % (0-1); Eosinophil# 0.09 X10^3/uL; Eosinophils% 0.8 % (0-5); Hematocrit 45.8 % (37-47); Hemoglobin 15.2 g/dL (12.0-15.0); Lymphocyte # 0.69 X10^3/ul (0.83-4.51); Lymphocyte % 6.3 % (19-41); Mean Corp Hgb Conc 33.2 g/dL (32-36); Mean Corpuscular Hgb 27.8 pg (27.0-32.0); Mean Corpuscular Volume 83.7 fL (81-99); Mean Platelet Vol. 9.8 fl (6.2-12.0); Monocyte# 0.79 X10^3/uL; Monocyte% 7.2 % (0-10); NRBC Flagged by Analyzer 0 % (0-5); Neutrophil # 9.32 X10^3/uL (2.7-7.7); Platelet Count 329 K/mm3 (150-450); RBC Distribution Width CV 13.2 % (11.6-14.6); RBC Distribution Width SD 40.8 fl (35.1-43.9); Red Blood Count 5.47 M/mm3 (4.2-5.4)
[2021-03-08 13:08] LABS: ALB/GLOB Ratio 0.8 RATIO (0.9-2.4); AST(SGOT) 19 U/L (15-37); Alanine Aminotransfer ALT/SGPT 27 U/L (13-56); Albumin, Serum 3.4 g/dL (3.2-5.0); Alkaline Phosphatase 99 U/L (45-117); Anion Gap 6 (5-15); BUN 21 mg/dL (7-18); Calcium,Total 8.4 mg/dL (8.5-10.1); Chloride 102 mmol/L (98-107); Creatinine, Serum 1.05 mg/dL (0.55-1.02); EST Glomerular Filtration Rate 53 mL/min (>60); Est Glom Filt Rate - Afr Amer 65 mL/min (>60); Estimated Creatinine Clearance 31.71 ml/min; Globulin 4.4 g/dL (2.2-4.2); Glucose 135 mg/dL (74-106); Potassium 2.9 mmol/L (3.5-5.1); Protein, Total 7.8 g/dL (6.4-8.2); Sodium Level 138 mmol/L (136-145)
[2021-03-08 14:05] VITALS: BP 148/79; PULSE 81; RESP 16; TEMP 36.2; O2SAT 94
== END 2021-03-08 15:03 | disposition home or self-care (01) ==
PROVIDERS: Emergency Provider Student in an Organized Health Care Education/Training Program; PCP Nurse Practitioner
DX: K11.5 Sialolithiasis (principal); I10 Essential (primary) hypertension; Z90.710 Acquired absence of both cervix and uterus
CPT/HCPCS: 70491; 80053; 85025; 99283; Q9967; A4216

== ENCOUNTER 2021-07-09 10:16 | Outpatient (CLI) | payer MEDICARE, SELFPAY ==
--- NOTE | 2021-07-09 10:43 | BD_ITS ---
STUDY: DUAL ENERGY X-RAY ABSORPTIOMETRY / DXA REASON FOR EXAM: Female, 81 years old. N95.9 -- POST MENOPAUSAL TECHNIQUE: Bone Mineral Density (BMD) measurements of lumbar spine and bilateral hips were obtained. COMPARISON: Comparison is made with prior study dated 04/12/2019. FINDINGS: Lumbar Spine (L1-L4): g/cm2 (0.744) / T-score (-3.0) / Z-score (-0.2) Findings are suggestive of osteoporosis with a high fracture risk. Left Femur Total: g/cm2 (0.640) / T-score (-2.5) / Z-score (-0.3) Left Femoral Neck: g/cm2 (0.499) / T-score (-3.2) / Z-score (-0.8) Right Femur Total: g/cm2 (0.635) / T-score (-2.5) / Z-score (-0.3) Right Femoral Neck: g/cm2 (0.572) / T-score (-2.5) / Z-score (-0.1) The T-Scores on the most recent prior examination were: Lumbar Spine (L1-L4): There has been improvement of bone density since the previous examination. Left Femur Total: which represents an improvement of 6%. Right Femur Total: which represents an improvement of 9.8%. BD/Dexa Bone Density Study IMPRESSION: The patient is considered osteoporotic as outlined below according to World Gibson Organization (WHO) criteria with a high fracture risk. There has been improvement of bone density since the previous examination. Reference Information: The T-score is the number of standard deviations above or below the standard which is normal for young adults at their peak bone mineral density. The World Health Organization (WHO) interprets the T-scores as follows: Above -1 Normal bone density Between -1 and -2.5 Osteopenia Equal to / or below -2.5 Osteoporosis As a practical clinical guideline, osteopenia may be graded as follows: Mild -1 through -1.5 Moderate -1.6 through -2.0 Severe -2.1 through -2.4 The Z-score is the number of standard deviations above or below age-matched controls. A Z-score of less than -1.5 would be considered abnormal. References: 1. NIH Osteoporosis and Related Bone Diseases www osteo.org 2. International Society for Clinical Densitometry www iscd.org 3. National Osteoporosis Foundation www nof.org Electronically Signed: Seth Hahn MD at 13:29 EST , Service support ,
== END 2021-07-09 23:59 | disposition short-term general hospital (02) ==
LOC: OPBD 10:17
PROVIDERS: PCP Nurse Practitioner; Visit Provider Nurse Practitioner
DX: Z78.0 Asymptomatic menopausal state (principal)
CPT/HCPCS: 77080

== ENCOUNTER 2022-05-30 12:26 | Emergency (ER) | payer MEDICARE, SELFPAY ==
[2022-05-30 12:27] VITALS: BP 154/81; PULSE 90; RESP 16; TEMP 36.6; O2SAT 99; BMI 32.5
--- NOTE | 2022-05-30 13:45 | EDS_ITS ---
HPI <OLU Leary - Last Filed: 05/30/22 16:34> History of Present Illness Chief Complaint: Cough Narrative Narrative: 81-year-old female history of high blood pressure, hyperlipidemia, hypothyroidism, presents to the [facility] apartment with a cough, increased shortness of breath of the last week. Patient was seen in urgent care yesterday, diagnosed with pneumonia however they were unable to get a chest x- ray. Patient's symptoms were consistent with pneumonia, the urgent care placed her on Levaquin 750 mg as well as albuterol inhaler. Patient states today she feels worse and is here for evaluation. Denies any fever chills. Patient that she feels more short of breath on exertion. [facility] <OLU Leary - Last Filed: 05/30/22 16:34> [facility] Medical History (Updated 05/30/22 @ 16:33 by OLU Leary) Anterior epistaxis Cholecystectomy planned HTN (hypertension) Rhinorrhea Home Medications amlodipine 5 mg tablet 5 mg PO DAILY 05/21/18 [History Last Taken Unknown] levothyroxine 100 mcg tablet 100 mcg PO DAILY 05/21/18 [History Last Taken Unknown] losartan 100 mg-hydrochlorothiazide 25 mg tablet 1 tab PO DAILY 05/21/18 [History Last Taken Unknown] potassium chloride 10 mEq tablet,extended release(part/cryst) 10 meq PO DAILY 05/21/18 [History Last Taken Unknown] prednisone 50 mg tablet 50 mg PO DAILY #5 tabs 05/30/22 [Rx Last Taken Unknown] Allergy/AdvReac Type Severity Reaction Status Date / Time No Known Allergies Allergy Verified 05/30/22 12:26 Surgical History History of hysterectomy Social History Smoking Status: Never smoker ROS <OLU Leary - Last Filed: 05/30/22 16:34> ROS ED ROS Narrative Constitutional: Negative for fever, chills, weight loss. Positive for generalized weakness Eyes: Negative for vision loss, vision change, double vision ENT: Negative for any sore throat, ear pain, congestion Cardiovascular: Negative for any chest pain, tightness, palpitations Respiratory: Negative for any hemoptysis. Positive for cough, sputum production dyspnea, dyspnea on exertion, orthopnea Gastrointestinal: Negative for any abdominal pain, nausea, vomiting, diarrhea, constipation, blood in stool, blood in vomit : Negative for any urinary frequency, dysuria, retention, blood in urine Muscle skeletal: Negative for any muscle joint pain, stiffness, arthralgias, neck pain, back pain. Positive for generalized malaise myalgia Neurological: Negative for any headache, syncope, numbness or tingling, dizziness Skin: Negative for any rashes, lumps, itching, abrasions, lacerations Psychiatric: Negative for any depression, anxiety, stress, suicidal ideation, homicidal ideation Hematologic: Negative for any easy bruising, excessive bruising, easy bleeding Allergies: Negative for any eczema, hives, rash EXAM <OLU Leary - Last Filed: 05/30/22 16:34> Physical Exam Narrative Exam Narrative: Vital signs reviewed. Patient appeared to be in no respiratory distress. Patient was 95% on room air. HEET: Head normocephalic atraumatic, TMs clear bilaterally. Posterior pharynx is clear, moist mucous membranes. Nares clear bilaterally. Neck: Supple with no lymphadenopathy or tenderness. No signs of meningismus, negative jolt sign. Cardiac: Regular rate and rhythm no murmurs gallops or rubs, equal peripheral pulses bilaterally. Respiratory: Patient has coarse breath sounds, wheezing on expiration the bilateral lower lobes.. No chest tenderness. Abdomen: Soft, nontender, nondistended. No abdominal bruit or pulsatile masses. No hepatosplenomegaly Extremities: No peripheral edema, no signs of gross trauma or deformity. Active full range of motion of all extremities. Neuro: Cranial nerves II through XII intact, no focal neurological deficits. Skin: Clean dry and intact with no rash, purpura, petechiae, vesicles or pustules. Backs/flank: No CVA tenderness, no midline spinal tenderness, no deformity. Psych: Normal mood and affect. No SI, HI or acute psychosis. Const Vital Signs: 05/30/22 12:27 05/30/22 14:12 05/30/22 14:12 Temperature 97.8 F Temperature Source Temporal Pulse Rate 90 82 Respiratory Rate 16 18 Respiratory Effort Respiratory Pattern Blood Pressure 154/81 H Blood Pressure Mean 105 Pulse Ox 99 97 Oxygen Delivery Method Room Air Room Air 05/30/22 14:12 05/30/22 14:52 Temperature Temperature Source Pulse Rate Respiratory Rate 18 Respiratory Effort Short of Breath Respiratory Pattern Tachypnea Blood Pressure Blood Pressure Mean Pulse Ox 97 Oxygen Delivery Method Room Air Room Air Positive well nourished and well developed General Appearance ED: well developed <Dr. Pranav Tejada MD - Last Filed: 05/30/22 19:35> Physical Exam Const Vital Signs: 05/30/22 12:27 05/30/22 14:12 05/30/22 14:12 Temperature 97.8 F Temperature Source Temporal Pulse Rate 90 82 Respiratory Rate 16 18 Respiratory Effort Respiratory Pattern Blood Pressure 154/81 H Blood Pressure Mean 105 Pulse Ox 99 97 Oxygen Delivery Method Room Air Room Air 05/30/22 14:12 05/30/22 14:52 Temperature Temperature Source Pulse Rate Respiratory Rate 18 Respiratory Effort Short of Breath Respiratory Pattern Tachypnea Blood Pressure Blood Pressure Mean Pulse Ox 97 Oxygen Delivery Method Room Air Room Air MDM <OLU Leary - Last Filed: 05/30/22 16:34> MDM Lab Data Labs: Laboratory Results - last 24 hr 05/30/22 05/30/22 05/30/22 14:00 14:00 14:00 WBC 5.1 RBC 5.46 H Hgb 15.5 H Hct 46.5 MCV 85.2 MCH 28.4 MCHC 33.3 RDW Std Deviation 42.2 RDW Coeff of Barbara 13.7 Plt Count 314 MPV 9.6 Immature Gran % (Auto) 0.400 Neut % (Auto) 62.1 Lymph % (Auto) 18.3 L [place] % (Auto) 14.1 H Eos % (Auto) 4.3 Baso % (Auto) 0.8 Absolute Neuts (auto) 3.2 Absolute Lymphs (auto) 0.93 Nucleated RBC % 0 Sodium 139 Potassium 3.0 L Chloride 102 Carbon Dioxide 29.0 Anion Gap 8 BUN 20 H Creatinine 0.91 Estim Creat Clear Calc 34.24 Est GFR (MDRD) Af Amer 76 Est GFR (MDRD) Non-Af 63 BUN/Creatinine Ratio 22.0 H Glucose 111 H Calcium 8.5 B-Natriuretic Peptide 21.8 Radiography Diagnostic Testing: Clinical Impression(s) from Imaging Studies Chest X-Ray 05/30/22 14:30 IMPRESSION: There are no acute findings. There are compression deformities of the thoracic spine. These are age-indeterminate but are new since the ct of 2013 MRI could further evaluate if of concern. Electronically Signed: Kenney Lima MD at 15:17 EST Reading Location ID and State: [facility] / [place] , Service support , Treatment and Re-Evaluation Narrative: Patient arrives with stable vital signs, patient does have auditory wheezing, patient is coughing, patient appears nontoxic. Patient did receive a full work- up for a respiratory complaint. Patient did receive a two-view chest x-ray, this was inserted by ER physician shows that there is no acute findings. Patient's laboratory studies are normal CBC, patient's chemistries showed slight low potassium which appears to be chronic. Patient's proBNP was -21.8. EKG was unremarkable. Patient was given breathing treatments, by mouth steroids. Patient did feel better after the treatments. Patient was ambulated around the department with a pulse ox, patient did not drop below 92%. Patient's feels comfortable going home. She will continue her Levaquin that was given to her by urgent care, she will also be given 5 days of steroids. Patient is happy with plan of care, she was given strict return precaution. Patient was negative for any COVID-19, influenza. Patient stable for discharge. <Dr. Pranav Tejada MD - Last Filed: 05/30/22 19:35> [facility] Narrative Medical decision making narrative: I have personally performed a face to face assessment of the patient and have reviewed the REAGAN Note. I performed a substantive portion of the visit including all aspects of the following. My harrison findings include: History is remarkable for cough, wheezing and dyspnea. Patient does not have history of COPD or asthma. She is a former smoker. No ill contacts. Denies orthopnea or PND. Exam is elderly woman who appears in no respiratory distress. HEENT exams unremarkable. Neck is supple. Trachea is midline. There is no stridor noted. Patient has wheezing on expiration throughout. There is slight increased expiratory phase. No use accessory muscles or retractions. Heart is regular. There is no murmur, gallop or rub. Medical Decision Making differential diagnosis is viral upper respite infection with bronchospasm, pneumonia doubt CHF. Other additions or changes: CBC, basic metabolic panel are normal. Chest x-ray revealed no acute process per my in the pendent review and interpretation. The chest x-ray per radiologist revealed old compression fracture of the thoracic. Lab Data Labs: Laboratory Results - last 24 hr 05/30/22 05/30/22 05/30/22 14:00 14:00 14:00 WBC 5.1 RBC 5.46 H Hgb 15.5 H Hct 46.5 MCV 85.2 MCH 28.4 MCHC 33.3 RDW Std Deviation 42.2 RDW Coeff of Barbara 13.7 Plt Count 314 MPV 9.6 Immature Gran % (Auto) 0.400 Neut % (Auto) 62.1 Lymph % (Auto) 18.3 L [place] % (Auto) 14.1 H Eos % (Auto) 4.3 Baso % (Auto) 0.8 Absolute Neuts (auto) 3.2 Absolute Lymphs (auto) 0.93 Nucleated RBC % 0 Sodium 139 Potassium 3.0 L Chloride 102 Carbon Dioxide 29.0 Anion Gap 8 BUN 20 H Creatinine 0.91 Estim Creat Clear Calc 34.24 Est GFR (MDRD) Af Amer 76 Est GFR (MDRD) Non-Af 63 BUN/Creatinine Ratio 22.0 H Glucose 111 H Calcium 8.5 B-Natriuretic Peptide 21.8 Radiography Diagnostic Testing: Clinical Impression(s) from Imaging Studies Chest X-Ray 05/30/22 14:30 IMPRESSION: There are no acute findings. There are compression deformities of the thoracic spine. These are age-indeterminate but are new since the ct of 2013 MRI could further evaluate if of concern. Electronically Signed: Kenney Lima MD at 15:17 EST Reading Location ID and State: [facility] / [place] , Service support , Discharge Plan Triage Chief Complaint: Cough ED Midlevel Provider: Víctor Whiting ED Provider: Pranav Tejada Dx/Rx/DC Orders Clinical Impression: Acute bronchitis, COPD (chronic obstructive pulmonary disease) Instructions: Acute Bronchitis, Asthma and COPD Prescriptions: New prednisone 50 mg tablet 50 mg PO DAILY Qty: 5 0RF No Action amlodipine 5 MG tablet 5 mg PO DAILY levothyroxine 100 MCG tablet 100 mcg PO DAILY losartan-hydrochlorothiazide 1 EACH tablet 1 tab PO DAILY potassium chloride 10 MEQ tablet 10 meq PO DAILY Primary Care Provider: Ligia Irizarry NP Referrals: Ligia Irizarry NP, [facility] [employer] [facility] [Primary Care Provider] - Activity Restrictions/Additional Instructions: Please take the steroids as indicated. Continue your Levaquin. Use your albuterol inhaler. Follow-up with your PCP. Disposition Disposition: Home, Self Care Discharge Date/Time: 05/30/22 16:43
[2022-05-30] MEDS: Albuterol 2.5 MG/3 ML VIAL.NEB. INHALATION (14:09)
[2022-05-30] MEDS: Ipratropium/Albuterol Sulfate 3 ML AMPUL.NEB INHALATION (14:09)
[2022-05-30 14:12] VITALS: PULSE 82; RESP 18; O2SAT 97
[2022-05-30 14:14] LABS: Absolute Lymphocyte Count 0.93 X10^3/uL (0.83-4.51); Absolute Neutrophil Count 3.2 X10^3/uL (2.0-7.7); Basophil# 0.04 X10^3/uL; Basophil% 0.8 % (0-1); Eosinophil# 0.22 X10^3/uL; Eosinophils% 4.3 % (0-5); Hematocrit 46.5 % (37-47); Hemoglobin 15.5 g/dL (12.0-15.0); Lymphocyte # 0.93 X10^3/ul (0.83-4.51); Lymphocyte % 18.3 % (19-41); Mean Corp Hgb Conc 33.3 g/dL (32-36); Mean Corpuscular Hgb 28.4 pg (27.0-32.0); Mean Corpuscular Volume 85.2 fL (81-99); Mean Platelet Vol. 9.6 fl (6.2-12.0); Monocyte# 0.72 X10^3/uL; Monocyte% 14.1 % (0-10); NRBC Flagged by Analyzer 0 % (0-5); Neutrophil # 3.16 X10^3/uL (2.7-7.7); Neutrophil % 62.1 % (47-70); Platelet Count 314 K/mm3 (150-450); RBC Distribution Width CV 13.7 % (11.6-14.6); RBC Distribution Width SD 42.2 fl (35.1-43.9); Red Blood Count 5.46 M/mm3 (4.2-5.4); White Blood Count 5.1 K/mm3 (4.4-11.0)
[2022-05-30 14:20] LABS: Anion Gap 8 (5-15); BUN 20 mg/dL (7-18); Calcium,Total 8.5 mg/dL (8.5-10.1); Chloride 102 mmol/L (98-107); Creatinine, Serum 0.91 mg/dL (0.55-1.02); EST Glomerular Filtration Rate 63 mL/min (>60); Est Glom Filt Rate - Afr Amer 76 mL/min (>60); Estimated Creatinine Clearance 34.24 ml/min; Glucose 111 mg/dL (74-106); Sodium Level 139 mmol/L (136-145)
--- NOTE | 2022-05-30 14:30 | RAD_ITS ---
STUDY: XR Chest 2 Views 05/30/2022 2:36 PM REASON FOR EXAM: Female, 81 years old. CHEST PAIN cough COMPARISON: 05/19/[address] chest of 9.1.14 TECHNIQUE: XR Chest 2 Views FINDINGS: There is no demonstrated pleural abnormality. Normal heart size. Normal mediastinum. Normal edgardo. Prominent appearing increased interstitial lung markings. Normal visualized pulmonary arteries. There is atherosclerotic calcification of the aortic arch with tortuosity. There are diffuse degenerative changes of the visualized thoracic spine. There is degenerative osteoarthritis of the bilateral shoulders. There are compression deformities of the thoracic spine. These are age-indeterminate but are new since the ct of 2013 MRI could further evaluate if of concern. There is no demonstrated abnormality of the visualized soft tissue structures of the upper abdomen. RAD/Chest PA and Lateral IMPRESSION: There are no acute findings. There are compression deformities of the thoracic spine. These are age-indeterminate but are new since the ct of 2013 MRI could further evaluate if of concern. Electronically Signed: Kenney Lima MD at 15:17 EST ,
[2022-05-30 14:32] LABS: BNP,B-Type NATRIURETIC PEPTIDE 21.8 pg/mL (0-100)
[2022-05-30] MEDS: predniSONE 20 MG Tablet 60 MG PO (14:50)
[2022-05-30 14:52] VITALS: O2SAT 92
[2022-05-30 16:12] VITALS: O2SAT 96
== END 2022-05-30 16:43 | disposition home or self-care (01) ==
PROVIDERS: Nurse Practitioner; Emergency Provider Emergency Medicine; PCP Nurse Practitioner; Visit Provider Emergency Medicine
DX: J44.0 Chronic obstructive pulmonary disease with (acute) lower respiratory infection (principal); J20.9 Acute bronchitis, unspecified; R06.2 Wheezing; Z20.822 Contact with and (suspected) exposure to COVID-19; I10 Essential (primary) hypertension; E78.5 Hyperlipidemia, unspecified; E03.9 Hypothyroidism, unspecified; Z79.890 Hormone replacement therapy; Z79.899 Other long term (current) drug therapy; Z87.891 Personal history of nicotine dependence
CPT/HCPCS: 71046; 80048; 83880; 85025; 87428; 94640; 99251; 99282; A4216; G0463

== ENCOUNTER 2023-02-01 11:10 | Emergency (ER) | payer MEDICARE, SELFPAY ==
[2023-02-01 11:11] VITALS: BP 156/78; PULSE 78; RESP 16; TEMP 36.6; O2SAT 99; BMI 33.3
--- NOTE | 2023-02-01 11:24 | EDS_ITS ---
HPI History of Present Illness Chief Complaint: Back [facility] Medical History Anterior epistaxis Cholecystectomy planned HTN (hypertension) Rhinorrhea Home Medications amlodipine 5 mg tablet 5 mg PO DAILY 05/21/18 [History Last Taken Unknown] levothyroxine 100 mcg tablet 100 mcg PO DAILY 05/21/18 [History Last Taken Unknown] losartan 100 mg-hydrochlorothiazide 25 mg tablet 1 tab PO DAILY 05/21/18 [History Last Taken Unknown] potassium chloride 10 mEq tablet,extended release(part/cryst) 10 meq PO DAILY 05/21/18 [History Last Taken Unknown] prednisone 50 mg tablet 50 mg PO DAILY #5 tabs 05/30/22 [Rx Last Taken Unknown] Allergy/AdvReac Type Severity Reaction Status Date / Time No Known Allergies Allergy Verified 02/01/23 11:14 Surgical History History of hysterectomy Social History Smoking Status: Never smoker EXAM Physical Exam Const Vital Signs: 02/01/23 11:11 Temperature 97.8 F Temperature Source Temporal Pulse Rate 78 Respiratory Rate 16 Blood Pressure 156/78 H Blood Pressure Mean 104 Pulse Ox 99 Oxygen Delivery Method Room Air Discharge Plan Triage Chief Complaint: Back ED Midlevel Provider: Víctor Whiting ED Provider: Sunday Power Dx/Rx/DC Orders Prescriptions: No Action amlodipine 5 MG tablet 5 mg PO DAILY levothyroxine 100 MCG tablet 100 mcg PO DAILY losartan-hydrochlorothiazide 1 EACH tablet 1 tab PO DAILY potassium chloride 10 MEQ tablet 10 meq PO DAILY prednisone 50 mg tablet 50 mg PO DAILY Qty: 5 0RF Primary Care Provider: Ligia Irizarry NP Referrals: Ligia Irizarry P[employer] DES[employer] APPLIER, [employer] [Primary Care Provider] -
--- NOTE | 2023-02-01 11:27 | EX.ED.DYSGE1 ---
HPI <OLU Leary - Last Filed: 02/01/23 12:56> History of Present Illness Chief Complaint: Back Narrative Narrative: Patient is an 82-year-old female with history of acid reflux, osteoporosis, hypertension, hypothyroidism, who presents to the emergency department for 1 month of back pain. Patient states that 1 month ago, she was changing sheets when she pulled her back muscle. It has been ongoing with pain. Patient's the pain is getting worse. She saw her doctor Thursday of this last week, he states that it was a pulled muscle. Patient seems to think this is from her slow digestion. Patient's last bowel movement was at midnight last evening, she also is passing gas, no nausea or vomiting. Patient states that she has pain worse with movement and takes her breath away. She denies any pain rating down her legs, denies any bowel or bladder continence. Denies any fever or chills. PFSH <OLU Leary - Last Filed: 02/01/23 12:56> [facility]LY [facility], [facility] Medical History (Updated 02/01/23 @ 12:51 by OLU Leary) Anterior epistaxis Cholecystectomy planned HTN (hypertension) Rhinorrhea Home Medications amlodipine 5 mg tablet 5 mg PO DAILY 05/21/18 [History Last Taken Unknown] levothyroxine 100 mcg tablet 100 mcg PO DAILY 05/21/18 [History Last Taken Unknown] losartan 100 mg-hydrochlorothiazide 25 mg tablet 1 tab PO DAILY 05/21/18 [History Last Taken Unknown] potassium chloride 10 mEq tablet,extended release(part/cryst) 10 meq PO DAILY 05/21/18 [History Last Taken Unknown] prednisone 50 mg tablet 50 mg PO DAILY #5 tabs 05/30/22 [Rx Last Taken Unknown] ibuprofen 600 mg tablet 600 mg PO Q6H PRN PRN pain #20 TABLETS 02/01/23 [Rx Last Taken Unknown] lidocaine 5 % topical patch (Lidoderm) 1 patch topical DAILY #15 ea 02/01/23 [Rx Last Taken Unknown] oxycodone-acetaminophen 5 mg-325 mg tablet (Percocet) 1 tab PO Q8H PRN pain 3 days #10 tabs 02/01/23 [Rx Last Taken Unknown] Allergy/AdvReac Type Severity Reaction Status Date / Time No Known Allergies Allergy Verified 02/01/23 11:14 Surgical History History of hysterectomy Social History Smoking Status: Never smoker ROS <OLU Leary - Last Filed: 02/01/23 12:56> ROS ED ROS Narrative Constitutional: Negative for fever, chills, weight loss, weakness Eyes: Negative for vision loss, vision change, double vision ENT: Negative for any sore throat, ear pain, congestion Cardiovascular: Negative for any chest pain, tightness, palpitations Respiratory: Negative for any cough, sputum production, hemoptysis, dyspnea, dyspnea on exertion, orthopnea Gastrointestinal: Negative for any abdominal pain, nausea, vomiting, diarrhea, constipation, blood in stool, blood in vomit : Negative for any urinary frequency, dysuria, retention, blood in urine Muscle skeletal: Negative for any muscle joint pain, stiffness, myalgias, arthralgias, neck pain. Positive for right-sided lower back pain Neurological: Negative for any headache, syncope, numbness or tingling, dizziness Skin: Negative for any rashes, lumps, itching, abrasions, lacerations Psychiatric: Negative for any depression, anxiety, stress, suicidal ideation, homicidal ideation Hematologic: Negative for any easy bruising, excessive bruising, easy bleeding Allergies: Negative for any eczema, hives, rash EXAM <OLU Leary - Last Filed: 02/01/23 12:56> Physical Exam Narrative Exam Narrative: Vital signs reviewed. HEET: Head normocephalic atraumatic, TMs clear bilaterally. Posterior pharynx is clear, moist mucous membranes. Nares clear bilaterally. Neck: Supple with no lymphadenopathy or tenderness. No signs of meningismus, negative jolt sign. Cardiac: Regular rate and rhythm no murmurs gallops or rubs, equal peripheral pulses bilaterally. Respiratory: Lungs clear to auscultation bilaterally. No chest tenderness. Abdomen: Soft, nontender, nondistended. No abdominal bruit or pulsatile masses. No hepatosplenomegaly, equal bowel sounds in all quadrants. Extremities: No peripheral edema, no signs of gross trauma or deformity. Active full range of motion of all extremities. Neuro: Cranial nerves II through XII intact, no focal neurological deficits. Skin: Clean dry and intact with no rash, purpura, petechiae, vesicles or pustules. Backs/flank: No CVA tenderness, no midline spinal tenderness, no deformity. Patient is no signs or symptoms of trauma to the lower back. Patient does have significant pain on palpation to the lower lumbar spine worse on the right than the left. Negative straight leg test. Patient is no pain that radiates down to the right leg. Is very localized. Psych: Normal mood and affect. No SI, HI or acute psychosis. Const Vital Signs: 02/01/23 11:11 Temperature 97.8 F Temperature Source Temporal Pulse Rate 78 Respiratory Rate 16 Blood Pressure 156/78 H Blood Pressure Mean 104 Pulse Ox 99 Oxygen Delivery Method Room Air <Dr. Sunday Power DO - Last Filed: 02/01/23 12:40> Physical Exam Const Vital Signs: 02/01/23 11:11 Temperature 97.8 F Temperature Source Temporal Pulse Rate 78 Respiratory Rate 16 Blood Pressure 156/78 H Blood Pressure Mean 104 Pulse Ox 99 Oxygen Delivery Method Room Air MDM <OLU Leary - Last Filed: 02/01/23 12:56> MDM Radiography Diagnostic Testing: Clinical Impression(s) from Imaging Studies Lumbar Spine CT 02/01/23 11:29 IMPRESSION: 1. Severe compression fracture of T12 vertebra with retropulsion of undetermined age and could be chronic. 2. No critical stenosis. Electronically Signed: Que Jonas MD at 12:19 EDT , Thoracic Spine CT 02/01/23 11:41 IMPRESSION: 1. Severe compression fracture of T12 vertebra with mild compression on thecal sac. The age of the fracture is undetermined and could be chronic. 2. Moderate compression of T7 vertebra. 3. Otherwise no critical stenosis is seen. Electronically Signed: Que Jonas MD at 12:25 EDT , Treatment and Re-Evaluation :: Patient appears to be in mild distress secondary to back pain, patient presents to the emerged part with 1 month of back pain, patient's physical examination yields no red flag signs, no concerns for spinal abscess, cauda equina. Patient will receive a lumbar CT scan secondary to the patient's age, length of time the pain has been getting worse. She also receive IM morphine, Zofran. She will be reevaluated. Patient's symptoms slightly improved after IM morphin. Patient CT scans of the thoracic and lumbar spine show severe compression fracture of T12 vertebra with retropulsion of the undetermined age and could be chronic. No critical stenosis. Moderate compression of T7 vertebrae. No critical stenosis seen. At this time, I spoke with the patient, she does have a walker at home that she will use to help better ambulate. Should begin a prescription of Percocet, ibuprofen. She will be given a referral to orthopedics/spine. She is instructed to maintain movement, and perform gentle stretching. Ice and heat as needed. All questions answered, patient also see Lidoderm patches. Patient is stable for discharge. All questions answered. ED attending note: I evaluated the patient in conjunction with the REAGAN. I agree with his/her statements and above findings. I have personally performed a face to face assessment of the patient and have reviewed the REAGAN Note. I performed a substantive portion of the visit including all aspects of the following. I personally saw the patient performed chart review, physical exam, reviewed labs, imaging (if obtained), and formulated a treatment and management plan. Brief history: 82-year-old female here with back pain that began 1 month ago. She states began when she was turning causing severe pain that has been constant ever since. Patient denies any saddle anesthesia, urinary retension, bowel or bladder incontinence, lower extremity weakness, fever or IV drug use, no recent spinal manipulation or surgery, no recent urinary catheterization. Exam: Nursing triage notes reviewed, Vital signs reviewed Constitutional: please see mdm HENT: MMM Eyes: Pupils equal round and reactive to light, Extraocular muscles intact Neck: No stridor, no JVD, full neck ROM Lungs: Clear to auscultation, No wheezing or rales. No increased work of breathing, no conversational dyspnea, no accessory muscle use, no nasal flaring. No respiratory distress noted Heart: Regular rate and rhythm, No murmurs, No rubs and No gallops, 2+ distal pulses (radial, femoral, posterior tibial) in all extremities Abdomen: Soft, there is no tenderness, rigidity, rebound or guarding, no obvious peritoneal signs, no palpable pulsatile abdominal masses, no auscultated abdominal bruit : No CVAT Extremities: No edema Back: TTP over the thoracolumbar junction, no step-offs deformities, muscular hypertrophy noted, no rashes noted. Neuro: Intact sensation L1-S1 dermatomal distributions. Intact 5/5 strength in hip flexion (T12-L3). Knee extension (L2-L4). Ankle dorsiflexion (L4-L5). Ankle plantar flexion (S1). Great toe extension (L5). 2+ patellar and Achilles DTRs. Skin: No rash or lesions noted MDM/plan: Chief Complaint: Back pain External records reviewed: No recent advanced imaging of the lumbar spine Factors affecting care: Degenerative disc disease Social determinants of health: Elderly History obtained from others: The patient's daughter [facility] narrative: Patient was hemodynamically stable, afebrile, nontoxic-appearing. Exam without focal neurologic deficits. Had a low back pain red flag score. He had no signs of rashes step-offs deformities or other abnormalities. Suspect musculoskeletal etiology. Given the patient's advanced age and prolonged pain patient will be evaluated with a CT scan of thoracic and lumbar spine rule out bony abnormalities, compression fractures etc. Low suspicion for epidural abscess, epidural hematoma or lesion of spine such as cauda equina or conus medullary syndrome. No indication for emergent MRI. Will give anti-inflammatories narcotics and steroids for improvement in pain. Shared decision making: I will have a discussion with the patient and or visitors regarding risk/benefits of further testing or admission. They will be made aware of of the risk/benefits inherent in this decision they will be given the opportunity to voice understanding. Consults: None at this time <Dr. Sunday Power, DO - Last Filed: 02/01/23 12:40> [facility] Radiography Diagnostic Testing: Clinical Impression(s) from Imaging Studies Lumbar Spine CT 02/01/23 11:29 IMPRESSION: 1. Severe compression fracture of T12 vertebra with retropulsion of undetermined age and could be chronic. 2. No critical stenosis. Electronically Signed: Que Jonas MD at 12:19 EDT , Thoracic Spine CT 02/01/23 11:41 IMPRESSION: 1. Severe compression fracture of T12 vertebra with mild compression on thecal sac. The age of the fracture is undetermined and could be chronic. 2. Moderate compression of T7 vertebra. 3. Otherwise no critical stenosis is seen. Electronically Signed: Que Jonas MD at 12:25 EDT , Treatment and Re-Evaluation :: Patient appears to be in mild distress secondary to back pain, patient presents to the emerged part with 1 month of back pain, patient's physical examination yields no red flag signs, no concerns for spinal abscess, cauda equina. Patient will receive a lumbar CT scan secondary to the patient's age, length of time the pain has been getting worse. She also receive IM morphine, Zofran. She will be reevaluated. ED attending note: I evaluated the patient in conjunction with the REAGAN. I agree with his/her statements and above findings. I have personally performed a face to face assessment of the patient and have reviewed the REAGAN Note. I performed a substantive portion of the visit including all aspects of the following. I personally saw the patient performed chart review, physical exam, reviewed labs, imaging (if obtained), and formulated a treatment and management plan. Brief history: 82-year-old female here with back pain that began 1 month ago. She states began when she was turning causing severe pain that has been constant ever since. Patient denies any saddle anesthesia, urinary retension, bowel or bladder incontinence, lower extremity weakness, fever or IV drug use, no recent spinal manipulation or surgery, no recent urinary catheterization. Exam: Nursing triage notes reviewed, Vital signs reviewed Constitutional: please see mdm HENT: MMM Eyes: Pupils equal round and reactive to light, Extraocular muscles intact Neck: No stridor, no JVD, full neck ROM Lungs: Clear to auscultation, No wheezing or rales. No increased work of breathing, no conversational dyspnea, no accessory muscle use, no nasal flaring. No respiratory distress noted Heart: Regular rate and rhythm, No murmurs, No rubs and No gallops, 2+ distal pulses (radial, femoral, posterior tibial) in all extremities Abdomen: Soft, there is no tenderness, rigidity, rebound or guarding, no obvious peritoneal signs, no palpable pulsatile abdominal masses, no auscultated abdominal bruit : No CVAT Extremities: No edema Back: TTP over the thoracolumbar junction, no step-offs deformities, muscular hypertrophy noted, no rashes noted. Neuro: Intact sensation L1-S1 dermatomal distributions. Intact 5/5 strength in hip flexion (T12-L3). Knee extension (L2-L4). Ankle dorsiflexion (L4-L5). Ankle plantar flexion (S1). Great toe extension (L5). 2+ patellar and Achilles DTRs. Skin: No rash or lesions noted MDM/plan: Chief Complaint: Back pain External records reviewed: No recent advanced imaging of the lumbar spine Factors affecting care: Degenerative disc disease Social determinants of health: Elderly History obtained from others: The patient's daughter MDM narrative: Patient was hemodynamically stable, afebrile, nontoxic-appearing. Exam without focal neurologic deficits. Had a low back pain red flag score. He had no signs of rashes step-offs deformities or other abnormalities. Suspect musculoskeletal etiology. Given the patient's advanced age and prolonged pain patient will be evaluated with a CT scan of thoracic and lumbar spine rule out bony abnormalities, compression fractures etc. Low suspicion for epidural abscess, epidural hematoma or lesion of spine such as cauda equina or conus medullary syndrome. No indication for emergent MRI. Will give anti-inflammatories narcotics and steroids for improvement in pain. Shared decision making: I will have a discussion with the patient and or visitors regarding risk/benefits of further testing or admission. They will be made aware of of the risk/benefits inherent in this decision they will be given the opportunity to voice understanding. Consults: None at this time Discharge Plan Triage Chief Complaint: Back ED Midlevel Provider: Víctor Whiting ED Provider: Sunday Power Dx/Rx/DC Orders Clinical Impression: Closed compression fracture of thoracic vertebra, Acute lumbar myofascial strain Instructions: ED Back Sprain/Strain, ED Fracture, Vertebral Compression Prescriptions: New oxycodone-acetaminophen [Percocet] 5-325 mg tablet 1 tab PO Q8H PRN (Reason: pain) 3 Days Qty: 10 0RF ibuprofen 600 mg tablet 600 mg PO Q6H PRN PRN (Reason: pain) Qty: 20 0RF lidocaine [Lidoderm] 5 % adhesive patch,medicated 1 patch topical DAILY Qty: 15 0RF Rx Instructions: leave on most painful area for up to 12 hrs No Action amlodipine 5 MG tablet 5 mg PO DAILY levothyroxine 100 MCG tablet 100 mcg PO DAILY losartan-hydrochlorothiazide 1 EACH tablet 1 tab PO DAILY potassium chloride 10 MEQ tablet 10 meq PO DAILY prednisone 50 mg tablet 50 mg PO DAILY Qty: 5 0RF Primary Care Provider: Bushra Garcia Referrals: Mike Hernandez DO [Med Staff - Active Staff] - Ligia Irizarry NP, LIVE TRUCK OPERATOR-C [Non-Staff] - Activity Restrictions/Additional Instructions: Please follow-up with Dr. Hernandez he does specialty with spine. You have a severe compression fracture of T12 as well as a chronic compression fracture of T7. Use the pain medicine as needed. Please follow-up. Use the walker to get around to take pressure off your back. Disposition Disposition: Home, Self Care
[2023-02-01] MEDS: Morphine 4 MG/ML Syringe IM (11:28)
[2023-02-01] MEDS: Ondansetron ODT 4 MG Tablet PO (11:28)
--- NOTE | 2023-02-01 11:29 | CT_ITS ---
INDICATION: low back pain X 1 MONTH EXAMINATION: CT LUMBAR SPINE - CT Spine Lumbar W/O Contrast Injection TECHNIQUE: Helically acquired images were obtained of the lumbar spine. 2D reformats were reviewed. A radiation dose optimization technique was used for this scan. IV Contrast dosage and agent: None. RADIATION DOSAGE (If Supplied By Facility): CTDIvol = ( 45.57 ) mGy, DLP = ( 1529.38 ) mGycm COMPARISON: CT scan of the abdomen and pelvis of 05/21/2018. FINDINGS: VERTEBRAE: Severe compression fracture of T12 vertebra with 4 mm retropulsion of the superior endplate essentially new since previous exam. Mild depression and irregularity of the superior endplate of L2. Demineralization of the osseous structures. The posterior elements appear intact. Normal lumbar kyphosis. There is mild levoscoliosis. DISCS and SPINAL CANAL: L1-L2: Normal central spinal canal and bilateral neural foramina. L2-L3: Narrowing of the disc space with vacuum disc. No critical stenosis. L3-L4: Mild right lateral disc bulging. No critical stenosis. L4-L5: Degenerative changes of the facet joints. Minimal disc bulging. No critical stenosis. L5-S1: Degenerative changes of the facet joints. Mild disc bulging. No critical stenosis. VISUALIZED ABDOMEN: Partially visualized large cyst of the right kidney. Atherosclerotic calcifications of the abdominal aorta. There is no retroperitoneal adenopathy. CT/Spine Lumbar without Contrast IMPRESSION: 1. Severe compression fracture of T12 vertebra with retropulsion of undetermined age and could be chronic. 2. No critical stenosis. Electronically Signed: Que Jonas MD at 12:19 EDT ,
--- NOTE | 2023-02-01 11:41 | CT_ITS ---
INDICATION: back pain X 1 MONTH EXAMINATION: CT THORACIC SPINE - CT Spine Thoracic W/O Contrast Injection TECHNIQUE: Helically acquired images were obtained of the thoracic spine. 2D reformats were reviewed. A radiation dose optimization technique was used for this scan. IV Contrast dosage and agent: None. RADIATION DOSAGE (If Supplied By Facility): CTDIvol = ( 25.04 ) mGy, DLP = ( 852.63 ) mGycm COMPARISON: No prior examinations are available for comparison FINDINGS: VERTEBRAE: Diffuse demineralization of the osseous structures. Severe compression fracture of T12 vertebra with 4 mm retropulsion of the superior endplate. Moderate compression fracture of T7 vertebra without significant retropulsion. Associated anterior degenerative osteophyte formations. No discrete lytic or blastic abnormality observed. VERTEBRAL ALIGNMENT: Increased thoracic kyphosis. No substantial scoliosis. The alignment of the vertebral bodies unremarkable. DISCS: Mild narrowing of the thecal sac at the level of T11-T12. Otherwise no critical stenosis is seen. VISUALIZED THORAX: Atherosclerotic calcifications of the thoracic aorta without evidence of aneurysm. No evidence of pneumothorax of the visualized lungs. CT/Spine Thoracic without Contras IMPRESSION: 1. Severe compression fracture of T12 vertebra with mild compression on thecal sac. The age of the fracture is undetermined and could be chronic. 2. Moderate compression of T7 vertebra. 3. Otherwise no critical stenosis is seen. Electronically Signed: Que Jonas MD at 12:25 EDT ,
[2023-02-01] MEDS: predniSONE 20 MG Tablet 40 MG PO (12:09)
[2023-02-01] MEDS: Ibuprofen 200 MG Tablet 400 MG PO (12:09)
[2023-02-01] MEDS: Oxycodone/Apap 5/325 Tablet PO (13:01)
[2023-02-01 13:19] VITALS: BP 134/78; PULSE 78; RESP 14; TEMP 36.6; O2SAT 100
== END 2023-02-01 13:20 | disposition home or self-care (01) ==
PROVIDERS: Emergency Provider Emergency Medicine; PCP Nurse Practitioner Family; Visit Provider Emergency Medicine
DX: S22.088A Other fracture of T11-T12 vertebra, initial encounter for closed fracture (principal); I10 Essential (primary) hypertension; S39.012A Strain of muscle, fascia and tendon of lower back, initial encounter; E03.9 Hypothyroidism, unspecified; X58.XXXA Exposure to other specified factors, initial encounter; Z79.899 Other long term (current) drug therapy
CPT/HCPCS: 72128; 72131; 96372; 99285

== ENCOUNTER 2023-02-06 07:21 | Observation (INO) | payer MEDICARE, SELFPAY ==
[2023-02-06] VITALS (7 sets, daily range): BP systolic 129–160; BP diastolic 63–109; PULSE 56–99; RESP 16–18; TEMP 36.3–36.7; O2SAT 92–99; BMI 31.4; BMI 31.7
--- NOTE | 2023-02-06 07:30 | ED.RN ---
Patient states she is unable to ambulate or move appropriately since compression fracture 1 month ago. Seen here Thursday for same. States has not taken stool softeners or miralax due to pain causing her to forget. States has not taken in fluids due to pain. Has seen PMD for constipation and was told to continue to take medication for constipation. Patient states unable to care for herself, daughter states unable to get mother out of bed.
--- NOTE | 2023-02-06 07:36 | CT_ITS ---
STUDY: CT ABDOMEN AND PELVIS WITH CONTRAST REASON FOR EXAM: Female, 82 years old. Abdominal pain RADIATION DOSAGE (If Supplied By Facility): CTDIvol = ( 16.17 ) mGy, DLP = ( 953.05 ) mGycm TECHNIQUE: Transaxial images were obtained from the dome of the diaphragm to the symphysis pubis without oral contrast. IV 100mL [id number]-300 was administered. Sagittal and coronal images were reconstructed. Individualized dose optimization techniques were used for this CT. COMPARISON: Comparison is made with prior study dated May 21, 2018. FINDINGS: The visualized lung bases are unremarkable. Coronary artery calcification. There is decreased attenuation of the liver consistent with steatosis. Stable 1.6 cm hemangioma in the anterior aspect of the dome of the right lobe of the liver. Mild degree of left intrahepatic biliary ductal dilatation. This is most likely secondary to prior cholecystectomy. There are surgical clips in the gallbladder fossa consistent with a prior cholecystectomy. Normal spleen. Normal pancreas. Normal bilateral adrenal glands. There is a 9.7 cm x 9.2 cm cyst in the upper midportion of the right kidney. 1 cm cyst in the lower pole of the right kidney. Left parapelvic renal cysts and extrarenal pelvis. Normal visualized stomach. Normal small intestine. There are multiple colonic diverticula consistent with diverticulosis. The appendix is visualized and appears normal. There is scattered atherosclerotic calcification of the abdominal aorta, without a demonstrated aneurysm. Normal inferior vena cava. Normal retroperitoneum. Distended urinary bladder. There is absence of the uterus consistent with a prior hysterectomy. Normal abdominal wall. There are diffuse degenerative changes of the visualized lumbar spine. CT/Abdomen/Pelvis W IV Cont ONLY IMPRESSION: Fatty infiltration of the liver. Stable small hemangioma in the anterior aspect of the right lobe of the liver near the dome. Sigmoid diverticulosis. Status post cholecystectomy and minimal central intrahepatic biliary ductal dilatation. Electronically Signed: Seth Hahn MD at 9:48 EDT ,
--- NOTE | 2023-02-06 07:46 | EDS_ITS ---
HPI History of Present Illness Chief Complaint: Back Narrative Narrative: Patient presenting with worsening back pain and debility. She had pain for just over a month. She states that she was seen on the and had CTs done which showed compression fractures at T7 and T12. Patient states that she is on oxycodone currently. She was given Lidoderm patches as well. She states that her pain is worse and now she is constipated. She denies saddle anesthesia/paresthesia. No difficulty with urination. She states that she knows that narcotics would make her constipated however she has not tried any laxatives or stool softeners. Patient is having difficulty getting around her house and she lives alone. Her family has been coming by to help her but she does not feel she is safe there. Patient states that she is not eating very much because she feels full early and she is not drinking very much either. She is not nauseous. She states that she has diffuse abdominal pain now and has not had a bowel in 6 days. [facility] Medical History Anterior epistaxis Cholecystectomy planned HTN (hypertension) Rhinorrhea Home Medications amlodipine 5 mg tablet 5 mg PO DAILY 05/21/18 [History Last Taken Unknown] levothyroxine 100 mcg tablet 100 mcg PO DAILY 05/21/18 [History Last Taken Unknown] losartan 100 mg-hydrochlorothiazide 25 mg tablet 1 tab PO DAILY 05/21/18 [History Last Taken Unknown] potassium chloride 10 mEq tablet,extended release(part/cryst) 10 meq PO DAILY 05/21/18 [History Last Taken Unknown] prednisone 50 mg tablet 50 mg PO DAILY #5 tabs 05/30/22 [Rx Last Taken Unknown] ibuprofen 600 mg tablet 600 mg PO Q6H PRN PRN pain #20 TABLETS 02/01/23 [Rx Last Taken Unknown] lidocaine 5 % topical patch (Lidoderm) 1 patch topical DAILY #15 ea 02/01/23 [Rx Last Taken Unknown] oxycodone-acetaminophen 5 mg-325 mg tablet (Percocet) 1 tab PO Q8H PRN pain 3 days #10 tabs 02/01/23 [Rx Last Taken Unknown] Allergy/AdvReac Type Severity Reaction Status Date / Time No Known Allergies Allergy Verified 02/01/23 11:14 Surgical History History of hysterectomy Social History Smoking Status: Never smoker ROS ROS ED Review of Systems ROS Unobtainable: Denies due to encephalopathy Constitutional Constitutional ED: Denies chills or fever(s) Eyes Eyes: Denies change in vision or diplopia ENT ENT ED: Denies rhinorrhea or sore throat Cardiovascular Cardiovascular: Denies chest pain or palpitations Respiratory/Chest Respiratory/Chest: Denies dyspnea or dyspnea on exertion Gastrointestinal Gastrointestinal: Reports abdominal pain and constipation; Denies nausea or vomiting Genitourinary Genitourinary ED: Denies dysuria Musculoskeletal Musculoskeletal: Reports back pain Integumentary Denies abscess Neurologic Neurologic: Denies headache(s) Psychiatric Psychiatric: Denies anxiety or depression EXAM Physical Exam Const Vital Signs: 02/06/23 07:22 02/06/23 07:25 02/06/23 10:41 Temperature 97.4 F L Temperature Source Oral Pulse Rate 99 96 80 Respiratory Rate 16 16 18 Blood Pressure 149/90 H 149/90 H 142/109 H Blood Pressure Mean 109 109 120 Pulse Ox 95 96 99 Oxygen Delivery Method Room Air Room Air Room Air Positive well nourished General Appearance ED: NAD; Negative for pallor HEENT Reports moist mucous membranes Eyes PERRL and EOMs intact bilaterally Resp normal respiratory effort GI GI Narrative: Abdomen is soft but is diffusely tender to palpation. No peritoneal signs. No CVA tenderness. Back/Spine Back/Spine Narrative: Diffuse thoracic and lumbar spinal tenderness. No obvious deformities. No bruising. Extremity normal to inspection Neuro oriented x3 Skin no rashes or lesions noted General Skin Exam: Negative for jaundice or pallor MDM MDM MDM Narrative Medical decision making narrative: Patient presenting with worsening back pain and constipation. She feels unsafe at home and feels like she may need [facility] to get her better. She also is having constipation now after starting narcotics however she is making urine and does not have saddle anesthesia/paresthesia so I do not believe she has cauda equina syndrome. Differential includes constipation, bowel obstruction, diverticulitis, worsening compression fractures, malignancy, dehydration, abiodun ctrolyte abnormalities, UTI, pyelonephritis, pancreatitis. I will obtain a CT of the abdomen pelvis. CBC will be obtained to assess white blood cell count, hemoglobin, platelets. CMP to assess liver function, renal function, electrolytes, glucose. Lipase to assess for pancreatitis. Urinalysis to assess for UTI. Patient was medicated with morphine and Zofran and she is given a liter of normal saline. CBC shows no leukocytosis. H&H are stable. Creatinine slightly elevated at 1.23 and there is slight prerenal azotemia. Patient was given IV fluids already. Potassium is slightly low at 3.3. Urinalysis negative for infection. CT of the abdomen pelvis with IV contrast was obtained and there is a stable hemangioma of the right liver. No other acute problems. Patient does not feel safe at home so we will talk to the hospitalist for admission. Impression: 1. History of compression fractures 2. Debility 3. Dehydration Lab Data Labs: Laboratory Results - last 24 hr 02/06/23 02/06/23 08:00 08:08 WBC 6.9 RBC 6.17 H Hgb 16.9 H Hct 52.3 H MCV 84.8 MCH 27.4 MCHC 32.3 RDW Std Deviation 42.1 RDW Coeff of Barbara 13.7 Plt Count 363 MPV 9.9 Immature Gran % (Auto) 0.400 Neut % (Auto) 76.9 H Lymph % (Auto) 11.4 L [place] % (Auto) 8.5 Eos % (Auto) 1.9 Baso % (Auto) 0.9 Absolute Neuts (auto) 5.3 Absolute Lymphs (auto) 0.79 L Nucleated RBC % 0 Sodium 139 Potassium 3.3 L Chloride 103 Carbon Dioxide 29.0 Anion Gap 7 BUN 25 H Creatinine 1.23 H Estim Creat Clear Calc 26.15 Est GFR (MDRD) Af Amer 54 L Est GFR (MDRD) Non-Af 44 L BUN/Creatinine Ratio 20.3 H Glucose 123 H Calcium 8.9 Total Bilirubin 0.80 AST 25 ALT 52 Alkaline Phosphatase 101 Total Protein 7.5 Albumin 3.3 Globulin 4.2 Albumin/Globulin Ratio 0.8 L Lipase 25 Urine Color Yellow Urine Clarity Sl. Cloudy Urine pH 6.0 Ur Specific [place] 1.015 Urine Protein 15 H Urine Glucose (UA) Normal Urine Ketones Negative Urine Occult Blood 10 H Urine Nitrite Negative Urine Bilirubin Negative Urine Urobilinogen Normal Ur Leukocyte Esterase Negative Urine RBC 0 SEEN Urine WBC 0 SEEN Ur Squamous Epith Cells 0 SEEN Urine Bacteria 0 SEEN Urine Mucus 0 SEEN Radiography Diagnostic Testing: Clinical Impression(s) from Imaging Studies Abdomen/Pelvis CT 02/06/23 07:36 IMPRESSION: Fatty infiltration of the liver. Stable small hemangioma in the anterior aspect of the right lobe of the liver near the dome. Sigmoid diverticulosis. Status post cholecystectomy and minimal central intrahepatic biliary ductal dilatation. Electronically Signed: Seth Hahn MD at 9:48 EDT , Discharge Plan Triage Chief Complaint: Back ED Provider: Jair Astorga Dx/Rx/DC Orders Prescriptions: No Action amlodipine 5 MG tablet 5 mg PO DAILY levothyroxine 100 MCG tablet 100 mcg PO DAILY losartan-hydrochlorothiazide 1 EACH tablet 1 tab PO DAILY potassium chloride 10 MEQ tablet 10 meq PO DAILY prednisone 50 mg tablet 50 mg PO DAILY Qty: 5 0RF oxycodone-acetaminophen [Percocet] 5-325 mg tablet 1 tab PO Q8H PRN (Reason: pain) 3 Days Qty: 10 0RF ibuprofen 600 mg tablet 600 mg PO Q6H PRN PRN (Reason: pain) Qty: 20 0RF lidocaine [Lidoderm] 5 % adhesive patch,medicated 1 patch topical DAILY Qty: 15 0RF Rx Instructions: leave on most painful area for up to 12 hrs Primary Care Provider: Bushra Garcia Referrals: Bushra Garcia, [employer]ER[employer] [Primary Care Provider] -
[2023-02-06] MEDS: Ondansetron 4 MG/2 ML Vial IV (08:00)
[2023-02-06] MEDS: Morphine 4 MG/ML Syringe IV (08:00)
[2023-02-06] MEDS: 0.9% Normal Saline 1,000 ML 1000 ML IV (08:00)
[2023-02-06 08:15] LABS: Absolute Lymphocyte Count 0.79 X10^3/uL (0.83-4.51); Absolute Neutrophil Count 5.3 X10^3/uL (2.0-7.7); Basophil# 0.06 X10^3/uL; Basophil% 0.9 % (0-1); Eosinophil# 0.13 X10^3/uL; Eosinophils% 1.9 % (0-5); Hematocrit 52.3 % (37-47); Hemoglobin 16.9 g/dL (12.0-15.0); Lymphocyte # 0.79 X10^3/ul (0.83-4.51); Lymphocyte % 11.4 % (19-41); Mean Corp Hgb Conc 32.3 g/dL (32-36); Mean Corpuscular Hgb 27.4 pg (27.0-32.0); Mean Corpuscular Volume 84.8 fL (81-99); Mean Platelet Vol. 9.9 fl (6.2-12.0); Monocyte# 0.59 X10^3/uL; Monocyte% 8.5 % (0-10); NRBC Flagged by Analyzer 0 % (0-5); Neutrophil # 5.34 X10^3/uL (2.7-7.7); Neutrophil % 76.9 % (47-70); Platelet Count 363 K/mm3 (150-450); RBC Distribution Width CV 13.7 % (11.6-14.6); RBC Distribution Width SD 42.1 fl (35.1-43.9); Red Blood Count 6.17 M/mm3 (4.2-5.4); White Blood Count 6.9 K/mm3 (4.4-11.0)
[2023-02-06 08:39] LABS: ALB/GLOB Ratio 0.8 RATIO (0.9-2.4); AST(SGOT) 25 U/L (15-37); Alanine Aminotransfer ALT/SGPT 52 U/L (13-56); Albumin, Serum 3.3 g/dL (3.2-5.0); Alkaline Phosphatase 101 U/L (45-117); Anion Gap 7 (5-15); BUN 25 mg/dL (7-18); BUN/Creat Ratio 20.3 RATIO (10-20); Calcium,Total 8.9 mg/dL (8.5-10.1); Chloride 103 mmol/L (98-107); Creatinine, Serum 1.23 mg/dL (0.55-1.02); EST Glomerular Filtration Rate 44 mL/min (>60); Est Glom Filt Rate - Afr Amer 54 mL/min (>60); Estimated Creatinine Clearance 26.15 ml/min; Globulin 4.2 g/dL (2.2-4.2); Glucose 123 mg/dL (74-106); Lipase 25 U/L (13-75); Potassium 3.3 mmol/L (3.5-5.1); Protein, Total 7.5 g/dL (6.4-8.2); Sodium Level 139 mmol/L (136-145)
[2023-02-06 08:40] LABS: Bacteria 0 SEEN /hpf (None Seen); Mucous, Urine 0 SEEN /hpf (<or=2+); Red Blood Cells-Urine 0 SEEN /hpf (0-5); Squamous Epithelial Cells - UA 0 SEEN /hpf (5-10); White Blood Cells 0 SEEN /hpf (0-5)
[2023-02-06 08:54] LABS: Color, Urine Yellow (Yellow); Glucose, Dipstick Normal (Normal); Ketone-Dipstick Negative (Negative); Leukocyte Esterase-Dipstick Negative /ul (Negative); Nitrite-Dipstick Negative (Negative); Occult Blood-Urine 10 /ul (Negative); Protein-Dipstick 15 mg/dl (Negative); Specific Gravity, Urine 1.015 (1.002-1.030); Urine Bilirubin Dipstick Negative (Negative); Urine Clarity Sl. Cloudy (Clear); Urine Urobilinogen Normal (Normal)
--- NOTE | 2023-02-06 10:50 | NURSING ---
DR YASMIN ZHENG
--- NOTE | 2023-02-06 11:24 | NURSING ---
303 OBS JOPPERI BACK PAIN, DEBILITY
--- NOTE | 2023-02-06 12:42 | MRI_ITS ---
STUDY: MRI THORACIC SPINE WITHOUT CONTRAST REASON FOR EXAM: Female, 82 years old. vertebral fractures at T7 and T12 TECHNIQUE: Standardized fat and water weighted pulse sequences were obtained in the sagittal and axial planes. COMPARISON: CT of thoracic spine February 01, 2023 FINDINGS: Normal kyphosis of the thoracic spine. There is no substantial scoliosis. Mild chronic wedging of superior endplate of T6 and more pronounced chronic wedging of T7. There is compression of the inferior endplate of T10 with intramedullary bone marrow edema consistent with acute injury approximately 20% loss of vertebral body height There is severe old compression fracture T12 with retropulsion of posterior superior endplate and disc narrowing the spinal canal. Mild acute wedging of inferior endplate of L2 : Multilevel degenerative changes and disc degeneration without significant disc protrusion. Normal visualized thoracic cord. Normal conus medullaris that terminates at T12-L1 The soft tissue structures are unremarkable. MRI/Spine Thoracic (Routine) IMPRESSION: Degenerative changes and multilevel chronic disc degeneration. Acute mild compression fracture superior endplate of T10 with approximately 20% loss of vertebral body height Mild acute wedging of inferior endplate of L2 Old compression fracture of T12 with retropulsion of posterior superior endplate and disc creating mild spinal stenosis Multiple other old compression fractures as above Electronically Signed: Mike Lacey MD at 17:59 EDT ,
--- NOTE | 2023-02-06 12:47 | PCM.HP.STD ---
HPI - General General Date of Admission: 02/06/23 Date of Service: 02/06/23 Chief Complaint: back pain HPI Narrative BARBIE PURVIS, is a 82 F who presents back on January 01 she was doing sheets on her bed when she developed severe back pain. She did not seek attention at that time, but it continued to worsen and she experienced chest pain and abdominal pain. She presented to the ED on February [address]s that showed age-indeterminant T7 and T12 fractures. She was sent home, but her pain worsened and became constipated. No BM in 6 days. Given her debility and fractures the hospitalist service was contacted for admission. Patient denies any falls. No saddle anesthesia, bowel incontinence, bladder incontinence, paresethesias. [facility] Medical History Anterior epistaxis Cholecystectomy planned HTN (hypertension) Rhinorrhea Home Medications amlodipine 5 mg tablet 5 mg PO DAILY 05/21/18 [History Last Taken 02/05/23 10:52 5 mg] levothyroxine 100 mcg tablet 100 mcg PO DAILY 05/21/18 [History Last Taken 02/05/23 06:00 100 mcg] losartan 100 mg-hydrochlorothiazide 25 mg tablet 1 tab PO DAILY 05/21/18 [History Last Taken 02/05/23 10:00 1 TAB] potassium chloride 10 mEq tablet,extended release(part/cryst) 10 meq PO DAILY 05/21/18 [History Last Taken 02/05/23 10:00] prednisone 50 mg tablet 50 mg PO DAILY #5 tabs 05/30/22 [Rx Last Taken Unknown] ibuprofen 600 mg tablet 600 mg PO Q6H PRN PRN pain #20 TABLETS 02/01/23 [Rx Last Taken 02/05/23 22:50 600 mg] lidocaine 5 % topical patch (Lidoderm) 1 patch topical DAILY #15 ea 02/01/23 [Rx Last Taken 02/04/23 10:00 1 patch] oxycodone-acetaminophen 5 mg-325 mg tablet (Percocet) 1 tab PO Q8H PRN pain 3 days #10 tabs 02/01/23 [Rx Last Taken Unknown] omeprazole 20 mg capsule,delayed release 20 mg PO DAILY 02/06/23 [History Last Taken 02/05/23 10:00 20 mg] Allergy/AdvReac Type Severity Reaction Status Date / Time No Known Allergies Allergy Verified 02/01/23 11:14 no significant family history Surgical History History of hysterectomy Social History Smoking Status: Never smoker ROS ROS Narrative short of breath w activity. All review of systems were negative except as mentioned above in the history of present illness and the other review of systems. Vital Signs Vital Signs Vital Signs: 02/06/23 07:22 02/06/23 07:25 02/06/23 10:41 Temperature 36.3 C L Temperature Source Oral Pulse Rate 99 96 80 Respiratory Rate 16 16 18 Blood Pressure 149/90 H 149/90 H 142/109 H Blood Pressure Mean 109 109 120 Blood Pressure Source Blood Pressure Position Blood Pressure Location Pulse Ox 95 96 99 Oxygen Delivery Method Room Air Room Air Room Air 02/06/23 11:34 02/06/23 11:58 Temperature 36.3 C L 36.6 C Temperature Source Temporal Oral Pulse Rate 65 56 L Respiratory Rate 16 16 Blood Pressure 133/70 H 129/63 H Blood Pressure Mean 91 85 Blood Pressure Source Monitor Blood Pressure Position Right Lateral Blood Pressure Location Left Arm Pulse Ox 96 92 Oxygen Delivery Method Room Air Room Air Weight Weight: 76.2 kg Body Mass Index (BMI) 31.7 Physical Exam Const alert and no apparent distress HEENT normocephalic and head/scalp atraumatic Eyes Eyes Narrative: No icterus Resp normal respiratory effort, no retractions, no use of accessory muscles and clear to auscultation bilaterally Cardio regular rate, regular rhythm, S1 normal heart sound and S2 normal heart sound GI normal to inspection, nondistended, normoactive bowel sounds, soft to palpation, non-tender and non-distended Extremity normal to inspection and full ROM Neuro moves all extremities Neuro Narrative: Sensation grossly intact in lower extremities. No clonus. Sensorium / Orientation: awake and alert Results Lab / Micro Data Attestation: I reviewed the patient's lab results. 02/06/23 08:00 02/06/23 08:00 Labs: Laboratory Results - last 24 hr 02/06/23 08:00: WBC 6.9, RBC 6.17 H, Hgb 16.9 H, Hct 52.3 H, MCV 84.8, MCH 27.4, MCHC 32.3, RDW Std Deviation 42.1, RDW Coeff of [place] 13.7, Plt Count 363, MPV 9.9, Immature Gran % (Auto) 0.400, Neut % (Auto) 76.9 H, Lymph % (Auto) 11.4 L, [place] % (Auto) 8.5, Eos % (Auto) 1.9, Baso % (Auto) 0.9, Absolute Neuts (auto) 5.3, Absolute Lymphs (auto) 0.79 L, Nucleated RBC % 0, Sodium 139, Potassium 3.3 L, Chloride 103, Carbon Dioxide 29.0, Anion Gap 7, BUN 25 H, Creatinine 1.23 H, Estim Creat Clear Calc 26.15, Est GFR (MDRD) Af Amer 54 L, Est GFR (MDRD) Non-Af 44 L, BUN/Creatinine Ratio 20.3 H, Glucose 123 H, Calcium 8.9, Total Bilirubin 0.80, AST 25, ALT 52, Alkaline Phosphatase 101, Total Protein 7.5, Albumin 3.3, Globulin 4.2, Albumin/Globulin Ratio 0.8 L, Lipase 25 02/06/23 08:08: Urine Color Yellow, Urine Clarity Sl. Cloudy, Urine pH 6.0, Ur Specific [place] 1.015, Urine Protein 15 H, Urine Glucose (UA) Normal, Urine Ketones Negative, Urine Occult Blood 10 H, Urine Nitrite Negative, Urine Bilirubin Negative, Urine Urobilinogen Normal, Ur Leukocyte Esterase Negative, Urine RBC 0 SEEN, Urine WBC 0 SEEN, Ur Squamous Epith Cells 0 SEEN, Urine Bacteria 0 SEEN, Urine Mucus 0 SEEN Radiology Impression Abdomen/Pelvis CT 02/06/23 07:36 IMPRESSION: Fatty infiltration of the liver. Stable small hemangioma in the anterior aspect of the right lobe of the liver near the dome. Sigmoid diverticulosis. Status post cholecystectomy and minimal central intrahepatic biliary ductal dilatation. Electronically Signed: Seth Hahn MD at 9:48 EDT , Assessment & Plan Assessment/Plan (1) Closed compression fracture of thoracic vertebra: QUALIFIERS: Encounter type: subsequent encounter Fracture healing: with routine healing Qualified Code(s): S22.000D - Wedge compression fracture of unspecified thoracic vertebra, subsequent encounter for fracture with routine healing PLAN: Time of onset is unclear but suspected was when the patient was making her bed on January 01. Symptoms have progressively gotten worse than. No radicular symptoms nor any evidence of cauda equina at this time. There is some retropulsion noted at T12. We will check an MRI for further evaluation. Based on the results of the MRI, may need to call spine surgery for their input. In the meantime, pain control bowel regimen These are osteoporotic fractures we will check a 25-hydroxy vitamin D level. (2) Debility: PLAN: Patient lives by herself. Suspect patient may require a retirement facility upon discharge. (3) Hypokalemia: PLAN: replace check magnesium. PLAN: Plan Chronic conditions Hypertension: Continue with amlodipine and losartan hydrochlorothiazide Hypothyroidism: Continue levothyroxine GERD: Continue with PPI VTE prophylaxis: Low risk screen patient is currently observation. CODE STATUS: Addressed with patient. Patient wished to be DNR Comfort Care arrest no intubation. Charges/Coding Visit Charges Inpatient E&M: 37292 Init Hosp L3
[2023-02-06 13:38] LABS: Magnesium 2.4 mg/dL (1.6-2.6)
--- NOTE | 2023-02-06 14:09 | CASEMGMT ---
SW was informed patient is interested in completing advance directives. SW met with patient. Introduced self and role at [facility]. Patient confirmed her daughter would like her to do documents. SW asked patient if she would like SW to complete documents with her. Patient said yes, however patient did not know addresses for the people she would like to name. SW offered to call patient's daughter, but she would rather SW not as her daughter was driving. SW let patient know SW can check back as able. SW did leave documents with patient. Malika Billingsley ADMINISTRATION SPECIALIST ILYA
--- NOTE | 2023-02-06 14:30 | CHAPLAIN ---
Type of Pastoral Visit _x__ Initial Visit ___ Follow-up Visit ___ On-call Visit ___ General Patient Visit ___ Spiritual Assessment ___ Family Conference ___ Bereavement ___ Rapid Response ___ Code Blue ___ Other (describe below) Pastoral Care Referral From __x_ Patient ___ Family ___ Nurse ___ Physician ___ Pbx Manager ___ Casing Flusher ___ Other (describe below) Sacrament/Intervention _x__ Active listening ___ Anointing ___ Yazidism ___ Bereavement ___ Communion _x__ Samantha exploration ___ ___ Life review _x__ Prayer ___ Reconciliation ___ Sacrament of Sick ___ Supportive presence ___ Wedding ___ Other (describe below) Pastoral Comments patient and daughter are in room; pt will go through testing; pt states that she has samantha in God to be with her in this difficult time; pt requests prayers; no other needs noted at this time; offer of support given to daughter as well
[2023-02-06] MEDS: Potassium Chloride Oral Tablet 20 MEQ 40 MEQ PO (14:55)
[2023-02-06] MEDS: Acetaminophen 500 MG Tablet 1000 MG PO ×2 (14:55→22:31)
[2023-02-07 06:15] VITALS: BP 161/78; PULSE 53; RESP 16; TEMP 37.1; O2SAT 94
[2023-02-07] MEDS: Levothyroxine 100 MCG Tablet PO (06:19)
[2023-02-07] MEDS: Acetaminophen 500 MG Tablet 1000 MG PO ×3 (06:19→21:38)
--- NOTE | 2023-02-07 07:25 | PN.HOSP_ITS ---
Reason for Visit Reason for Visit: Diagnoses Hypokalemia (02/06/23) Other malaise (02/06/23) Wedge compression fracture of unspecified thoracic vertebra, subsequent encounter for fracture with routine healing (02/06/23) Subjective Subjective back pain worse today. No paresthesias. No bowel/bladder incontinence. Objective Data Objective Data Vital Signs: Vital Signs Temp Pulse Resp BP Pulse Ox O2 Del Method 37.1 C 53 L 16 161/78 H 94 Room Air 02/07/23 06:15 02/07/23 06:15 02/07/23 06:15 02/07/23 06:15 02/07/23 06:15 02/07/23 06:15 Oxygen Delivery Method Room Air Weight: 76.2 kg Body Mass Index (BMI) 31.7 Intake & Output: Intake and Output for Last 24 Hours 02/05/23 02/06/23 02/07/23 23:59 23:59 23:59 Intake Total 1000 / 1000 Balance 1000 / 1000 Medical Nutrition Assessment Dietitian: Malnutrition Criteria Met Start: 02/06/23 15:42 Freq: Status: Active Protocol: Document 02/06/23 15:42 SLA (Rec: 02/06/23 15:42 SLA [id number]) Nutrition Malnutrition Evidence of Malnutrition Exists Yes Malnutrition (severe): Acute Illness/Injury Evidenced By Suboptimal Energy Intake ( Severe),Weight Loss (Severe) Clinical Problem Acute Disease or Injury Related Malnutrition Etiology related to increased pain from back and inadequate energy intake Signs/Symptoms as evidenced by po intake <75% of est nutritional needs and 1.4% wt loss x <1 wk Status Active Problem Altered GI Function Etiology related to increased pain and not eating regularly Signs/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 Problem Recommendation Dietitian Recommendations/Changes Will continue regular diet as ordered Will provide strawberry CIB milkshake w/ meals tid Send raisin bran or frosted mini wheats cereal on dinner tray for pt to snack on in the evening Lab / Micro Data 02/06/23 08:00 02/06/23 08:00 Labs: Laboratory Results - last 24 hr 02/06/23 08:00: WBC 6.9, RBC 6.17 H, Hgb 16.9 H, Hct 52.3 H, MCV 84.8, MCH 27.4, MCHC 32.3, RDW Std Deviation 42.1, RDW Coeff of [place] 13.7, Plt Count 363, MPV 9.9, Immature Gran % (Auto) 0.400, Neut % (Auto) 76.9 H, Lymph % (Auto) 11.4 L, [place] % (Auto) 8.5, Eos % (Auto) 1.9, Baso % (Auto) 0.9, Absolute Neuts (auto) 5.3, Absolute Lymphs (auto) 0.79 L, Nucleated RBC % 0, Sodium 139, Potassium 3.3 L, Chloride 103, Carbon Dioxide 29.0, Anion Gap 7, BUN 25 H, Creatinine 1.23 H, Estim Creat Clear Calc 26.15, Est GFR (MDRD) Af Amer 54 L, Est GFR (MDRD) Non-Af 44 L, BUN/Creatinine Ratio 20.3 H, Glucose 123 H, Calcium 8.9, Magnesium 2.4, Total Bilirubin 0.80, AST 25, ALT 52, Alkaline Phosphatase 101, Total Protein 7.5, Albumin 3.3, Globulin 4.2, Albumin/Globulin Ratio 0.8 L, Lipase 25 02/06/23 08:08: Urine Color Yellow, Urine Clarity Sl. Cloudy, Urine pH 6.0, Ur Specific [place] 1.015, Urine Protein 15 H, Urine Glucose (UA) Normal, Urine Ketones Negative, Urine Occult Blood 10 H, Urine Nitrite Negative, Urine Bilirubin Negative, Urine Urobilinogen Normal, Ur Leukocyte Esterase Negative, Urine RBC 0 SEEN, Urine WBC 0 SEEN, Ur Squamous Epith Cells 0 SEEN, Urine Bacteria 0 SEEN, Urine Mucus 0 SEEN 02/06/23 13:20: Vitamin D 25-Hydroxy 55.0 Radiography Diagnostic Testing: Radiology Impression Abdomen/Pelvis CT 02/06/23 07:36 IMPRESSION: Fatty infiltration of the liver. Stable small hemangioma in the anterior aspect of the right lobe of the liver near the dome. Sigmoid diverticulosis. Status post cholecystectomy and minimal central intrahepatic biliary ductal dilatation. Electronically Signed: Seth Hahn MD at 9:48 EDT , Thoracic Spine MRI 02/06/23 12:42 IMPRESSION: Degenerative changes and multilevel chronic disc degeneration. Acute mild compression fracture superior endplate of T10 with approximately 20% loss of vertebral body height Mild acute wedging of inferior endplate of L2 Old compression fracture of T12 with retropulsion of posterior superior endplate and disc creating mild spinal stenosis Multiple other old compression fractures as above Electronically Signed: Mike Lacey MD at 17:59 EDT Reading Location ID and State: [facility] [place] / [place] , Service support , Physical Exam Const alert and no apparent distress HEENT head/scalp atraumatic and moist oral mucous membranes Extremity normal to inspection Neuro oriented x3, moves all extremities and no sensory deficits noted Sensorium / Orientation: awake and alert Motor Exam: strength 5/5 throughout Psych affect normal Assessment & Plan Assessment/Plan (1) Closed compression fracture of thoracic vertebra: QUALIFIERS: Encounter type: subsequent encounter Fracture healing: with routine healing Qualified Code(s): S22.000D - Wedge compression fracture of unspecified thoracic vertebra, subsequent encounter for fracture with routine healing PLAN: Likely due to an acute T10 fracture. No spinal cord impingement on MRI. Will consult pain mgmt to eval if patient may be candidate for kyphoplasty or nerve block. Continue pain control: lidoerm patch, acetaminophen 1g Q8, PRN oxycodone 5mg, add short coarse of ketorolac. These are osteoporotic fractures Data: * 25-hydroxy vitamin D level was normal at 55 * MRI thoracic spine: acute mild compression fracture superior endplate of T10 w 20% loss of height. Mild acute wedging of inferior endplate of L2. Old compression fracture of T12 w retropulsion of posterior superior endplate and disc creating mild spinal stenosis. Old compression fractures of T6 and more pronounced chronic wedging of T7. (2) Debility: PLAN: Patient lives by herself. Suspect patient may require a fci facility upon discharge. (3) Hypokalemia: PLAN: likely facilitated by HCTZ improved, but still low will replace again, continue KCL 10/daily. magnesium 2.4, therefore no replacement needed. PLAN: Plan Chronic conditions * Hypertension: Continue with amlodipine and losartan hydrochlorothiazide * Hypothyroidism: Continue levothyroxine * GERD: Continue with PPI VTE prophylaxis: Low risk screen patient is currently observation. CODE STATUS: Addressed with patient. Patient wished to be DNR Comfort Care arrest no intubation. Charges/Coding Visit Charges Inpatient E&M: 26327 Subs Hosp L2
[2023-02-07 08:44] VITALS: BP 167/68; PULSE 56; RESP 18; TEMP 37; O2SAT 94
[2023-02-07] MEDS: Lidocaine 5% Patch 1 PATCH TOPICAL (08:48)
[2023-02-07] MEDS: Pantoprazole Sodium 20 MG Tablet PO (08:49)
[2023-02-07] MEDS: hydroCHLOROthiazide 25 MG Tablet PO (08:49)
[2023-02-07] MEDS: Potassium Chloride Oral Tablet 10 MEQ PO (08:50)
[2023-02-07] MEDS: Losartan Potassium 100 MG Tablet PO (08:50)
[2023-02-07] MEDS: amLODIPine 5 MG Tablet PO (08:50)
[2023-02-07] MEDS: oxyCODONE 5 MG Tablet PO ×2 (08:56→14:48)
[2023-02-07] MEDS: Potassium Chloride Oral Tablet 20 MEQ 40 MEQ PO (13:05)
[2023-02-07] MEDS: Ketorolac 15 MG/ML Vial IV ×2 (13:06→18:20)
--- NOTE | 2023-02-07 13:35 | CASEMGMT ---
Social Work SW met with pt and patient's daughter and introduced self and role as [facility] SW. Patient agreeable to speak to SW with daughter present. SW inquired about assisting the patient with completing AD. Patient reports her LW is completed, however, patient's daughter took the HCPOA documents home. Patient wants to wait until she returns with those documents, likely Thursday, to complete them. SW then engaged patient in decision regarding discharge plan, explaining SNF was recommended. Pt feels she will benefit from short term stay in SNF for continued therapy prior to returning home. A list of SNF providers including quality and resource use data and consistent with the patient?s preferred geographic region, medical needs, and insurance network were provided from the [employer] Guide. Pts preferred providers are 1. TCU, 2. [facility], 3. [facility] [place]. Referral to TCU. SW will await determination of acceptance. Pt will need precert prior to discharge. Plan: TCU, pending acceptance and precert Julia Mendez HARP REPAIRER, ILYA
[2023-02-07 14:39] VITALS: BP 137/71; PULSE 67; RESP 18; TEMP 36.3; O2SAT 98
[2023-02-07] MEDS: Ondansetron 4 MG/2 ML Vial IV (15:03)
--- NOTE | 2023-02-07 16:10 | CASEMGMT ---
MELODIE GARCIA in to complete BLAS form with patient. MELODIE GARCIA explained BLAS form to patient, patient voiced understanding. Patient signed BLAS form and filed in chart. Patient provided copy of signed BLAS form. Patient had no further questions or concerns at this time.
[2023-02-07 19:26] VITALS: BP 140/61; PULSE 60; RESP 16; TEMP 36.7; O2SAT 96
[2023-02-08] MEDS: Ketorolac 15 MG/ML Vial IV ×4 (00:12→18:46)
[2023-02-08 02:05] VITALS: BP 148/66; PULSE 66; RESP 16; TEMP 36.6; O2SAT 99
[2023-02-08] MEDS: Acetaminophen 500 MG Tablet 1000 MG PO ×3 (05:48→21:31)
[2023-02-08] MEDS: Levothyroxine 100 MCG Tablet PO (05:50)
[2023-02-08 06:32] LABS: Anion Gap 4 (5-15); BUN 37 mg/dL (7-18); BUN/Creat Ratio 34.3 RATIO (10-20); Calcium,Total 8.4 mg/dL (8.5-10.1); Chloride 111 mmol/L (98-107); Creatinine, Serum 1.08 mg/dL (0.55-1.02); EST Glomerular Filtration Rate 51 mL/min (>60); Est Glom Filt Rate - Afr Amer 62 mL/min (>60); Estimated Creatinine Clearance 29.78 ml/min; Glucose 103 mg/dL (74-106); Potassium 3.4 mmol/L (3.5-5.1); Sodium Level 145 mmol/L (136-145)
--- NOTE | 2023-02-08 07:13 | PCM.PN.HOSP ---
Reason for Visit Reason for Visit: Diagnoses Hypokalemia (02/06/23) Other malaise (02/06/23) Wedge compression fracture of unspecified thoracic vertebra, subsequent encounter for fracture with routine healing (02/06/23) Subjective Subjective Still with back pain. Pain medication not helping enough. Objective Data Objective Data Vital Signs: Vital Signs Temp Pulse Resp BP Pulse Ox O2 Del Method 36.6 C 66 16 148/66 H 99 Room Air 02/08/23 02:05 02/08/23 02:05 02/08/23 02:05 02/08/23 02:05 02/08/23 02:05 02/08/23 02:05 Oxygen Delivery Method Room Air Weight: 76.2 kg Body Mass Index (BMI) 31.7 Intake & Output: Intake and Output for Last 24 Hours 02/06/23 02/07/23 02/08/23 23:59 23:59 23:59 Intake Total 1000 / 1000 480 / 480 500 / 500 Balance 1000 / 1000 480 / 480 500 / 500 Medical Nutrition Assessment Dietitian: Malnutrition Criteria Met Start: 02/06/23 15:42 Freq: Status: Active Protocol: Document 02/06/23 15:42 SLA (Rec: 02/06/23 15:42 SLA [id number]) Nutrition Malnutrition Evidence of Malnutrition Exists Yes Malnutrition (severe): Acute Illness/Injury Evidenced By Suboptimal Energy Intake ( Severe),Weight Loss (Severe) Clinical Problem Acute Disease or Injury Related Malnutrition Etiology related to increased pain from back and inadequate energy intake Signs/Symptoms as evidenced by po intake <75% of est nutritional needs and 1.4% wt loss x <1 wk Status Active Problem Altered GI Function Etiology related to increased pain and not eating regularly 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 Problem Recommendation Dietitian Recommendations/Changes Will continue regular diet as ordered Will provide strawberry CIB milkshake w/ meals tid Send raisin bran or frosted mini wheats cereal on dinner tray for pt to snack on in the evening Lab / Micro Data 02/06/23 08:00 02/08/23 05:20 Labs: Laboratory Results - last 24 hr 02/08/23 05:20: Sodium 145, Potassium 3.4 L, Chloride 111 H, Carbon Dioxide 30.0, Anion Gap 4 L, BUN 37 H, Creatinine 1.08 H, Estim Creat Clear Calc 29.78, Est GFR (MDRD) Af Amer 62, Est GFR (MDRD) Non-Af 51 L, BUN/Creatinine Ratio 34.3 H, Glucose 103, Calcium 8.4 L Physical Exam Const alert and no apparent distress Resp normal respiratory effort, no retractions, no use of accessory muscles and clear to auscultation bilaterally Cardio regular rate, regular rhythm, S1 normal heart sound and S2 normal heart sound GI normal to inspection, nondistended, normoactive bowel sounds Assessment & Plan Assessment/Plan (1) Closed compression fracture of thoracic vertebra: QUALIFIERS: Encounter type: subsequent encounter Fracture healing: with routine healing Qualified Code(s): S22.000D - Wedge compression fracture of unspecified thoracic vertebra, subsequent encounter for fracture with routine healing PLAN: Likely due to an acute T10 fracture. No spinal cord impingement on MRI. Will consult pain mgmt to eval if patient may be candidate for kyphoplasty or nerve block. Continue pain control: lidoerm patch, acetaminophen 1g Q8, PRN oxycodone 5mg, add short coarse of ketorolac. Add scheduled oxycodone. These are osteoporotic fractures Data: 25-hydroxy vitamin D level was normal at 55 MRI thoracic spine: acute mild compression fracture superior endplate of T10 w 20% loss of height. Mild acute wedging of inferior endplate of L2. Old compression fracture of T12 w retropulsion of posterior superior endplate and disc creating mild spinal stenosis. Old compression fractures of T6 and more pronounced chronic wedging of T7. (2) Debility: PLAN: Patient lives by herself. Suspect patient may require a [place] [facility] facility upon discharge. (3) Hypokalemia: PLAN: likely facilitated by HCTZ improved, but still low will replace again, continue KCL 10/daily. magnesium 2.4, therefore no replacement needed. PLAN: Plan Chronic conditions Hypertension: Continue with amlodipine and losartan hydrochlorothiazide Hypothyroidism: Continue levothyroxine GERD: Continue with PPI VTE prophylaxis: Low risk screen patient is currently observation. CODE STATUS: Addressed with patient. Patient wished to be DNR Comfort Care arrest no intubation. Charges/Coding Visit Charges Inpatient E&M: 14104 Subs Hosp L2
[2023-02-08 09:19] VITALS: BP 152/69; PULSE 62; RESP 18; TEMP 36.8; O2SAT 95
[2023-02-08] MEDS: Lidocaine 5% Patch 1 PATCH TOPICAL (09:26)
[2023-02-08] MEDS: amLODIPine 5 MG Tablet PO (09:27)
[2023-02-08] MEDS: Potassium Chloride Oral Tablet 10 MEQ PO (09:27)
[2023-02-08] MEDS: Pantoprazole Sodium 20 MG Tablet PO (09:27)
[2023-02-08] MEDS: Losartan Potassium 100 MG Tablet PO (09:27)
[2023-02-08] MEDS: hydroCHLOROthiazide 25 MG Tablet PO (09:28)
[2023-02-08] MEDS: Potassium Chloride Oral Tablet 20 MEQ 40 MEQ PO ×2 (09:30→16:04)
[2023-02-08] MEDS: oxyCODONE 5 MG Tablet PO (09:30)
[2023-02-08] MEDS: oxyCODONE HCl Cr 10 MG Tablet PO ×2 (11:38→21:32)
[2023-02-08] MEDS: 0.9% Saline Lock 10 ML Syringe IV (11:39)
[2023-02-08 16:11] VITALS: BP 140/67; PULSE 56; RESP 16; TEMP 36.6; O2SAT 96
[2023-02-08 19:38] VITALS: BP 143/63; PULSE 61; RESP 16; TEMP 36.7; O2SAT 93
[2023-02-08 19:40] VITALS: O2SAT 93
[2023-02-09] MEDS: Ketorolac 15 MG/ML Vial IV ×3 (00:54→11:56)
[2023-02-09 02:07] VITALS: BP 144/60; PULSE 62; RESP 16; TEMP 36.7; O2SAT 94
[2023-02-09] MEDS: Acetaminophen 500 MG Tablet 1000 MG PO (06:03)
[2023-02-09] MEDS: Levothyroxine 100 MCG Tablet PO (06:03)
[2023-02-09 06:50] LABS: Anion Gap 2 (5-15); BUN 40 mg/dL (7-18); BUN/Creat Ratio 38.8 RATIO (10-20); Calcium,Total 8.1 mg/dL (8.5-10.1); Chloride 112 mmol/L (98-107); Creatinine, Serum 1.03 mg/dL (0.55-1.02); EST Glomerular Filtration Rate 54 mL/min (>60); Est Glom Filt Rate - Afr Amer 66 mL/min (>60); Estimated Creatinine Clearance 31.23 ml/min; Glucose 90 mg/dL (74-106); Potassium 4.2 mmol/L (3.5-5.1); Sodium Level 145 mmol/L (136-145)
--- NOTE | 2023-02-09 07:24 | PN.HOSP_ITS ---
Reason for Visit Reason for Visit: Diagnoses Hypokalemia (02/06/23) Other malaise (02/06/23) Wedge compression fracture of unspecified thoracic vertebra, subsequent encounter for fracture with routine healing (02/06/23) Subjective Subjective Patient is an 82-year-old lady with history of known compression fractures admitted with back pain Objective Data Objective Data Vital Signs: Vital Signs Temp Pulse Resp BP Pulse Ox O2 Del Method 98.1 F 62 16 144/60 H 94 Room Air 02/09/23 02:07 02/09/23 02:07 02/09/23 02:07 02/09/23 02:07 02/09/23 02:07 02/09/23 02:07 Oxygen Delivery Method Room Air Weight: 76.2 kg Body Mass Index (BMI) 31.7 Intake & Output: Intake and Output for Last 24 Hours 02/07/23 02/08/23 02/09/23 23:59 23:59 23:59 Intake Total 480 / 480 500 / 900 600 / 600 Balance 480 / 480 500 / 900 600 / 600 Medical Nutrition Assessment Dietitian: Malnutrition Criteria Met Start: 02/06/23 15:42 Freq: Status: Active Protocol: Document 02/08/23 11:08 RMA (Rec: 02/08/23 11:08 RMA [id number]) Nutrition Malnutrition Evidence of Malnutrition Exists No Intake Problem Inadequate Oral Intake Etiology related to back pain/debility Signs/Symptoms as evidenced by PO <75% meals Status Active Problem Recommendation Dietitian Recommendations/Changes Will continue Regular Diet with 120mL strawberry CIB milkshake TID w/ meals. Diet office will add raisin bran or frosted mini wheats cereal with dinner tray for pt to snack on in the evening. Pt dislikes ensure products, takes Boost at home. Lab / Micro Data 02/06/23 08:00 02/09/23 05:55 Labs: Laboratory Results - last 24 hr 02/09/23 05:55: Sodium 145, Potassium 4.2, Chloride 112 H, Carbon Dioxide 31.0, Anion Gap 2 L, BUN 40 H, Creatinine 1.03 H, Estim Creat Clear Calc 31.23, Est GFR (MDRD) Af Amer 66, Est GFR (MDRD) Non-Af 54 L, BUN/Creatinine Ratio 38.8 H, Glucose 90, Calcium 8.1 L Physical Exam Narrative GENERAL: cooperative HEENT: Atraumatic; normocephalic EYES; Anicteric, Normal Conjunctiva NECK; supple, normal thyroid, RESPIRATORY: Diminished to auscultation CARDIOVASCULAR: Regular S1 S2, GI: soft, normoactive bowel sounds, : No Renal angle tenderness; EXTREMITIES: No edema, no clubbing, MUSCULOSKELETAL: no muscle wasting NEURO: Awake; no lateralizing signs. SKIN: No Rash PSYCH; Flat affect Assessment & Plan Assessment/Plan (1) Debility: PLAN: Plan Patient is an 82-year-old lady with history of known compression fractures admitted with back pain 1. Back pain ? Secondary to acute T10 compression fracture (pathological fracture from osteoporosis) ? MRI did not demonstrate any spinal cord impingement. Admitted to regular nursing floor for pain management. Consultation placed to pain management for possible kyphoplasty versus nerve block 2. Hypokalemia ? Secondary to HCTZ use corrected per protocol 3. Hypothyroidism - Patient is on levothyroxine home dose continued 4. GERD ? On PPI 5. Hypertension - Blood pressure controlled, home medications continued with dose adjustment as needed 6. DVT prophylaxis -SC Lovenox 7. Physical deconditioning - Requested for PT OT eval and family welfare social work professor to assist with discharge planning Time spent in the patient's overall evaluation,decision-making process, review of diagnostic data, adjustment of management, discussion with other providers, nursing nursing and ancillary staff involved in patient's care documentation, 35. Minutes Charges/Coding Visit Charges Inpatient E&M: 79921 Subs Hosp L2
[2023-02-09 08:30] VITALS: O2SAT 96
[2023-02-09 08:55] VITALS: BP 143/72; PULSE 64; RESP 16; TEMP 36.5; O2SAT 96
[2023-02-09] MEDS: Pantoprazole Sodium 20 MG Tablet PO (09:09)
[2023-02-09] MEDS: Potassium Chloride Oral Tablet 10 MEQ PO (09:09)
[2023-02-09] MEDS: Losartan Potassium 100 MG Tablet PO (09:09)
[2023-02-09] MEDS: hydroCHLOROthiazide 25 MG Tablet PO (09:09)
[2023-02-09] MEDS: amLODIPine 5 MG Tablet PO (09:09)
[2023-02-09] MEDS: oxyCODONE HCl Cr 10 MG Tablet PO (09:09)
[2023-02-09] MEDS: Lidocaine 5% Patch 1 PATCH TOPICAL (09:10)
--- NOTE | 2023-02-09 10:13 | CASEMGMT ---
Social Work SW met with pt and assisted in completing HCPOA and Living Will. Pt naming her daughter Jessica Burk as HCPOA. Original given to pt and copy placed in pt chart. JADEN Schwartz
--- NOTE | 2023-02-09 10:14 | CASEMGMT ---
Social Work SW recevied message from [facility] in TCU that pt has been accepted to TCU and precert has been obtained. Physican updated. SW met with pt and updated. Pt states she will contact her daughter and notify. Plan: TCU, when medically ready JADEN Schwartz
--- NOTE | 2023-02-09 10:57 | PCM.TXEXTCAR ---
Diet Diet Order/Speech Therapy: 02/06/23 15:16 Diet: Regular - General Food consistency:: Regular Liquid Consistency:: Regular/Thin Type of Dietary Supplement:: [place] Breakfast tid Is pt able to select menu?: Yes Diet Comments: 120mL CIB shake (van CIB/straw ice cream)/ send cereal w/ dinner tray Routine Orders/Code Status Code Status: DNRCC-A Therapies Physical Therapy: Eval and Treat Occupational Therapy: Eval and Treat Problem/Diagnosis (1) Debility: Status: Acute Code(s): R53.81 - Other malaise Plan Patient is an 82-year-old lady with history of known compression fractures admitted with back pain 1. Back pain ? Secondary to acute T10 compression fracture (pathological fracture from osteoporosis) ? MRI did not demonstrate any spinal cord impingement. Admitted to regular nursing floor for pain management. Consultation placed to pain management for possible kyphoplasty versus nerve block 2. Hypokalemia ? Secondary to HCTZ use corrected per protocol 3. Hypothyroidism - Patient is on levothyroxine home dose continued 4. GERD ? On PPI 5. Hypertension - Blood pressure controlled, home medications continued with dose adjustment as needed 6. DVT prophylaxis -SC Lovenox 7. Physical deconditioning - Requested for PT OT eval and social work professor to assist with discharge planning Time spent in the patient's overall evaluation,decision-making process, review of diagnostic data, adjustment of management, discussion with other providers, nursing nursing and ancillary staff involved in patient's care documentation, 35. Minutes Allergies/Procedures Done in Hospital Allergies No Known Allergies Allergy (Verified 02/01/23 11:14) Type of Care/Length of Stay Estimated LOS: Convalescent Care Less Than 30 days Type of Care Needed: Skilled Rehab Potential: Good Prognosis: Good Additional Orders/Day of Discharge Additional Orders: Consult Dr. Plata for chronic back pain Day of Discharge: 02/09/23 Dietary and Speech Recommendations Dietitian Recommendations/Changes: Will continue Regular Diet with 120mL strawberry CIB milkshake TID w/ meals. Diet office will add raisin bran or frosted mini wheats cereal with dinner tray for pt to snack on in the evening. Pt dislikes ensure products, takes Boost at home. Discharge Plan Admission Admit Date/Time: 02/06/23 11:28 Attending Provider: Evens Hanley Primary Care Provider: Bushra Garcia Consulting Providers: Deep Brooks; Aileen Plata Discharge Orders/Prescriptions Prescriptions: New acetaminophen 500 mg Tablet 1,000 mg PO Q8 Qty: 0 0RF bisacodyl 5 mg Tablet,Delayed Release (Dr/Ec) 5 mg PO DAILY PRN PRN (Reason: Constipation) Qty: 0 0RF sennosides-docusate sodium [Stool Softener-Stimulant Laxat] 8.6-50 mg Tablet 2 tab PO BID PRN PRN (Reason: Constipation) Qty: 0 0RF oxycodone 5 mg Tablet 5 mg PO Q4H PRN PRN (Reason: Pain Score 4-10) 2 Days Qty: 8 0RF oxycodone [OxyContin] 10 mg Tablet,Oral Only,Ext.Rel.12 Hr 10 mg PO BID 2 Days Qty: 4 0RF Continued amlodipine 5 MG tablet 5 mg PO DAILY levothyroxine 100 MCG tablet 100 mcg PO DAILY losartan-hydrochlorothiazide 1 EACH tablet 1 tab PO DAILY potassium chloride 10 MEQ tablet 10 meq PO DAILY ibuprofen 600 mg tablet 600 mg PO Q6H PRN PRN (Reason: pain) Qty: 20 0RF lidocaine [Lidoderm] 5 % adhesive patch,medicated 1 patch topical DAILY Qty: 15 0RF Rx Instructions: leave on most painful area for up to 12 hrs omeprazole 20 mg capsule,delayed release(DR/EC) 20 mg PO DAILY Discontinued prednisone 50 mg tablet 50 mg PO DAILY Qty: 5 0RF oxycodone-acetaminophen [Percocet] 5-325 mg tablet 1 tab PO Q8H PRN (Reason: pain) 3 Days Qty: 10 0RF Hold Instructions: Order Completed Referrals / Follow Up: Bushra Garcia, ASSISTANT ACTIVITIES DIRECTOR-C [Primary Care Provider] - Disposition Disposition (needs filled in before D/C Order can be placed): Assisted Facility
--- NOTE | 2023-02-09 10:59 | PCM.DC.SUM ---
Providers Date of Admission: 02/06/23 Date of Discharge: 02/09/23 Primary Care Physician: Bushra Garcia, JAIME-C Consultations 02/07/23 11:54 Consult: Pain Management Routine Consulting Provider: Aileen Plata Reason for Consult: T10 compression fracture with pain. EMERGENT Consult: No MD Notified: Yes Date Notified: 02/09/23 Time Notified: 08:49 Method of Notification: Answering Service Reason For Visit: back pain, debility Diagnosis Discharge Diagnosis (1) Debility: Status: Acute Code(s): R53.81 - Other malaise Plan Patient is an 82-year-old lady with history of known compression fractures admitted with back pain 1. Back pain ? Secondary to acute T10 compression fracture (pathological fracture from osteoporosis) ? MRI did not demonstrate any spinal cord impingement. Admitted to regular nursing floor for pain management. Consultation placed to pain management for possible kyphoplasty versus nerve block 2. Hypokalemia ? Secondary to HCTZ use corrected per protocol 3. Hypothyroidism - Patient is on levothyroxine home dose continued 4. GERD ? On PPI 5. Hypertension - Blood pressure controlled, home medications continued with dose adjustment as needed 6. DVT prophylaxis -SC Lovenox 7. Physical deconditioning - Requested for PT OT eval and oncology social worker to assist with discharge planning Time spent in the patient's overall evaluation,decision-making process, review of diagnostic data, adjustment of management, discussion with other providers, nursing nursing and ancillary staff involved in patient's care documentation, 35. Minutes Medications at Discharge Home Medications amlodipine 5 mg tablet 5 mg PO DAILY 05/21/18 levothyroxine 100 mcg tablet 100 mcg PO DAILY 05/21/18 losartan 100 mg-hydrochlorothiazide 25 mg tablet 1 tab PO DAILY 05/21/18 potassium chloride 10 mEq tablet,extended release(part/cryst) 10 meq PO DAILY 05/21/18 ibuprofen 600 mg tablet 600 mg PO Q6H PRN PRN pain #20 TABLETS 02/01/23 lidocaine 5 % topical patch (Lidoderm) 1 patch topical DAILY #15 ea 02/01/23 omeprazole 20 mg capsule,delayed release 20 mg PO DAILY 02/06/23 acetaminophen 500 mg tablet 1,000 mg (2 x 500 mg) PO Q8 #0 tabs 02/09/23 bisacodyl 5 mg tablet,delayed release 5 mg PO DAILY PRN PRN Constipation #0 tabs 02/09/23 oxycodone 10 mg tablet,crush resistant,extended release 12 hr (OxyContin) 10 mg PO BID 2 days #4 tabs 02/09/23 oxycodone 5 mg tablet 5 mg PO Q4H PRN PRN Pain Score 4-10 2 days #8 tabs 02/09/23 sennosides 8.6 mg-docusate sodium 50 mg tablet (Stool Softener-Stimulant Laxative) 2 tab PO BID PRN PRN Constipation #0 tabs 02/09/23 Hospital Course Summary of Care Provided Minutes Spent on Discharge: 35 Physical Exam Narrative GENERAL: cooperative HEENT: Atraumatic; normocephalic EYES; Anicteric, Normal Conjunctiva NECK; supple, normal thyroid, RESPIRATORY: Diminished to auscultation CARDIOVASCULAR: Regular S1 S2, GI: soft, normoactive bowel sounds, : No Renal angle tenderness; EXTREMITIES: No edema, no clubbing, MUSCULOSKELETAL: no muscle wasting NEURO: Awake; no lateralizing signs. SKIN: No Rash PSYCH; Flat affect Medical Records Data Medical Nutrition Assessment Dietitian: Malnutrition Criteria Met Start: 02/06/23 15:42 Freq: Status: Active Protocol: Document 02/08/23 11:08 RMA (Rec: 02/08/23 11:08 RMA [id number]) Nutrition Malnutrition Evidence of Malnutrition Exists No Intake Problem Inadequate Oral Intake Etiology related to back pain/debility Signs/Symptoms as evidenced by PO <75% meals Status Active Problem Recommendation Dietitian Recommendations/Changes Will continue Regular Diet with 120mL strawberry CIB milkshake TID w/ meals. Diet office will add raisin bran or frosted mini wheats cereal with dinner tray for pt to snack on in the evening. Pt dislikes ensure products, takes Boost at home. Weight / BMI Weight Weight: 76.2 kg Body Mass Index (BMI) 31.7 ABG / Lab / Microbiology Data 02/06/23 08:00 02/09/23 05:55 Laboratory: Laboratory Results - last 24 hr 02/09/23 05:55: Sodium 145, Potassium 4.2, Chloride 112 H, Carbon Dioxide 31.0, Anion Gap 2 L, BUN 40 H, Creatinine 1.03 H, Estim Creat Clear Calc 31.23, Est GFR (MDRD) Af Amer 66, Est GFR (MDRD) Non-Af 54 L, BUN/Creatinine Ratio 38.8 H, Glucose 90, Calcium 8.1 L D/C Instructions Discharge Diet: No restrictions Discharge Activity: Return to Normal Activity Call your doctor if you observe: Fever of 101 or Higher, Shortness of breath, Fainting spells and Chest pain Meaningful Use Info Meaningful Use Diagnoses (Choose all that apply): None applicable Discharge Plan Admission Admit Date/Time: 02/06/23 11:28 Attending Provider: Evens Hanley Primary Care Provider: Bushra Garcia Consulting Providers: Deep Brooks; Aileen Plata Discharge Orders/Prescriptions Prescriptions: New acetaminophen 500 mg Tablet 1,000 mg PO Q8 Qty: 0 0RF bisacodyl 5 mg Tablet,Delayed Release (Dr/Ec) 5 mg PO DAILY PRN PRN (Reason: Constipation) Qty: 0 0RF sennosides-docusate sodium [Stool Softener-Stimulant Laxat] 8.6-50 mg Tablet 2 tab PO BID PRN PRN (Reason: Constipation) Qty: 0 0RF oxycodone 5 mg Tablet 5 mg PO Q4H PRN PRN (Reason: Pain Score 4-10) 2 Days Qty: 8 0RF oxycodone [OxyContin] 10 mg Tablet,Oral Only,Ext.Rel.12 Hr 10 mg PO BID 2 Days Qty: 4 0RF Continued amlodipine 5 MG tablet 5 mg PO DAILY levothyroxine 100 MCG tablet 100 mcg PO DAILY losartan-hydrochlorothiazide 1 EACH tablet 1 tab PO DAILY potassium chloride 10 MEQ tablet 10 meq PO DAILY ibuprofen 600 mg tablet 600 mg PO Q6H PRN PRN (Reason: pain) Qty: 20 0RF lidocaine [Lidoderm] 5 % adhesive patch,medicated 1 patch topical DAILY Qty: 15 0RF Rx Instructions: leave on most painful area for up to 12 hrs omeprazole 20 mg capsule,delayed release(DR/EC) 20 mg PO DAILY Discontinued prednisone 50 mg tablet 50 mg PO DAILY Qty: 5 0RF oxycodone-acetaminophen [Percocet] 5-325 mg tablet 1 tab PO Q8H PRN (Reason: pain) 3 Days Qty: 10 0RF Hold Instructions: Order Completed Referrals / Follow Up: Bushra Garcia, DIRECTOR MARKET RESEARCH-C [Primary Care Provider] - Disposition Disposition (needs filled in before D/C Order can be placed): Custodial Facility Charges/Coding Visit Charges Inpatient E&M: 60505 Disch Hosp >30min
--- NOTE | 2023-02-09 11:20 | NURSING ---
Dr. Plata's office informed of plans to DC to TCU and Dr. Plata see consult there.
--- NOTE | 2023-02-09 11:28 | CASEMGMT ---
Social Work Per physician, pt is ready for discharge today. Discharge orders faxed to TCU. SW met with pt and dgt in room and they are agreeable to discharge plan. TCU updated. Disposition: TCU, skilled level of care JADEN Schwartz
--- NOTE | 2023-02-09 11:42 | PHA.DC_ITS ---
Pharmacy MA Med Reconciliation Pharmacy Service has performed discharge medication reconciliation for this patient. The patient's discharge medication list was reviewed for discrepancies and discrepancies were resolved. Medications at Discharge Home Medications amlodipine 5 mg tablet 5 mg PO DAILY 05/21/18 levothyroxine 100 mcg tablet 100 mcg PO DAILY 05/21/18 losartan 100 mg-hydrochlorothiazide 25 mg tablet 1 tab PO DAILY 05/21/18 potassium chloride 10 mEq tablet,extended release(part/cryst) 10 meq PO DAILY 05/21/18 ibuprofen 600 mg tablet 600 mg PO Q6H PRN PRN pain #20 TABLETS 02/01/23 lidocaine 5 % topical patch (Lidoderm) 1 patch topical DAILY #15 ea 02/01/23 omeprazole 20 mg capsule,delayed release 20 mg PO DAILY 02/06/23 acetaminophen 500 mg tablet 1,000 mg (2 x 500 mg) PO Q8 #0 tabs 02/09/23 bisacodyl 5 mg tablet,delayed release 5 mg PO DAILY PRN PRN Constipation #0 tabs 02/09/23 oxycodone 10 mg tablet,crush resistant,extended release 12 hr (OxyContin) 10 mg PO BID 2 days #4 tabs 02/09/23 oxycodone 5 mg tablet 5 mg PO Q4H PRN PRN Pain Score 4-10 2 days #8 tabs 0 02/09/23 sennosides 8.6 mg-docusate sodium 50 mg tablet (Stool Softener-Stimulant Laxative) 2 tab PO BID PRN PRN Constipation #0 tabs 02/09/23
[2023-02-09] MEDS: 0.9% Saline Lock 10 ML Syringe IV (11:57)
== END 2023-02-09 13:04 | disposition skilled nursing facility (03) ==
LOC: ED 07:48 → MS3 11:37
PROVIDERS: Emergency Provider Student in an Organized Health Care Education/Training Program; PCP Nurse Practitioner Family; Visit Provider Internal Medicine
DX: R53.81 Other malaise (principal); D18.03 Hemangioma of intra-abdominal structures; I10 Essential (primary) hypertension; M80.08XD Age-related osteoporosis with current pathological fracture, vertebra(e), subsequent encounter for fracture with routine healing; E86.0 Dehydration; E87.6 Hypokalemia; K59.00 Constipation, unspecified; Z79.899 Other long term (current) drug therapy; K21.9 Gastro-esophageal reflux disease without esophagitis; E03.9 Hypothyroidism, unspecified; Z79.890 Hormone replacement therapy
CPT/HCPCS: 36415; 51702; 72146; 74177; 80048; 80053; 81001; 82306; 83690; 83735; 85025; 96361; 96374; 96375; 96376; 97110; 97162; 97166; 97530; 97535; 97802; 99221; 99285; J7030; Q9967; A4216; G0378; J2405

== ENCOUNTER 2023-02-09 13:06 | Inpatient (IN) | payer MEDICARE, SELFPAY ==
[2023-02-09 13:27] VITALS: BP 164/87; PULSE 76; PULSE 77; RESP 16; RESP 18; TEMP 36.4; O2SAT 94; BMI 32.2
[2023-02-09 13:48] VITALS: BMI 32.2
[2023-02-09] MEDS: Acetaminophen 500 MG Tablet 1000 MG PO ×2 (15:29→21:01)
[2023-02-09] MEDS: oxyCODONE 5 MG Tablet PO (15:29)
--- NOTE | 2023-02-09 16:28 | CASEMGMT ---
Social Work Met with patient to complete initial assessment. Introduced self and role. Verified/updated contacts. Discussed code status and MOLST. Pt confirms DNR-CCA, no intubation. MOLST placed in Dr folder. Educated to [employer] insurance, with $0 copay, and NRD 02/11, continued stay is not guaranteed with each review. Pt's goal is to return home alone. SW will continue to follow for DC planning. Gabrielle Llamas, WELLNESS EDUCATOR LAYDOWN MACHINE OPERATOR
[2023-02-09] MEDS: oxyCODONE HCl Cr 10 MG Tablet PO (17:56)
--- NOTE | 2023-02-09 19:37 | HP.PCM_ITS ---
HPI - General General Date of Admission: 02/09/23 Date of Service: 02/09/23 Chief Complaint: Here for rehabilitation. HPI Narrative 02/06/2023 BARBIE PURVIS, is a 82 Female who presents to [facility] Emergency Department with back pain. Worsening back pain, debility. Pain for [address] showed T7, T12 compression fractures. Taking oxycodone, Lidoderm patches, pain worse, also constipated. Difficulty getting around home, lives alone, doesnot feel safe. Not eating or drinking, diffuse abdominal pain, no bowel movement for 6 days. Morphine, Zofran, normal saline 1 liter given. Creatinine 1.23, K 3.3, Urinalysis negative. CT abdomen/pelvis showed stable liver hemangioma. Admit to Hospital. MRI T spine to evaluate T7, T12 compression fracture. PT/OT SNF, Patient lives alone. Replete potassium, check magnesium. 02/07/2023 Back pain worse. Tylenol, Lidoderm patches, Ketorolac, oxycodone for pain. MRI showed acute T10 fracture, acute wedge L2, old T12 compression fracture, old compression fracture T6, T7. Replace potassium. 02/08/2023 Back pain, pain meds not strong enough. Schedule oxycodone. 02/09/2023 Consult pain management for kyphoplasty versus nerve block. PT/OT for SNF. 02/09/2023 Admit to TCU with debility, here for rehabilitation, strengthening, prior to discharge home alone. [facility] Medical History Anterior epistaxis Cholecystectomy planned HTN (hypertension) Rhinorrhea Home Medications amlodipine 5 mg tablet 5 mg PO DAILY BP 05/21/18 [History Last Taken 02/09/23 09:00] levothyroxine 100 mcg tablet 100 mcg PO DAILY Thyroid 05/21/18 [History Last Taken 02/09/23 06:00] losartan 100 mg-hydrochlorothiazide 25 mg tablet 1 tab PO DAILY BP 05/21/18 [History Last Taken 02/09/23 10:00] potassium chloride 10 mEq tablet,extended release(part/cryst) 10 meq PO DAILY Supplment 05/21/18 [History Last Taken 02/09/23 09:10] ibuprofen 600 mg tablet 600 mg PO Q6H PRN PRN pain #20 TABLETS 02/01/23 [Rx Last Taken 02/05/23 22:50] lidocaine 5 % topical patch (Lidoderm) 1 patch topical DAILY Pain #15 ea 02/01/23 [Rx Last Taken 02/09/23 09:10] omeprazole 20 mg capsule,delayed release 20 mg PO DAILY GERD 02/06/23 [History Last Taken 02/09/23 09:00] acetaminophen 500 mg tablet 1,000 mg (2 x 500 mg) PO Q8 Pain #0 tabs 02/09/23 [Rx Last Taken 02/09/23 06:05] bisacodyl 5 mg tablet,delayed release 5 mg PO DAILY PRN PRN Constipation #0 tabs 02/09/23 [Rx Last Taken Unknown] oxycodone 10 mg tablet,crush resistant,extended release 12 hr (OxyContin) 10 mg PO BID Pain 2 days #4 tabs 02/09/23 [Rx Last Taken 02/09/23 09:00] oxycodone 5 mg tablet 5 mg PO Q4H PRN PRN Pain Score 4-10 2 days #8 tabs 02/09/23 [Rx Last Taken 02/08/23 09:30] sennosides 8.6 mg-docusate sodium 50 mg tablet (Stool Softener-Stimulant Laxative) 2 tab PO BID PRN PRN Constipation #0 tabs 02/09/23 [Rx Last Taken Unknown] Allergy/AdvReac Type Severity Reaction Status Date / Time No Known Allergies Allergy Verified 02/01/23 11:14 Surgical History History of hysterectomy Social History (Updated 02/09/23 @ 19:[address] Ke Pereira MD) household members: none Smoking Status: Never smoker alcohol intake: never substance use type: does not use ROS Constitutional Constitutional: Denies chills, fever(s) or weight gain ENT HEENT: Denies headache(s), nasal congestion or nasal discharge Cardiovascular Cardiovascular: Denies chest pain or palpitations Respiratory/Chest Respiratory/Chest: Denies cough, excessive phlegm production or shortness of breath with exertion Gastrointestinal Gastrointestinal: Denies abdominal pain, nausea or vomiting Genitourinary Genitourinary: Denies dysuria Musculoskeletal Musculoskeletal: Denies joint pain or joint swelling Integumentary Integumentary: Denies rash or wounds Neurologic Neurologic: Denies focal weakness, numbness or tingling Psychiatric Psychiatric: Denies anxiety, auditory hallucinations, depression, homicidal ideation or suicidal ideation Vital Signs Vital Signs Vital Signs: 02/09/23 13:27 02/09/23 13:27 Temperature 97.6 F L Temperature Source Temporal Pulse Rate 77 76 Pulse Rhythm Regular Pulse Strength Normal (2+) Respiratory Rate 18 16 Respiratory Effort Normal Respiratory Depth Normal Respiratory Pattern Normal Blood Pressure 164/87 H Blood Pressure Mean 112 Blood Pressure Source Monitor Blood Pressure Position Semi-Fowlers Blood Pressure Location Right Forearm Pulse Ox 94 Oxygen Delivery Method Room Air Weight Weight: 77.428 kg Body Mass Index (BMI) 32.2 Physical Exam Const alert General Appearance: cooperative HEENT normocephalic Eyes PERRL and EOMs intact bilaterally Neck supple, no JVD and no carotid bruits Resp normal respiratory effort, normal air movement and clear to auscultation bilaterally Cardio regular rate and regular rhythm GI normal to inspection, nondistended, normoactive bowel sounds, non-tender and non-distended Extremity normal capillary refill General Extremity: Negative for edema Skin no rashes or lesions noted General Skin Exam: no breakdown Psych affect normal Appearance: appropriate Assessment & Plan Assessment/Plan (1) Debility: (2) Back pain of thoracolumbar region: (3) Compression fracture of T10 vertebra: (4) Compression fracture of L2: (5) HTN (hypertension): (6) Hypokalemia: (7) hypothyroidism: PLAN: Plan 82 year old female with below past medical history hospitalized for intractable back pain secondary to T10, L2 compression fractures, complicated by constipation, admitted to TCU with debility, here for rehabilitation, strengthening, prior to discharge home alone. * Debility - PT/OT. * Pain - Tylenol 1000mg q8, Motrin 600mg q6h prn, Lidoderm patch td daily, Oxycontin 10mg bid, Oxycodone 5mg q4h prn pain (4-10). * Bowel - Dulcolax 5mg daily prn, senna/colace 2 tablets bid, Magnesium citrate 300ml daily prn. * Adult immunization - Administer pneumonia vaccine, covid19 vaccine, flu vaccine as appropriate. * DVT prophylaxis - [place]ch[place], Dr. Basali may performed procedure. * Hypertension - Losartan 100mg daily, HCTZ 25mg daily, Amlodipine 5mg daily. * Hypothyroidism - Levothyroxine 100mcg daily. * GERD - Pantoprazole 20mg daily. * Hypokalemia - KCL 10meq daily. * T10, L2 compression fracture - Consult Dr. Plata to consider kyphoplasty versus epidural steroid injection.
[2023-02-09] MEDS: Senna/Docusate Sodium 1 Tablet 2 TABLET PO (21:02)
[2023-02-10] MEDS: hydroCHLOROthiazide 25 MG Tablet PO (05:15)
[2023-02-10] MEDS: amLODIPine 5 MG Tablet PO (05:16)
[2023-02-10] MEDS: Levothyroxine 100 MCG Tablet PO (05:16)
[2023-02-10] MEDS: Losartan Potassium 100 MG Tablet PO (05:16)
[2023-02-10] MEDS: Acetaminophen 500 MG Tablet 1000 MG PO ×3 (05:19→20:10)
[2023-02-10] MEDS: oxyCODONE HCl Cr 10 MG Tablet PO ×2 (05:19→17:58)
[2023-02-10] MEDS: Lidocaine 5% Patch 1 PATCH TOPICAL (05:20)
[2023-02-10] MEDS: Pantoprazole Sodium 20 MG Tablet PO (05:20)
[2023-02-10] MEDS: Senna/Docusate Sodium 1 Tablet 2 TABLET PO ×2 (05:20→17:59)
[2023-02-10 05:50] LABS: Absolute Lymphocyte Count 1.31 X10^3/uL (0.83-4.51); Absolute Neutrophil Count 4.4 X10^3/uL (2.0-7.7); Basophil# 0.07 X10^3/uL; Eosinophils% 5.8 % (0-5); Hematocrit 44.8 % (37-47); Hemoglobin 13.7 g/dL (12.0-15.0); Lymphocyte # 1.31 X10^3/ul (0.83-4.51); Mean Corp Hgb Conc 30.6 g/dL (32-36); Mean Corpuscular Hgb 27.1 pg (27.0-32.0); Mean Corpuscular Volume 88.7 fL (81-99); Mean Platelet Vol. 10.2 fl (6.2-12.0); Monocyte# 0.66 X10^3/uL; Monocyte% 9.6 % (0-10); NRBC Flagged by Analyzer 0 % (0-5); Neutrophil # 4.42 X10^3/uL (2.7-7.7); Neutrophil % 64.2 % (47-70); Platelet Count 303 K/mm3 (150-450); RBC Distribution Width CV 14.1 % (11.6-14.6); RBC Distribution Width SD 45.7 fl (35.1-43.9); Red Blood Count 5.05 M/mm3 (4.2-5.4); White Blood Count 6.9 K/mm3 (4.4-11.0)
[2023-02-10 06:23] LABS: Anion Gap 4 (5-15); BUN 41 mg/dL (7-18); BUN/Creat Ratio 37.3 RATIO (10-20); Calcium,Total 8.3 mg/dL (8.5-10.1); Chloride 107 mmol/L (98-107); EST Glomerular Filtration Rate 50 mL/min (>60); Est Glom Filt Rate - Afr Amer 61 mL/min (>60); Estimated Creatinine Clearance 29.24 ml/min; Glucose 99 mg/dL (74-106); Potassium 3.8 mmol/L (3.5-5.1); Sodium Level 143 mmol/L (136-145)
[2023-02-10] MEDS: Potassium Chloride Oral Tablet 10 MEQ PO (08:00)
--- NOTE | 2023-02-10 08:42 | PCM.PN.DRR ---
TCU RX Drug Regimen Review Subjective/Objective Subjective/Objective: Subjective: 82 YOF admitted to TCU 02/09/23 S/P hospitalization for back surgery. Admitted to TCU for rehabilitation and strengthening prior to DC home where she resides alone. Objective: Allergies No Known Allergies Allergy (Verified 02/01/23 11:14) Current Medications Generic Name Dose Route Start Last Admin Trade Name Freq PRN Reason Stop Dose Admin Acetaminophen 1,000 mg 02/09/23 14:00 02/10/23 05:19 Acetaminophen 500 Mg Tablet PO 1,000 mg Q8 TUAN Administration Amlodipine Besylate 5 mg 02/10/23 06:00 02/10/23 05:16 Amlodipine 5 Mg Tablet PO 5 mg DAILY TUAN Administration Bisacodyl 5 mg 02/09/23 13:44 Bisacodyl 5 Mg Tablet PO DAILY PRN PRN Constipation Hydrochlorothiazide 25 mg 02/10/23 06:00 02/10/23 05:15 Hydrochlorothiazide 25 Mg Tablet PO 25 mg DAILY TUAN Administration Sodium Chloride 250 mls @ 15 mls/hr 02/09/23 22:09 IV .[id number] PRN Additional IVPB Infusion Sodium Chloride 250 mls @ 15 mls/hr 02/09/23 22:09 IV .[id number] PRN Saline Flush Ibuprofen 600 mg 02/09/23 13:44 Ibuprofen 600 Mg Tablet PO Q6H PRN PRN pain Levothyroxine Sodium 100 mcg 02/10/23 06:00 02/10/23 05:16 Levothyroxine 100 Mcg Tablet PO 100 mcg DAILY TUAN Administration Lidocaine 1 patch 02/10/23 06:00 02/10/23 05:20 Lidocaine 5% Patch TOPICAL 1 patch DAILY TUAN Administration Protocol Losartan Potassium 100 mg 02/10/23 06:00 02/10/23 05:16 Losartan Potassium 100 Mg Tablet PO 100 mg DAILY TUAN Administration Magnesium Citrate 300 ml 02/09/23 19:52 Magnesium Citrate 300 Ml PO DAILY PRN Constipation Oxycodone HCl 5 mg 02/09/23 13:44 02/09/23 15:29 Oxycodone 5 Mg Tablet PO 5 mg Q4H PRN PRN Administration Pain Score 4-10 Oxycodone HCl 10 mg 02/09/23 18:00 02/10/23 05:19 Oxycodone Hcl Cr 10 Mg Tablet PO 10 mg BID TUAN Administration Pantoprazole Sodium 20 mg 02/10/23 06:00 02/10/23 05:20 Pantoprazole Sodium 20 Mg Tablet PO 20 mg DAILY TUAN Administration Potassium Chloride 10 meq 02/10/23 08:00 02/10/23 08:00 Potassium Chloride Oral Tablet 10 Meq PO 10 meq 0800 TUAN Administration Senna/Docusate Sodium 2 tablet 02/09/23 20:00 02/10/23 05:20 Senna/Docusate Sodium 1 Tablet PO 2 tablet BID TUAN Administration Sodium Chloride 10 - 40 ml 02/09/23 22:09 0.9% Saline Lock 10 Ml Syringe IV UD PRN SALINE FLUSH Tuberculin PPD 0.1 ml 02/17/23 10:00 Tuberculin,Purif.Prot.Deriv. 50 Tu/Ml Vial ID 02/17/23 10:01 X1 ONE Tuberculin PPD 0.1 ml 02/10/23 10:00 Tuberculin,Purif.Prot.Deriv. 50 Tu/Ml Vial ID 02/10/23 10:01 X1 ONE Problem List (Updated 02/09/23 @ 19:[address] Ke Pereira MD) Compression fracture of L2 (Acute) Compression fracture of T10 vertebra (Acute) Hypokalemia (Acute) Debility (Acute) HTN (hypertension) (Chronic) hypothyroidism (Chronic) Back pain of thoracolumbar region (Acute) Vital Signs Temp Pulse Resp BP Pulse Ox O2 Del Method 97.6 F L 76 16 164/87 H 94 Room Air 02/09/23 13:27 02/09/23 13:27 02/09/23 13:27 02/09/23 13:27 02/09/23 13:27 02/09/23 13:27 Oxygen Delivery Method Room Air Weight: 77.428 kg Body Mass Index (BMI) 32.2 Sodium 143 mmol/L (136-145) 02/10/23 05:10 Potassium 3.8 mmol/L (3.5-5.1) 02/10/23 05:10 Chloride 107 mmol/L (98-107) 02/10/23 05:10 Carbon Dioxide 32.0 mmol/L (21.0-32.0) 02/10/23 05:10 Anion Gap 4 (5-15) L 02/10/23 05:10 BUN 41 mg/dL (7-18) H 02/10/23 05:10 Creatinine 1.10 mg/dL (0.55-1.02) H 02/10/23 05:10 Est GFR (MDRD) Af Amer 61 mL/min (>60) 02/10/23 05:10 Est GFR (MDRD) Non-Af 50 mL/min (>60) L 02/10/23 05:10 BUN/Creatinine Ratio 37.3 RATIO (10-20) H 02/10/23 05:10 Glucose 99 mg/dL (74-106) 02/10/23 05:10 Assessment/Plan: 1. Pain: Tylenol 1000mg PO Q8h, Oxycodone CR 10mg PO BID, Lidocaine Patch topically daily, Ibuprofen 600mg PO Q6h PRN pain, Oxycodone 5mg PO Q4h PRN Pain 4-10. Please continue to monitor for increased/decreased S/S pain, constipation, oversedation with narcotic usage, local site irritation with patch use. 2. Hypertension: Norvasc 5mg PO Daily, Hydrochlorothiazide 25mg PO Daily, Losartan 100mg PO Daily. Please continue to monitor BP (164/87), pulse (77 BPM), renal function, electrolytes (Done 02/10, WNL). 3. Hypothyroid: Synthroid 100mcg PO daily. Please continue to monitor thyroid function as clinically indicated. Please consider obtaining a TSH level, as one is not on file, thank you. 4. GERD: Protonix 20mg PO Daily. Please continue to monitor for S/S GERD exacerbation, abdominal pain, gas. Please also encourage non-pharmacologic interventions to help minimize flare-ups. 5. Hypokalemia: K-Dur 10mEq PO Daily. Please continue to monitor K levels (last 3.8 on 02/10), S/s nausea/stomach upset. 6. Bowel: Dulcolax 5mg PO Daily PRN, Senna/Docusate 2 tab PO BID, magnesium Citrate 300mL PO Daily PRN. Please continue to monitor for increased/decreased constipation and/or diarrhea. Assessment/Plan for indications treated with psychotropic medications: -The patient is not being maintained on any psychotropic medications at time of medication review. Medical chart and medication regimen reviewed. The following medication irregularities or issues were identified: 1. Synthroid: Patient being treated for hypothyroidism. Patient does not have a TSH on file, please consider obtaining one if clinically indicated, thank you. Date Date of Note:: 02/10/23
[2023-02-10 09:34] VITALS: BMI 32.2
[2023-02-10] MEDS: Tuberculin,Purif.prot.deriv. 50 TU/ML Vial 0.1 ML ID (10:33)
[2023-02-10 13:21] VITALS: BP 149/69; PULSE 64; RESP 16; TEMP 36; O2SAT 94
[2023-02-10] MEDS: oxyCODONE 5 MG Tablet PO (20:10)
[2023-02-11 05:33] LABS: Absolute Lymphocyte Count 1.31 X10^3/uL (0.83-4.51); Absolute Neutrophil Count 3.7 X10^3/uL (2.0-7.7); Basophil# 0.06 X10^3/uL; Eosinophil# 0.22 X10^3/uL; Eosinophils% 3.8 % (0-5); Hematocrit 43.4 % (37-47); Hemoglobin 13.8 g/dL (12.0-15.0); Lymphocyte # 1.31 X10^3/ul (0.83-4.51); Lymphocyte % 22.4 % (19-41); Mean Corp Hgb Conc 31.8 g/dL (32-36); Mean Corpuscular Hgb 27.4 pg (27.0-32.0); Mean Corpuscular Volume 86.3 fL (81-99); Mean Platelet Vol. 9.9 fl (6.2-12.0); Monocyte# 0.55 X10^3/uL; Monocyte% 9.4 % (0-10); NRBC Flagged by Analyzer 0 % (0-5); Neutrophil # 3.68 X10^3/uL (2.7-7.7); Neutrophil % 62.9 % (47-70); Platelet Count 297 K/mm3 (150-450); RBC Distribution Width CV 13.8 % (11.6-14.6); RBC Distribution Width SD 43.4 fl (35.1-43.9); Red Blood Count 5.03 M/mm3 (4.2-5.4); White Blood Count 5.9 K/mm3 (4.4-11.0)
[2023-02-11] MEDS: Senna/Docusate Sodium 1 Tablet 2 TABLET PO ×2 (05:43→17:25)
[2023-02-11] MEDS: Losartan Potassium 100 MG Tablet PO (05:43)
[2023-02-11] MEDS: Lidocaine 5% Patch 1 PATCH TOPICAL (05:43)
[2023-02-11] MEDS: Levothyroxine 100 MCG Tablet PO (05:44)
[2023-02-11] MEDS: Acetaminophen 500 MG Tablet 1000 MG PO ×3 (05:44→20:44)
[2023-02-11] MEDS: hydroCHLOROthiazide 25 MG Tablet PO (05:45)
[2023-02-11] MEDS: Pantoprazole Sodium 20 MG Tablet PO (05:45)
[2023-02-11] MEDS: amLODIPine 5 MG Tablet PO (05:45)
[2023-02-11] MEDS: oxyCODONE HCl Cr 10 MG Tablet PO ×2 (05:45→17:26)
[2023-02-11 06:04] LABS: Anion Gap 5 (5-15); BUN 35 mg/dL (7-18); Calcium,Total 8.3 mg/dL (8.5-10.1); Chloride 106 mmol/L (98-107); Creatinine, Serum 1.03 mg/dL (0.55-1.02); EST Glomerular Filtration Rate 54 mL/min (>60); Est Glom Filt Rate - Afr Amer 66 mL/min (>60); Estimated Creatinine Clearance 31.23 ml/min; Glucose 95 mg/dL (74-106); Potassium 3.4 mmol/L (3.5-5.1); Sodium Level 142 mmol/L (136-145)
[2023-02-11] MEDS: Potassium Chloride Oral Tablet 20 MEQ 40 MEQ PO (08:47)
[2023-02-11] MEDS: Potassium Chloride Oral Tablet 10 MEQ 20 MEQ PO (08:48)
[2023-02-11] MEDS: 0.9% Saline Lock 10 ML Syringe IV (08:53)
--- NOTE | 2023-02-11 11:33 | NURSING ---
Electrical Worker Note; Activity Asset: George Paul is independent in her choice of daily activities. Her daughter will bring her items she may need or want along w/ puzzle book and she has her own book to read. At this time she is not interested in group activities however welcome visits from the therapy dog and travelift operator. Staff will continue to remind her of daily activities and respect her right to say no.
--- NOTE | 2023-02-11 11:47 | CHAPLAIN ---
Type of Pastoral Visit ___ Initial Visit _x__ Follow-up Visit ___ On-call Visit ___ General Patient Visit ___ Spiritual Assessment ___ Family Conference ___ Bereavement ___ Rapid Response ___ Code Blue ___ Other (describe below) Pastoral Care Referral From _x__ Patient ___ Family ___ Nurse ___ Physician ___ Fruit I Farmworker ___ Data Scientist ___ Other (describe below) Sacrament/Intervention ___ Active listening ___ Anointing ___ Confucianism ___ Bereavement ___ Communion ___ Samantha exploration ___ ___ Life review _x__ Prayer ___ Reconciliation ___ Sacrament of Sick _x__ Supportive presence ___ Wedding ___ Other (describe below) Pastoral Comments patient was first met last week in [facility]; pt is resting in bed and admits that pain is still an issue for her; pt says that her only goal or need is to have pain relief; pt states that she has samantha in God to be her help; pt welcomes a prayer but indicates no other needs at this time
--- NOTE | 2023-02-11 13:02 | NS ---
Res with no food dislikes - states that she can't eat 'too much at one time. Given copy of daily specials/first choice menu w/ instructions on how to order. MST score - 2 d/t decreased appetite slimer.
--- NOTE | 2023-02-11 13:08 | NS ---
Res does not want cereal sent at dinner any more for evening snack and would like to continue van CIB w/ strawberry ice cream milkshake at meals.
[2023-02-11 14:40] VITALS: BP 122/52; PULSE 60; RESP 16; TEMP 36.4; O2SAT 95
[2023-02-12 05:41] LABS: Absolute Neutrophil Count 2.8 X10^3/uL (2.0-7.7); Basophil# 0.07 X10^3/uL; Basophil% 1.5 % (0-1); Eosinophils% 4.3 % (0-5); Hematocrit 44.4 % (37-47); Hemoglobin 14.2 g/dL (12.0-15.0); Lymphocyte % 23.5 % (19-41); Mean Corpuscular Hgb 27.8 pg (27.0-32.0); Mean Corpuscular Volume 86.9 fL (81-99); Mean Platelet Vol. 9.7 fl (6.2-12.0); Monocyte# 0.43 X10^3/uL; Monocyte% 9.2 % (0-10); NRBC Flagged by Analyzer 0 % (0-5); Neutrophil # 2.84 X10^3/uL (2.7-7.7); Neutrophil % 60.6 % (47-70); Platelet Count 299 K/mm3 (150-450); RBC Distribution Width CV 13.9 % (11.6-14.6); RBC Distribution Width SD 44.5 fl (35.1-43.9); Red Blood Count 5.11 M/mm3 (4.2-5.4); White Blood Count 4.7 K/mm3 (4.4-11.0)
[2023-02-12] MEDS: oxyCODONE HCl Cr 10 MG Tablet PO ×2 (05:54→17:48)
[2023-02-12] MEDS: Lidocaine 5% Patch 1 PATCH TOPICAL (05:54)
[2023-02-12] MEDS: Pantoprazole Sodium 20 MG Tablet PO (05:55)
[2023-02-12] MEDS: Levothyroxine 100 MCG Tablet PO (05:55)
[2023-02-12] MEDS: Senna/Docusate Sodium 1 Tablet 2 TABLET PO ×2 (05:55→17:48)
[2023-02-12] MEDS: hydroCHLOROthiazide 25 MG Tablet PO (05:55)
[2023-02-12] MEDS: Losartan Potassium 100 MG Tablet PO (05:55)
[2023-02-12] MEDS: amLODIPine 5 MG Tablet PO (05:55)
[2023-02-12] MEDS: Acetaminophen 500 MG Tablet 1000 MG PO ×3 (05:59→21:00)
[2023-02-12 06:36] LABS: Anion Gap 5 (5-15); BUN 26 mg/dL (7-18); BUN/Creat Ratio 29.7 RATIO (10-20); Calcium,Total 8.4 mg/dL (8.5-10.1); Chloride 105 mmol/L (98-107); Creatinine, Serum 0.87 mg/dL (0.55-1.02); EST Glomerular Filtration Rate 66 mL/min (>60); Est Glom Filt Rate - Afr Amer 79 mL/min (>60); Estimated Creatinine Clearance 36.97 ml/min; Glucose 95 mg/dL (74-106); Sodium Level 140 mmol/L (136-145)
[2023-02-12] MEDS: Potassium Chloride Oral Tablet 10 MEQ 20 MEQ PO (08:11)
--- NOTE | 2023-02-12 08:15 | NURSING ---
Pt states that she has an upset stomach. Offered crackers, sedrick walls, pt refused. Will continue to monitor
[2023-02-12] MEDS: oxyCODONE 5 MG Tablet PO ×2 (13:32→21:00)
[2023-02-12 14:35] VITALS: BP 128/50; PULSE 64; RESP 16; TEMP 36.3; O2SAT 96
[2023-02-12] MEDS: 0.9% Saline Lock 10 ML Syringe IV (20:58)
[2023-02-13 05:31] LABS: Absolute Lymphocyte Count 1.36 X10^3/uL (0.83-4.51); Absolute Neutrophil Count 3.7 X10^3/uL (2.0-7.7); Basophil# 0.08 X10^3/uL; Basophil% 1.3 % (0-1); Eosinophil# 0.25 X10^3/uL; Eosinophils% 4.2 % (0-5); Hematocrit 43.3 % (37-47); Hemoglobin 14.1 g/dL (12.0-15.0); Lymphocyte # 1.36 X10^3/ul (0.83-4.51); Lymphocyte % 22.6 % (19-41); Mean Corp Hgb Conc 32.6 g/dL (32-36); Mean Corpuscular Hgb 27.9 pg (27.0-32.0); Mean Corpuscular Volume 85.7 fL (81-99); Mean Platelet Vol. 9.9 fl (6.2-12.0); Monocyte# 0.61 X10^3/uL; Monocyte% 10.1 % (0-10); NRBC Flagged by Analyzer 0 % (0-5); Neutrophil # 3.66 X10^3/uL (2.7-7.7); Platelet Count 325 K/mm3 (150-450); RBC Distribution Width CV 13.9 % (11.6-14.6); RBC Distribution Width SD 43.3 fl (35.1-43.9); Red Blood Count 5.05 M/mm3 (4.2-5.4)
[2023-02-13 05:45] VITALS: BP 137/71; PULSE 62; RESP 16; TEMP 36.6; O2SAT 94
[2023-02-13] MEDS: Acetaminophen 500 MG Tablet 1000 MG PO ×3 (05:48→20:57)
[2023-02-13] MEDS: Senna/Docusate Sodium 1 Tablet 2 TABLET PO ×2 (05:48→17:34)
[2023-02-13] MEDS: hydroCHLOROthiazide 25 MG Tablet PO (05:49)
[2023-02-13] MEDS: oxyCODONE HCl Cr 10 MG Tablet PO ×2 (05:49→17:34)
[2023-02-13] MEDS: Losartan Potassium 100 MG Tablet PO (05:49)
[2023-02-13] MEDS: amLODIPine 5 MG Tablet PO (05:49)
[2023-02-13] MEDS: Lidocaine 5% Patch 1 PATCH TOPICAL (05:50)
[2023-02-13] MEDS: Levothyroxine 100 MCG Tablet PO (05:51)
[2023-02-13 06:00] LABS: Anion Gap 5 (5-15); BUN 23 mg/dL (7-18); BUN/Creat Ratio 24.5 RATIO (10-20); Calcium,Total 8.3 mg/dL (8.5-10.1); Chloride 106 mmol/L (98-107); Creatinine, Serum 0.94 mg/dL (0.55-1.02); EST Glomerular Filtration Rate 61 mL/min (>60); Est Glom Filt Rate - Afr Amer 73 mL/min (>60); Estimated Creatinine Clearance 34.22 ml/min; Glucose 95 mg/dL (74-106); Potassium 3.6 mmol/L (3.5-5.1); Sodium Level 139 mmol/L (136-145)
[2023-02-13] MEDS: Pantoprazole Sodium 20 MG Tablet PO (06:05)
[2023-02-13] MEDS: Potassium Chloride Oral Tablet 10 MEQ 20 MEQ PO (08:03)
[2023-02-13] MEDS: oxyCODONE 5 MG Tablet PO ×2 (08:03→14:13)
[2023-02-13] MEDS: 0.9% Saline Lock 10 ML Syringe IV (08:08)
[2023-02-13 09:06] VITALS: PULSE 83; RESP 19; O2SAT 97
[2023-02-13 13:47] VITALS: BP 112/65; PULSE 104; RESP 18; TEMP 36.1; O2SAT 94
--- NOTE | 2023-02-13 14:59 | CASEMGMT ---
Social Work BIMS (05/20) and PHQ-9 (05/01) completed for MDS assessment. SW explored positive responses. Pt expresses pain being a factor in all responses. D/t to reported month long hx of loss of appetite, some trouble sleeping and overall depressive symptoms, SW offered medication intervention. Pt agreeable. SW verbally notiifed and Dr ralf Almodovar. Gabrielle Llamas, MATERIAL CONTROL CLERK LABEL PASTER
[2023-02-13] MEDS: Mirtazapine 15 MG Tablet 7.5 MG PO (21:01)
[2023-02-14] MEDS: Senna/Docusate Sodium 1 Tablet 2 TABLET PO ×2 (06:37→17:56)
[2023-02-14] MEDS: Losartan Potassium 100 MG Tablet PO (06:37)
[2023-02-14] MEDS: oxyCODONE HCl Cr 10 MG Tablet PO ×2 (06:37→18:00)
[2023-02-14] MEDS: hydroCHLOROthiazide 25 MG Tablet PO (06:37)
[2023-02-14] MEDS: Acetaminophen 500 MG Tablet 1000 MG PO ×3 (06:37→20:20)
[2023-02-14] MEDS: amLODIPine 5 MG Tablet PO (06:37)
[2023-02-14] MEDS: Levothyroxine 100 MCG Tablet PO (06:38)
[2023-02-14] MEDS: Pantoprazole Sodium 20 MG Tablet PO (06:42)
[2023-02-14 08:13] LABS: Absolute Lymphocyte Count 1.32 X10^3/uL (0.83-4.51); Basophil# 0.07 X10^3/uL; Basophil% 1.1 % (0-1); Eosinophil# 0.29 X10^3/uL; Eosinophils% 4.5 % (0-5); Hematocrit 46.1 % (37-47); Hemoglobin 14.6 g/dL (12.0-15.0); Lymphocyte # 1.32 X10^3/ul (0.83-4.51); Lymphocyte % 20.6 % (19-41); Mean Corp Hgb Conc 31.7 g/dL (32-36); Mean Corpuscular Hgb 27.4 pg (27.0-32.0); Mean Corpuscular Volume 86.7 fL (81-99); Monocyte# 0.64 X10^3/uL; NRBC Flagged by Analyzer 0 % (0-5); Neutrophil # 4.02 X10^3/uL (2.7-7.7); Neutrophil % 62.7 % (47-70); Platelet Count 350 K/mm3 (150-450); RBC Distribution Width CV 14.2 % (11.6-14.6); Red Blood Count 5.32 M/mm3 (4.2-5.4); White Blood Count 6.4 K/mm3 (4.4-11.0)
[2023-02-14 08:32] LABS: Anion Gap 4 (5-15); BUN 23 mg/dL (7-18); BUN/Creat Ratio 21.7 RATIO (10-20); Calcium,Total 8.4 mg/dL (8.5-10.1); Chloride 104 mmol/L (98-107); Creatinine, Serum 1.06 mg/dL (0.55-1.02); EST Glomerular Filtration Rate 53 mL/min (>60); Est Glom Filt Rate - Afr Amer 64 mL/min (>60); Estimated Creatinine Clearance 30.34 ml/min; Glucose 94 mg/dL (74-106); Potassium 3.3 mmol/L (3.5-5.1); Sodium Level 138 mmol/L (136-145)
[2023-02-14] MEDS: Lidocaine 5% Patch 1 PATCH TOPICAL (09:13)
[2023-02-14] MEDS: oxyCODONE 5 MG Tablet PO (11:34)
[2023-02-14 14:36] VITALS: BP 103/58; PULSE 88; RESP 14; TEMP 36.8; O2SAT 93
[2023-02-14] MEDS: Potassium Chloride Oral Tablet 10 MEQ 20 MEQ PO (17:56)
[2023-02-14] MEDS: Mirtazapine 15 MG Tablet 7.5 MG PO (20:21)
[2023-02-15] MEDS: Lidocaine 5% Patch 1 PATCH TOPICAL (06:06)
[2023-02-15] MEDS: oxyCODONE HCl Cr 10 MG Tablet PO ×2 (06:06→17:56)
[2023-02-15] MEDS: Acetaminophen 500 MG Tablet 1000 MG PO ×3 (06:08→22:17)
[2023-02-15] MEDS: hydroCHLOROthiazide 25 MG Tablet PO (06:08)
[2023-02-15] MEDS: Pantoprazole Sodium 20 MG Tablet PO (06:09)
[2023-02-15] MEDS: Levothyroxine 100 MCG Tablet PO (06:09)
[2023-02-15] MEDS: Losartan Potassium 100 MG Tablet PO (06:09)
[2023-02-15] MEDS: Senna/Docusate Sodium 1 Tablet 2 TABLET PO ×2 (06:09→17:55)
[2023-02-15] MEDS: amLODIPine 5 MG Tablet PO (06:09)
[2023-02-15] MEDS: Potassium Chloride Oral Tablet 10 MEQ 20 MEQ PO ×2 (08:21→17:56)
[2023-02-15 16:00] VITALS: BP 120/65; PULSE 80; RESP 14; TEMP 36.3; O2SAT 95
[2023-02-15 22:00] VITALS: O2SAT 95
[2023-02-15] MEDS: Mirtazapine 15 MG Tablet 7.5 MG PO (22:17)
[2023-02-16] MEDS: oxyCODONE HCl Cr 10 MG Tablet PO ×2 (05:36→17:23)
[2023-02-16] MEDS: Lidocaine 5% Patch 1 PATCH TOPICAL (05:36)
[2023-02-16] MEDS: Acetaminophen 500 MG Tablet 1000 MG PO ×3 (05:36→21:40)
[2023-02-16] MEDS: Losartan Potassium 100 MG Tablet PO (05:37)
[2023-02-16] MEDS: amLODIPine 5 MG Tablet PO (05:37)
[2023-02-16] MEDS: Pantoprazole Sodium 20 MG Tablet PO (05:37)
[2023-02-16] MEDS: Senna/Docusate Sodium 1 Tablet 2 TABLET PO ×2 (05:37→17:24)
[2023-02-16] MEDS: hydroCHLOROthiazide 25 MG Tablet PO (05:37)
[2023-02-16] MEDS: Levothyroxine 100 MCG Tablet PO (05:37)
[2023-02-16 06:29] LABS: Anion Gap 5 (5-15); BUN 31 mg/dL (7-18); BUN/Creat Ratio 27.4 RATIO (10-20); Calcium,Total 8.2 mg/dL (8.5-10.1); Chloride 109 mmol/L (98-107); Creatinine, Serum 1.13 mg/dL (0.55-1.02); EST Glomerular Filtration Rate 49 mL/min (>60); Est Glom Filt Rate - Afr Amer 59 mL/min (>60); Estimated Creatinine Clearance 28.46 ml/min; Glucose 92 mg/dL (74-106); Potassium 3.7 mmol/L (3.5-5.1); Sodium Level 144 mmol/L (136-145)
[2023-02-16] MEDS: Potassium Chloride Oral Tablet 10 MEQ 20 MEQ PO ×2 (08:31→17:24)
--- NOTE | 2023-02-16 10:57 | NURSING ---
Regional Agronomist Note; MDS Complete
--- NOTE | 2023-02-16 11:31 | NURSING ---
Offered Covid vaccine, education about vaccine provided. Patient refuses at this time.
[2023-02-16 13:33] VITALS: BP 105/57; PULSE 87; RESP 14; TEMP 36.3; O2SAT 94
[2023-02-16 14:05] VITALS: PULSE 83; RESP 18; O2SAT 93
--- NOTE | 2023-02-16 14:15 | NURSING ---
PT STATED THAT HER DAUGHTER CALLED AND STATED THAT SHE CALLED OFFICE AND STATED THEY WERE LOOKING AT DOING A NERVE BLOCK SHOT. WAITING TO HERE FROM OFFICE. RN AWARE
[2023-02-16] MEDS: Mirtazapine 15 MG Tablet 7.5 MG PO (21:40)
[2023-02-17] MEDS: oxyCODONE HCl Cr 10 MG Tablet PO ×2 (05:42→17:38)
[2023-02-17] MEDS: Senna/Docusate Sodium 1 Tablet 2 TABLET PO ×2 (05:42→17:39)
[2023-02-17] MEDS: Losartan Potassium 100 MG Tablet PO (05:43)
[2023-02-17] MEDS: Acetaminophen 500 MG Tablet 1000 MG PO ×3 (05:43→20:47)
[2023-02-17] MEDS: amLODIPine 5 MG Tablet PO (05:43)
[2023-02-17] MEDS: Pantoprazole Sodium 20 MG Tablet PO (05:43)
[2023-02-17] MEDS: Levothyroxine 100 MCG Tablet PO (05:43)
[2023-02-17] MEDS: hydroCHLOROthiazide 25 MG Tablet PO (05:43)
[2023-02-17] MEDS: Lidocaine 5% Patch 1 PATCH TOPICAL (05:46)
[2023-02-17 05:54] VITALS: BP 141/71; PULSE 70; RESP 16; TEMP 36.7; O2SAT 96
[2023-02-17 09:00] VITALS: BMI 31.9
[2023-02-17] MEDS: Potassium Chloride Oral Tablet 10 MEQ 20 MEQ PO ×2 (09:01→17:39)
[2023-02-17] MEDS: Tuberculin,Purif.prot.deriv. 50 TU/ML Vial 0.1 ML ID (11:19)
--- NOTE | 2023-02-17 11:38 | NURSING ---
Spoke to Dr. Plata's office concerning Kyphoplasty. Per Nurse, kyphoplasty was denied and they have appealed it. Awaiting outcome. [employer] did approve an epidural injection. Nurse to find out if Dr. Plata will come to unit to do procedure or if procedure needs to be done in office. Will await for Nurse to return my call.
[2023-02-17 13:50] VITALS: BP 126/72; PULSE 87; RESP 16; TEMP 36.3; O2SAT 95
[2023-02-17] MEDS: Mirtazapine 15 MG Tablet 7.5 MG PO (20:47)
[2023-02-17 20:51] VITALS: RESP 16; O2SAT 94
[2023-02-17] MEDS: oxyCODONE 5 MG Tablet PO (20:57)
[2023-02-18] MEDS: Senna/Docusate Sodium 1 Tablet 2 TABLET PO ×2 (06:02→17:53)
[2023-02-18] MEDS: Pantoprazole Sodium 20 MG Tablet PO (06:03)
[2023-02-18] MEDS: amLODIPine 5 MG Tablet PO (06:03)
[2023-02-18] MEDS: Losartan Potassium 100 MG Tablet PO (06:03)
[2023-02-18] MEDS: Levothyroxine 100 MCG Tablet PO (06:03)
[2023-02-18] MEDS: oxyCODONE HCl Cr 10 MG Tablet PO ×2 (06:03→17:53)
[2023-02-18] MEDS: hydroCHLOROthiazide 25 MG Tablet PO (06:03)
[2023-02-18] MEDS: Acetaminophen 500 MG Tablet 1000 MG PO ×3 (06:03→21:41)
[2023-02-18] MEDS: Lidocaine 5% Patch 1 PATCH TOPICAL (06:04)
[2023-02-18] MEDS: Potassium Chloride Oral Tablet 10 MEQ 20 MEQ PO ×2 (08:21→17:53)
--- NOTE | 2023-02-18 09:18 | CASEMGMT ---
Social Work Plan of care meeting held with pt and 2 daughters Jessica and Laila attending. Therapy reviewed pt's progress with PT and OT and speech therapy is to evaluate for cognition. SW updated that NRD is 02/20 with expected discharge set by insurance of Wednesday 02/28. Pt feels she will be ready for discharge home alone at this time. SW discuss home health care option and will follow for needs. Pt states she does have a walker at home. SW discussed [employer] Well [employer] program for home delivered meals upon return home. Pt denies needs for this service. SW will continue to follow for discharge planning. JADEN Villalobos
[2023-02-18] MEDS: oxyCODONE 5 MG Tablet PO (10:54)
[2023-02-18 13:51] VITALS: BP 117/68; PULSE 80; RESP 18; TEMP 36.2; O2SAT 94
[2023-02-18] MEDS: Mirtazapine 15 MG Tablet 7.5 MG PO (21:41)
[2023-02-19] MEDS: Lidocaine 5% Patch 1 PATCH TOPICAL (05:39)
[2023-02-19] MEDS: oxyCODONE HCl Cr 10 MG Tablet PO ×2 (05:39→17:04)
[2023-02-19] MEDS: Senna/Docusate Sodium 1 Tablet 2 TABLET PO ×2 (05:39→17:06)
[2023-02-19] MEDS: Acetaminophen 500 MG Tablet 1000 MG PO ×3 (05:40→20:25)
[2023-02-19] MEDS: hydroCHLOROthiazide 25 MG Tablet PO (05:40)
[2023-02-19] MEDS: amLODIPine 5 MG Tablet PO (05:40)
[2023-02-19] MEDS: Pantoprazole Sodium 20 MG Tablet PO (05:40)
[2023-02-19] MEDS: Levothyroxine 100 MCG Tablet PO (05:40)
[2023-02-19] MEDS: Losartan Potassium 100 MG Tablet PO (05:45)
[2023-02-19] MEDS: Potassium Chloride Oral Tablet 10 MEQ 20 MEQ PO ×2 (08:52→17:05)
[2023-02-19] MEDS: SimETHICONE 80 MG Chewable Tablet PO ×3 (09:00→18:16)
--- NOTE | 2023-02-19 10:09 | NURSING ---
PT IS HAVING A EPIDURAL BLOCK TOMORROW 02/20/23 BY AROUND 1520. PT IS TO BE NPO AT MIDNIGHT BUT CAN HAVE CLEAR LIQUIDS TILL 10AM. MEDS PT CAN HAVE ARE TYLENOL,OXYCONTIN,COZAAR,NORVASC,PROTONIX AND SYNTHROID. RN AWARE
--- NOTE | 2023-02-19 11:22 | NURSING ---
Addendum entered by Stanley Landaverde 02/19/23 14:41: [facility] CALLED AND STATED THAT THEY WILL BE UP FOR PT AT 7:30AM FOR PT PROCIDURE WITH . THIS NURSE UPDATED PT AND CALLED PT DAUGHTER ANNY. DAUGHTER STATED SHE WOULD BE IN AT 7AM. RN AWARE. Original Note: ASKED PT IF SHE WOULD LIKE ME TO UPDATE HER FAMILY,PT STATED NO ZO GOING TO CALL MY DAUGHTER.
[2023-02-19 15:28] VITALS: BP 109/52; PULSE 70; RESP 14; TEMP 36.6; O2SAT 94
[2023-02-19] MEDS: Mirtazapine 15 MG Tablet 7.5 MG PO (20:25)
[2023-02-19 20:29] VITALS: O2SAT 95
[2023-02-20] MEDS: oxyCODONE HCl Cr 10 MG Tablet PO ×2 (05:18→17:31)
[2023-02-20] MEDS: Losartan Potassium 100 MG Tablet PO (05:19)
[2023-02-20] MEDS: Levothyroxine 100 MCG Tablet PO (05:19)
[2023-02-20] MEDS: Pantoprazole Sodium 20 MG Tablet PO (05:19)
[2023-02-20] MEDS: Acetaminophen 500 MG Tablet 1000 MG PO ×3 (05:19→20:12)
--- NOTE | 2023-02-20 07:26 | NURSING ---
Patient off floor for injection.
--- NOTE | 2023-02-20 07:55 | MDS.RN ---
Information for the mds was obtained from review of the clinical record, interview of resident, staff, and direct observation of resident's care.
[2023-02-20] MEDS: Potassium Chloride Oral Tablet 10 MEQ 20 MEQ PO ×2 (11:05→17:31)
[2023-02-20] MEDS: SimETHICONE 80 MG Chewable Tablet PO ×3 (11:05→17:31)
[2023-02-20 11:15] VITALS: BP 122/71; PULSE 61; RESP 16; TEMP 36.4; O2SAT 90
--- NOTE | 2023-02-20 12:32 | CASEMGMT ---
Social Work Insurance issued [employer] with last covered day 02/22 and discharge 02/23. Therapy recommending home health PT/OT. SW met with pt and updated. Pt feels she is ready to return home alone at this time and is agreeable to discharge date. Pt states her daughters will be taking turns staying with her. SW discussed continued therapy at dc and pt does not wish to have home health but would prefer out pt PT/OT at [facility]. Pt states transportation will not be a problem. Pt has needed DME. SW discussed home delivered meals and pt again declines. SW requested to call family to update and pt refuses stating she will call her daughter and let her know. SW left and re entered the room a short time later and pt states she called dgt and she is agreeable to dc plan and will transport home. Order to be faxed to [employer] when obtained. [facility] to call pt to schedule an appointment. Discharge Date: 02/23/23 Discharge Disposition: Home with outpatient PT/OT JADEN Schwartz
--- NOTE | 2023-02-20 13:50 | PCM.DC.SUM ---
Providers Date of Admission: 02/09/23 Primary Care Physician: Bushra Garcia NP-C Consultations 02/09/23 14:12 Consult: Pain Management Routine Consulting Provider: Aileen Plata Reason for Consult: Multiple compression fractures, MRI T spine done. EMERGENT Consult: No MD Notified: No Date Notified: 02/09/23 Time Notified: 14:12 Reason For Visit: BACK PAIN,DIBILTY Diagnosis Discharge Diagnosis (1) Debility: Status: Acute Code(s): R53.81 - Other malaise (2) Back pain of thoracolumbar region: Status: Acute Code(s): M54.5 - Low back pain (3) Compression fracture of T10 vertebra: Status: Acute Code(s): S22.070A - Wedge compression fracture of T9-T10 vertebra, initial encounter for closed fracture (4) Compression fracture of L2: Status: Acute Code(s): S32.020A - Wedge compression fracture of second lumbar vertebra, initial encounter for closed fracture (5) HTN (hypertension): Status: Chronic Code(s): I10 - Essential (primary) hypertension (6) Hypokalemia: Status: Resolved Code(s): E87.6 - Hypokalemia (7) hypothyroidism: Status: Chronic Plan 82 year old female with below past medical history hospitalized for intractable back pain secondary to T10, L2 compression fractures, complicated by constipation, admitted to TCU with debility, here for rehabilitation, strengthening, prior to discharge home alone. Debility - PT/OT. Pain - Tylenol 1000mg q8, Motrin 600mg q6h prn, Lidoderm patch td daily, Oxycontin 10mg bid, Oxycodone 5mg q4h prn pain (4-10). Bowel - Dulcolax 5mg daily prn, senna/colace 2 tablets bid, Magnesium citrate 300ml daily prn. Adult immunization - Administer pneumonia vaccine, covid19 vaccine, flu vaccine as appropriate. DVT prophylaxis - Dr. Sherlyn Arango may performed procedure. Hypertension - Losartan 100mg daily, HCTZ 25mg daily, Amlodipine 5mg daily. Hypothyroidism - Levothyroxine 100mcg daily. GERD - Pantoprazole 20mg daily. Hypokalemia - KCL 10meq daily. T10, L2 compression fracture - Consult Dr. Plata to consider kyphoplasty versus epidural steroid injection. Medications at Discharge Home Medications amlodipine 5 mg tablet 5 mg PO DAILY BP 05/21/18 levothyroxine 100 mcg tablet 100 mcg PO DAILY Thyroid 05/21/18 losartan 100 mg-hydrochlorothiazide 25 mg tablet 1 tab PO DAILY BP 05/21/18 omeprazole 20 mg capsule,delayed release 20 mg PO DAILY GERD 02/06/23 acetaminophen 500 mg tablet 1,000 mg (2 x 500 mg) PO Q8 #0 tabs 02/20/23 lidocaine 5 % topical patch 1 patch topical DAILY 30 days #30 ea 02/20/23 mirtazapine 15 mg tablet 7.5 mg (1/2 x 15 mg) PO QHS 30 days #15 tabs 02/20/23 oxycodone 10 mg tablet,crush resistant,extended release 12 hr (OxyContin) 10 mg PO BID 7 days #14 tabs 02/20/23 oxycodone 5 mg tablet 5 mg PO Q4H PRN PRN Pain Score 4-10 7 days #42 tabs 02/20/23 potassium chloride 10 mEq tablet,extended release(part/cryst) 20 meq (2 x 10 mEq) PO BIDCM 30 days #120 tabs 02/20/23 sennosides 8.6 mg-docusate sodium 50 mg tablet (Stool Softener-Stimulant Laxative) 2 tab PO BID 30 days #120 tabs 02/20/23 simethicone 80 mg chewable tablet 80 mg PO TIDPC 30 days #90 tabs 02/20/23 Hospital Course Operations None Procedures None Summary of Care Provided Minutes Spent on Discharge: 35 Hospital Course: 82 year old female with below past medical history hospitalized for intractable back pain secondary to T10, L2 compression fractures, complicated by constipation, admitted to TCU with debility, here for rehabilitation, strengthening, prior to discharge home alone. Discharge home alone, with 2 daughters' support 02/23/2023, outpatient [facility] PT/OT. Physical Exam Const alert General Appearance: cooperative HEENT normocephalic Eyes PERRL and EOMs intact bilaterally Neck supple, no JVD and no carotid bruits Resp normal respiratory effort, normal air movement and clear to auscultation bilaterally Cardio regular rate and regular rhythm GI normal to inspection, nondistended, normoactive bowel sounds, non-tender and non-distended Extremity normal capillary refill General Extremity: Negative for edema Skin no rashes or lesions noted General Skin Exam: no breakdown Psych affect normal Appearance: appropriate Weight / BMI Weight Weight: 76.714 kg Body Mass Index (BMI) 31.9 ABG / Lab / Microbiology Data 02/14/23 07:42 02/16/23 05:38 D/C Instructions Discharge Diet: No restrictions Discharge Activity: Return to Normal Activity, May Shower and Use Walker Weight Bearing Status: Weight bearing as tolerated Call your doctor if you observe: Fever of 101 or Higher, Inability to urinate, Inability to have a bowel movement, Shortness of breath, Dizziness, Fainting spells, Swelling in the ankles, Chest pain and Uncontrolled pain Additional Instructions: Discharge home alone, with 2 daughters' support 02/23/2023, outpatient [facility] PT/OT. Meaningful Use Info Meaningful Use Diagnoses (Choose all that apply): None applicable Discharge Plan Admission Admit Date/Time: 02/09/23 13:06 Primary Reason for Your Visit: Debility. Attending Provider: Ke Pereira Chi Primary Care Provider: Bushra Garcia Instructions Additional Instructions / Restrictions: Discharge home alone, with 2 daughters' support 02/23/2023, outpatient [facility] PT/OT. Discharge Orders/Prescriptions Prescriptions: New acetaminophen 500 mg Tablet 1,000 mg PO Q8 Qty: 0 0RF sennosides-docusate sodium [Stool Softener-Stimulant Laxat] 8.6-50 mg Tablet 2 tab PO BID 30 Days Qty: 120 0RF lidocaine 5 % Adhesive Patch,Medicated 1 patch topical DAILY 30 Days Qty: 30 0RF Protocol: *Topical Application Instructions APPLICATION INSTRUCTIONS: Apply to most painful area for up to 12 hrs. mirtazapine 15 mg Tablet 7.5 mg PO QHS 30 Days Qty: 15 0RF oxycodone 5 mg Tablet 5 mg PO Q4H PRN PRN (Reason: Pain Score 4-10) 7 Days Qty: 42 0RF potassium chloride 10 mEq Tablet,Er Particles/Crystals 20 meq PO BIDCM 30 Days Qty: 120 0RF oxycodone [OxyContin] 10 mg Tablet,Oral Only,Ext.Rel.12 Hr 10 mg PO BID 7 Days Qty: 14 0RF simethicone 80 mg Tablet,Chewable 80 mg PO TIDPC 30 Days Qty: 90 0RF Continued amlodipine 5 MG tablet 5 mg PO DAILY levothyroxine 100 MCG tablet 100 mcg PO DAILY losartan-hydrochlorothiazide 1 EACH tablet 1 tab PO DAILY omeprazole 20 mg capsule,delayed release(DR/EC) 20 mg PO DAILY Discontinued potassium chloride 10 MEQ tablet 10 meq PO DAILY ibuprofen 600 mg tablet 600 mg PO Q6H PRN PRN (Reason: pain) Qty: 20 0RF lidocaine [Lidoderm] 5 % adhesive patch,medicated 1 patch topical DAILY Qty: 15 0RF Rx Instructions: leave on most painful area for up to 12 hrs acetaminophen 500 mg Tablet 1,000 mg PO Q8 Qty: 0 0RF bisacodyl 5 mg Tablet,Delayed Release (Dr/Ec) 5 mg PO DAILY PRN PRN (Reason: Constipation) Qty: 0 0RF sennosides-docusate sodium [Stool Softener-Stimulant Laxat] 8.6-50 mg Tablet 2 tab PO BID PRN PRN (Reason: Constipation) Qty: 0 0RF oxycodone 5 mg Tablet 5 mg PO Q4H PRN PRN (Reason: Pain Score 4-10) 2 Days Qty: 8 0RF oxycodone [OxyContin] 10 mg Tablet,Oral Only,Ext.Rel.12 Hr 10 mg PO BID 2 Days Qty: 4 0RF Referrals / Follow Up: Bushra Garcia [facility] [Primary Care Provider] - Disposition Disposition (needs filled in before D/C Order can be placed): Home, Self Care
[2023-02-20 15:14] VITALS: BP 133/77; PULSE 91; RESP 16; TEMP 36.7; O2SAT 91
[2023-02-20] MEDS: Senna/Docusate Sodium 1 Tablet 2 TABLET PO (17:31)
[2023-02-20] MEDS: Mirtazapine 15 MG Tablet 7.5 MG PO (20:11)
[2023-02-21] MEDS: Lidocaine 5% Patch 1 PATCH TOPICAL (05:13)
[2023-02-21] MEDS: Senna/Docusate Sodium 1 Tablet 2 TABLET PO ×2 (05:13→17:33)
[2023-02-21] MEDS: oxyCODONE HCl Cr 10 MG Tablet PO ×2 (05:13→17:36)
[2023-02-21] MEDS: hydroCHLOROthiazide 25 MG Tablet PO (05:13)
[2023-02-21] MEDS: Pantoprazole Sodium 20 MG Tablet PO (05:13)
[2023-02-21] MEDS: amLODIPine 5 MG Tablet PO (05:13)
[2023-02-21] MEDS: Acetaminophen 500 MG Tablet 1000 MG PO ×3 (05:13→20:50)
[2023-02-21] MEDS: Losartan Potassium 100 MG Tablet PO (05:13)
[2023-02-21] MEDS: Levothyroxine 100 MCG Tablet PO (05:13)
[2023-02-21] MEDS: Potassium Chloride Oral Tablet 10 MEQ 20 MEQ PO ×2 (07:59→17:33)
[2023-02-21] MEDS: SimETHICONE 80 MG Chewable Tablet PO ×3 (08:00→17:33)
[2023-02-21 13:34] VITALS: BP 118/61; PULSE 63; RESP 16; TEMP 36.1; O2SAT 97
[2023-02-21] MEDS: Mirtazapine 15 MG Tablet 7.5 MG PO (20:52)
[2023-02-21 20:55] VITALS: PULSE 71; RESP 16; O2SAT 94
[2023-02-22] MEDS: amLODIPine 5 MG Tablet PO (05:51)
[2023-02-22] MEDS: hydroCHLOROthiazide 25 MG Tablet PO (05:51)
[2023-02-22] MEDS: Pantoprazole Sodium 20 MG Tablet PO (05:51)
[2023-02-22] MEDS: oxyCODONE HCl Cr 10 MG Tablet PO ×2 (05:51→17:19)
[2023-02-22] MEDS: Senna/Docusate Sodium 1 Tablet 2 TABLET PO ×2 (05:51→17:20)
[2023-02-22] MEDS: Losartan Potassium 100 MG Tablet PO (05:51)
[2023-02-22] MEDS: Acetaminophen 500 MG Tablet 1000 MG PO ×3 (05:51→20:17)
[2023-02-22] MEDS: Levothyroxine 100 MCG Tablet PO (05:51)
[2023-02-22] MEDS: Potassium Chloride Oral Tablet 10 MEQ 20 MEQ PO ×2 (08:30→17:20)
[2023-02-22] MEDS: SimETHICONE 80 MG Chewable Tablet PO ×3 (08:30→17:20)
[2023-02-22 14:43] VITALS: BP 120/64; PULSE 67; RESP 16; TEMP 36.8; O2SAT 69
[2023-02-22] MEDS: Mirtazapine 15 MG Tablet 7.5 MG PO (20:17)
[2023-02-22 20:22] VITALS: PULSE 72; RESP 18; O2SAT 93
[2023-02-23] MEDS: hydroCHLOROthiazide 25 MG Tablet PO (05:58)
[2023-02-23] MEDS: Pantoprazole Sodium 20 MG Tablet PO (05:58)
[2023-02-23] MEDS: Losartan Potassium 100 MG Tablet PO (05:58)
[2023-02-23] MEDS: Senna/Docusate Sodium 1 Tablet 2 TABLET PO (05:58)
[2023-02-23] MEDS: Acetaminophen 500 MG Tablet 1000 MG PO (05:58)
[2023-02-23] MEDS: Levothyroxine 100 MCG Tablet PO (05:58)
[2023-02-23] MEDS: amLODIPine 5 MG Tablet PO (05:58)
[2023-02-23] MEDS: SimETHICONE 80 MG Chewable Tablet PO (08:12)
[2023-02-23] MEDS: Potassium Chloride Oral Tablet 10 MEQ 20 MEQ PO (08:12)
[2023-02-23 08:48] VITALS: BP 150/74; PULSE 64; RESP 16; TEMP 36.8; O2SAT 94
[2023-02-23 08:49] VITALS: O2SAT 94
== END 2023-02-23 10:17 | disposition home or self-care (01) | DRG 561 ==
PROVIDERS: Admitting Provider Family Medicine Geriatric Medicine; PCP Nurse Practitioner Family; Visit Provider Family Medicine Geriatric Medicine
DX: M80.08XD Age-related osteoporosis with current pathological fracture, vertebra(e), subsequent encounter for fracture with routine healing (principal); E03.9 Hypothyroidism, unspecified; I10 Essential (primary) hypertension; F32.A Depression, unspecified; E87.6 Hypokalemia; K21.9 Gastro-esophageal reflux disease without esophagitis; Z79.891 Long term (current) use of opiate analgesic; Z79.899 Other long term (current) drug therapy; Z79.890 Hormone replacement therapy; G47.00 Insomnia, unspecified
CPT/HCPCS: 36415; 72020; 80048; 85025; 92507; 92523; 97110; 97116; 97162; 97166; 97530; 97535; A4216

== ENCOUNTER 2023-02-20 07:28 | Day surgery (SDC) | payer MEDICARE, SELFPAY ==
[2023-02-20] VITALS (7 sets, daily range): BP systolic 112–155; BP diastolic 58–77; PULSE 61–68; RESP 16–18; TEMP 36.7–37.6; O2SAT 92–93; BMI 31.7
--- NOTE | 2023-02-20 08:00 | RAD_ITS ---
STUDY: TRANSFORAMINAL EPIDURAL INJECTION THORACIC. REASON FOR EXAM: Female, 82 years old. THORACIC EPIDURAL FLUOROSCOPY TIME (if supplied): ( 10 seconds ) minutes/seconds. 5.72 mGy TECHNIQUE: Fluoroscopic services provided for intraoperative T11-T12 epidural injection. COMPARISON: None. FINDINGS: Fluoroscopic services provided for intraoperative T11-T12 epidural injection. RAD/Spine 1 View Any Level IMPRESSION: Fluoroscopic services provided for intraoperative T11-T12 epidural injection. Electronically Signed: Seth Hahn MD at 11:08 EDT ,
[2023-02-20] MEDS: Lactated Ringers 1,000 ML 15 ML IV (08:06)
[2023-02-20] MEDS: Lidocaine 0.5% (50 ml) 50 ML Vial (09:34)
[2023-02-20] MEDS: Triamcinolone Acetonide 40 MG/ML Vial (09:34)
== END 2023-02-20 10:30 | disposition home or self-care (01) ==
LOC: SDC 07:30 → AC 07:30
PROVIDERS: PCP Nurse Practitioner Family; Referring Provider Anesthesiology Pain Medicine; Visit Provider Anesthesiology Pain Medicine
PROC: 3E0S3BZ Introduction of Anesthetic Agent into Epidural Space, Percutaneous Approach (ICD-10-PCS; CPT 64479; principal; 2023-02-20 08:55)
DX: S22.070A Wedge compression fracture of T9-T10 vertebra, initial encounter for closed fracture (principal); S32.020A Wedge compression fracture of second lumbar vertebra, initial encounter for closed fracture; M80.08XA Age-related osteoporosis with current pathological fracture, vertebra(e), initial encounter for fracture; R53.81 Other malaise; I10 Essential (primary) hypertension; E87.6 Hypokalemia; E03.9 Hypothyroidism, unspecified; K21.9 Gastro-esophageal reflux disease without esophagitis; K59.00 Constipation, unspecified; M54.14 Radiculopathy, thoracic region
CPT/HCPCS: 64479; J3490; 64490; 72020; J7120; J2405

== ENCOUNTER → 2023-03-03 | Outpatient (CLI) | payer MEDICARE, SELFPAY ==
--- NOTE | 2023-03-03 15:05 | CT_ITS ---
EXAM: CT ANGIOGRAPHY CHEST WITHOUT AND WITH INTRAVENOUS CONTRAST CLINICAL INDICATION: Elevated d-dimer, rule out PE TECHNIQUE: Helically acquired angiography images were obtained of the chest without and with intravenous contrast. This CT exam was performed using one or more of the following dose reduction techniques: automated exposure control, adjustment of the mA and/or kV according to patient size, and/or use of iterative reconstruction technique. MIP reconstructed images were created and reviewed. CONTRAST: IV 100mL Isovue-370 COMPARISON: Chest radiograph 03/03/2023, CTA Chest dated 03/06/2014 FINDINGS: PULMONARY ARTERIES: Normal. Normal in caliber. No evidence of pulmonary embolism. AORTA: Normal. Normal in caliber. No evidence of dissection. GREAT VESSELS OF AORTIC ARCH: Normal. Normal in caliber. No evidence of dissection. LUNGS AND PLEURAL SPACES: Pleural parenchymal scarring along the minor fissure again seen. No airspace opacification of the lungs. No mass. HEART: Normal. Heart size is normal. No pericardial effusion. No significant coronary artery calcifications. MEDIASTINUM: Normal. No mediastinal or hilar adenopathy. Esophagus is unremarkable. No hiatal hernia. BONES/JOINTS: Chronic compression deformity of the T7 vertebral body. The subacute compression deformity of T10 and chronic fracture deformity of T12 unchanged from prior MRI of the thoracic spine dated 02/06/2023. LIVER: Concentrically calcified liver lesion is unchanged suggestive of a cyst. CT/CTA Chest W/WO Contrast IMPRESSION: 1. No evidence of acute pulmonary embolism. 2. No acute cardiopulmonary abnormality. 3. As above. Electronically Signed: Mo Whitman MD at 16:15 EDT ,
== END | disposition home or self-care (01) ==
LOC: CT 15:01
PROVIDERS: PCP Nurse Practitioner Family; Referring Provider Nurse Practitioner Family; Visit Provider Nurse Practitioner Family
DX: R79.89 Other specified abnormal findings of blood chemistry (principal)
CPT/HCPCS: 71275; Q9967

== ENCOUNTER → 2023-03-03 | Outpatient (CLI) | payer MEDICARE, SELFPAY ==
[2023-03-03 12:26] LABS: BNP,B-Type NATRIURETIC PEPTIDE 28.2 pg/mL (0-100)
[2023-03-03 12:30] LABS: Anion Gap 8 (5-15); BUN 23 mg/dL (7-18); BUN/Creat Ratio 23.7 RATIO (10-20); Calcium,Total 8.7 mg/dL (8.5-10.1); Chloride 107 mmol/L (98-107); Creatinine, Serum 0.97 mg/dL (0.55-1.02); EST Glomerular Filtration Rate 58 mL/min (>60); Est Glom Filt Rate - Afr Amer 71 mL/min (>60); Glucose 101 mg/dL (74-106); Sodium Level 141 mmol/L (136-145); Troponin-I HS 5 pg/mL (3.0-54.0)
[2023-03-03 12:37] LABS: D-Dimer Quantitative (DVT/PE) 2.12 FEU/ug/m (0.27-0.49)
== END | disposition home or self-care (01) ==
LOC: LABSPEC 12:00
PROVIDERS: PCP Nurse Practitioner Family; Referring Provider Nurse Practitioner Family; Visit Provider Nurse Practitioner Family
DX: R07.9 Chest pain, unspecified (principal)
CPT/HCPCS: 80048; 83880; 84484; 85379

== ENCOUNTER 2023-03-13 09:08 | Observation (INO) | payer MEDICARE, SELFPAY ==
[2023-03-13] VITALS (10 sets, daily range): BP systolic 128–148; BP diastolic 63–86; PULSE 56–92; RESP 14–19; TEMP 36.3–36.8; O2SAT 93–95; BMI 34.3; BMI 31.2
--- NOTE | 2023-03-13 09:50 | ED.VIS.CHEST ---
HPI History of Present Illness Chief Complaint: Chest Pain Informant: patient Onset/Context/Timing Onset: Yesterday Activity at onset: gradual Timing: Continuous Quality: Positive for Pressure Location: Substernal Worsened By: Nothing Relieved By: Nothing Associated Symptoms: Positive for Nausea, Dyspnea, Lightheadedness and Acid Reflux; Negative for Vomiting, Diaphoresis, Cough, Fever or Palpitations Narrative Narrative: Patient presents with chest pain that began yesterday evening. Patient states it came on gradually. Patient states it starts in the lower sternal area and then radiated up into the upper substernal area. Patient describes it as a pressure. Patient states nothing makes it better nothing makes it worse. Patient started to have some nausea while she was being transported by EMS. Patient does admit to some shortness of breath and lightheadedness. Patient states she has a history of esophageal reflux and has been having some reflux symptoms today. CVD Risk Factors: Positive for Hypertension; Negative for Diabetes, Hypercholesterolemia, Family History 1' </=55 or Smoking PE Risk Factors: Positive for Cancer; Negative for Recent Travel/Surgery, Recent Immobilization, Prior DVT or PE or OCP + Smoking + >/=35 PFSH PFSH Medical History Anterior epistaxis Arthritis Cancer Cardiology follow-up encounter Cholecystectomy planned Diverticulosis History of IBS History of thyroid cancer HTN (hypertension) Non-smoker Rhinorrhea Thyroid disease Wears glasses Wears partial dentures Home Medications amlodipine 5 mg tablet 5 mg PO DAILY BP 05/21/18 [History Last Taken 02/20/23] levothyroxine 100 mcg tablet 100 mcg PO DAILY Thyroid 05/21/18 [History Last Taken 02/09/23 06:00] losartan 100 mg-hydrochlorothiazide 25 mg tablet 1 tab PO DAILY BP 05/21/18 [History Last Taken 02/20/23] omeprazole 20 mg capsule,delayed release 20 mg PO DAILY GERD 02/06/23 [History Last Taken 02/20/23] mirtazapine 15 mg tablet 7.5 mg (1/2 x 15 mg) PO QHS 30 days #15 tabs 02/20/23 [Rx Last Taken Unknown] oxycodone 5 mg tablet 5 mg PO Q4H PRN PRN Pain Score 4-10 7 days #42 tabs 02/20/23 [Rx Last Taken Unknown] sennosides 8.6 mg-docusate sodium 50 mg tablet (Stool Softener-Stimulant Laxative) 2 tab PO BID 30 days #120 tabs 02/20/23 [Rx Last Taken Unknown] simethicone 80 mg chewable tablet 80 mg PO TIDPC 30 days #90 tabs 02/20/23 [Rx Last Taken Unknown] acetaminophen 500 mg tablet 1,000 mg PO Q8 PRN fever or pain 03/13/23 [History Last Taken Unknown] potassium chloride 10 mEq tablet,extended release(part/cryst) 20 meq PO DAILY 03/13/23 [History Last Taken Unknown] Allergy/AdvReac Type Severity Reaction Status Date / Time No Known Allergies Allergy Verified 02/20/23 07:49 Surgical History History of cataract extraction with lens replacement History of hysterectomy History of thyroidectomy Social History household members: none Smoking Status: Never smoker alcohol intake: never substance use type: does not use ROS ROS ED Constitutional Constitutional ED: Denies chills or fever(s) Eyes Eyes: Denies blurry vision or change in vision ENT ENT ED: Denies rhinorrhea or sore throat Cardiovascular Cardiovascular: Reports chest pain; Denies palpitations Respiratory/Chest Respiratory/Chest: Reports dyspnea; Denies cough Gastrointestinal Gastrointestinal: Reports nausea; Denies abdominal pain or vomiting Genitourinary Genitourinary ED: Denies dysuria or hematuria Musculoskeletal Musculoskeletal: Reports back pain; Denies neck pain Integumentary Denies abscess or rash Neurologic Neurologic: Denies headache(s) or weakness Allergic/Immunologic Allergic/Immunologic ED: Denies mouth swelling or urticaria EXAM Physical Exam Const Vital Signs: 03/13/23 09:09 03/13/23 09:12 03/13/23 09:13 Temperature 97.3 F L Temperature Source Temporal Pulse Rate 92 Respiratory Rate 14 19 H Blood Pressure 148/86 H Blood Pressure Mean 106 Pulse Ox 94 Oxygen Delivery Method 03/13/23 10:12 03/13/23 11:39 Temperature Temperature Source Pulse Rate 74 62 Respiratory Rate 18 16 Blood Pressure 146/72 H 131/85 H Blood Pressure Mean 96 100 Pulse Ox 93 95 Oxygen Delivery Method Room Air Room Air Positive well nourished and well developed General Appearance ED: well developed and NAD HEENT normocephalic and atraumatic Eyes PERRL and EOMs intact bilaterally Neck supple and no JVD Chest Wall inspection of chest normal and palpation of chest normal Resp normal respiratory effort and clear to auscultation bilaterally Effort and Inspection: Negative for respiratory distress Cardio regular rate and regular rhythm GI normal to inspection, nondistended, normoactive bowel sounds, soft to palpation, non-tender and non-distended Extremity normal to inspection General Extremety ED: Negative for edema or tenderness General Extremity: Negative for edema Neuro oriented x3, CN's II-XII intact bilaterally and no sensory deficits noted Sensorium / Orientation: awake and alert Motor Exam: strength 5/5 throughout Psych mental status grossly normal Heart Score History: Moderately Suspicious ECG: Nonspecific Repolarization Age: >/= 65 years Risk Factors: 1 or 2 Risk Factors Troponin: </= Normal Limit Score: 5 MDM MDM MDM Narrative Medical decision making narrative: Differential diagnosis includes cardiac dysrhythmia, cardiac ischemia, pulmonary embolism, bronchitis, pneumonia, gastroesophageal reflux disease, pancreatitis, and anxiety. EKG will be obtained to assess for cardiac dysrhythmia and cardiac ischemia. Chest x-ray will be obtained to assess for pneumonia and congestive heart failure. CBC will be obtained to assess for leukocytosis and anemia. Comprehensive metabolic profile will be obtained to assess for electrolyte abnormality, hepatic function, and renal function. D-dimer will be obtained to assess for pulmonary embolism. High-sensitivity troponin will be obtained to assess for cardiac ischemia. 2-hour repeat high-sensitivity troponin will be obtained to assess for ongoing cardiac ischemia. Lipase will be obtained to assess for pancreatitis. Lab Data Attestation: I reviewed the patient's lab results. Lab results narrative: See received with reviewed and was within normal limits. Comprehensive metabolic profile was reviewed. Potassium was low at 2.8. The remainder is within normal limits. Lipase was reviewed and was normal at 32. High-sensitivity troponin was reviewed and was normal at 7. D-dimer was reviewed and was elevated at 1.29. Labs: Laboratory Results - last 24 hr 03/13/23 10:10 WBC 6.1 RBC 4.71 Hgb 13.7 Hct 40.1 MCV 85.1 MCH 29.1 MCHC 34.2 RDW Std Deviation 46.2 H RDW Coeff of Barbara 14.7 H Plt Count 250 MPV 9.2 Immature Gran % (Auto) 0.300 Neut % (Auto) 82.3 H Lymph % (Auto) 9.2 L Crosby % (Auto) 6.4 Eos % (Auto) 1.0 Baso % (Auto) 0.8 Absolute Neuts (auto) 5.0 Absolute Lymphs (auto) 0.56 L Nucleated RBC % 0 D-Dimer Quant (PE/DVT) 1.29 H* Sodium 140 Potassium 2.8 L Chloride 107 Carbon Dioxide 27.0 Anion Gap 6 BUN 16 Creatinine 1.00 Estim Creat Clear Calc 32.17 Est GFR (MDRD) Af Amer 68 Est GFR (MDRD) Non-Af 56 L BUN/Creatinine Ratio 16.0 Glucose 107 H Calcium 8.2 L Total Bilirubin 0.80 AST 16 ALT 21 Alkaline Phosphatase 90 Troponin I High Sens 7 Total Protein 6.5 Albumin 3.1 L Globulin 3.4 Albumin/Globulin Ratio 0.9 Lipase 32 Radiography Chest X-Ray - ED: 1 View, Read by ED Physician, Read by Radiologist and No Acute Disease CTA PE Study: No Evidence of PE and No Evidence of Dissection Diagnostic Testing: Clinical Impression(s) from Imaging Studies Chest X-Ray 03/13/23 10:03 IMPRESSION: Stable examination. No acute abnormality is seen. Electronically Signed: Seth Hahn MD at 10:42 EDT , Chest CTA 03/13/23 10:35 IMPRESSION: No evidence of portal embolism. Stable 1.8 cm x 1.2 cm nodular density in the right middle lobe. Correlation with a PET scan is recommended for further evaluation. Electronically Signed: Seth Hahn MD at 11:27 EDT , Portable 1 view chest x-ray was obtained. On my independent interpretation, lung hoffman are clear. There is normal cardiac silhouette. Bony thorax is normal. There is no acute process noted. Radiologist also interpreted the x-ray and agrees. Because of the elevated D-dimer, CTA of the chest was obtained. There is no evidence of pulmonary embolism or aortic dissection. This was interpreted by the radiologist and was also independently reviewed by myself. EKG Initial EKG: Attestation: I personally reviewed and interpreted this EKG as follows: Interpretation: Sinus Rhythm (With first-degree AV block rate of 92), LAFB and Non-Specific ST Changes Comments: EKG was obtained. On my independent interpretation, there is a sinus rhythm with first-degree AV block with a rate of 92. IN interval was prolonged at 224 ms. QRS interval was normal at 96 ms. QTc interval was normal at 467 ms. There is left axis deviation at -45. There is a left anterior fascicular block. There is left ventricular hypertrophy with nonspecific ST-T wave changes noted. Prior EKG tracings: available for review Prior: Unchanged (05/20/2014) Management Discussion w/another healthcare provider: Hospitalist (Dr. Pearson) Treatment and Re-Evaluation :: Patient was given aspirin. Patient was given a dose of potassium here. Patient has a HEART score of 5. Because of this, I recommended admission to the hospital. Patient has not had a stress test recently. Case was discussed with the hospitalist. He will admit the patient to his service. Patient understood and was agreeable with the plan. All questions were answered. Discharge Plan Dx/Rx/DC Orders Clinical Impression: Chest pain, Dyspnea on exertion, HTN (hypertension) Disposition Disposition: Acute Care Hospital [facility]
--- NOTE | 2023-03-13 10:03 | EKG12_ITS ---
Test Reason : CHEST HEAVY Blood Pressure : / mmHG Vent. Rate : 092 BPM Atrial Rate : 092 BPM P-R Int : 224 ms QRS Dur : 096 ms QT Int : 378 ms P-R-T Axes : 051 -45 079 degrees QTc Int : 467 ms Sinus rhythm with 1st degree A-V block Left anterior fascicular block Left ventricular hypertrophy with repolarization abnormality ( R in aVL , Brandan product ) Abnormal ECG Confirmed by NIRALI NEWTON MD ([id number]), manager editorial KISHAN HUGHES ([id number]) on 03/19/2023 2:15:06 PM Referred By: SANTA/ROBERTO Confirmed By:NIRALI NEWTON MD
--- NOTE | 2023-03-13 10:03 | RAD_ITS ---
STUDY: X-RAY CHEST REASON FOR EXAM: Female, 82 years old. Chest pain TECHNIQUE: Single AP portable view of the chest. COMPARISON: Comparison is made with prior study March 03, 2023. FINDINGS: EKG electrodes are seen. Stable elevation of the right hemidiaphragm. Stable partially calcified density in the medial aspect of the right lung base suggestive of scarring. Stable linear scarring in the right upper lobe. There is no demonstrated pleural abnormality. Normal size heart. Normal mediastinum and edgardo. Normal visualized pulmonary arteries. There is atherosclerotic tortuosity of the aortic arch and descending thoracic aorta. There is demineralization of the osseous structures. Normal visualized ribs, clavicles, and shoulders. There is no demonstrated abnormality of the visualized soft tissue structures of the upper abdomen. RAD/Chest 1 View (Portable) IMPRESSION: Stable examination. No acute abnormality is seen. Electronically Signed: Seth Hahn MD at 10:42 EDT ,
[2023-03-13] MEDS: Aspirin 81 MG TAB.CHEW 324 MG PO (10:09)
[2023-03-13 10:18] LABS: Absolute Lymphocyte Count 0.56 X10^3/uL (0.83-4.51); Basophil# 0.05 X10^3/uL; Basophil% 0.8 % (0-1); Eosinophil# 0.06 X10^3/uL; Hematocrit 40.1 % (37-47); Hemoglobin 13.7 g/dL (12.0-15.0); Lymphocyte # 0.56 X10^3/ul (0.83-4.51); Lymphocyte % 9.2 % (19-41); Mean Corp Hgb Conc 34.2 g/dL (32-36); Mean Corpuscular Hgb 29.1 pg (27.0-32.0); Mean Corpuscular Volume 85.1 fL (81-99); Mean Platelet Vol. 9.2 fl (6.2-12.0); Monocyte# 0.39 X10^3/uL; Monocyte% 6.4 % (0-10); NRBC Flagged by Analyzer 0 % (0-5); Neutrophil # 5.01 X10^3/uL (2.7-7.7); Neutrophil % 82.3 % (47-70); POSITIVE DIFFERENTIAL YES; Platelet Count 250 K/mm3 (150-450); RBC Distribution Width CV 14.7 % (11.6-14.6); RBC Distribution Width SD 46.2 fl (35.1-43.9); Red Blood Count 4.71 M/mm3 (4.2-5.4); White Blood Count 6.1 K/mm3 (4.4-11.0)
[2023-03-13 10:21] LABS: Differential Indicated SCAN CRITERIA MET
[2023-03-13 10:32] LABS: D-Dimer Quantitative (DVT/PE) 1.29 FEU/ug/m (0.27-0.49)
--- NOTE | 2023-03-13 10:32 | ED.RN ---
D-DIMER 1.29. DR CARRASCO
--- NOTE | 2023-03-13 10:35 | CT_ITS ---
STUDY: CTA CHEST REASON FOR EXAM: Female, 82 years old. Elevated D-dimer. Chest pressure. RADIATION DOSAGE (If Supplied By Facility): CTDIvol = ( 10.96 ) mGy, DLP = ( 371.01 ) mGycm TECHNIQUE: The examination was performed with the intravenous administration of IV 75mL Isovue-370. Post-processing of the angiographic images was performed, with multiplanar reformation and 3D reconstruction. Individualized dose optimization techniques were used for this CT. COMPARISON: Comparison made with prior study dated March 03, 2023. FINDINGS: Normal enhancement of the main pulmonary artery and right and left pulmonary arteries. Normal enhancement of the bilateral peripheral pulmonary arteries. There is no demonstrated pulmonary embolism. There is atherosclerotic calcification of the aortic arch with tortuosity. There is no demonstrated aortic dissection. There are calcifications of the coronary arteries. Normal mediastinum. Normal hilar regions. Normal visualized trachea and bronchi. The lungs are well expanded. Stable 1.8 cm x 1.2 cm nodular density in the right middle lobe. Mild scarring in the right minor fissure. Normal pleura. Normal chest wall structures. There are degenerative changes of thoracic spine. Stable compression of the T7, T10 and T12 vertebrae. There is an 8.7 cm x 0.8 cm cyst in the upper pole of the right kidney. 1.4 Orville''s cyst in the medial upper pole of the left kidney. The patient is status post cholecystectomy. Small hiatal hernia. CT/CTA Chest W/WO Contrast IMPRESSION: No evidence of portal embolism. Stable 1.8 cm x 1.2 cm nodular density in the right middle lobe. Correlation with a PET scan is recommended for further evaluation. Electronically Signed: Seth Hahn MD at 11:27 EDT ,
[2023-03-13 10:41] LABS: ALB/GLOB Ratio 0.9 RATIO (0.9-2.4); AST(SGOT) 16 U/L (15-37); Alanine Aminotransfer ALT/SGPT 21 U/L (13-56); Albumin, Serum 3.1 g/dL (3.2-5.0); Alkaline Phosphatase 90 U/L (45-117); Anion Gap 6 (5-15); BUN 16 mg/dL (7-18); Calcium,Total 8.2 mg/dL (8.5-10.1); Chloride 107 mmol/L (98-107); EST Glomerular Filtration Rate 56 mL/min (>60); Est Glom Filt Rate - Afr Amer 68 mL/min (>60); Estimated Creatinine Clearance 32.17 ml/min; Globulin 3.4 g/dL (2.2-4.2); Glucose 107 mg/dL (74-106); Lipase 32 U/L (13-75); Potassium 2.8 mmol/L (3.5-5.1); Protein, Total 6.5 g/dL (6.4-8.2); Sodium Level 140 mmol/L (136-145); Troponin-I HS (w/2H Reflex) 7 pg/mL (3.0-54.0)
[2023-03-13] MEDS: Potassium Chloride Oral Tablet 20 MEQ 40 MEQ PO (10:58)
--- NOTE | 2023-03-13 11:45 | HP.PCM.HOS_ITS ---
HPI - General General Date of Admission: 03/13/23 Date of Service: 03/13/23 Chief Complaint: Chest pain, ACS rule out HPI Narrative BARBIE PURVIS, is a 82 F with history of thyroid cancer s/p thyroidectomy, hypertension, chronic back pain and arthritis who presented to [facility] ED on 03/13/2023 with chest pain. Patient seen at bedside, daughter present. Patient laying comfortably in bed, conversing normally, no acute dis tress. Satting well on room air, no increased work of breathing noted. Patient states that she has mild continued chest pain in the midsternal area at this time. She states that she initially had an episode of chest pain at rest about 1 week ago. Described the pain as an epigastric pain that radiated up into the center part of her chest. She then had another episode last night, but this episode did not resolve as the prior episode did. She denies any chest pain or dyspnea on exertion. Has been taking her home medications as prescribed. She continues to have some low back pain after her recent hospitalization for a T10 compression fracture, for which she received an epidural steroid injection with pain medicine prior to discharge home. Reports mild lower left-sided back pain in the paraspinal muscular area, which has been ongoing for some time. She currently denies any fevers or chills. Denies any vision changes. Denies any lightheadedness or dizziness. No other acute concerns. Vitals on admit notable for mild hypertension with systolic BP 130s to 140s, otherwise heart rate 70s (sinus rhythm), afebrile and satting well on room air. Labs notable for hypokalemia with potassium of 2.8, otherwise unremarkable. EKG showed sinus rhythm with rate of 92, first-degree AV block, left anterior fascicular block, LVH, nonspecific ST?T wave changes noted. No previous EKGs available for review. Troponin negative. CTA chest with no evidence of PE, no other abnormalities. [facility] Medical History Anterior epistaxis Arthritis Cancer Cardiology follow-up encounter Cholecystectomy planned Diverticulosis History of IBS History of thyroid cancer HTN (hypertension) Non-smoker Rhinorrhea Thyroid disease Wears glasses Wears partial dentures Home Medications amlodipine 5 mg tablet 5 mg PO DAILY BP 05/21/18 [History Last Taken 02/20/23] levothyroxine 100 mcg tablet 100 mcg PO DAILY Thyroid 05/21/18 [History Last Taken 02/09/23 06:00] losartan 100 mg-hydrochlorothiazide 25 mg tablet 1 tab PO DAILY BP 05/21/18 [History Last Taken 02/20/23] omeprazole 20 mg capsule,delayed release 20 mg PO DAILY GERD 02/06/23 [History Last Taken 02/20/23] mirtazapine 15 mg tablet 7.5 mg (1/2 x 15 mg) PO QHS 30 days #15 tabs 02/20/23 [Rx Last Taken Unknown] oxycodone 5 mg tablet 5 mg PO Q4H PRN PRN Pain Score 4-10 7 days #42 tabs [Rx Last Taken Unknown] sennosides 8.6 mg-docusate sodium 50 mg tablet (Stool Softener-Stimulant Laxative) 2 tab PO BID 30 days #120 tabs 02/20/23 [Rx Last Taken Unknown] simethicone 80 mg chewable tablet 80 mg PO TIDPC 30 days #90 tabs 02/20/23 [Rx Last Taken Unknown] acetaminophen 500 mg tablet 1,000 mg PO Q8 PRN fever or pain 03/13/23 [History Last Taken Unknown] potassium chloride 10 mEq tablet,extended release(part/cryst) 20 meq PO DAILY 03/13/23 [History Last Taken Unknown] Allergy/AdvReac Type Severity Reaction Status Date / Time No Known Allergies Allergy Verified 02/20/23 07:49 Surgical History History of cataract extraction with lens replacement History of hysterectomy History of thyroidectomy Social History household members: none Smoking Status: Never smoker alcohol intake: never substance use type: does not use ROS Constitutional Constitutional: Denies chills, fatigue, fever(s) or weakness Eyes Eyes: Denies change in vision Cardiovascular Cardiovascular: Reports chest pain; Denies dyspnea on exertion, edema, lightheadedness, orthopnea, rapid heart rate or syncope Respiratory/Chest Respiratory/Chest: Denies cough Gastrointestinal Gastrointestinal: Denies abdominal pain, constipation, diarrhea, nausea or vomiting Genitourinary Genitourinary: Denies dysuria Musculoskeletal Musculoskeletal: Reports back pain; Denies arthralgias or myalgias Vital Signs Vital Signs Vital Signs: 03/13/23 09:09 03/13/23 09:12 03/13/23 09:13 Temperature 97.3 F L Temperature Source Temporal Pulse Rate 92 Respiratory Rate 14 19 H Blood Pressure 148/86 H Blood Pressure Mean 106 Pulse Ox 94 Oxygen Delivery Method 03/13/23 10:12 03/13/23 11:39 Temperature Temperature Source Pulse Rate 74 62 Respiratory Rate 18 16 Blood Pressure 146/72 H 131/85 H Blood Pressure Mean 96 100 Pulse Ox 93 95 Oxygen Delivery Method Room Air Room Air Weight Weight: 82.4 kg Body Mass Index (BMI) 34.3 Physical Exam Const alert, oriented x3, no apparent distress, healthy appearing and well nourished Constitutional Narrative: Elderly female, obese, laying comfortably in bed, conversing normally, no acute distress. General Appearance: cooperative and comfortable HEENT normocephalic, head/scalp atraumatic, hearing grossly normal bilaterally, nasal mucous membranes and turbinates normal and moist oral mucous membranes Eyes PERRL, EOMs intact bilaterally and conjunctivae normal Neck full ROM, no lymphadenopathy and supple Lymph Lymphatic: no lymphadenopathy noted Chest inspection of chest normal Chest Narrative: No tenderness to palpation. Resp normal respiratory effort, normal air movement, no use of accessory muscles and clear to auscultation bilaterally Resp Narrative: Satting well on room air, no increased work of breathing noted. Cardio regular rate, regular rhythm, no murmurs and peripheral pulses 2+ throughout GI normal to inspection, nondistended, normoactive bowel sounds, soft to palpation, non-tender and non-distended Back/Spine normal ROM Extremity normal to inspection, full ROM and no pedal edema Skin no rashes or lesions noted Psych mental status grossly normal Results Lab / Micro Data 03/13/23 10:10 03/13/23 10:10 Labs: Laboratory Results - last 24 hr 03/13/23 10:10: WBC 6.1, RBC 4.71, Hgb 13.7, Hct 40.1, MCV 85.1, MCH 29.1, MCHC 34.2, RDW Std Deviation 46.2 H, RDW Coeff of Barbara 14.7 H, Plt Count 250, MPV 9.2, Immature Gran % (Auto) 0.300, Neut % (Auto) 82.3 H, Lymph % (Auto) 9.2 L, Geary % (Auto) 6.4, Eos % (Auto) 1.0, Baso % (Auto) 0.8, Absolute Neuts (auto) 5.0, Absolute Lymphs (auto) 0.56 L, Nucleated RBC % 0, D-Dimer Quant (PE/DVT) 1.29 H* , Sodium 140, Potassium 2.8 L, Chloride 107, Carbon Dioxide 27.0, Anion Gap 6, BUN 16, Creatinine 1.00, Estim Creat Clear Calc 32.17, Est GFR (MDRD) Af Amer 68, Est GFR (MDRD) Non-Af 56 L, BUN/Creatinine Ratio 16.0, Glucose 107 H, Calcium 8.2 L, Total Bilirubin 0.80, AST 16, ALT 21, Alkaline Phosphatase 90, Troponin I High Sens 7, Total Protein 6.5, Albumin 3.1 L, Globulin 3.4, Albumin/Globulin Ratio 0.9, Lipase 32 Radiology Impression Chest X-Ray 03/13/23 10:03 IMPRESSION: Stable examination. No acute abnormality is seen. Electronically Signed: Seth Hahn MD at 10:42 EDT , Chest CTA 03/13/23 10:35 IMPRESSION: No evidence of portal embolism. Stable 1.8 cm x 1.2 cm nodular density in the right middle lobe. Correlation with a PET scan is recommended for further evaluation. Electronically Signed: Seth Hahn MD at 11:27 EDT , Assessment & Plan Assessment/Plan (1) Chest pain: PLAN: Plan Patient is an 82-year-old female with history of thyroid cancer s/p thyroidectomy, hypertension, chronic back pain and arthritis who presented to [facility] ED on 03/13/2023 with chest pain. 1. Chest pain, ACS rule out Heart score of 5 in the ED (moderately suspicious history, age greater than 65, 1 or 2 risk factors). EKG showed sinus rhythm with rate of 92, first-degree AV block, left anterior fascicular block, LVH, nonspecific ST?T wave changes noted. No previous EKGs available for review. Troponin negative. CTA chest with no evidence of PE, no other abnormalities. ? Admit under observation to cardiac telemetry bed in PCU. Stress test ordered. Aspirin initiated. Lipid profile, hemoglobin A1c, TSH ordered. Monitor telemetry. TTE ordered. 2. Chronic back pain With recent admission at [facility] from 02/06 through 02/09. Had known history of vertebral compression fractures, presented with an acute T10 compression fracture (pathologic fracture and osteoporosis). MRI notably did not demonstrate any spinal cord impingement. Pain management followed, discharged to the TCU and had thoracic epidural steroid injection done by Dr. Plata prior to discharge home on 02/20. ?Continue home pain management medications. Chest pain above notably is different per patient than her recent back pain. She does continue to have lower left-sided back pain and paraspinal musculature area. Monitor, outpatient follow-up. 3. Hypokalemia ? Potassium 2.8 on admission. Unclear etiology. 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 Continue home supplement, replete as needed for goal potassium greater than 3.5. Mag ordered. Chronic medical conditions: ? Hypertension: Continue home amlodipine, losartan?hydrochlorothiazide. ? Hypothyroidism: History of thyroid cancer s/p thyroidectomy. Continue home levothyroxine. DVT prophylaxis: Lovenox CODE STATUS: Full code, unverified Expected disposition: Home, 1 to 2 days Total clinical time spent by myself addressing the patient's medical issues, reviewing all the data, and collaborating with patient's care team: 55 minutes. Charges/Coding Visit Charges Inpatient E&M: 29927 Init Hosp L2
--- NOTE | 2023-03-13 11:47 | NURSING ---
DR JEFFERS FOR DR MCNEILL
[2023-03-13 12:15] LABS: Reflex Troponin-HS? (from REC) Y
--- NOTE | 2023-03-13 12:42 | ECHOD_ITS ---
Reason For Study: Chest Pain Procedure This was a 2D Doppler, Color Flow transthoracic echocardiogram. Exam performed portable in patient room. Left Ventricle Normal left ventricle. The estimated ejection fraction is 55-60 %. Right Ventricle Normal right ventricle. Normal systolic function. Atria Normal left atrium. Normal right atrium. Mitral Valve The mitral valve is structurally normal. No prolapse or stenosis seen. Trivial mitral valve insufficiency. Tricuspid Valve Normal tricuspid valve. Mild tricuspid valve insufficiency. Aortic Valve The aortic valve is not well visualized in the short axis view. Pulmonic Valve The pulmonic valve is not well visualized. Great Vessels The aortic root is not well visualized. Pericardium/Pleural No pericardial effusion. MMode/2D Measurements & Calculations LVIDd: 4.3 cm IVSd: 1.0 cm Ao root diam: 3.7 cm LVIDs: 3.0 cm LVPWd: 1.1 cm RVDd: 2.4 cm FS: 31.0 % LAV(MOD-bp): 27.2 ml LVAd ap4: 17.8 cm2 SV(MOD-sp4): 24.1 ml LAV(MOD-bp) Indexed: 15.0 ml/m2 LVLd ap4: 6.8 cm LAV(MOD-sp2): 32.4 ml EDV(MOD-sp4): 39.1 ml LAV(MOD-sp4): 21.8 ml EDV(sp4-el): 39.8 ml LVAs ap4: 9.4 cm2 LVLs ap4: 5.1 cm ESV(MOD-sp4): 15.1 ml ESV(sp4-el): 14.6 ml EF(MOD-sp4): 61.5 % EF(sp4-el): 63.2 % SV(sp4-el): 25.1 ml LA A4 area: 10.6 cm2 LA dimension(2D): 3.7 cm RA A4 area: 8.2 cm2 Time Measurements MV dec time: 0.37 sec Doppler Measurements & Calculations MV E max jovani: 57.9 cm/sec Lat Peak E' Jovani: 7.3 cm/sec Med Peak E' Jovani: 5.1 cm/sec MV A max jovani: 75.3 cm/sec E/E' lat: 7.9 E/E' med: 11.4 MV E/A: 0.77 Ao V2 max: 107.6 cm/sec LV V1 max: 96.6 cm/sec MV dec slope: 157.4 cm/sec2 Ao max P.6 mmHg LV V1 max P.7 mmHg Ao V2 mean: 78.5 cm/sec Ao mean P.7 mmHg Ao V2 VTI: 23.6 cm PA V2 max: 106.0 cm/sec TR max jovani: 224.8 cm/sec TR max P.2 mmHg ECHO/Echo Complete Interpretation Summary The estimated ejection fraction is 55-60 %. LV systolic function is normal No prior echo to compare Ordering Physician: Selvin Pearson Referring Physician: Bushra Garcia Performed By: Syl Perez, GREGORY, RVT
[2023-03-13 13:03] LABS: Thyroid Stim Hormone (TSH) 5.37 uIU/mL (0.358-3.74)
[2023-03-13 13:10] LABS: Troponin-I HS 9 pg/mL (3.0-54.0)
[2023-03-13 13:26] LABS: Hemoglobin A1c 5.6 % (3.8-5.6)
[2023-03-13 15:12] LABS: Cholesterol 204 mg/dL (200); High Density Lipoprotein 53 mg/dL; Magnesium 2.2 mg/dL (1.6-2.6); Triglycerides 126 mg/dL; Very Low Density Lipoprotein 25 mg/dL (5-40)
[2023-03-13] MEDS: SimETHICONE 80 MG Chewable Tablet PO ×2 (15:34→18:29)
[2023-03-13 16:31] LABS: Troponin-I HS 9 pg/mL (3.0-54.0)
[2023-03-13] MEDS: Mirtazapine 15 MG Tablet 7.5 MG PO (22:09)
[2023-03-13] MEDS: Senna/Docusate Sodium 1 Tablet 2 TABLET PO (22:09)
[2023-03-14 03:47] VITALS: BP 128/73; PULSE 63; RESP 18; TEMP 36.6; O2SAT 94
[2023-03-14 05:40] LABS: Anion Gap 5 (5-15); BUN 16 mg/dL (7-18); BUN/Creat Ratio 20.6 RATIO (10-20); Chloride 109 mmol/L (98-107); Creatinine, Serum 0.78 mg/dL (0.55-1.02); EST Glomerular Filtration Rate 75 mL/min (>60); Est Glom Filt Rate - Afr Amer 91 mL/min (>60); Estimated Creatinine Clearance 32.17 ml/min; Glucose 97 mg/dL (74-106); Sodium Level 142 mmol/L (136-145)
[2023-03-14 06:21] VITALS: BP 148/78; PULSE 66; RESP 18; TEMP 36.4; O2SAT 95
[2023-03-14] MEDS: Losartan Potassium 100 MG Tablet PO (06:23)
[2023-03-14] MEDS: Levothyroxine 100 MCG Tablet PO (06:23)
[2023-03-14] MEDS: 0.9% Saline Lock 10 ML Syringe IV ×2 (06:24→09:33)
[2023-03-14 09:17] VITALS: BP 137/64; PULSE 71; RESP 18; TEMP 36.3; O2SAT 97
--- NOTE | 2023-03-14 09:22 | CASEMGMT ---
Social Work SW performed chart review; HCPOA and LW on file as of 2022. Patient's identified HCPOA is patient's daughter, Jessica and alternate is patient's daughter, Chelsea. No special instructions on either document. Julia Mendez MSW, ILYA
[2023-03-14] MEDS: Ondansetron 4 MG/2 ML Vial IV (09:33)
[2023-03-14] MEDS: hydroCHLOROthiazide 25 MG Tablet PO (10:07)
[2023-03-14] MEDS: amLODIPine 5 MG Tablet PO (10:07)
[2023-03-14] MEDS: Potassium Chloride Oral Tablet 20 MEQ PO (10:07)
[2023-03-14] MEDS: SimETHICONE 80 MG Chewable Tablet PO (10:07)
[2023-03-14] MEDS: Potassium Chloride Oral Tablet 10 MEQ 20 MEQ PO (10:07)
[2023-03-14] MEDS: Senna/Docusate Sodium 1 Tablet 2 TABLET PO (10:08)
[2023-03-14] MEDS: Pantoprazole Sodium 20 MG Tablet PO (10:08)
--- NOTE | 2023-03-14 10:43 | STRESSREP_ITS ---
Stress Test Report Pharmacologic/Lexiscan myocardial perfusion stress test. Indication; 82-year-old female who had symptoms of chest pain with negative cardiac work-up. Including series of cardiac biomarkers. Chest hypokalemia No prior cardiac history reported. History of hypertension, hypothyroidism Currently on levothyroxine amlodipine and losartan as well she had low potassium level 3.0 currently on potassium replacement. Stress protocol: Resting EKG demonstrates. Normal sinus rhythm. With nonspecific ST-T changes in the inferior lead 0.4 mg of regadenoson was infused per usual protocol followed by rapid intravenous saline flush injection continuous EKG monitoring was performed. The maximum heart rate attained was 111 bpm which was 81% of maximum predicted heart . Stress EKG showed[, no significant change from the resting EKG, with maximum heart rate of 111 bpm. Arrhythmia: No arrhythmia demonstrated Symptoms: She describes tightness in the chest midsternal region 1 out of 10 at the end of the stress test with Lexiscan symptoms of chest pain resolved. Blood pressure at rest: 158/88 mmHg blood pressure at the end of stress: 164/84 mmHg Myocardial perfusion protocol. 11 mCi ]of Technetium 99m Sestamibi was injected at rest. [ 0.4 mg ]of Regadenoson was infused per usual protocol peak infusion 36 mCi ]of Technetium 99m sestamibi was injected. Stress images were obtained stress and rest images were reconstructed and compared in the short axis vertical and horizontal long axis. Gated images were also obtained Perfusion SPECT analysis: Review of the images demonstrate normal uptake of sestamibi at rest, post stress images demonstrate similar uptake of sestamibi to the resting images, homogeneous tracer uptake With no evidence of reversible myocardial ischemia. Reduced tracer uptake in the inferior myocardium at rest and with stress images, consistent with attenuation artifact Gated SPECT analysis: The gated ejection fraction is 82%. LV wall motion showed hyperdynamic left ventricle. Conclusion: Negative Lexiscan sestamibi myocardial perfusion study for reversible myocardial ischemia Hyperdynamic left ventricle. Inferior attenuation artifact. Patient had symptoms of chest tightness 1 out of 10 which resolved with completion of stress And at recovery recommendation; Correlate with the clinical presentation. Fadi Waller MD,FACC,[facility]
--- NOTE | 2023-03-14 11:00 | CASEMGMT ---
RN RADHA NOTE: Intro role of CM to patient and BLAS form explained re: Observation status for treatment of chest pain.? Explained hospitalization will be paid per?her insurance policy for Outpatient billing?and condition will continue to be evaluated for Inpt necessity. Also let pt know that [facility] sends paper in the billing packet with their phone number if questions arise. Discussed Pharmacy section of BLAS form and self administered medication guideline.? Pt verbalizes understanding and does not have further questions. ?Form signed, copy made and placed in chart, and original given to pt. Yony FRIEDMANN RN CM
--- NOTE | 2023-03-14 12:11 | DCINST_ITS ---
Discharge Instructions Diet Discharge Diet: No restrictions Activity Discharge Activity: Return to Normal Activity Weight Bearing Status: Full weight bearing Follow Up Care Please Follow Up With: Bushra Garcia NP-C When: As needed Test Results: Test results from this visit will be discussed in further detail at your follow- up appointment, if applicable. Pending Tests Upon Discharge: None Discharge Plan Admission Admit Date/Time: 03/13/23 11:55 Primary Reason for Your Visit: Chest pain, ACS rule out Attending Provider: Selvin Pearson Primary Care Provider: Bushra Garcia Instructions Additional Instructions / Restrictions: Continue all home medications as you have been taking. Follow-up with your primary care doctor this Thursday as previously scheduled. Discharge Orders/Prescriptions Prescriptions: Continued amlodipine 5 MG tablet 5 mg PO DAILY levothyroxine 100 MCG tablet 100 mcg PO DAILY losartan-hydrochlorothiazide 1 EACH tablet 1 tab PO DAILY sennosides-docusate sodium [Stool Softener-Stimulant Laxat] 8.6-50 mg Tablet 2 tab PO BID 30 Days Qty: 120 0RF mirtazapine 15 mg Tablet 7.5 mg PO QHS 30 Days Qty: 15 0RF oxycodone 5 mg Tablet 5 mg PO Q4H PRN PRN (Reason: Pain Score 4-10) 7 Days Qty: 42 0RF simethicone 80 mg Tablet,Chewable 80 mg PO TIDPC 30 Days Qty: 90 0RF acetaminophen 500 mg Tablet 1,000 mg PO Q8 PRN (Reason: fever or pain) potassium chloride 10 mEq Tablet,Er Particles/Crystals 20 meq PO DAILY omeprazole 20 mg capsule,delayed release(DR/EC) 20 mg PO DAILY Referrals / Follow Up: Bushra Garcia NP-C [Primary Care Provider] - Disposition Disposition (needs filled in before D/C Order can be placed): Home, Self Care
--- NOTE | 2023-03-14 12:13 | PCM.DC.SUM ---
Providers Date of Admission: 03/13/23 Date of Discharge: 03/14/23 Primary Care Physician: BECKY OrtizC Reason For Visit: CHEST PAIN, ACS RULE OUT Diagnosis Discharge Diagnosis (1) Chest pain: Status: Acute Code(s): R07.9 - Chest pain, unspecified Medications at Discharge Home Medications amlodipine 5 mg tablet 5 mg PO DAILY BP 05/21/18 levothyroxine 100 mcg tablet 100 mcg PO DAILY Thyroid 05/21/18 losartan 100 mg-hydrochlorothiazide 25 mg tablet 1 tab PO DAILY BP 05/21/18 omeprazole 20 mg capsule,delayed release 20 mg PO DAILY GERD 02/06/23 mirtazapine 15 mg tablet 7.5 mg (1/2 x 15 mg) PO QHS 30 days #15 tabs 02/20/23 oxycodone 5 mg tablet 5 mg PO Q4H PRN PRN Pain Score 4-10 7 days #42 tabs 02/20/23 sennosides 8.6 mg-docusate sodium 50 mg tablet (Stool Softener-Stimulant Laxative) 2 tab PO BID 30 days #120 tabs 02/20/23 simethicone 80 mg chewable tablet 80 mg PO TIDPC 30 days #90 tabs 02/20/23 acetaminophen 500 mg tablet 1,000 mg PO Q8 PRN fever or pain 03/13/23 potassium chloride 10 mEq tablet,extended release(part/cryst) 20 meq PO DAILY 03/13/23 Hospital Course Operations None Procedures EKG, Stress test, Transthoracic echo and - (Chest x-ray, chest CTA) Summary of Care Provided Minutes Spent on Discharge: 38 Hospital Course: Patient is an 82-year-old female with history of thyroid cancer s/p thyroidectomy, hypertension, chronic back pain and arthritis who presented to [facility] ED on 03/13/2023 with chest pain. Short hospital course as noted below. Chest pain, ACS ruled out: Patient reported mild midsternal chest pain on admission. Reported intermittent episodes of this chest pain over the week prior to admission. Chest pain started at rest, did not worsen with exertion, did not radiate anywhere. Heart score of 5 in the ED (moderately suspicious history, age greater than 65, 1 or 2 risk factors). EKG showed sinus rhythm with rate of 92, first-degree AV block, left anterior fascicular block, LVH, nonspecific ST?T wave changes noted. No previous EKGs available for review. Troponin negative. CTA chest with no evidence of PE, no other abnormalities. Lexiscan myocardial stress test was negative for reversible myocardial ischemia, showed appropriate response of LV function. TTE showed EF 55 to 60%, normal LV systolic function, no other abnormalities. Lab work-up was fairly benign. Lipase was normal. Patient continued to have mild intermittent pain after all testing was complete. Suspected that she may have either musculoskeletal chest pain versus referred pain from her known chronic back pain as noted below. No medication changes made. Discharged home in stable condition. Chronic back pain: With recent admission at [facility] from 02/06 through 02/09. Had known history of vertebral compression fractures, presented with an acute T10 compression fracture (pathologic fracture and osteoporosis). MRI notably did not demonstrate any spinal cord impingement. Pain management followed, discharged to the TCU and had thoracic epidural steroid injection done by Dr. Plata prior to discharge home on 02/20. Patient stated that she had had some improvement of her back pain for the 2 weeks since discharge. Reported mild central low back pain on admit, as well as mild left paraspinal pain. No radiation of her pain down her legs. No bowel or bladder dysfunction. Continue home pain regimen on discharge. Discharge diagnoses: ? Chest pain, ACS ruled out ? Chronic back pain ? Hypokalemia, resolved ? Hypertension ? Hypothyroidism Total clinical time spent by myself addressing the patient's discharge needs: 38 minutes. Physical Exam Const alert, oriented x3, no apparent distress, healthy appearing and well nourished Constitutional Narrative: Elderly female, obese, laying comfortably in bed, conversing normally, no acute distress. General Appearance: cooperative and comfortable HEENT normocephalic, head/scalp atraumatic, hearing grossly normal bilaterally, nasal mucous membranes and turbinates normal and moist oral mucous membranes Eyes PERRL, EOMs intact bilaterally and conjunctivae normal Neck full ROM, no lymphadenopathy and supple Lymph Lymphatic: no lymphadenopathy noted Chest inspection of chest normal Chest Narrative: No tenderness to palpation. Resp normal respiratory effort, normal air movement, no use of accessory muscles and clear to auscultation bilaterally Resp Narrative: Satting well on room air, no increased work of breathing noted. Cardio regular rate, regular rhythm, no murmurs and peripheral pulses 2+ throughout GI normal to inspection, nondistended, normoactive bowel sounds, soft to palpation, non-tender and non-distended Back/Spine normal ROM Extremity normal to inspection, full ROM and no pedal edema Skin no rashes or lesions noted Psych mental status grossly normal Weight / BMI Weight Weight: 75.1 kg Body Mass Index (BMI) 31.2 ABG / Lab / Microbiology Data 03/13/23 10:10 03/14/23 05:20 Laboratory: Laboratory Results - last 24 hr 03/13/23 10:10: Hemoglobin A1c 5.6, TSH 5.37 H 03/13/23 12:35: Magnesium 2.2, Troponin I High Sens 9, Triglycerides 126, Cholesterol 204 H, LDL Cholesterol 126, VLDL Cholesterol 25, HDL Cholesterol 53 03/13/23 15:31: Troponin I High Sens 9 03/14/23 05:20: Sodium 142, Potassium 3.0 L, Chloride 109 H, Carbon Dioxide 28.0, Anion Gap 5, BUN 16, Creatinine 0.78, Estim Creat Clear Calc 32.17, Est GFR (MDRD) Af Amer 91, Est GFR (MDRD) Non-Af 75, BUN/Creatinine Ratio 20.6 H, Glucose 97, Calcium 8.0 L Radiography Diagnostic Testing: Radiology Impression Echocardiogram 03/13/23 12:42 Interpretation Summary The estimated ejection fraction is 55-60 %. LV systolic function is normal No prior echo to compare Ordering Physician: Selvin Pearson Referring Physician: Bushra Garcia Performed By: Syl Perez, GREGORY, RVT D/C Instructions Discharge Diet: No restrictions Weight Bearing Status: Full weight bearing Pending Tests Upon Discharge: None Please Follow Up With: Bushra Garcia, CLINIC MANAGER-C When: As needed Meaningful Use Info Meaningful Use Diagnoses (Choose all that apply): None applicable Discharge Plan Admission Admit Date/Time: 03/13/23 11:55 Primary Reason for Your Visit: Chest pain, ACS rule out Attending Provider: Selvin Pearson Primary Care Provider: Bushra Garcia Instructions Additional Instructions / Restrictions: Continue all home medications as you have been taking. Follow-up with your primary care doctor this Thursday as previously scheduled. Discharge Orders/Prescriptions Prescriptions: Continued amlodipine 5 MG tablet 5 mg PO DAILY levothyroxine 100 MCG tablet 100 mcg PO DAILY losartan-hydrochlorothiazide 1 EACH tablet 1 tab PO DAILY sennosides-docusate sodium [Stool Softener-Stimulant Laxat] 8.6-50 mg Tablet 2 tab PO BID 30 Days Qty: 120 0RF mirtazapine 15 mg Tablet 7.5 mg PO QHS 30 Days Qty: 15 0RF oxycodone 5 mg Tablet 5 mg PO Q4H PRN PRN (Reason: Pain Score 4-10) 7 Days Qty: 42 0RF simethicone 80 mg Tablet,Chewable 80 mg PO TIDPC 30 Days Qty: 90 0RF acetaminophen 500 mg Tablet 1,000 mg PO Q8 PRN (Reason: fever or pain) potassium chloride 10 mEq Tablet,Er Particles/Crystals 20 meq PO DAILY omeprazole 20 mg capsule,delayed release(DR/EC) 20 mg PO DAILY Referrals / Follow Up: Bushra Garcia, CLINIC MANAGER-C [Primary Care Provider] - Disposition Disposition (needs filled in before D/C Order can be placed): Home, Self Care Charges/Coding Visit Charges Inpatient E&M: 21714 Disch Hosp >30min
== END 2023-03-14 14:05 | disposition home or self-care (01) ==
LOC: ED 11:39 → PCU 12:23
PROVIDERS: Admitting Provider Hospitalist; Emergency Provider Emergency Medicine; PCP Nurse Practitioner Family; Visit Provider Hospitalist
DX: R07.9 Chest pain, unspecified (principal); E03.9 Hypothyroidism, unspecified; M54.9 Dorsalgia, unspecified; R06.02 Shortness of breath; K21.9 Gastro-esophageal reflux disease without esophagitis; G89.29 Other chronic pain; I10 Essential (primary) hypertension; I44.4 Left anterior fascicular block; I44.0 Atrioventricular block, first degree; Z79.899 Other long term (current) drug therapy; E87.6 Hypokalemia; Z79.890 Hormone replacement therapy; I07.1 Rheumatic tricuspid insufficiency
CPT/HCPCS: 36415; 71045; 71275; 78452; 80048; 80053; 80061; 83036; 83690; 83735; 84443; 84484; 85025; 85379; 93005; 93017; 93306; 96374; 99221; 99285; A9500; Q9967; A4216; G0378; J2405; J2785

== ENCOUNTER 2023-03-26 11:24 | Outpatient (CLI) | payer MEDICARE, SELFPAY | END 2023-03-26 23:59 | disposition home or self-care (01) | LOC: PSN 11:25 | PROVIDERS: PCP Nurse Practitioner Family; Referring Provider Internal Medicine Critical Care Medicine; Visit Provider Internal Medicine Critical Care Medicine | DX: R91.1 Solitary pulmonary nodule (principal) | CPT/HCPCS: 94667 ==

== ENCOUNTER → 2023-04-21 | Outpatient (CLI) | payer MEDICARE, SELFPAY ==
--- NOTE | 2023-04-21 07:51 | PET_ITS ---
EXAMINATION: FDG PET-CT INDICATIONS: An 82-year-old female with a history of pulmonary nodularity. COMPARISON EXAMINATION: None available. INDEX LESION SIZE SUV INTERPRETATION Right upper lung field, right upper lobe 1.2 max Quantitative criteria for viable neoplasm are not fulfilled, sequential radiologic investigation recommended. Bilateral adrenal glands 1.9 max Quantitative criteria for viable neoplasm are not fulfilled. TECHNIQUE: Following the intravenous administration of 13.30 mCi of F-18 deoxyglucose via the right antecubital fossa, multiplanar image acquisitions of the head, neck, chest, abdomen and pelvis to level of mid-thigh, lower extremities obtained at one hour post radiopharmaceutical administration contemporaneously interpreted with the current CT of the head, neck, chest, abdomen and pelvis to level of mid-thigh, lower extremities dated 04/21/23 via coregistration reveal: SERUM GLUCOSE LEVEL: 119 mg/dl. HEIGHT: 61 inches. WEIGHT: 167 lbs. FINDINGS: Head/Neck: There is no evidence of abnormal increased glucose metabolism in the pharyngeal mucosal space, parapharyngeal space, bilateral-lateral and anterior neck, hypopharynx and distribution of the laryngeal structures. The visualized portion of the cerebral cortical-subcortical structures demonstrate symmetric and preserved glucose metabolism. CHEST: Facilitated uptake is noted in the right mid-lower anteromedial lung zone, right upper lobe generating a calculated maximum standard uptake value of 1.2. Pertinent chest CT findings are as follows. There is atherosclerotic calcification defined in the thoracic aorta without evidence of dilatation-aneurysm formation. Coronary arterial calcification is observed. Scattered bilateral axillary and mediastinal soft tissue densities are ametabolic. Abdomen/Pelvis: Photopenia noted in the right upper abdomen is attributed to a right renal cyst. Prominent uptake is noted in the bilateral upper abdomen associated with the adrenal glands generating a calculated maximum standard uptake value of 1.9. Quantitative criteria for viable neoplasm are not fulfilled. Normal physiologic distribution of the radiopharmaceutical is apparent in the hepatic and splenic parenchyma, both renal units, bladder and visualized intestinal tract. Diffuse radiopharmaceutical concentration is noted in all four quadrants of the abdomen and pelvis. Pertinent abdomen and pelvis CT findings are as follows. Calcified phlebolith formation is noted in the bilateral lower hemipelvis. The gallbladder is surgically absent. The right and left inguinal soft tissue densities are ametabolic. Exophytic cyst formation is defined in the right kidney as described previously. Peripelvic cyst formation is noted in the left kidney. Skeletal/INTEGUMENTARY: Facilitated uptake is noted in the right and left thoracic paravertebral musculature, costochondral margin consistent with visualization of brown adipose tissue, muscle tension artifact. Compression deformities are defined in the tenth and twelfth thoracic vertebra with increased uptake in the tenth thoracic vertebra most consistent with activated leukocytes associated with trauma, fracture. PET/PET/CT Tumor Base -Thigh Subs IMPRESSION: 1. NEGATIVE EXAMINATION. There is no definitive quantitative scintigraphic evidence of recurrent-viable neoplasm. 2. Enhanced tracer uptake noted in the right mid anteromedial lung field, right upper lobe does not fulfill quantitative criteria for malignant transformation. (Dimitris et al, Annals of Internal Medicine, 138:724, 2003) 3. Metabolic and/or anatomic stability may be ensured in the right hemithorax pulmonary parenchymal abnormality with repeat FDG PET-CT and/or CT of the thorax in six-nine months if clinically indicated. (Xiu, Journal of Nuclear Medicine 45:88, P2004 Britney, Seminars in Thoracic and Cardiovascular Surgery 14:292, 2002) 4. Facilitated uptake described in the bilateral adrenal glands do not fulfill quantitative criteria for malignant transformation. Electronic Signature Inocente Sr D.O. Electronically Signed: Inocente Sr DO at 22:43 EDT ,
== END | disposition home or self-care (01) ==
PROVIDERS: PCP Nurse Practitioner Family; Referring Provider Nurse Practitioner Family; Visit Provider Nurse Practitioner Family
DX: R91.1 Solitary pulmonary nodule (principal)
CPT/HCPCS: 78815; A9552

== ENCOUNTER 2023-05-03 10:50 | Emergency (ER) | payer MEDICARE, SELFPAY ==
[2023-05-03 10:51] VITALS: BP 139/82; PULSE 92; RESP 22; TEMP 36.6; O2SAT 94; BMI 32.3
--- NOTE | 2023-05-03 11:39 | EKG12_ITS ---
Test Reason : SOB Blood Pressure : / mmHG Vent. Rate : 080 BPM Atrial Rate : 080 BPM P-R Int : 204 ms QRS Dur : 094 ms QT Int : 420 ms P-R-T Axes : 071 -46 050 degrees QTc Int : 484 ms Normal sinus rhythm Left anterior fascicular block Moderate voltage criteria for LVH, may be normal variant ( R in aVL , Brandan product ) Septal infarct , age undetermined Abnormal ECG Confirmed by LAMAR BRIGHT, NIRALI ([id number]), editor magazine WILLIAN STUART ([id number]) on 05/05/2023 11:53:52 AM Referred By: Confirmed By:NIRALI NEWTON MD
[2023-05-03] MEDS: Dicyclomine 20 MG/2 ML Vial IM (11:51)
[2023-05-03] MEDS: 0.9% Normal Saline (1000mL) 1,000 ML 1000 ML IV (11:51)
[2023-05-03] MEDS: Ondansetron 4 MG/2 ML Vial IV (11:51)
[2023-05-03] MEDS: proCHLORPERazine 10 MG/2 ML Vial IV (11:51)
--- NOTE | 2023-05-03 11:51 | EDS_ITS ---
HPI History of Present Illness Chief Complaint: Abd Pain Narrative Narrative: Patient is a 82-year-old female who is presenting to the ER with intractable nausea, vomiting, midepigastric pain since Thursday evening. Patient lives by herself. Patient came in by ambulance. Patient does not have her gallbladder, she does have her appendix. She does not have a uterus or ovaries. Patient has no headache or neck pain. Not lightheaded or dizzy. Patient has had no diarrhea. Patient states she not been able to keep any food or drink in since Thursday evening. Patient was in the hospital proxy 1 month ago and had a multitude of tests cardiac and pulmonary. Patient has no history of asthma, emphysema or COPD. Patient does have increased respiratory rate, patient states that she feels very anxious and stressed because she is in the hospital again. Patient states she is not short of breath until she got to the hospital. She has had no shortness of breath all weekend. Patient did have work-up 1 month ago, patient was given breathing treatments and patient does have a respiratory albuterol inhaler/respirator aerosol machine at home as well. Patient has been using the aerosols at home once or twice a day since her hospital admission, she did not use them yesterday because she did not think they are helping. No other acute complaints at this time [facility] Medical History Anterior epistaxis Arthritis Cancer Cardiology follow-up encounter Cholecystectomy planned Diverticulosis History of IBS History of thyroid cancer HTN (hypertension) HTN (hypertension) Non-smoker Rhinorrhea Thyroid disease Wears glasses Wears partial dentures Home Medications amlodipine 5 mg tablet 5 mg PO DAILY BP 05/21/18 [History Last Taken 02/20/23] levothyroxine 100 mcg tablet 100 mcg PO DAILY Thyroid 05/21/18 [History Last Taken 02/09/23 06:00] losartan 100 mg-hydrochlorothiazide 25 mg tablet 1 tab PO DAILY BP 05/21/18 [History Last Taken 02/20/23] omeprazole 20 mg capsule,delayed release 20 mg PO DAILY GERD 02/06/23 [History Last Taken 02/20/23] mirtazapine 15 mg tablet 7.5 mg (1/2 x 15 mg) PO QHS 30 days #15 tabs 02/20/23 [Rx Last Taken Unknown] oxycodone 5 mg tablet 5 mg PO Q4H PRN PRN Pain Score 4-10 7 days #42 tabs 02/20/23 [Rx Last Taken Unknown] sennosides 8.6 mg-docusate sodium 50 mg tablet (Stool Softener-Stimulant Laxative) 2 tab PO BID 30 days #120 tabs 02/20/23 [Rx Last Taken Unknown] simethicone 80 mg chewable tablet 80 mg PO TIDPC 30 days #90 tabs 02/20/23 [Rx Last Taken Unknown] acetaminophen 500 mg tablet 1,000 mg PO Q8 PRN fever or pain 03/13/23 [History Last Taken Unknown] potassium chloride 10 mEq tablet,extended release(part/cryst) 20 meq PO DAILY 03/13/23 [History Last Taken Unknown] Acapella #1 ea 03/25/23 [Rx Last Taken Unknown] PEP device #1 ea 03/25/23 [Rx Last Taken Unknown] albuterol sulfate 90 mcg/actuation aerosol inhaler 2 puff inhalation Q4H PRN 03/25/23 [History Last Taken Unknown] Allergy/AdvReac Type Severity Reaction Status Date / Time No Known Allergies Allergy Verified 05/03/23 10:50 Surgical History History of cataract extraction with lens replacement History of hysterectomy History of thyroidectomy Social History household members: none Smoking Status: Never smoker alcohol intake: never substance use type: does not use ROS ROS ED ROS Narrative REVIEW OF SYSTEMS: Unless otherwise stated in this report the patient's positive and negative responses for review of systems for constitutional, eyes, ENT, cardiovascular, respiratory, gastrointestinal, neurological, , musculoskeletal, and integument systems and related systems to the presenting problem are either stated in the history of present illness or were not pertinent or were negative for the symptoms and/or complaints related to the presenting medical problem. EXAM Physical Exam Narrative Exam Narrative: Vital signs reviewed and patient is not hypoxic. General: The patient appears well and in no apparent distress. Patient is resting comfortably on cart. Not toxic, lethargic, or listless. Skin: Warm, dry, no pallor noted. There is no rash noted. Head: Normocephalic, atraumatic Eye: Normal conjunctiva, no drainage, EOMI. PERRL. Ears, Nose, Mouth, and Throat: oral mucosa is dry minimally. Nares patent. Mouth without vesicles. Cardiovascular: Regular Rate and Rhythm, no murmurs, gallops, or rubs Respiratory: Patient has increased respiratory rate, states she does not feel short of breath, she feels more anxious and stressed. Lungs are clear and equal bilateral, patient is in no distress, no accessory muscle use, lungs are clear to auscultation, no wheezing, rales or rhonchi Back: non-tender, no CVA tenderness bilaterally to percussion. NO CTLS midline or paraspinal tenderness to palpation. GI: Soft, mild to moderate midepigastric discomfort, no right or left upper quadrant tenderness palpation. No peritoneal signs. No flank pain bilateral, otherwise no tenderness to palpation, no masses appreciated. No rebound, guarding, or rigidity noted. Musculoskeletal: The patient has full range of motion of all extremities and joints with no difficulty. Patient has no motor, no sensory deficits. Neurological: A&O x4, normal speech, no focal neurological deficits. Psychiatric: Cooperative Const Vital Signs: 05/03/23 10:51 05/03/23 12:50 05/03/23 14:00 Temperature 97.8 F Temperature Source Oral Pulse Rate 92 72 77 Respiratory Rate 22 H 20 H 20 H Blood Pressure 139/82 H 136/84 H Blood Pressure Mean 101 101 Pulse Ox 94 93 94 Oxygen Delivery Method Room Air Room Air Room Air 05/03/23 16:00 05/03/23 18:00 Temperature Temperature Source Pulse Rate 89 Respiratory Rate 20 H Blood Pressure 142/77 H 132/87 H Blood Pressure Mean 98 102 Pulse Ox 94 Oxygen Delivery Method Room Air MDM MDM MDM Narrative Medical decision making narrative: Patient is leaving AGAINST MEDICAL ADVICE. Patient did would not want the fourth hour of her IV potassium for unknown reason. Patient says that she feels better, she has had enough, she had been in the ER for too long, and she wants to go back home. Patient was given 60 mEq of oral potassium to drink. Patient is tolerating liquids without difficulty. Patient had 4 hours of IV potassium ordered, she told the nurse to stop the infusion after 3 hours. Patient does take 40 mill equivalents of potassium daily at home. Patient will take 3 -20 mEq tablets every day this week instead of 2 - 20 mill equivalent tablets for for the next 5 days. Patient will follow-up with PCP for additional medication regimen or changes as needed. Patient has not had any nausea or vomiting in the ER. Patient did have a few days of diarrhea on Thursday and prior to the nausea vomiting starting on Thursday. Patient felt better, does not want to be in the ER anymore. Patient has a functional decision-making capacity to refuse care and be discharged. The patient is oriented to person, place, and time, demonstrating all harrison elements of capacity to make decisions regarding the medical care offered. The patient speaks coherently and exhibits no evidence of having an altered level of consciousness or alcohol or drug intoxication to a point that would impair ability to delineate a choice. He/she is able to ambulate without difficulty. The patient demonstrates understanding and appreciation of the relevant information of the nature their medical condition, as well as the risks, benefits, and treatment alternatives (including nontreatment), Consequences of refusing care, and can appropriately communicative rational reasoning about their choice of care options. Patient is aware of a suspected diagnosis suggested by history and exam. The risks of refusing recommended care that were disclosed and acknowledged by the patient including , unforeseen complications, neurological dysfunction, permanent mental impairment, loss of limb, loss of sexual function, loss of current lifestyle, worsening chronic condition, long-term disability were disclosed. The patient understands they are welcome to return to the hospital anytime to receive the recommended care or any other care at any time, regardless of their ability to pay for such care. Discharge instructions were provided to the patient along with necessary prescriptions if indicated. Patient has had continuous cardiac monitoring, with oral and IV potassium that was given. Critical care time 35 minutes exclusive from separate billable procedures that were performed. The following was considered in the determination of critical care but not limited to the level of medical decision making, intensive cardiac and/or respiratory monitoring, frequent vital sign monitoring, evaluation of laboratory studies, evaluation of radiographic studies, oxygen monitoring, and constant monitoring and speaking to family at bedside Lab Data Attestation: I reviewed the patient's lab results. Labs: Laboratory Results - last 24 hr 05/03/23 05/03/23 10:53 13:28 WBC 7.0 RBC 5.28 Hgb 15.0 Hct 46.3 MCV 87.7 MCH 28.4 MCHC 32.4 RDW Std Deviation 45.3 H RDW Coeff of Barbara 13.9 Plt Count 349 MPV 10.1 Immature Gran % (Auto) 0.700 Neut % (Auto) 85.9 H Lymph % (Auto) 7.6 L Sterling % (Auto) 5.4 Eos % (Auto) 0.0 Baso % (Auto) 0.4 Absolute Neuts (auto) 6.0 Absolute Lymphs (auto) 0.53 L Nucleated RBC % 0 Differential Comment SCANNED Sodium 137 Potassium 2.7 L* Chloride 101 Carbon Dioxide 27.0 Anion Gap 9 BUN 17 Creatinine 0.95 Estim Creat Clear Calc 33.86 Est GFR (MDRD) Af Amer 72 Est GFR (MDRD) Non-Af 60 BUN/Creatinine Ratio 18.0 Glucose 156 H Calcium 9.0 Total Bilirubin 0.80 AST 22 ALT 37 Alkaline Phosphatase 86 Troponin I High Sens 7 Total Protein 7.4 Albumin 3.5 Globulin 3.9 Albumin/Globulin Ratio 0.9 Lipase 25 Urine Color Yellow Urine Clarity Clear Urine pH 6.0 Ur Specific [place] 1.015 Urine Protein 15 H Urine Glucose (UA) Normal Urine Ketones 15 H Urine Occult Blood Negative Urine Nitrite Negative Urine Bilirubin Negative Urine Urobilinogen Normal Ur Leukocyte Esterase 25 H Urine RBC 0 SEEN Urine WBC 0-5 SEEN Ur Squamous Epith Cells 0 SEEN Urine Bacteria RARE Urine Mucus 0 SEEN Patient potassium is 2.7. Patient will be given oral and IV potassium. EKG Initial EKG: Attestation: I personally reviewed and interpreted this EKG as follows: (EKG interpretation. Normal sinus rhythm 80 beats a minute. Left axis deviation. No acute ST elevation, no acute ectopy. QTc of 484. Left anterior fascicular block read by EKG,) Discharge Plan Triage Chief Complaint: Abd Pain ED Provider: Mike Mahoney Dx/Rx/DC Orders Clinical Impression: Left against medical advice, Dyspnea, Nausea & vomiting, Acute hypokalemia Instructions: AMA, ED Dyspnea, ED Hypokalemia, ED Vomiting (Adult) Prescriptions: No Action albuterol sulfate 90 mcg/actuation HFA aerosol inhaler 2 puff inhalation Q4H PRN (DME) Acapella See Rx Instructions .ROUTE .MEDSUPPLY Qty: 1 0RF Rx Instructions: As directed amlodipine 5 MG tablet 5 mg PO DAILY levothyroxine 100 MCG tablet 100 mcg PO DAILY losartan-hydrochlorothiazide 1 EACH tablet 1 tab PO DAILY sennosides-docusate sodium [Stool Softener-Stimulant Laxat] 8.6-50 mg Tablet 2 tab PO BID 30 Days Qty: 120 0RF mirtazapine 15 mg Tablet 7.5 mg PO QHS 30 Days Qty: 15 0RF oxycodone 5 mg Tablet 5 mg PO Q4H PRN PRN (Reason: Pain Score 4-10) 7 Days Qty: 42 0RF simethicone 80 mg Tablet,Chewable 80 mg PO TIDPC 30 Days Qty: 90 0RF acetaminophen 500 mg Tablet 1,000 mg PO Q8 PRN (Reason: fever or pain) potassium chloride 10 mEq Tablet,Er Particles/Crystals 20 meq PO DAILY omeprazole 20 mg capsule,delayed release(DR/EC) 20 mg PO DAILY (DME) PEP device See Rx Instructions .ROUTE .MEDSUPPLY Qty: 1 0RF Rx Instructions: with training Primary Care Provider: Bushra Garcia Referrals: Bushra Garcia, [facility] [Primary Care Provider] - Activity Restrictions/Additional Instructions: The patient is oriented to person, place, and time, demonstrating all harrison abiodun ments of capacity to make decisions regarding the medical care offered. The patient speaks coherently and exhibits no evidence of having an altered level of consciousness or alcohol or drug intoxication to a point that would impair ability to delineate a choice. He/she is able to ambulate without difficulty. The patient demonstrates understanding and appreciation of the relevant information of the nature their medical condition, as well as the risks, benefits, and treatment alternatives (including nontreatment), Consequences of refusing care, and can appropriately communicative rational reasoning about their choice of care options. Patient is aware of a suspected diagnosis suggested by history and exam. The risks of refusing recommended care that were disclosed and acknowledged by the patient including , unforeseen complications, neurological dysfunction, permanent mental impairment, loss of limb, loss of sexual function, loss of current lifestyle, worsening chronic condition, long-term disability were disclosed. The patient understands they are welcome to return to the hospital anytime to receive the recommended care or any other care at any time, regardless of their ability to pay for such care. Discharge instructions were provided to the patient along with necessary prescriptions if indicated. Take 3 tablets of your potassium 20 mEq for the next 5 days; not 2 a day, but take 3 a day for the next 5 days and then follow-up with further instructions from your PCP. Use nausea medication as needed to help increase fluids. You did not want to receive the last dose of your IV potassium. You were given oral potassium in the ER as well. Disposition Disposition: Home, Self Care Discharge Date/Time: 05/03/23 18:46
[2023-05-03 12:03] LABS: Absolute Lymphocyte Count 0.53 X10^3/uL (0.83-4.51); Basophil# 0.03 X10^3/uL; Basophil% 0.4 % (0-1); Hematocrit 46.3 % (37-47); Lymphocyte # 0.53 X10^3/ul (0.83-4.51); Lymphocyte % 7.6 % (19-41); Mean Corp Hgb Conc 32.4 g/dL (32-36); Mean Corpuscular Hgb 28.4 pg (27.0-32.0); Mean Corpuscular Volume 87.7 fL (81-99); Mean Platelet Vol. 10.1 fl (6.2-12.0); Monocyte# 0.38 X10^3/uL; Monocyte% 5.4 % (0-10); NRBC Flagged by Analyzer 0 % (0-5); Neutrophil # 5.99 X10^3/uL (2.7-7.7); Neutrophil % 85.9 % (47-70); POSITIVE DIFFERENTIAL YES; Platelet Count 349 K/mm3 (150-450); RBC Distribution Width CV 13.9 % (11.6-14.6); RBC Distribution Width SD 45.3 fl (35.1-43.9); Red Blood Count 5.28 M/mm3 (4.2-5.4)
[2023-05-03 12:04] LABS: Differential Indicated SCAN CRITERIA MET
[2023-05-03] MEDS: Famotidine 200 MG/20 ML MDV 20 MG in 0.9% Normal Saline (Pres. free 8 ML 300 MG IV (12:10)
[2023-05-03 12:11] LABS: ALB/GLOB Ratio 0.9 RATIO (0.9-2.4); AST(SGOT) 22 U/L (15-37); Alanine Aminotransfer ALT/SGPT 37 U/L (13-56); Albumin, Serum 3.5 g/dL (3.2-5.0); Alkaline Phosphatase 86 U/L (45-117); Anion Gap 9 (5-15); BUN 17 mg/dL (7-18); Chloride 101 mmol/L (98-107); Creatinine, Serum 0.95 mg/dL (0.55-1.02); EST Glomerular Filtration Rate 60 mL/min (>60); Est Glom Filt Rate - Afr Amer 72 mL/min (>60); Estimated Creatinine Clearance 33.86 ml/min; Globulin 3.9 g/dL (2.2-4.2); Glucose 156 mg/dL (74-106); Lipase 25 U/L (13-75); Potassium 2.7 mmol/L (3.5-5.1); Protein, Total 7.4 g/dL (6.4-8.2); Sodium Level 137 mmol/L (136-145); Troponin-I HS 7 pg/mL (3.0-54.0)
[2023-05-03] MEDS: Mag Hydrox/Al Hydrox/Simeth 30 ML UDC PO (12:24)
[2023-05-03 12:32] LABS: Differential Comment SCANNED
[2023-05-03 12:50] VITALS: PULSE 72; RESP 20; O2SAT 93
[2023-05-03] MEDS: Potassium Chloride Oral Soln 20 MEQ/15 ML UDC 60 MEQ PO (13:06)
[2023-05-03] MEDS: KCL 40mEq in 0.9% NS 40 MEQ/1,000 ML IV.SOLN 250 MEQ IV (13:06)
[2023-05-03 13:32] LABS: Mucous, Urine 0 SEEN /hpf (<or=2+); Red Blood Cells-Urine 0 SEEN /hpf (0-5); Squamous Epithelial Cells - UA 0 SEEN /hpf (5-10)
[2023-05-03 13:50] LABS: Color, Urine Yellow (Yellow); Glucose, Dipstick Normal (Normal); Ketone-Dipstick 15 mg/dl (Negative); Leukocyte Esterase-Dipstick 25 /ul (Negative); Nitrite-Dipstick Negative (Negative); Occult Blood-Urine Negative /ul (Negative); Protein-Dipstick 15 mg/dl (Negative); Specific Gravity, Urine 1.015 (1.002-1.030); Urine Bilirubin Dipstick Negative (Negative); Urine Clarity Clear (Clear); Urine Urobilinogen Normal (Normal)
[2023-05-03 14:00] VITALS: BP 136/84; PULSE 77; RESP 20; O2SAT 94
[2023-05-03 14:39] LABS: Bacteria RARE /hpf (None Seen); White Blood Cells 0-5 SEEN /hpf (0-5)
[2023-05-03 16:00] VITALS: BP 142/77; PULSE 89; RESP 20; O2SAT 94
--- NOTE | 2023-05-03 17:40 | ED.RN ---
pt states she wants to leave and she wants potassium infusion turned off. dr. diaz notified and amema printed out at his request
[2023-05-03 18:00] VITALS: BP 132/87
== END 2023-05-03 18:46 | disposition home or self-care (01) ==
PROVIDERS: Emergency Provider Emergency Medicine; PCP Nurse Practitioner Family; Visit Provider Emergency Medicine
DX: Z90.710 Acquired absence of both cervix and uterus (principal); E87.6 Hypokalemia; R11.2 Nausea with vomiting, unspecified; R06.00 Dyspnea, unspecified; I10 Essential (primary) hypertension; Z53.29 Procedure and treatment not carried out because of patient's decision for other reasons; Z90.49 Acquired absence of other specified parts of digestive tract; Z85.850 Personal history of malignant neoplasm of thyroid; Z79.899 Other long term (current) drug therapy
CPT/HCPCS: 80053; 81001; 83690; 84484; 85025; 93005; 99285; J7030; A4216; J2405; J3490

== ENCOUNTER → 2023-05-05 | Outpatient (CLI) | payer MEDICARE, SELFPAY ==
[2023-05-05 12:40] LABS: Anion Gap 6 (5-15); BUN 21 mg/dL (7-18); Calcium,Total 8.8 mg/dL (8.5-10.1); Chloride 105 mmol/L (98-107); Creatinine, Serum 1.05 mg/dL (0.55-1.02); EST Glomerular Filtration Rate 53 mL/min (>60); Est Glom Filt Rate - Afr Amer 64 mL/min (>60); Glucose 125 mg/dL (74-106); Potassium 3.6 mmol/L (3.5-5.1); Sodium Level 141 mmol/L (136-145)
== END | disposition home or self-care (01) ==
LOC: LABSPEC 12:08
PROVIDERS: PCP Nurse Practitioner Family; Referring Provider Nurse Practitioner Family; Visit Provider Nurse Practitioner Family
DX: E87.6 Hypokalemia (principal)
CPT/HCPCS: 80048

== ENCOUNTER → 2024-01-06 | Outpatient (CLI) | payer MEDICARE, SELFPAY ==
--- NOTE | 2024-01-06 08:16 | CT_ITS ---
INDICATION: interstitial lung disease EXAMINATION: CT CHEST WITHOUT CONTRAST - CT Chest W/O Contrast Injection TECHNIQUE: Helically acquired images were obtained of the chest. A radiation dose optimization technique was used for this scan. IV Contrast dosage and agent: None. COMPARISON: None. FINDINGS: LUNGS, PLEURA AND LARGE AIRWAYS: No masses, consolidation, or edema. Thickening in the minor fissure of the right lung. No pneumothorax. THYROID: No thyroid lesions. HEART AND PERICARDIUM: Heart size is normal. No pericardial effusion. CORONARY ARTERIES: Coronary artery calcification is seen. VESSELS: Thoracic aorta is not dilated. MEDIASTINUM AND EVER: No mediastinal or hilar adenopathy. Esophagus is unremarkable. No hiatal hernia. UPPER ABDOMEN: 9 cm exophytic cyst in the midsection of the right kidney. On image 127 there is suggestion of some mural nodularity of the medial aspect of the cyst and correlation with renal mass protocol CT is recommended. Status post cholecystectomy. 1 cm peripherally calcified cyst in the anterior segment right lobe of the liver. BONES: Multiple chronic compression fractures of thoracic spine with increased kyphosis. CT/Chest without Contrast IMPRESSION: Negative CT chest without contrast. 9 cm exophytic cyst of the right kidney with some questionable mural nodularity and correlation with renal mass protocol CT is recommended. Electronically Signed: Inocente Griffiths MD at 16:00 EDT ,
== END | disposition home or self-care (01) ==
LOC: CT 08:13
PROVIDERS: PCP Nurse Practitioner Family; Referring Provider Nurse Practitioner Family; Visit Provider Nurse Practitioner Family
DX: J84.9 Interstitial pulmonary disease, unspecified (principal); R06.02 Shortness of breath; R05.9 Cough, unspecified
CPT/HCPCS: 71250

== ENCOUNTER → 2024-01-28 | Outpatient (CLI) | payer MEDICARE, SELFPAY ==
--- NOTE | 2024-01-28 08:32 | CT_ITS ---
STUDY: CT ABDOMEN AND PELVIS WITH AND WITHOUT CONTRAST REASON FOR EXAM: Female, 83 years old. Urgent, W/WO. renal mass protocol, pain. RADIATION DOSAGE (If Supplied By Facility): CTDIvol = ( 24.34 ) mGy, DLP = ( 3660.23 ) mGycm TECHNIQUE: Transaxial images were obtained from the dome of the diaphragm to the symphysis pubis without oral contrast. IV 100mL Isovue-[id number] was administered. Sagittal and coronal images were reconstructed. Individualized dose optimization techniques were used for this CT. COMPARISON: Comparison is made with prior study February 06, 2023. FINDINGS: The visualized lung bases are unremarkable. The visualized portions of the heart are within normal limits. There is decreased attenuation of the liver consistent with steatosis. There is a 9.5 mm calcified hypodensity in the anterior aspect of the right lobe of the liver in the region of the dome of the liver. This is unchanged and may represent a small hemangioma. There are surgical clips in the gallbladder fossa consistent with a prior cholecystectomy. Normal spleen. Normal pancreas. Normal bilateral adrenal glands. There is an 8.27 x 9.7 cm cyst in the upper lateral aspect of the right kidney. Small right parapelvic cysts. Left parapelvic cysts. There is also evidence of a 1.5 similar cyst in the upper medial portion of the left kidney. Normal visualized stomach. Normal small intestine. There are multiple colonic diverticula consistent with diverticulosis. There is non-visualization of the appendix. There is scattered atherosclerotic calcification of the abdominal aorta, without a demonstrated aneurysm. Normal inferior vena cava. Normal retroperitoneum. Normal urinary bladder. The patient is status post hysterectomy. There is a small umbilical hernia containing fat. There are diffuse degenerative changes of the visualized lumbar spine. CT/CT Abd/Pelvis W/WO Contrast IMPRESSION: Stable examination. Bilateral renal cysts more prominent on the right side. Sigmoid diverticulosis. Fatty infiltration of the liver. Electronically Signed: Seth Hahn MD at 14:03 EDT ,
[2024-01-28 08:46] LABS: CREATININE FINGERSTICK < 1.0 mg/dL (0.55-1.02); EGFR FINGERSTICK > 60.0000 mL/min (>60)
== END | disposition home or self-care (01) ==
LOC: CT 08:16
PROVIDERS: PCP Nurse Practitioner Family; Referring Provider Nurse Practitioner Family; Visit Provider Nurse Practitioner Family
DX: N28.89 Other specified disorders of kidney and ureter (principal)
CPT/HCPCS: 74178; Q9967

== ENCOUNTER → 2024-08-18 | Outpatient (CLI) | payer MEDICARE, SELFPAY ==
--- NOTE | 2024-08-18 13:13 | MRI_ITS ---
PROCEDURE: MRI brain without and with IV contrast REASON FOR EXAM: Trigeminal neuralgia, pain TECHNIQUE: Multisequence multiplanar MR images of the brain were obtained before and after the administration of intravenous contrast COMPARISON: None. FINDINGS: No diffusion restriction to suggest acute/subacute ischemia. No evidence of acute intracranial hemorrhage, midline shift or mass effect. No pathologic enhancement. 7th, 8th and 5th cranial nerve complexes are symmetric and without suspicious enhancement. Scattered periventricular, subcortical and deep white matter hyperintense FLAIR signal lesions most likely related to chronic small vessel ischemic disease given the patient's age. No cortical edema. Mild generalized cerebral atrophy. No hydrocephalus. Globes are intact. Paranasal sinuses and mastoid air cells are relatively clear. MRI/Brain W/WO Contrast IMPRESSION: 1. No acute intracranial abnormality or pathologic enhancement. 2. Atrophy and chronic small vessel ischemic disease. Reading Location: [facility]
== END | disposition home or self-care (01) ==
LOC: MRI 13:05
PROVIDERS: PCP Nurse Practitioner Family; Referring Provider Nurse Practitioner Family; Visit Provider Nurse Practitioner Family
DX: G50.0 Trigeminal neuralgia (principal)
CPT/HCPCS: 70553; A9575

== ENCOUNTER → 2024-10-27 | Outpatient (CLI) | payer MEDICARE, SELFPAY ==
--- NOTE | 2024-10-27 10:58 | BD_ITS ---
PROCEDURE: DEXA BONE DENSITY STUDY 10/27/2024 REASON FOR EXAM: F, age 84 y/o . Postmenopausal. TECHNIQUE: DXA scan of sites with data reported below. REFERENCE LINKS: [facility] Adult Positions COMPARISON: July 09, 2021. FINDINGS: BMD and T-SCORES Lumbar spine: 0.719 g/cm2, T-score -3.5 Levels: L1 through L4 Change from prior: Worsening of 7.2%. Left femoral neck: 0.428 g/cm2, T-score -3.8 Femoral neck comparison data not recommended for monitoring change. Prior T-score -2.5 Left total hip: 0.658 g/cm2, T-score -2.3 Change from prior: -2.3. Right femoral neck: 0.507 g/cm2, T-score -3.1 Femoral neck comparison data not recommended for monitoring change. Prior T-score -2.5 Right total hip: 0.621 g/cm2, T-score -2.6 Change from prior: -2.6. The World Health Organization has defined the following categories based on bone density: Normal bone density: T-score equal to or greater than -1.0 Osteopenia: T-score between -1.0 and -2.5 Osteoporosis: T-score equal to or less than -2.5 FRAX (or Comparable) Fracture Risk Assessment: (Note: FRAX is not to be reported in setting of normal range bone density, osteoporosis on DEXA, known history of osteoporosis, prior osteoporotic hip or vertebral fracture, or for any patient undergoing pharmacological treatment for bone loss.) The National Osteoporosis Foundation (NOF) recommends pharmacological treatment for patients with a FRAX 10-year risk of 3% or higher for a hip fracture, or 20% or higher for a major osteoporotic fracture, to prevent osteoporosis and reduce fracture risk. The patient does meet the pharmacological treatment recommendations for prevention of osteoporosis. BD/Dexa Bone Density Study IMPRESSION: OSTEOPOROSIS. Recommend follow-up as clinically warranted. Reading Location: [place] [id number]
== END | disposition home or self-care (01) ==
LOC: OPBD 10:57
PROVIDERS: PCP Nurse Practitioner Family; Referring Provider Nurse Practitioner Family; Visit Provider Nurse Practitioner Family
DX: Z78.0 Asymptomatic menopausal state (principal)
CPT/HCPCS: 77080

== ENCOUNTER → 2025-06-08 | Outpatient (CLI) | payer MEDICARE, SELFPAY ==
[2025-06-08 15:29] LABS: Hematocrit 45.6 % (37-47); Hemoglobin 14.8 g/dL (12.0-15.0); Mean Corp Hgb Conc 32.5 g/dL (32-36); Mean Corpuscular Volume 87.0 fL (81-99); Mean Platelet Vol. 10.5 fl (6.2-12.0); Platelet Count 363 K/mm3 (150-450); RBC Distribution Width CV 13.7 % (11.6-14.6); RBC Distribution Width SD 43.8 fl (35.1-43.9); Red Blood Count 5.24 M/mm3 (4.2-5.4); White Blood Count 7.8 K/mm3 (4.4-11.0)
[2025-06-08 16:02] LABS: AST(SGOT) 19 U/L (<=31); Alanine Aminotransfer ALT/SGPT 16 U/L (<=34); Albumin, Serum 4.0 g/dL (3.4-4.8); Alkaline Phosphatase 78 U/L (35-104); Anion Gap 14 (5-15); BUN 18 mg/dL (4-19); BUN/Creat Ratio 17.9 RATIO (10-20); Calcium,Total 9.1 mg/dL (7.6-11.0); Carbon Dioxide 23.4 mmol/L (21.0-32.0); Chloride 103 mmol/L (98-108); Cholesterol 208 mg/dL (<=200); Globulin 3.3 g/dL (2.2-4.2); Glucose 113 mg/dL (70-99); Low Density Lipoprotein Calc. 122 mg/dL; Potassium 4.2 mmol/L (3.3-5.1); Triglycerides 121 mg/dL; Very Low Density Lipoprotein 24 mg/dL (5-40); Vitamin D,25 Hydroxy 90.2 ng/mL (30-100); cholesterol:hdl ratio screen 3.20
== END | disposition home or self-care (01) ==
LOC: MFPLAB 12:34
PROVIDERS: PCP Family Medicine; Visit Provider Family Medicine
DX: I10 Essential (primary) hypertension (principal); R79.89 Other specified abnormal findings of blood chemistry; E03.9 Hypothyroidism, unspecified; E78.5 Hyperlipidemia, unspecified
CPT/HCPCS: 36415; 80053; 80061; 82306; 84439; 84443; 85027